=== PATIENT | female | born 1950 | race Caucasian/White ===

== ENCOUNTER 2016-02-21 15:41 | Emergency (ER) | payer MEDICAID ==
--- NOTE | 2016-02-21 16:03 | Emergency Department Report ---
Chief Complaint: Extremity Injury, Lower Stated Complaint: LEG PAIN Time Seen by Provider: 02/21/16 16:00 - HPI History of Present Illness: 65 y/o female sent to er by for arterial ultrasound.pt complain of right leg pain x 1 week after angioplasty.pt denies any shortness of breath .pt unable to stand or bear weight . - ROS Review of Systems: per HPI - Exam Vital Signs: Vital Signs 02/21/16 15:55 Temperature 98.3 F Pulse Rate 72 Respiratory 20 Rate Blood Pressure 124/63 O2 Sat by Pulse 97 Oximetry Physical Exam: GENERAL: The patient is well-developed and well-nourished. Patient is in NAD. HENT: Normocephalic. Atraumatic. Patient has moist mucous membranes. Throat: No erythema, swelling or exudates. EYES: Extraocular motions are intact, PERRL NECK: Supple. No meningitic signs are noted. There is no adenopathy noted. CHEST/LUNGS: Clear to auscultation bilaterally. No wheezing, rales or rhonchi noted. There is no respiratory distress noted. HEART/CARDIOVASCULAR: Regular rate and rhythm. Normal S1 S2. No murmurs, rubs , clicks, or gallops. ABDOMEN: Abdomen is soft, nontender.. Bowel sounds normoactive. There is no abdominal distention. Negative rebound tenderness. : Deferred SKIN: There is no rash. There is no edema. There is no diaphoresis. NEURO: The patient is A&Ox3. The patient has no focal neurologic deficits. MUSCULOSKELETAL: There is no tenderness or deformity. There is no limitation range of motion. right leg warm to touch .no pedal pulse PSYCH: Pt has appropriate mood and affect. MSE screening note: Focused history and physical exam performed. Due to findings the following was ordered: Phone order from for arterial ultrasound ED Disposition for MSE Condition: Stable
[2016-02-21] MEDS ORDERED: ZOFRAN ODT PO ONE (17:10)
[2016-02-21] MEDS ORDERED: DILAUDID IM ONE (17:10)
--- NOTE | 2016-02-21 17:20 | Emergency Department Report ---
HPI - General Chief Complaint: Extremity Injury, Lower Time Seen by Provider: 02/21/16 16:00 - HPI HPI: The patient is a 65-year-old female with a history of diabetes, who presents for evaluation of leg pain\groin pain, status post revascularization procedure 5 days ago. The patient reports right lower extremity pain and left groin pain worsened for the past one day, 10 out of 10 in severity, sharp in quality in the right lower extremity and throbbing in quality in the left groin/leg, radiating distally in the right leg, exacerbated with movement of the right lower extremity or left lower extremity at the groin region. She does also report some nausea and vomiting and difficulty sleeping last night. The patient denies fever, chills, night sweats, blunt trauma to her surgical site in the left groin, generalized weakness, paralysis or cyanosis in the distal left leg, paresthesias, or motor deficit. ED Past Medical Hx - Past Medical History Hx Hypertension: Yes Hx Diabetes: Yes - Surgical History Past Surgical History?: Yes Additional Surgical History: Angioplasty - Social History Smoking Status: Former Smoker Substance Use Type: None - Medications Home Medications: Home Medications Medication Instructions Recorded Confirmed Last Taken Type Aspirin [Aspirin BABY CHEW TAB] 81 mg PO DAILY 06/16/15 06/16/15 2 Weeks Ago History Clopidogrel Bisulfate [Plavix] 75 mg PO DAILY #30 tablet 06/16/15 Unknown Rx Gabapentin [Neurontin] 100 mg PO Q8HR 06/16/15 06/16/15 2 Weeks Ago History Insulin Admin. Supplies [Novopen 15 units SQ BID #1 insuln.pen 06/16/15 Unknown Rx Echo] Lisinopril [Zestril TAB] 20 mg PO QDAY #30 tablet 06/16/15 Unknown Rx amLODIPine [Norvasc] 5 mg PO DAILY #30 tablet 06/16/15 Unknown Rx HYDROcodone/APAP 7.5-325 [[place] 1 each PO Q8HR PRN #10 tablet 02/21/16 Unknown Rx 7.5-325 mg TAB] Ondansetron [Zofran TAB] 4 mg PO Q8HR PRN #20 tablet 02/21/16 Unknown Rx ED Review of Systems ROS: Stated complaint: LEG PAIN Other details as noted in HPI Constitutional: denies: fever Respiratory: denies: shortness of breath Cardiovascular: denies: chest pain Gastrointestinal: denies: abdominal pain Musculoskeletal: myalgia Skin: denies: rash, change in color Neurological: denies: headache Psychiatric: denies: depression Hematological/Lymphatic: denies: easy bleeding Physical Exam - Physical Exam Vital Signs: Vital Signs 02/21/16 02/21/16 15:55 16:57 Temperature 98.3 F Pulse Rate 72 64 Respiratory 20 16 Rate Blood Pressure 124/63 Blood Pressure 136/63 [Left] O2 Sat by Pulse 97 99 Oximetry Physical Exam: General: well-nourished, well-developed, no acute distress Head: Normocephalic, atraumatic Eyes: normal sclera ENT: Mucous membranes are pink and moist Neck: trachea midline, neck supple, No neck stiffness, no cervical adenopathy Respiratory: Breath sounds equal bilaterally, no wheezing, rales, or rhonchi Cardio: S1 and S2 present, no murmurs, rubs, gallops, capillary refill is brisk Abdomen: Normoactive bowel sounds, soft abdomen, no rigidity, no guarding or rebound tenderness Musc: nml inspection of both legs, left groin tender, right leg posterior tenderness, no redness, swelling, warmth, ecchymosis, fluctuance or crepitus throughout the legs bilaterally, no signs of infection, DVT, or compartment syndrome, sensation and motor function intact in the legs bilaterally Skin: No rash Neuro: no facial drooping, normal speech Psych: Normal affect ED Course Vital Signs 02/21/16 02/21/16 15:55 16:57 Temperature 98.3 F Pulse Rate 72 64 Respiratory 20 16 Rate Blood Pressure 124/63 Blood Pressure 136/63 [Left] O2 Sat by Pulse 97 99 Oximetry ED Medical Decision Making - Lab Data Result diagrams: 02/21/16 17:45 02/21/16 17:45 - Medical Decision Making The patient was seen and examined by myself. The patient is placed on a databases computer consultant and continuous pulse ox. On initial evaluation, the patient was found to be in no distress. Evaluation orders were placed. The patient is given an IM dose of Dilaudid for pain. Lab results are unremarkable. Arterial Doppler scan of the right lower extremity is unremarkable. Dr. Jaffe the vascular surgeon on-call for the patient's [facility] surgery group presents to the emergency department. He evaluated the patient's right and left legs, and submitted there were no surgical arterial vascular acute emergencies present, and that the patient is stable for discharge from the arterial vascular surgery perspective. The patient was reevaluated and reported that their symptoms were markedly improved. The patient is stable for discharge with outpatient follow-up. The patient is given follow-up and return instructions. The patient expressed understanding and agreed with the plan. The patient is discharged in stable condition. Critical care attestation.: If time is entered above; I have spent that time in minutes in the direct care of this critically ill patient, excluding procedure time. ED Disposition Clinical Impression: Nausea and vomiting in adult Acute pain of lower extremity Qualifiers: Laterality: left Qualified Code(s): M79.605 - Pain in left leg Disposition: DISCHARGED TO HOME OR SELFCARE Is pt being admited?: No Does the pt Need Aspirin: No Condition: Stable Instructions: Musculoskeletal Pain (ED), Acute Nausea and Vomiting (ED) Referrals: BLAIR OQUENDO MD [Primary Care Provider] - 3-5 Days Time of Disposition: 18:49
[2016-02-21] MEDS ORDERED: NACL 0.9% 1000 ML 1,000 ML IV ONE (17:48)
[2016-02-21] MEDS ORDERED: ZOFRAN IV ONE (17:48)
[2016-02-21] MEDS ORDERED: VALIUM IV ONE (17:48)
[2016-02-21] MEDS ORDERED: DILAUDID IV ONE (17:48)
--- NOTE | 2016-02-21 17:54 | Consultation ---
History of Present Illness - Reason for Consult Consult date: 02/21/16 Severe RLE pain - History of Present Illness 65-year-old female with poorly controlled DM with HTN who presents for evaluation of leg pain status post right SFA atherectomy, and angioplasty with drug coated balloons 5 days ago at [facility] in [place]. The patient is a poor historian and the family are poor historians. The patient complained of right greater than left claudication-like symptoms with some intermittent rest pain-like symptoms of the right foot. She had an arterial ultrasound performed demonstrating compromised ABIs bilaterally. She had an arterial revascularization performed by Dr. Travis of [facility]. After the procedure, she complains of persistent, somewhat worsened pain of the right lower extremity and left lower extremity which occur after ambulating, sometimes without ambulating, with some of the pain radiating from the foot through the posterior calf, posterior thigh, and to the back. She also has a mild discomfort at the left groin access site. No paresthesias beyond expected diabetic neuropathy. No motor dysfunction. No cyanosis. Both feet are warm and well-perfused and viable. At this point, she has no pain, but she sometimes experiences pain with minimal movement. She has a palpable right dorsalis pedis. Nonpalpable posterior tibial on the right, non-palpable left pedal pulses which are unchanged from baseline. She also reports multiple episodes of emesis and nausea after the original procedure. Past History Past Medical History: diabetes, hypertension Past Surgical History: Other (revascularization of the RLE) Social history: lives with family, smoking (former) Family history: other (non contributory) Medications and Allergies Allergies Allergy/AdvReac Type Severity Reaction Status Date / Time No Known Allergies Allergy Verified 06/16/15 17:24 Home Medications Medication Instructions Recorded Confirmed Last Taken Type Aspirin [Aspirin BABY CHEW TAB] 81 mg PO DAILY 06/16/15 06/16/15 2 Weeks Ago History Clopidogrel Bisulfate [Plavix] 75 mg PO DAILY #30 tablet 06/16/15 Unknown Rx Gabapentin [Neurontin] 100 mg PO Q8HR 06/16/15 06/16/15 2 Weeks Ago History Insulin Admin. Supplies [Novopen 15 units SQ BID #1 insuln.pen 06/16/15 Unknown Rx Echo] Lisinopril [Zestril TAB] 20 mg PO QDAY #30 tablet 06/16/15 Unknown Rx amLODIPine [Norvasc] 5 mg PO DAILY #30 tablet 06/16/15 Unknown Rx Active Meds: Active Medications Sodium Chloride (Nacl 0.9% 1000 Ml) 1,000 mls @ 999 mls/hr IV ONCE ONE Stop: 02/21/16 18:48 Review of Systems All systems: negative (see HPI) Exam - Constitutional Vitals: Temp Pulse Resp BP Pulse Ox 98.3 F 64 16 136/63 99 02/21/16 15:55 02/21/16 16:57 02/21/16 17:22 02/21/16 16:57 02/21/16 16:57 General appearance: Present: no acute distress - EENT Eyes: Present: EOM intact ENT: hearing intact - Respiratory Respiratory effort: normal - Extremities Extremities: pulses intact (right DP), normal temperature (both lower extremities), normal color (both lower extremities) Extremity abnormal: pulses diminished (nonpalpable left pedal pulses) - Abdominal General gastrointestinal: Present: soft, non-tender - Psychiatric Psychiatric: appropriate mood/affect, cooperative Results - Labs CBC & Chem 7: 02/21/16 17:45 - Imaging and Cardiology Venous US: report reviewed, image reviewed (arterial ultrasound) Assessment and Plan 65-year-old female with peripheral vascular disease status post endovascular revascularization of the right lower extremity by Dr. Travis on Monday. Patient reports worsening of her symptoms since then. On physical examination, she has bilateral lower extremities which are viable. She has a palpable right dorsalis pedis pulse. Her arterial ultrasound is improved from her baseline ultrasound. She has a palpable left common femoral artery pulse at her access site without evidence of pseudoaneurysm, bruising, or ecchymosis. No evidence of a threatened limb. No blue toes or evidence of microemboli. No lab values are back, but 8 months ago she had a hyperglycemic crisis from uncontrolled diabetes. This may represent an atypical episode of this given her nausea and vomiting. She may also have an orthopedic component from low back issues such as spinal stenosis given her complaints that somewhat sound radicular in nature. Continue aspirin and Plavix. Followup in [address] Travis.
[2016-02-21 17:56] LABS: Basophils % (Auto) 0.7 % (0.0-1.8); Eosinophils % (Auto) 0.5 % (0.0-4.3); Hematocrit 32.5 % (30.3-42.9); Hemoglobin 10.4 gm/dl (10.1-14.3); Mean Corpuscular HGB Conc 32 % (30-34); Mean Corpuscular Hemoglobin 27 pg (28-32); Mean Corpuscular Volume 83 fl (79-97); Platelet Count 225 K/mm3 (140-440); Red Blood Count 3.91 M/mm3 (3.65-5.03); Red Cell Distribution Width 13.8 % (13.2-15.2); White Blood Count 8.2 K/mm3 (4.5-11.0)
[2016-02-21 18:06] LABS: INR 0.91 (0.87-1.13)
[2016-02-21 18:07] LABS: Partial Thromboplastin Time 26.1 Sec. (24.2-36.6)
[2016-02-21 18:40] LABS: Alanine Aminotransferase 9 units/L (7-56); Albumin 3.6 g/dL (3.9-5); Albumin/Globulin Ratio 0.9 %; Alkaline Phosphatase 86 units/L (35-129); Anion Gap 17 mmol/L; Bilirubin,Total 0.2 mg/dL (0.1-1.2); Blood Urea Nitrogen 10 mg/dL (7-17); Calcium 8.9 mg/dL (8.4-10.2); Carbon Dioxide 28 mmol/L (22-30); Chloride 98.5 mmol/L (98-107); Glucose 270 mg/dL (65-100); Potassium 4.6 mmol/L (3.6-5.0); Sodium 139 mmol/L (137-145); Total Protein 7.4 g/dL (6.3-8.2)
[2016-02-21 20:20] VITALS: BP 146/67
--- NOTE | 2016-02-25 08:30 | Vascular Lab Report ---
LOWER EXTREMITY ARTERIAL DUPLEX: REASON FOR EXAM: Peripheral arterial disease. COMMENTS ON THE RIGHT: Triphasic waveforms are seen proximally. Biphasic waveforms are seen distally. No significant velocity gradients are identified. No focal significant plaque is identified. Findings are consistent with normal perfusion. Findings are consistent with the ability to heal distal wounds. IMPRESSION: RIGHT: Essentially normal arterial flow.
== END 2016-02-21 20:33 | disposition home or self-care (01) ==
LOC: ED 15:41
DX: R11.2 Nausea with vomiting, unspecified (principal); M79.604 Pain in right leg; I10 Essential (primary) hypertension; E11.9 Type 2 diabetes mellitus without complications; Z87.891 Personal history of nicotine dependence
CPT/HCPCS: 36415; 80053; 82010; 82805; 82962; 85025; 85610; 85730; 93926; 96361; 96372; 96374; 96375; 99285; J1170; J2405; J3360; J7030; J1815; Q0162

== ENCOUNTER 2016-03-06 10:17 | Emergency (ER) | payer MEDICAID | END 2016-03-06 11:00 | disposition left against medical advice (07) | LOC: ED 10:17 | DX: R11.10 Vomiting, unspecified (principal); Z53.21 Procedure and treatment not carried out due to patient leaving prior to being seen by health care provider ==

== ENCOUNTER 2016-03-15 15:21 | Inpatient (IN) | payer MEDICARE ==
[2016-03-15] MEDS: SUBLIMAZE ONE ×2 (15:10→15:23)
[2016-03-15] MEDS: VERSED ONE ×2 (15:14→15:23)
[~2016-03-15 15:21] MED LIST: ANCEF/STERILE WATER 2 GM/20 ML 20 ML IV ONE; HEPARIN ONE; HEPARIN/NS 5000 UNIT/500ML(CATH LAB) 1,000 ML IR ONE; NACL 0.9% 1000 ML 1,000 ML ONE; NACL ONE; XYLOCAINE 1%/ EPI 1:100,000 INFILTRATI ONE
[2016-03-15] MEDS ORDERED: WATER FOR INJ (PF) 20 ML ONE (15:23)
[2016-03-15] MEDS: HEPARIN 10,000 UNITS/10 ML ONE ×2 (15:30→16:16)
[2016-03-15] MEDS ORDERED: DILAUDID ONE ×2 (15:39→16:01)
[2016-03-15] MEDS: CATHFLO ONE ×2 (15:40→15:51)
[2016-03-15] MEDS ORDERED: TRIDIL DRIP 50MG/250ML 250 ML ONE (15:44)
[2016-03-15] MEDS ORDERED: HEPARIN/NS 5000 UNIT/500ML(CATH LAB) 500 ML IR ONE (15:55)
[2016-03-15] MEDS ORDERED: ZOFRAN IV PRN (16:00)
[2016-03-15] MEDS ORDERED: NACL 0.9% 1000 ML 1,000 ML IV SCH (16:00)
[2016-03-15] MEDS ORDERED: NORCO 5/325 PO PRN (16:00)
[2016-03-15] MEDS ORDERED: MORPHINE IV PRN (16:04)
[2016-03-15] MEDS ORDERED: DILAUDID IV PRN (16:04)
[2016-03-15] MEDS ORDERED: D50W (25GM) IV PRN (16:07)
--- NOTE | 2016-03-15 16:16 | Short Stay Summary ---
[id number] Current Medications: Allergies No Known Allergies Allergy (Verified 06/16/15 17:24) Home Medications Medication Instructions Recorded Confirmed Last Taken Type Aspirin [Aspirin BABY CHEW TAB] 81 mg PO DAILY 06/16/15 03/15/16 03/14/16 History Clopidogrel Bisulfate [Plavix] 75 mg PO DAILY #30 tablet 06/16/15 03/15/1603/14 Rx Gabapentin [Neurontin] 100 mg PO Q8HR 06/16/15 03/15/16 03/14/16 History Insulin Admin. Supplies [Novopen 15 units SQ BID #1 insuln.pen 06/16/1503/14/16 Rx Echo] Lisinopril [Zestril TAB] 20 mg PO QDAY #30 tablet 06/16/15 03/15/16 03/15/16 07: 00 Rx amLODIPine [Norvasc] 5 mg PO DAILY #30 tablet 06/16/15 03/15/16 03/15/16 07:00 Rx HYDROcodone/APAP 7.5-325 [[place] 1 each PO Q8HR PRN #10 tablet 02/21/16 03/15/16 03/14/16 Rx 7.5-325 mg TAB] Ondansetron [Zofran TAB] 4 mg PO Q8HR PRN #20 tablet 02/21/16 03/15/16 03/14/16 Rx Active Medications Acetaminophen/Hydrocodone Bitart ([place] 5/325) 1 each PO Q4H PRN PRN Reason: Pain, Moderate (4-6) Last Admin: 03/16/16 01:47 Dose: 1 each Amlodipine Besylate (Norvasc) 5 mg PO DAILY BRIANA Dextrose (D50w (25gm)) 50 ml IV PRN PRN PRN Reason: Hypoglycemia Gabapentin (Neurontin) 100 mg PO Q8HR BRIANA Last Admin: 03/16/16 06:10 Dose: 100 mg Hydromorphone HCl (Dilaudid) 0.5 mg IV Q3H PRN PRN Reason: Pain , Severe (7-10) Heparin Sodium/Sodium Chloride (Heparin/ 0.45% Nacl-25,000 Unit/500 Ml) 500 mls @ 24 mls/hr IV TITR BRIANA; 1,200 UNITS/HR PRN Reason: Protocol Stop: 03/16/16 15:00 Last Titration: 03/16/16 05:04 Dose: 1,200 units/hr Sodium Chloride (Nacl 0.9% 1000 Ml) 1,000 mls @ 75 mls/hr IV DIRECT BRIANA Insulin Aspart (Novolog) 0 units SUB-Q ACHS BRIANA PRN Reason: Protocol Last Admin: 03/16/16 03:40 Dose: 1 units Insulin Human NPH (Novolin N) 10 unit SUB-Q BIDDIAB [facility] Lisinopril (Zestril) 20 mg PO QDAY [facility] Morphine Sulfate (Morphine) 2 mg IV Q3H PRN PRN Reason: Pain, Moderate (4-6) Last Admin: 03/16/16 06:09 Dose: 2 mg Ondansetron HCl (Zofran) 4 mg IV Q8H PRN PRN Reason: Nausea And Vomiting Rivaroxaban (Xarelto) 15 mg PO BIDDIAB BRIANA PRN Reason: Protocol - Brief post op/procedure progress note Procedure: Operative Report Operative Report: Date of Procedure: 03/15/2016 Pre-operative Diagnosis: Acute Left Lower Extremity Ischemia Post-operative Diagnosis: Same Procedure(s): 1. Diagnostic Left Lower Extremity Arteriogram (Patient Had a Clinical Change) 2. Percutaneous Mechanical Thrombectomy of Left Posterior Tibial Artery with A 6 [place] Guide Catheter 3. Percutaneous Mechanical Thrombectomy of Left Popliteal Artery and Tibioperoneal Trunk With 6 [place] Guide Catheter 4. Angioplasty and Stent of Left Posterior Tibial Artery with 2.5 x 120 Balloon in the Pedal Arch, 3.5 x 200 Balloon In the Posterior Tibial Artery, Followed by 4.0 x 36 mm Medtronic Resolute Drug-Eluting Stent 5. Atherectomy with Angioplasty of Left SFA and Popliteal Arteries with 2.4/ 3.4 JetStream Atherectomy Catheter And a 5 x 250 Balloon 6. Closer of Right Femoral Arteriotomy with 6 [place] Angio-Seal 7. Radiologic Supervision with Interpretation Surgeon: Mohsen Cash M.D. Enrollment Advisor: None Anesthesia: Local and IV sedation EBL: Minimal Counts: Correct Complications: None Condition: Stable Specimen: None Indication: The patient is a 65-year-old female with a history of claudication who was undergoing an aggressive procedure and our outpatient Center. During the procedure she developed thrombus in her tibial vessels requiring emergent transfer to the hospital for intervention. Her daughter was given the risks, benefits, and alternative procedures and extensive procedure. Angiographic Findings: Left common iliac, hypogastric, and external iliac arteries were widely patent. The left common femoral and profunda were widely patent. The SFA had several segments of stenosis varying from 40-60%. The popliteal artery was diffusely diseased with several areas of stenosis varying from 30-80%. There was residual thrombus in the TP trunk was approximately 60% narrowing of the lumen. The thrombus within the TP trunk extended into the peroneal artery. The peroneal artery was occluded below the short segment containing the thrombus. That should tibial artery occluded shortly after it's origin. The posterior tibial artery appeared to have multiple segments of stenosis of approximately 30 -50% including a 50% stenosis at the origin. The extension of the posterior tibial artery into the foot as the pedal arch had a sharp occlusion indicative of thrombus. After intervention the posterior tibial artery and tibioperoneal trunk were widely patent. Popliteal artery was widely patent. The SFA was patent with a short segment dissection in the mid SFA however this was not flow- limiting and the remainder artery was widely patent. - Disposition Condition at discharge: Good Disposition: DISCHARGED TO HOME OR SELFCARE - Discharge Diagnoses (1) Ischemia of left lower extremity Status: Acute Short Stay Discharge Plan Activity: advance as tolerated Weight Bearing Status: Weight Bear as Tolerated Diet: regular Wound: keep clean and dry Additional Instructions: Follow up with your PCP for uncontrolled high blood pressure. Follow up with: MOHSEN CASH MD [Staff Physician] - 14 Days Prescriptions: Rivaroxaban [Xarelto Starter Pack] 1 each PO BID #1 tab.ds.pk <ROSARIO MENDIETA - Last Filed: 03/18/16 08:06> Short Stay Documentation Date of service: 03/15/16 - History Principal diagnosis: PVD with arterial embolis Past Medical History: diabetes, hypertension, PVD, other (arterial embolis) Past Surgical History: Other (revascularization on right, left leg) Social history: no significant social history - Allergies and Medications Current Medications: Allergies No Known Allergies Allergy (Verified 06/16/15 17:24) Home Medications Medication Instructions Recorded Confirmed Last Taken Type Aspirin [Aspirin BABY CHEW TAB] 81 mg PO DAILY 06/16/15 06/16/15 2 Weeks Ago History Clopidogrel Bisulfate [Plavix] 75 mg PO DAILY #30 tablet 06/16/15 Unknown Rx Gabapentin [Neurontin] 100 mg PO Q8HR 06/16/15 06/16/15 2 Weeks Ago History Insulin Admin. Supplies [Novopen 15 units SQ BID #1 insuln.pen 06/16/15 Unknown Rx Echo] Lisinopril [Zestril TAB] 20 mg PO QDAY #30 tablet 06/16/15 Unknown Rx amLODIPine [Norvasc] 5 mg PO DAILY #30 tablet 06/16/15 Unknown Rx HYDROcodone/APAP 7.5-325 [[place] 1 each PO Q8HR PRN #10 tablet 02/21/16 Unknown Rx 7.5-325 mg TAB] Ondansetron [Zofran TAB] 4 mg PO Q8HR PRN #20 tablet 02/21/16 Unknown Rx Active Medications Acetaminophen/Hydrocodone Bitart ([place] 5/325) 1 each PO Q4H PRN PRN Reason: Pain, Moderate (4-6) Hydromorphone HCl (Dilaudid) 0.5 mg IV Q3H PRN PRN Reason: Pain , Severe (7-10) Heparin Sodium/Sodium Chloride (Heparin/ 0.45% Nacl-25,000 Unit/500 Ml) 500 mls @ IV TITR BRIANA; 15 UNITS/KG/HR PRN Reason: Protocol Sodium Chloride (Nacl 0.9% 1000 Ml) 1,000 mls @ 75 mls/hr IV DIRECT BRIANA Morphine Sulfate (Morphine) 2 mg IV Q3H PRN PRN Reason: Pain, Moderate (4-6) Ondansetron HCl (Zofran) 4 mg IV Q8H PRN PRN Reason: Nausea And Vomiting - Physical exam General appearance: no acute distress Integumentary: no rash, no growths HEENT: Atraumatic Lungs: Normal air movement Breasts: deferred Heart: Regular rate Gastrointestinal: normal Female Genitourinary: normal Rectal Exam: deferred Extremities: abnormal (s/p intervention) Neurological: Normal speech - Brief post op/procedure progress note Date of procedure: 03/15/16 Pre-op diagnosis: PVD with arterial embolis Post-op diagnosis: same Procedure: LLE revascularization Anesthesia: local Surgeon: MOHSEN CASH Enrollment Advisor: NORMAN AGUIRRE Estimated blood loss: minimal Pathology: none Condition: stable Short Stay Discharge Plan Activity: advance as tolerated Weight Bearing Status: Weight Bear as Tolerated Diet: regular Wound: keep clean and dry, per your surgeon's advice
--- NOTE | 2016-03-15 17:17 | Operative Report ---
Operative Report Operative Report: Date of Procedure: 03/15/2016 Pre-operative Diagnosis: Acute Left Lower Extremity Ischemia Post-operative Diagnosis: Same Procedure(s): 1. Diagnostic Left Lower Extremity Arteriogram (Patient Had a Clinical Change) 2. Percutaneous Mechanical Thrombectomy of Left Posterior Tibial Artery with A 6 [place] [employer] Guide Catheter 3. Percutaneous Mechanical Thrombectomy of Left Popliteal Artery and Tibioperoneal Trunk With 6 [place] Guide Catheter 4. Angioplasty and Stent of Left Posterior Tibial Artery with 2.5 x 120 Balloon in the Pedal Arch, 3.5 x 200 Balloon In the Posterior Tibial Artery, Followed by 4.0 x 36 mm Medtronic Resolute Drug-Eluting Stent 5. Atherectomy with Angioplasty of Left SFA and Popliteal Arteries with 2.4/ 3.4 JetStream Atherectomy Catheter And a 5 x 250 Balloon 6. Closer of Right Femoral Arteriotomy with 6 [place] [employer] Angio-Seal 7. Radiologic Supervision with Interpretation Surgeon: Mohsen Cash M.D. Soap Drier Operator: None Anesthesia: Local and IV sedation EBL: Minimal Counts: Correct Complications: None Condition: Stable Specimen: None Indication: The patient is a 65-year-old female with a history of claudication who was undergoing an aggressive procedure and our outpatient Center. During the procedure she developed thrombus in her tibial vessels requiring emergent transfer to the hospital for intervention. Her daughter was given the risks, benefits, and alternative procedures and extensive procedure. Angiographic Findings: Left common iliac, hypogastric, and external iliac arteries were widely patent. The left common femoral and profunda were widely patent. The SFA had several segments of stenosis varying from 40-60%. The popliteal artery was diffusely diseased with several areas of stenosis varying from 30-80%. There was residual thrombus in the TP trunk was approximately 60% narrowing of the lumen. The thrombus within the TP trunk extended into the peroneal artery. The peroneal artery was occluded below the short segment containing the thrombus. That should tibial artery occluded shortly after it's origin. The posterior tibial artery appeared to have multiple segments of stenosis of approximately 30 -50% including a 50% stenosis at the origin. The extension of the posterior tibial artery into the foot as the pedal arch had a sharp occlusion indicative of thrombus. After intervention the posterior tibial artery and tibioperoneal trunk were widely patent. Popliteal artery was widely patent. The SFA was patent with a short segment dissection in the mid SFA however this was not flow- limiting and the remainder artery was widely patent. Description of Procedure: The patient was brought to the laborer tin can and laid in the supine position. After she was adequately sedated her right groin prepped and draped in normal sterile fashion. The patient had an indwelling short 7 [place] Citizen sheath. A ProspX wire was advanced through the sheath into the aorta and then the Omni Flush catheter was used to advance up and over the bifurcation. The left portion runoff was performed previously described findings. The 7 [place] [employer] sheath was removed and exchanged for 7 [place] Citizen 45 cm destination sheath. At this point the patient was given additional heparin IV. A glide catheter and V18 wire were then used to traverse all lesions and the wire and catheter were advanced onto the pedal arch to the posterior tibial artery. The wire was exchanged for 0.014 wire and balloon angioplasty, with a 2.5 x 120 balloon, was performed in the pedal arch to morcellate the thrombus. I then performed balloon angioplasty of all lesions in the posterior tibial artery with a 3.5 x 200 balloon. 10 mg of TPA and 600 mg and nitroglycerin were then injected into the pedal arch. The follow -up was also widely patent pedal arch with no residual thrombus and a patent posterior tibial artery although there was approximately 30-40% residual stenosis at the origin. I advanced a 0.014 Spartacore wire into the posterior tibial artery and then performed atherectomy of the SFA and popliteal artery lesions with the 2.4/3.4 [email or web address] Athrectomy catheter. Additionally attempted to perform atherectomy with partial thrombectomy of the tibioperoneal trunk. I then performed balloon angioplasty with a 5 x 250 balloon. The result was a patent SFA however there was a nonflow limiting dissection. The short of the popliteal artery was widely patent however there was thrombus extending from the popliteal artery down onto the TP trunk and posterior tibial artery. I used a 6 [place] [employer] guide catheter to perform percutaneous mechanical thrombectomy of the thrombus however there was residual rhombus in the TP trunk. I decided to treat this area with a drug-eluting stent extending from the posterior tibial artery into the TP trunk. I deployed the 4 x 36 Medtronic Resolute eluding stent and follow with an angiogram that demonstrated widely patent TP trunk and posterior tibial artery. I removed all portals and wires and pulled the sheath back into the right external iliac artery. I advanced the best warrant to the aorta and initially tried to close the arteriotomy with a Perclose Y Glenn saw close the right femoral arteriotomy with a 6 [place] [employer] Angio-Seal. The patient tolerated the procedure well. All sponge, needle, and instrument counts were correct. The patient was taken to the recovery area in stable condition. The patient had a palpable posterior tibial pulse at the end the case.
[2016-03-15] MEDS ORDERED: APRESOLINE ONE (17:40)
[2016-03-15] MEDS ORDERED: APRESOLINE IV ONE (18:00)
[2016-03-15] MEDS ORDERED: HEPARIN/ 0.45% NACL-25,000 UNIT/500 ML 500 ML IV SCH (18:00)
[2016-03-15] MEDS ORDERED: HEPARIN/ 0.45% NACL-25,000 UNIT/500 ML 500 ML ONE (18:11)
[2016-03-15 18:36] LABS: Hematocrit 24.3 % (30.3-42.9); Hemoglobin 8.2 gm/dl (10.1-14.3)
[2016-03-15 18:46] LABS: INR 1.11 (0.87-1.13)
[2016-03-15 19:00] LABS: Partial Thromboplastin Time 163.4 Sec. (24.2-36.6)
[2016-03-15] MEDS: NEURONTIN PO SCH (22:15)
[2016-03-16] MEDS: NOVOLOG SUB-Q SCH ×3 (03:40→15:00)
[2016-03-16] MEDS: NEURONTIN PO SCH ×2 (06:10→15:00)
--- NOTE | 2016-03-16 08:28 | Admit Criteria Form ---
Admission Criteria Documentation: VASCULAR DISEASE GRG Clinical Indications for Admission to Inpatient Care (Place 'X' for any and all applicable criteria): Hospital admission is needed for appropriate care of the patient because of ANY ONE of the following (1)(2)(3)(4): [ ]I. Life-threatening or limb-threatening skin ulcer as indicated by ANY ONE of the following(5): [ ]a) Surrounding cellulitis unresponsive to outpatient treatment [ ]b) Wet gangrene [ ]c) Lymphangitis [ ]d) Bacteremia [ ]II. Gangrene requiring intensity and frequency of care not manageable to outpatient, emergency, or observation level of care(5) [ ]III. Severe pain requiring acute inpatient management [X]IV. Interventional revascularization (eg, surgery, thrombolysis) needed (eg , critical limb ischemia)(21) [ ]V. Urgent inpatient IV anticoagulation needed due to ALL of the following: [ ]a) Temporary subtherapeutic anticoagulation unacceptable because of high risk of short-term venous or arterial thromboembolism due to ANY ONE of the following(7)(8)(9): [ ]i) Venous thromboembolism within the past 12 months [ ]ii) Underlying malignancy [ ]iii) Patient with mechanical cardiac valve(10)(11) [ ]iv) Underlying hypercoagulable state (eg, protein C or protein S deficiency, antithrombin deficiency, antiphospholipid antibodies) [ ]v) Patient at high risk of thromboembolism (eg, status post orthopedic surgery, history of recurrent venous thromboembolism) [ ]vi) Atrial fibrillation with rheumatic valvular heart disease [ ]vii) Atrial fibrillation with 3 or MORE of the following : [ ]1) Congestive heart failure [ ]2) Hypertension [ ]3) Age 65 years or older [ ]4) Diabetes mellitus [ ]5) History of thromboembolism (eg, stroke, TIA , or systemic embolization) more than 3 months ago [ ]6) Female gender [ ]b) Contraindications to outpatient use of "bridging" agent or alternative oral anticoagulant as indicated by ALL of the following: [ ]i) Contraindication to outpatient use of low-molecular -weight heparin as "bridging" agent as indicated by ANY ONE of the following(8) : [ ]1) Documented current or history of heparin- induced thrombocytopenia(12) [ ]2) Severe thrombocytopenia (eg, platelet count less than 50,000/mm3 (50 x109/L)) [ ]3) Documented allergy to heparin, low- molecular-weight heparin, or pork products [ ]4) Renal failure (creatinine clearance < 30 mL /min/1.73m2 (0.50 mL/sec/1.73m2) or on dialysis) [ ]5) Inability to manage self-injection (eg, by patient, caregiver, or visiting nurse) [ ]ii) Contraindication to outpatient use of fondaparinux as "bridging" agent as indicated by ANY ONE of the following(13)(14)(15)(16): [ ]1) Severe thrombocytopenia (eg, platelet count less than 50,000/mm3 (50 x109/L)) [ ]2) Hypersensitivity to fondaparinux, related drugs, or product components [ ]3) Renal failure (creatinine clearance less than 30 mL/min/1.73m2 (0.50 mL/sec/1.73m2) or on dialysis) [ ]4) Inability to manage self-injection (eg, by patient, caregiver, or visiting nurse) [ ]iii) Oral direct thrombin inhibitor (eg, dabigatran) or oral coagulation factor Xa inhibitor (eg, rivaroxaban) not appropriate as oral anticoagulation (eg, indication not appropriate) or contraindicated (eg, hypersensitivity, renal failure)(13)(16)(17)(18)(19)(20) [X]. Suspected severe acute ischemia due to peripheral vascular disease as indicated by ANY ONE of the following(5)(6): [ ]a) Tissue necrosis [X]b) Severe pain [ ]c) Acute pulselessness [ ]d) Other evidence of acute severe ischemia (eg, lactic acidosis , motor dysfunction) [ ]VII. Acute or newly diagnosed major vessel (eg, aorta) dissection, rupture, or leakage(5)(6)(22)(23) [ ]VIII.Vascular Disease and ALL of the following: [ ]a) Symptom or finding for which emergency and observation care have failed or are not considered appropriate (Use General Criteria: Observation Care as appropriate) [ ]b) Presence of ANY ONE of the following: [ ]i) A General Admission Criteria [ ]ii) A Pediatric General Admission Criteria The original [facility] content created by [facility] has been revised. The portions of the content which have been revised are identified through the use of italic text or in bold, and [facility] has neither reviewed nor approved the modified material. All other unmodified content is copyright [facility]. Please see references footnoted in the original [facility] edition 2016 Admission Criteria Met: Yes
[2016-03-16 09:59] LABS: Blood Urea Nitrogen 9 mg/dL (7-17); Calcium 8.3 mg/dL (8.4-10.2); Carbon Dioxide 27 mmol/L (22-30); Glucose 290 mg/dL (65-100)
--- NOTE | 2016-03-16 09:59 | XRay Report ---
AP CHEST: HISTORY: Productive cough. FINDINGS: The cardiac silhouette and pulmonary vascularity are borderline. The lungs are clear. No evidence for pneumonia, CHF or pneumothorax. Normal bony thorax. IMPRESSION: Borderline heart size and pulmonary vascularity. No acute infiltrate or CHF.
[2016-03-16 10:00] LABS: Anion Gap 17 mmol/L; Chloride 98.4 mmol/L (98-107); Potassium 4.2 mmol/L (3.6-5.0); Sodium 138 mmol/L (137-145)
[2016-03-16] MEDS ORDERED: ZESTRIL PO SCH (10:00)
[2016-03-16] MEDS ORDERED: NORVASC PO SCH (10:00)
[2016-03-16 10:13] LABS: Hematocrit 23.3 % (30.3-42.9); Hemoglobin 7.4 gm/dl (10.1-14.3); Mean Corpuscular HGB Conc 32 % (30-34); Mean Corpuscular Volume 82 fl (79-97); Platelet Count 372 K/mm3 (140-440); Red Blood Count 2.84 M/mm3 (3.65-5.03); Red Cell Distribution Width 14.5 % (13.2-15.2); White Blood Count 12.7 K/mm3 (4.5-11.0)
[2016-03-16 10:14] LABS: Mean Corpuscular Hemoglobin 26 pg (28-32)
--- NOTE | 2016-03-16 10:57 | Consultation ---
History of Present Illness - Reason for Consult Consult date: 03/16/16 management of htn and diabetes Requesting physician: NORMAN AGUIRRE - History of Present Illness Patient is 65 yo with acute leg ischemia, s/p vasc procedure Past History Past Medical History: diabetes, hypertension, PVD, other (arterial embolis) Past Surgical History: Other (revascularization on right, left leg) Social history: no significant social history Medications and Allergies Allergies Allergy/AdvReac Type Severity Reaction Status Date / Time No Known Allergies Allergy Verified 06/16/15 17:24 Home Medications Medication Instructions Recorded Confirmed Last Taken Type Aspirin [Aspirin BABY CHEW TAB] 81 mg PO DAILY 06/16/15 03/15/16 03/14/16 History Clopidogrel Bisulfate [Plavix] 75 mg PO DAILY #30 tablet 06/16/15 03/15/1603/14 Rx Gabapentin [Neurontin] 100 mg PO Q8HR 06/16/15 03/15/16 03/14/16 History Insulin Admin. Supplies [Novopen 15 units SQ BID #1 insuln.pen 06/16/1503/14/16 Rx Echo] Lisinopril [Zestril TAB] 20 mg PO QDAY #30 tablet 06/16/15 03/15/16 03/15/16 07: 00 Rx amLODIPine [Norvasc] 5 mg PO DAILY #30 tablet 06/16/15 03/15/16 03/15/16 07:00 Rx HYDROcodone/APAP 7.5-325 [[place]ster 1 each PO Q8HR PRN #10 tablet 02/21/16 03/15/16 03/14/16 Rx 7.5-325 mg TAB] Ondansetron [Zofran TAB] 4 mg PO Q8HR PRN #20 tablet 02/21/16 03/15/16 03/14/16 Rx Rivaroxaban [Xarelto Starter Pack] 1 each PO BID #1 tab.ds.pk 03/16/16 Unknown Rx Active Meds: Active Medications Acetaminophen/Hydrocodone Bitart (Webster 5/325) 1 each PO Q4H PRN PRN Reason: Pain, Moderate (4-6) Last Admin: 03/16/16 01:47 Dose: 1 each Amlodipine Besylate (Norvasc) 5 mg PO DAILY BRIANA Dextrose (D50w (25gm)) 50 ml IV PRN PRN PRN Reason: Hypoglycemia Gabapentin (Neurontin) 100 mg PO Q8HR BRIANA Last Admin: 03/16/16 06:10 Dose: 100 mg Hydromorphone HCl (Dilaudid) 0.5 mg IV Q3H PRN PRN Reason: Pain , Severe (7-10) Heparin Sodium/Sodium Chloride (Heparin/ 0.45% Nacl-25,000 Unit/500 Ml) 500 mls @ 24 mls/hr IV TITR BRIANA; 1,200 UNITS/HR PRN Reason: Protocol Last Titration: 03/16/16 05:04 Dose: 1,200 units/hr Sodium Chloride (Nacl 0.9% 1000 Ml) 1,000 mls @ 75 mls/hr IV DIRECT BRIANA Insulin Aspart (Novolog) 0 units SUB-Q ACHS BRIANA PRN Reason: Protocol Last Admin: 03/16/16 03:40 Dose: 1 units Lisinopril (Zestril) 20 mg PO QDAY BRIANA Morphine Sulfate (Morphine) 2 mg IV Q3H PRN PRN Reason: Pain, Moderate (4-6) Last Admin: 03/16/16 06:09 Dose: 2 mg Ondansetron HCl (Zofran) 4 mg IV Q8H PRN PRN Reason: Nausea And Vomiting Exam - Physical Exam Narrative exam: Gen appearance : Not in acute distres, HEENT: Normocephalic atraumatic Neck: supple, no JVD. Lungs: Clear to auscultation bilat Heart: S1 and S2 regular, no murmurs, rubs or gallop Abdomen: soft, non-tender, non-distended, normal bowel sounds Extremities: No edema, no clubbing or cyanosis Neuro : Awake alert oriented 3, no focal signs skin; no rashes - Constitutional Vitals: Temp Pulse Resp BP Pulse Ox 98.8 F 85 18 164/73 100 03/16/16 08:00 03/16/16 08:00 03/16/16 08:00 03/16/16 08:00 03/16/16 08:00 Results - Labs CBC & Chem 7: 03/16/16 09:26 03/16/16 09:26 Labs: Abnormal lab results 03/15/16 03/15/16 03/15/16 Range/Units 17:55 18:15 18:15 WBC (4.5-11.0) K/mm3 RBC (3.65-5.03) M/mm3 Hgb 8.2 L (10.1-14.3) gm/dl Hct 24.3 L (30.3-42.9) % MCH (28-32) pg APTT 163.4 H* (24.2-36.6) Sec. Creatinine (0.7-1.2) mg/dL Glucose (65-100) mg/dL POC Glucose 162 H (70-105) Calcium (8.4-10.2) mg/dL 03/15/16 03/16/16 03/16/16 Range/Units 22:48 08:18 09:26 WBC 12.7 H (4.5-11.0) K/mm3 RBC 2.84 L (3.65-5.03) M/mm3 Hgb 7.4 L (10.1-14.3) gm/dl Hct 23.3 L (30.3-42.9) % MCH 26 L (28-32) pg APTT (24.2-36.6) Sec. Creatinine (0.7-1.2) mg/dL Glucose (65-100) mg/dL POC Glucose 193 H 200 H (70-105) Calcium (8.4-10.2) mg/dL 03/16/16 Range/Units 09:26 WBC (4.5-11.0) K/mm3 RBC (3.65-5.03) M/mm3 Hgb (10.1-14.3) gm/dl Hct (30.3-42.9) % MCH (28-32) pg APTT (24.2-36.6) Sec. Creatinine 0.5 L (0.7-1.2) mg/dL Glucose 290 H (65-100) mg/dL POC Glucose (70-105) Calcium 8.3 L (8.4-10.2) mg/dL Assessment and Plan Acute left leg ischemia s/p procedure. Hypertension. Cont home meds DM type 2. Give Novolin bid
--- NOTE | 2016-03-16 12:47 | Progress Note ---
Assessment and Plan Patient status post revascularization to her left lower extremity. We'll convert from heparin to Xarelto. Will increase activity. If this is tolerated then she can be discharged home later today. - Patient Problems (1) Ischemia of left lower extremity Current Visit: Yes Status: Acute Subjective Date of service: 03/16/16 Principal diagnosis: PVD with arterial embolis Interval history: Patient was sleeping but awoke easily to verbal stimulus. She is without complaint at present. Objective - Constitutional Vitals: Vital Signs - 12hr 03/16/16 03/16/16 03/16/16 01:47 02:05 02:47 Temperature 100.5 F H Pulse Rate [ 89 Brachial] Respiratory 20 20 20 Rate Blood Pressure 150/62 [Left Arm] O2 Sat by Pulse 98 Oximetry 03/16/16 03/16/16 06:09 08:00 Temperature 98.8 F Pulse Rate [ 85 Brachial] Respiratory 16 18 Rate Blood Pressure 164/73 [Left Arm] O2 Sat by Pulse 100 Oximetry General appearance: Present: no acute distress - EENT Eyes: EOM intact ENT: hearing intact - Neck Neck: supple - Respiratory Respiratory effort: normal Extremities: no ischemia, normal temperature, abnormal (right groin is soft, bandages are clean dry and intact) Extremity abnormal: other (palpable posterior tibial pulse on the left) - Gastrointestinal General gastrointestinal: Present: soft - Neurologic Neurologic: no focal deficits - Psychiatric Psychiatric: appropriate mood/affect, cooperative - Labs CBC & Chem 7: 03/16/16 09:26 03/16/16 09:26 Labs: Abnormal lab results 03/15/16 03/15/16 03/15/16 Range/Units 17:55 18:15 18:15 WBC (4.5-11.0) K/mm3 RBC (3.65-5.03) M/mm3 Hgb 8.2 L (10.1-14.3) gm/dl Hct 24.3 L (30.3-42.9) % MCH (28-32) pg APTT 163.4 H* (24.2-36.6) Sec. Creatinine (0.7-1.2) mg/dL Glucose (65-100) mg/dL POC Glucose 162 H (70-105) Calcium (8.4-10.2) mg/dL 03/15/16 03/16/16 03/16/16 Range/Units 22:48 08:18 09:26 WBC 12.7 H (4.5-11.0) K/mm3 RBC 2.84 L (3.65-5.03) M/mm3 Hgb 7.4 L (10.1-14.3) gm/dl Hct 23.3 L (30.3-42.9) % MCH 26 L (28-32) pg APTT (24.2-36.6) Sec. Creatinine (0.7-1.2) mg/dL Glucose (65-100) mg/dL POC Glucose 193 H 200 H (70-105) Calcium (8.4-10.2) mg/dL 03/16/16 03/16/16 Range/Units 09:26 11:50 WBC (4.5-11.0) K/mm3 RBC (3.65-5.03) M/mm3 Hgb (10.1-14.3) gm/dl Hct (30.3-42.9) % MCH (28-32) pg APTT (24.2-36.6) Sec. Creatinine 0.5 L (0.7-1.2) mg/dL Glucose 290 H (65-100) mg/dL POC Glucose 279 H (70-105) Calcium 8.3 L (8.4-10.2) mg/dL
[2016-03-16] MEDS ORDERED: XARELTO PO SCH (13:00)
[2016-03-16 16:44] VITALS: BP 152/70
== END 2016-03-16 18:00 | disposition home or self-care (01) | DRG 271 ==
LOC: CATH 15:21 → 3A 16:00 → 2B-SURG 18:23
PROVIDERS: ADMIT Surgery Vascular Surgery; ATTEND Surgery Vascular Surgery
PROC: 04CS3ZZ Extirpation of Matter from Left Posterior Tibial Artery, Percutaneous Approach (ICD-10-PCS; principal; 2016-03-15)
PROC: [UNRECOGNIZED PROCEDURE] (2016-03-15)
PROC: 04CU3ZZ Extirpation of Matter from Left Peroneal Artery, Percutaneous Approach (ICD-10-PCS; 2016-03-15)
PROC: 047S34Z Dilation of Left Posterior Tibial Artery with Drug-eluting Intraluminal Device, Percutaneous Approach (ICD-10-PCS; 2016-03-15)
PROC: 04CL3ZZ Extirpation of Matter from Left Femoral Artery, Percutaneous Approach (ICD-10-PCS; 2016-03-15)
PROC: 3E05317 Introduction of Other Thrombolytic into Peripheral Artery, Percutaneous Approach (ICD-10-PCS; 2016-03-15)
DX: I70.202 Unspecified atherosclerosis of native arteries of extremities, left leg (principal); I74.3 Embolism and thrombosis of arteries of the lower extremities; I99.8 Other disorder of circulatory system; I10 Essential (primary) hypertension; E11.51 Type 2 diabetes mellitus with diabetic peripheral angiopathy without gangrene; Z79.82 Long term (current) use of aspirin; Z79.899 Other long term (current) drug therapy
CPT/HCPCS: 36415; 37225; 37230; 71010; 75710; 80048; 82962; 85014; 85018; 85027; 85049; 85520; 85610; 85730; 96374; C1724; C1725; C1760; C1769; C1874; C1887; J0360; J0690; J1170; J1644; J1815; J2250; J2270; J2405; J2997; J3010; J7030; Q9967

== ENCOUNTER 2016-03-26 01:53 | Emergency (ER) | payer MEDICARE ==
[2016-03-26 02:28] LABS: Basophils % (Auto) 0.2 % (0.0-1.8); Eosinophils % (Auto) 0.1 % (0.0-4.3); Hematocrit 25.5 % (30.3-42.9); Mean Corpuscular HGB Conc 32 % (30-34); Mean Corpuscular Volume 79 fl (79-97); Platelet Count 457 K/mm3 (140-440); Red Blood Count 3.23 M/mm3 (3.65-5.03); Red Cell Distribution Width 14.8 % (13.2-15.2); White Blood Count 11.9 K/mm3 (4.5-11.0)
[2016-03-26 02:34] LABS: Mean Corpuscular Hemoglobin 25 pg (28-32)
[2016-03-26 02:41] LABS: INR 2.84 (0.87-1.13)
[2016-03-26 02:42] LABS: Partial Thromboplastin Time 57.7 Sec. (24.2-36.6)
[2016-03-26 02:48] LABS: Anion Gap 19 mmol/L; Blood Urea Nitrogen 12 mg/dL (7-17); Calcium 8.7 mg/dL (8.4-10.2); Carbon Dioxide 26 mmol/L (22-30); Chloride 92.2 mmol/L (98-107); Glucose 223 mg/dL (65-100); Potassium 4.5 mmol/L (3.6-5.0); Sodium 133 mmol/L (137-145)
[2016-03-26 03:48] VITALS: BP 155/68
--- NOTE | 2016-03-26 03:50 | Emergency Department Report ---
ED General Adult HPI - General Chief complaint: Nosebleed Stated complaint: NOSE BLEED Time Seen by Provider: 03/26/16 03:33 Source: patient Mode of arrival: Wheelchair Limitations: No Limitations - History of Present Illness Initial comments: This is a 65-year-old female who is on Coumadin due to DVT history. She indicates over the last 3 days she's had on and off nosebleeds sometimes on the left sometimes on the right sometimes draining the back of her throat. She is able to control them at home each time. She is frustrated that they continue to occur though. She describes fatigue and weakness in general that has been going on for the past couple of weeks. She also reports some nausea intermittently during the same time. She reports being on Zofran in the past. She reports this helps somewhat with her nausea but continues to have a regardless. Onset/Timin -: Sudden Location: face Radiation: non-radiation Severity scale (0 -10): 3 Quality: other Consistency: other Improves with: other (direct pressure) Worsens with: none Associated Symptoms: loss of appetite, weakness. denies: headaches, shortness of breath - Related Data Home Medications Medication Instructions Recorded Confirmed Last Taken Aspirin [Aspirin BABY CHEW TAB] 81 mg PO DAILY 06/16/15 03/15/16 03/14/16 Gabapentin [Neurontin] 100 mg PO Q8HR 06/16/15 03/15/16 03/14/16 Previous Rx's Medication Instructions Recorded Last Taken Type Clopidogrel Bisulfate [Plavix] 75 mg PO DAILY #30 tablet 06/16/15 03/14/16 Rx Insulin Admin. Supplies [Novopen 15 units SQ BID #1 insuln.pen 06/16/15 Rx Echo] Lisinopril [Zestril TAB] 20 mg PO QDAY #30 tablet 06/16/15 03/15/16 07:00 Rx amLODIPine [Norvasc] 5 mg PO DAILY #30 tablet 06/16/15 03/15/16 07:00 Rx HYDROcodone/APAP 7.5-325 [[place] 1 each PO Q8HR PRN #10 tablet 02/21/16 03/14/16 Rx 7.5-325 mg TAB] Rivaroxaban [Xarelto Starter Pack] 1 each PO BID #1 tab.ds.pk 03/16/16 Unknown Rx Ondansetron [Zofran TAB] 4 mg PO Q8HR PRN #20 tablet 03/26/16 Unknown Rx Allergies Allergy/AdvReac Type Severity Reaction Status Date / Time No Known Allergies Allergy Verified 06/16/15 17:24 ED Review of Systems ROS: Stated complaint: NOSE BLEED Other details as noted in HPI Constitutional: weakness. denies: chills, fever Eyes: denies: eye pain, eye discharge, vision change ENT: epistaxis. denies: ear pain, throat pain Respiratory: denies: cough, shortness of breath, wheezing Cardiovascular: denies: chest pain, palpitations Endocrine: no symptoms reported Gastrointestinal: nausea. denies: abdominal pain, diarrhea Genitourinary: denies: urgency, dysuria, discharge Musculoskeletal: denies: back pain, joint swelling, arthralgia Skin: denies: rash, lesions Neurological: denies: headache, weakness, paresthesias Psychiatric: denies: anxiety, depression Hematological/Lymphatic: easy bleeding. denies: easy bruising ED Past Medical Hx - Past Medical History Previous Medical History?: Yes Hx Hypertension: Yes Hx Diabetes: Yes Hx Deep Vein Thrombosis: Yes (FEB 2016) - Surgical History Past Surgical History?: Yes Additional Surgical History: Angioplasty - Social History Smoking Status: Former Smoker - Medications Home Medications: Home Medications Medication Instructions Recorded Confirmed Last Taken Type Aspirin [Aspirin BABY CHEW TAB] 81 mg PO DAILY 06/16/15 03/15/16 03/14/16 History Clopidogrel Bisulfate [Plavix] 75 mg PO DAILY #30 tablet 06/16/15 03/15/1603/14 Rx Gabapentin [Neurontin] 100 mg PO Q8HR 06/16/15 03/15/16 03/14/16 History Insulin Admin. Supplies [Novopen 15 units SQ BID #1 insuln.pen 06/16/1503/14/16 Rx Echo] Lisinopril [Zestril TAB] 20 mg PO QDAY #30 tablet 06/16/15 03/15/16 03/15/16 07: 00 Rx amLODIPine [Norvasc] 5 mg PO DAILY #30 tablet 06/16/15 03/15/16 03/15/16 07:00 Rx HYDROcodone/APAP 7.5-325 [[place] 1 each PO Q8HR PRN #10 tablet 02/21/16 03/15/16 03/14/16 Rx 7.5-325 mg TAB] Rivaroxaban [Xarelto Starter Pack] 1 each PO BID #1 tab.ds.pk 03/16/16 Unknown Rx Ondansetron [Zofran TAB] 4 mg PO Q8HR PRN #20 tablet 03/26/16 Unknown Rx ED Physical Exam - General Limitations: No Limitations General appearance: alert, in no apparent distress - Head Head exam: Present: atraumatic, normocephalic - Eye Eye exam: Present: normal appearance - ENT ENT exam: Present: normal orophraynx (a scant amount of dried blood in the posterior pharynx otherwise unremarkable.), mucous membranes moist, other (semi- fresh blood noted on the left anterior nares region. Turbinates that are visualized demonstrate no active bleeding) - Neck Neck exam: Present: normal inspection. Absent: tenderness - Respiratory Respiratory exam: Present: normal lung sounds bilaterally. Absent: respiratory distress - Cardiovascular Cardiovascular Exam: Present: regular rate, normal rhythm. Absent: systolic murmur, diastolic murmur, rubs, gallop - GI/Abdominal GI/Abdominal exam: Present: soft, normal bowel sounds. Absent: distended, tenderness - Extremities Exam Extremities exam: Present: normal inspection - Back Exam Back exam: Present: normal inspection - Neurological Exam Neurological exam: Present: alert, oriented X3 - Psychiatric Psychiatric exam: Present: normal affect, normal mood - Skin Skin exam: Present: warm, dry, intact, normal color. Absent: rash ED Course Vital Signs 03/26/16 03/26/16 03/26/16 02:00 03:30 03:41 Temperature 99.2 F Pulse Rate 90 95 H Respiratory 16 18 Rate Blood Pressure 140/64 155/68 O2 Sat by Pulse 98 99 100 Oximetry 03/26/16 03:48 Temperature Pulse Rate Respiratory 18 Rate Blood Pressure O2 Sat by Pulse 100 Oximetry - Reevaluation(s) Reevaluation #1: 03/26/16 05:05 Labs are noted here Coumadin is in the appropriate range at 2.8. Clearly this isn't helping with her epistaxis. Patient is somewhat unreasonable and difficult reason with here in the ED. She ultimately decided she just wants to leave. I do not have a problem with this as her to process appears to have been resolved. I did offer nasal packing as she continues to have these nosebleeds and I'm concerned that she is doing poor care at home. His done. She ultimately actually came here by EMS. She does have Zofran at home for her nausea. I suspect that her nausea and Gen.'s due to her general medical condition. Her abdomen is nonsurgical for me here again labs are noted. Safe for home at this time I did encourage gentle nasal hygiene. ED Medical Decision Making - Lab Data Result diagrams: 03/26/16 02:16 03/26/16 02:16 Critical care attestation.: If time is entered above; I have spent that time in minutes in the direct care of this critically ill patient, excluding procedure time. ED Disposition Clinical Impression: Recurrent epistaxis, Nausea Fatigue Qualifiers: Fatigue type: chronic, unspecified Qualified Code(s): R53.82 - Chronic fatigue , unspecified Disposition: DISCHARGED TO HOME OR SELFCARE Is pt being admited?: No Does the pt Need Aspirin: No Condition: Stable Instructions: Epistaxis (ED) Additional Instructions: Eat a healthy diet. Very gentle nose care. Prescriptions: Ondansetron [Zofran TAB] 4 mg PO Q8HR PRN #20 tablet PRN Reason: Nausea Referrals: PRIMARY CARE, [Referring] - 3-5 Days
== END 2016-03-26 04:07 | disposition home or self-care (01) ==
LOC: ED 01:53
DX: R04.0 Epistaxis (principal); R11.0 Nausea; R53.82 Chronic fatigue, unspecified
CPT/HCPCS: 36415; 80048; 85025; 85610; 85730; 99283

== ENCOUNTER 2016-08-23 21:37 | Emergency (ER) | payer MEDICARE ==
[2016-08-23 21:50] VITALS: BP 128/52
[2016-08-23 22:33] LABS: Alanine Aminotransferase 6 units/L (7-56); Albumin 3.4 g/dL (3.9-5); Albumin/Globulin Ratio 0.8 %; Alkaline Phosphatase 107 units/L (35-129); Anion Gap 21 mmol/L; Blood Urea Nitrogen 13 mg/dL (7-17); Calcium 8.7 mg/dL (8.4-10.2); Carbon Dioxide 27 mmol/L (22-30); Glucose 99 mg/dL (65-100); Lipase 10 units/L (13-60); Potassium 4.3 mmol/L (3.6-5.0); Sodium 138 mmol/L (137-145); Total Protein 7.5 g/dL (6.3-8.2)
[2016-08-23 22:41] LABS: Basophils % (Auto) 0.5 % (0.0-1.8); Eosinophils % (Auto) 0.1 % (0.0-4.3); Hematocrit 27.9 % (30.3-42.9); Hemoglobin 8.4 gm/dl (10.1-14.3); Mean Corpuscular HGB Conc 30 % (30-34); Platelet Count 421 K/mm3 (140-440); Red Blood Count 4.01 M/mm3 (3.65-5.03); White Blood Count 16.6 K/mm3 (4.5-11.0)
[2016-08-23 22:45] LABS: Mean Corpuscular Hemoglobin 21 pg (28-32); Mean Corpuscular Volume 70 fl (79-97); Red Cell Distribution Width 20.6 % (13.2-15.2)
[2016-08-23 23:20] LABS: Bacteria,Urine 1+ /HPF (Negative); Bilirubin,Urine NEG (Negative); Blood,Urine MOD (Negative); Ketones,Urine NEG (Negative); Leukocyte Esterase,Urine LG (Negative); Mucus,Urine FEW /HPF; Nitrite,Urine NEG (Negative)
[2016-08-23 23:21] LABS: WBC,Urine > 182.0 /HPF (0.0-6.0)
== END 2016-08-23 22:44 | disposition left against medical advice (07) ==
LOC: ED 21:37
DX: R04.0 Epistaxis (principal); R10.30 Lower abdominal pain, unspecified; M54.5 Low back pain; R11.2 Nausea with vomiting, unspecified; E11.9 Type 2 diabetes mellitus without complications; I10 Essential (primary) hypertension; F17.200 Nicotine dependence, unspecified, uncomplicated; F12.90 Cannabis use, unspecified, uncomplicated; Z86.718 Personal history of other venous thrombosis and embolism; Z53.21 Procedure and treatment not carried out due to patient leaving prior to being seen by health care provider
CPT/HCPCS: 36415; 80048; 80053; 81001; 83690; 85025

== ENCOUNTER 2016-08-24 07:58 | Emergency (ER) | payer MEDICARE ==
--- NOTE | 2016-08-24 08:49 | Emergency Department Report ---
HPI - General Chief Complaint: Nausea/Vomiting/Diarrhea Time Seen by Provider: 08/24/16 08:45 - HPI HPI: 65-year-old female presents to ED complaining of left sided flank pain 3 days. Patient states she started experiencing some left-sided pain 3 days ago. Patient is diabetic on insulin as well as high blood pressure on blood pressure medications which she states she takes regularly. Patient's this has not taken her insulin this morning. Patient states she has some nausea and vomiting past couple of days which is resided now. Patient admits mild fever She denies abdominal pain, chest pain, blurred vision, dizziness, headache or any other problems. ED Past Medical Hx - Past Medical History Previous Medical History?: Yes Hx Hypertension: Yes Hx Diabetes: Yes Hx Deep Vein Thrombosis: Yes (FEB 2016) - Surgical History Past Surgical History?: Yes Additional Surgical History: Angioplasty - Social History Smoking Status: Current Every Day Smoker Substance Use Type: Marijuana, Prescribed - Medications Home Medications: Home Medications Medication Instructions Recorded Confirmed Last Taken Type Aspirin [Aspirin BABY CHEW TAB] 81 mg PO DAILY 06/16/15 03/15/16 03/14/16 History Clopidogrel Bisulfate [Plavix] 75 mg PO DAILY #30 tablet 06/16/15 03/15/1603/14 Rx Gabapentin [Neurontin] 100 mg PO Q8HR 06/16/15 03/15/16 03/14/16 History Insulin Admin. Supplies [Novopen 15 units SQ BID #1 insuln.pen 06/16/1503/14/16 Rx Echo] Lisinopril [Zestril TAB] 20 mg PO QDAY #30 tablet 06/16/15 03/15/16 03/15/16 07: 00 Rx amLODIPine [Norvasc] 5 mg PO DAILY #30 tablet 06/16/15 03/15/16 03/15/16 07:00 Rx HYDROcodone/APAP 7.5-325 [[place] 1 each PO Q8HR PRN #10 tablet 02/21/16 03/15/16 03/14/16 Rx 7.5-325 mg TAB] Rivaroxaban [Xarelto Starter Pack] 1 each PO BID #1 tab.ds.pk 03/16/16 Unknown Rx Ondansetron [Zofran TAB] 4 mg PO Q8HR PRN #20 tablet 03/26/16 Unknown Rx Ibuprofen [Motrin] 600 mg PO Q8H PRN #30 tablet 08/24/16 Unknown Rx Sulfamethoxazole/Trimethoprim 1 each PO BID #6 tablet 08/24/16 Unknown Rx [Bactrim DS TAB] ED Review of Systems ROS: Stated complaint: BACK PAIN,FEVER,VOMITTING Other details as noted in HPI Constitutional: denies: chills, fever Eyes: denies: eye pain, eye discharge, vision change ENT: denies: ear pain, throat pain Respiratory: denies: cough, shortness of breath, wheezing Cardiovascular: denies: chest pain, palpitations Endocrine: no symptoms reported Gastrointestinal: denies: abdominal pain, nausea, diarrhea Genitourinary: denies: urgency, dysuria, discharge Musculoskeletal: denies: back pain, joint swelling, arthralgia Skin: denies: rash, lesions, pruritus Neurological: denies: headache, weakness, paresthesias Psychiatric: denies: anxiety, depression Hematological/Lymphatic: denies: easy bleeding, easy bruising Physical Exam - Physical Exam Vital Signs: Vital Signs 08/24/16 08:03 Temperature 98.6 F Pulse Rate 79 Respiratory 20 Rate Blood Pressure 130/67 O2 Sat by Pulse 100 Oximetry Physical Exam: GENERAL: Alert and oriented x3, no apparent distress, Normal Gait, atraumatic. HEAD: Head is normocephalic and a-traumatic. EYES: Extra ocular muscles are intact. Pupils are equal, round, and reactive to light and accommodation. NECK: Supple. Non edematous, No carotid bruits. No lymphadenopathy or thyromegaly. No C-spine tenderness LUNGS: Symetrical with respiration, No wheezing, no rales or crackles, CTAB. HEART: S1, S2 present, regular rate and rhythm without murmur, no rubs, no gallops. Non tender to palpation ABDOMEN: No organomegaly was noted,Positive bowel sounds, soft, and non- distended. . Nontender to palpation on all Quadrants, NO CVA tenderness. EXTREMITIES/MUSCULOSKELETAL: No cyanosis, clubbing, rash, lesions or edema. Full ROM bilaterally. UE/LE Pulses 2+ bilaterally. LE and UE 5+ strength bilaterally, straight leg raise negative bilaterally NEUROLOGIC: The patient is cooperative with no focal neurologic deficits. Cranial nerves II through XII are grossly intact. Normal speech. PSYCHIATRIC: Mood is congruent with affect, denies suicidal or homicidal ideations. SKIN: Warm and dry, No lesions, No ulceration or induration present. ED Course Vital Signs 08/24/16 08:03 Temperature 98.6 F Pulse Rate 79 Respiratory 20 Rate Blood Pressure 130/67 O2 Sat by Pulse 100 Oximetry ED Medical Decision Making - Lab Data Result diagrams: 08/24/16 09:21 08/24/16 09:12 Laboratory Results - last 24 hr 08/24/16 08/24/16 08/24/16 09:09 09:12 09:21 WBC 15.6 H RBC 3.91 Hgb 8.4 L Hct 27.3 L MCV 70 L MCH 21 L MCHC 31 RDW 20.5 H Plt Count 414 Lymph % (Auto) 6.0 L [place] % (Auto) 7.0 Eos % (Auto) 0.4 Baso % (Auto) 0.1 Lymph # 0.9 L [place] # 1.1 H Eos # 0.1 Baso # 0.0 Seg Neutrophils % 86.5 H Seg Neutrophils # 13.5 H Sodium 142 Potassium 4.4 Chloride 98.1 Carbon Dioxide 27 Anion Gap 21 BUN 18 H Creatinine 1.0 Estimated GFR > 60 BUN/Creatinine Ratio 18.00 Glucose 164 H Calcium 8.9 Total Bilirubin 0.30 AST 8 ALT 6 L Alkaline Phosphatase 98 Total Protein 8.0 Albumin 3.2 L Albumin/Globulin Ratio 0.7 Amylase 37 Lipase 11 L Urine Color Yellow Urine Turbidity Cloudy Urine pH 5.0 Ur Specific [place] 1.013 Urine Protein 100 mg/dl Urine Glucose (UA) Neg Urine Ketones Neg Urine Blood Mod Urine Nitrite Neg Urine Bilirubin Neg Urine Urobilinogen 2.0 Ur Leukocyte Esterase Lg Urine WBC (Auto) > 182.0 H Urine RBC (Auto) 14.0 U Epithel Cells (Auto) 7.0 Urine Bacteria (Auto) 1+ Hyaline Casts 3 Urine Mucus Few - Medical Decision Making 65-year-old female presents for a UTI/pyelonephritis ED course, CBC, CMP, urinalysis, lipase and amylase ordered. CBC came back. Leukocytosis, UA came back positive for white blood count, bacteria, leukocyte esterase CMP within normal limits, mildly elevated gluc. Given the patient had not taken insulin today Discussed this findings with patient. Patient received 1 L of normal saline, Rocephin, Toradol ED Discussed. Patient to follow up with primary care physician. Vital signs are normalized patient is in no acute distress. Discussed with the continued taking insulin when she gets home. Critical care attestation.: If time is entered above; I have spent that time in minutes in the direct care of this critically ill patient, excluding procedure time. ED Disposition Clinical Impression: UTI (urinary tract infection) Qualifiers: Urinary tract infection type: acute cystitis Hematuria presence: with hematuria Qualified Code(s): N30.01 - Acute cystitis with hematuria Disposition: TO HOME OR SELFCARE Is pt being admited?: No Does the pt Need Aspirin: No Condition: Stable Instructions: Urinary Tract Infection in Women (ED), Acute Pyelonephritis (ED) , Flank Pain (ED) Prescriptions: Ibuprofen [Motrin] 600 mg PO Q8H PRN #30 tablet PRN Reason: Pain Sulfamethoxazole/Trimethoprim [Bactrim DS TAB] 1 each PO BID #6 tablet Referrals: PRIMARY CARE, [Primary Care Provider] - 3-5 Days [facility] [place] [Outside] - 3-5 Days [facility] [Outside] - 3-5 Days [facility] [Outside] - 3-5 Days Forms: Accompanied Note, Work/School Release Form(ED) Time of Disposition: 11:02
[2016-08-24 09:36] LABS: Basophils % (Auto) 0.1 % (0.0-1.8); Eosinophils % (Auto) 0.4 % (0.0-4.3); Hematocrit 27.3 % (30.3-42.9); Hemoglobin 8.4 gm/dl (10.1-14.3); Mean Corpuscular HGB Conc 31 % (30-34); Platelet Count 414 K/mm3 (140-440); Red Blood Count 3.91 M/mm3 (3.65-5.03); White Blood Count 15.6 K/mm3 (4.5-11.0)
[2016-08-24 09:39] LABS: Mean Corpuscular Hemoglobin 21 pg (28-32); Mean Corpuscular Volume 70 fl (79-97); Red Cell Distribution Width 20.5 % (13.2-15.2)
[2016-08-24 09:44] LABS: Bilirubin,Urine NEG (Negative); Blood,Urine MOD (Negative); Ketones,Urine NEG (Negative); Leukocyte Esterase,Urine LG (Negative); Mucus,Urine FEW /HPF; Nitrite,Urine NEG (Negative)
[2016-08-24 09:45] LABS: Bacteria,Urine 1+ /HPF (Negative)
[2016-08-24 09:46] LABS: WBC,Urine > 182.0 /HPF (0.0-6.0)
[2016-08-24 09:52] LABS: Alanine Aminotransferase 6 units/L (7-56); Albumin 3.2 g/dL (3.9-5); Albumin/Globulin Ratio 0.7 %; Alkaline Phosphatase 98 units/L (35-129); Amylase 37 units/L (27-131); Anion Gap 21 mmol/L; Blood Urea Nitrogen 18 mg/dL (7-17); Calcium 8.9 mg/dL (8.4-10.2); Carbon Dioxide 27 mmol/L (22-30); Chloride 98.1 mmol/L (98-107); Glucose 164 mg/dL (65-100); Lipase 11 units/L (13-60); Potassium 4.4 mmol/L (3.6-5.0); Sodium 142 mmol/L (137-145)
[2016-08-24] MEDS ORDERED: NACL 0.9% 1000 ML 1,000 ML IV ONE (09:52)
[2016-08-24] MEDS ORDERED: TORADOL IV ONE (09:53)
[2016-08-24] MEDS ORDERED: ROCEPHIN ONE (09:55)
[2016-08-24] MEDS ORDERED: ROCEPHIN 500 MG in NACL 0.9% 50 ML IV ONE (10:30)
[2016-08-24] MEDS ORDERED: ROCEPHIN IM ONE (10:41)
[2016-08-24 11:52] VITALS: BP 137/59
== END 2016-08-24 11:00 | disposition home or self-care (01) ==
LOC: ED 07:58
DX: N39.0 Urinary tract infection, site not specified (principal); I10 Essential (primary) hypertension; E11.9 Type 2 diabetes mellitus without complications; F17.210 Nicotine dependence, cigarettes, uncomplicated; F12.10 Cannabis abuse, uncomplicated; Z95.1 Presence of aortocoronary bypass graft; Z79.82 Long term (current) use of aspirin; Z79.4 Long term (current) use of insulin
CPT/HCPCS: 36415; 80053; 81001; 82150; 82962; 83690; 85025; 96361; 96372; 96374; 99283; J0696; J1885; J7030

== ENCOUNTER 2016-09-23 08:13 | Inpatient (IN) | payer MEDICARE ==
--- NOTE | 2016-09-23 09:03 | Emergency Department Report ---
ED General Adult HPI - General Chief complaint: Nausea/Vomiting/Diarrhea Stated complaint: VOMITTING Time Seen by Provider: 09/23/16 08:46 Source: patient Mode of arrival: Stretcher Limitations: No Limitations - History of Present Illness Initial comments: Nausea vomiting generalized weakness for one week -: week(s) - Related Data Home Medications Medication Instructions Recorded Confirmed Last Taken Aspirin [Aspirin BABY CHEW TAB] 81 mg PO DAILY 06/16/15 09/23/16 03/14/16 Insulin Aspart Protam & Aspart 35 units SQ BID 09/23/16 09/23/16 09/22/16 [NovoLOG Mix 70-30 Flexpen] Lisinopril [Zestril TAB] 20 mg PO BID 09/23/16 09/23/16 09/22/16 amLODIPine [Norvasc] 5 mg PO BID 09/23/16 09/23/16 09/22/16 Previous Rx's Medication Instructions Recorded Last Taken Type Clopidogrel Bisulfate [Plavix] 75 mg PO DAILY #30 tablet 06/16/15 09/22/16 Rx Allergies Allergy/AdvReac Type Severity Reaction Status Date / Time No Known Allergies Allergy Verified 06/16/15 17:24 ED Review of Systems ROS: Stated complaint: VOMITTING Other details as noted in HPI Comment: All other systems reviewed and negative Constitutional: chills. denies: diaphoresis, fever Respiratory: cough. denies: shortness of breath Cardiovascular: denies: chest pain, palpitations, edema Gastrointestinal: nausea, vomiting. denies: abdominal pain, diarrhea, constipation, hematemesis Genitourinary: dysuria, frequency. denies: discharge Musculoskeletal: back pain. denies: joint swelling Skin: denies: rash Neurological: weakness. denies: headache, numbness ED Past Medical Hx - Past Medical History Previous Medical History?: Yes Hx Hypertension: Yes Hx Diabetes: Yes Hx Deep Vein Thrombosis: Yes (FEB 2016) - Surgical History Past Surgical History?: Yes Additional Surgical History: ; Angioplasty--no stents placed - Social History Smoking Status: Current Some Day Smoker Substance Use Type: None - Medications Home Medications: Home Medications Medication Instructions Recorded Confirmed Last Taken Type Aspirin [Aspirin BABY CHEW TAB] 81 mg PO DAILY 06/16/15 09/23/16 03/14/16 History Clopidogrel Bisulfate [Plavix] 75 mg PO DAILY #30 tablet 06/16/15 09/23/1609/22 Rx Insulin Aspart Protam & Aspart 35 units SQ BID 09/23/16 09/23/16 09/22/16 History [NovoLOG Mix 70-30 Flexpen] Lisinopril [Zestril TAB] 20 mg PO BID 09/23/16 09/23/16 09/22/16 History amLODIPine [Norvasc] 5 mg PO BID 09/23/16 09/23/16 09/22/16 History ED Physical Exam - General Limitations: No Limitations General appearance: alert, in no apparent distress - Head Head exam: Present: atraumatic - Eye Eye exam: Present: normal appearance - ENT ENT exam: Present: normal exam, normal orophraynx - Neck Neck exam: Present: normal inspection. Absent: tenderness, meningismus - Respiratory Respiratory exam: Present: normal lung sounds bilaterally, decreased breath sounds. Absent: wheezes, rales, rhonchi - Cardiovascular Cardiovascular Exam: Present: regular rate, normal rhythm, normal heart sounds - GI/Abdominal GI/Abdominal exam: Present: soft. Absent: distended, tenderness, guarding, rebound - Extremities Exam Extremities exam: Present: normal inspection - Back Exam Back exam: Present: normal inspection - Neurological Exam Neurological exam: Present: alert, oriented X3, CN II-XII intact - Psychiatric Psychiatric exam: Present: normal affect - Skin Skin exam: Present: warm, dry ED Course Vital Signs 09/23/16 09/23/16 09/23/16 08:31 09:44 10:01 Temperature 92.1 F L 97.4 F L 97.4 F L Pulse Rate 73 78 78 Respiratory 16 16 16 Rate Blood Pressure 153/78 Blood Pressure 182/90 182/90 [Right] O2 Sat by Pulse 98 100 100 Oximetry 09/23/16 09/23/16 09/23/16 10:05 10:11 11:29 Temperature 97.9 F Pulse Rate 72 69 72 Respiratory 12 15 16 Rate Blood Pressure Blood Pressure 152/68 [Right] O2 Sat by Pulse 99 99 100 Oximetry - Reevaluation(s) Reevaluation #1: 09/23/16 12:00 patient stated that she feel much better. no vomiting. Reevaluation #3: 09/23/16 12:[address] Iglesias for admission ED Medical Decision Making - Lab Data Result diagrams: 09/23/16 08:55 09/23/16 08:55 Critical care attestation.: If time is entered above; I have spent that time in minutes in the direct care of this critically ill patient, excluding procedure time. ED Disposition Clinical Impression: Acute pyelonephritis, Hypothermia Disposition: OP ADMIT IP TO THIS HOSP Is pt being admited?: Yes Condition: Stable Referrals: PRIMARY CARE, [Primary Care Provider] - 3-5 Days
[2016-09-23] MEDS ORDERED: NACL 0.9% 1000 ML 1,000 ML IV ONE (09:11)
[2016-09-23 09:29] LABS: Basophils % (Auto) 0.4 % (0.0-1.8); Eosinophils % (Auto) 0.1 % (0.0-4.3); Hematocrit 30.7 % (30.3-42.9); Hemoglobin 9.8 gm/dl (10.1-14.3); Mean Corpuscular HGB Conc 32 % (30-34); Mean Corpuscular Volume 72 fl (79-97); Platelet Count 484 K/mm3 (140-440); Red Blood Count 4.29 M/mm3 (3.65-5.03); White Blood Count 8.3 K/mm3 (4.5-11.0)
[2016-09-23 09:41] LABS: Albumin 3.6 g/dL (3.9-5); Albumin/Globulin Ratio 0.7 %; Alkaline Phosphatase 100 units/L (35-129); BUN/Creatinine Ratio 21.25; Blood Urea Nitrogen 17 mg/dL (7-17); Calcium 9.6 mg/dL (8.4-10.2); Carbon Dioxide 25 mmol/L (22-30); Chloride 99.4 mmol/L (98-107); Glucose 79 mg/dL (65-100); Sodium 143 mmol/L (137-145); Total Protein 9.1 g/dL (6.3-8.2)
[2016-09-23 09:44] LABS: Mean Corpuscular Hemoglobin 23 pg (28-32); Red Cell Distribution Width 24.4 % (13.2-15.2)
[2016-09-23 09:55] LABS: Urine Drugs of Abuse Note Disclamer
[2016-09-23 10:07] LABS: Bacteria,Urine 1+ /HPF (Negative); Bilirubin,Urine NEG (Negative); Blood,Urine MOD (Negative); Ketones,Urine NEG (Negative); Leukocyte Esterase,Urine LG (Negative); Nitrite,Urine NEG (Negative); Urobilinogen,Urine < 2.0 mg/dL (<2.0)
[2016-09-23 11:25] LABS: Alanine Aminotransferase 12 units/L (7-56); Anion Gap 23 mmol/L; Potassium 4.7 mmol/L (3.6-5.0)
--- NOTE | 2016-09-23 11:27 | Cat Scan Report ---
CT ABDOMEN AND PELVIS WITH CONTRAST INDICATION: Abdominal pain for 1 week. COMPARISON: None similar. FINDINGS: Abdomen and pelvis CT performed following intravenous administration of 100 cc of Omnipaque 300. LUNG BASES: Mild cardiomegaly. Few coronary and aortic calcifications. Nonspecific distal esophageal wall prominence/thickening, not excluded for gastroesophageal reflux and/or hiatal hernia, amongst others. ABDOMEN: Heterogeneous renal cortical enhancement/striated nephrograms noted bilaterally, more apparent on the delayed phase and right more than left, greatest towards the poles. Slight left nephromegaly inferiorly also not excluded. Left more than right perinephric stranding. Mild prominence of the left proximal to mid ureteral wall/mucosa as well. No hydronephrosis or definite radiopaque calculi. Few retroperitoneal lymph nodes measure up to 1.3 cm left para-aortic, image 140, series 2. Few gastrohepatic lymph nodes measure up to 1 cm, axial image 83 as well. Liver, spleen, gallbladder, pancreas and IVC appear within normal limits. Nonaneurysmal abdominal aorta with atherosclerotic calcifications. SMA atherosclerotic changes also seen. Slight diffuse adrenal prominence, left more than right. Nonopacified GI tract evaluation limited, though grossly nonobstructive. Normal appendix. Mild colonic stool. PELVIS: Small fundal uterine calcifications, approximately 8 mm on the right. Few small pelvic phleboliths also seen. Unremarkable adnexa/ovaries, urinary bladder and the rectosigmoid. No free fluid or significant adenopathy. Approximately 1.5 cm fat along proximal extent of the inguinal regions incidentally seen, axial image 336, series 2. Demineralized bones with mild degenerative spurring. T11 and L1 demonstrate superior endplate depressions/Schmorl's nodes. CONCLUSION: 1. CT appearance worrisome for acute bilateral pyelonephritis in the given setting. Please also correlate clinically and with laboratory values and followup to complete resolution after adequate treatment. 2. Various other findings, including moderate distal esophageal thickening, mild cardiomegaly, normal appendix and small fibroids, amongst others, as detailed above. I phoned the above results to Dr. Baker in the ER, 11 AM, 09/23/2016. Thank you for the opportunity to participate in this patient's care.
--- NOTE | 2016-09-23 12:15 | Admit Criteria Form ---
Admission Criteria Documentation: PYELONEPHRITIS, ACUTE Clinical Indications for Admission to Inpatient Care (Place 'X' for any and all applicable criteria): Admission is indicated for ANY ONE of the following 1,2,3,4,5 [ ]I. Outpatient treatment has failed or is not feasible (eg, multidrug- resistant organism).5 [ ]II. beyond 24 weeks' gestation6 [ ]III. Hemodynamic instability [ X]IV. Immunocompromised state (eg, AIDS, diabetes, sickle cell disease) [ ]V. Known renal or urologic abnormalities (eg, indwelling catheter, structural abnormalities, renal calculi, urinary stent, previous urologic surgery) [ ]. Condition that requires drainage procedure, including ANY ONE of the following: [ ]a) Urinary obstruction [ ]b) Pyelitis [ ]c) Pyonephrosis [ ]d) Renal or perinephric abscess [ ]e) Emphysematous pyelonephritis 7 [ ]VII. Inpatient admission required rather than observation care (Also use Pyelonephritis, Acute: Observation Care Criteria as appropriate) because of ANY ONE of the following: [ ]a) High fever or infection requiring inpatient admission as indicated by ANY ONE of [id number] [ ]A. Documented bacteremia [ ]B. Temp>104.9 [id number] (oral) [ ]C. Temp>103.10F (oral) or <96.80F (rectal) that does not respond to all emergency treatment [ ]b) Acute renal failure [ ]c) Other significant finding or clinical condition judged not to be within the scope of observation care [ ]d) IV fluid to replace significant ongoing (eg, for over 24hrs) losses (> 3 L/m2 per day) [ ]e) Other condition,treatment or monitoring requiring inpatient admission The original [facility] content created by [employer] has been revised. The portions of the content which have been revised are identified through the use of italic text or in bold, and [facility] has neither reviewed nor approved the modified material. All other unmodified content is copyright [facility]. Please see references footnoted in the original [facility] edition 2016 Admission Criteria Met: Yes
[2016-09-23] MEDS ORDERED: ZOSYN/NS 3.375GM/50ML 3.375 GM/50 ML BAG IV ONE (12:30)
[2016-09-23] MEDS: ZOSYN/NS 3.375GM/50ML 3.375 GM/50 ML BAG IV SCH ×2 (14:25→18:39)
[2016-09-23] MEDS ORDERED: ASPART SQ SCH (14:45)
[2016-09-23] MEDS ORDERED: INSULIN ASPART PROTAM SQ SCH (14:45)
[2016-09-23] MEDS: LOVENOX SUB-Q SCH (15:20)
[2016-09-23] MEDS: LEVAQUIN 750MG/150ML 750 MG/150 ML BAG IV SCH (15:20)
[2016-09-23] MEDS: BABY ASPIRIN PO SCH (15:21)
[2016-09-23] MEDS: ZESTRIL PO SCH ×2 (15:21→21:31)
[2016-09-23] MEDS: NORVASC PO SCH ×2 (15:21→21:31)
[2016-09-23] MEDS: PLAVIX PO SCH (15:22)
[2016-09-23 15:54] LABS: Alanine Aminotransferase 10 units/L (7-56); Albumin 3.6 g/dL (3.9-5); Albumin/Globulin Ratio 0.9 %; Alkaline Phosphatase 96 units/L (35-129); Anion Gap 23 mmol/L; Blood Urea Nitrogen 14 mg/dL (7-17); Calcium 9.1 mg/dL (8.4-10.2); Carbon Dioxide 24 mmol/L (22-30); Chloride 100.6 mmol/L (98-107); Glucose 148 mg/dL (65-100); Potassium 4.2 mmol/L (3.6-5.0); Sodium 143 mmol/L (137-145); Total Protein 7.6 g/dL (6.3-8.2)
[2016-09-23 15:55] LABS: INR 0.9 (0.87-1.13)
[2016-09-23] MEDS: TYLENOL PO PRN (21:55)
--- NOTE | 2016-09-23 22:23 | History and Physical Report ---
History of Present Illness Date of examination: 09/23/16 Date of admission: 09/23/16 12:03 Chief complaint: nausea and vomiting with back pain History of present illness: Patient is a 65-year-old lady who has a history of diabetes mellitus and hypertension DVT, started have an abdominal pain with nausea and vomiting. Vomited about 3 times a day. Vomited was clear colored. Had the lower abdominal pain that occasionally radiated to the back. Dull in nature. Moderate to severe in intensity. No hematemesis or melena. Had subjective fever. Denies any chills. Today emergency department where CT scan of abdomen and pelvis was remarkable for bilateral pyelonephritis. Patient was also found to be hypotonic with temperature of 92. Emergency department patient was commenced on IV fluid. IV antibiotics. Admission was therefore requested. Past History Past Medical History: diabetes, hypertension, PVD, other (DVT) Past Surgical History: Other (stent placement in the lower extremities) Social history: lives with family, smoking. denies: alcohol abuse Family history: no significant family history Medications and Allergies Allergies Allergy/AdvReac Type Severity Reaction Status Date / Time No Known Allergies Allergy Verified 06/16/15 17:24 Home Medications Medication Instructions Recorded Confirmed Last Taken Type Aspirin [Aspirin BABY CHEW TAB] 81 mg PO DAILY 06/16/15 09/23/16 03/14/16 History Clopidogrel Bisulfate [Plavix] 75 mg PO DAILY #30 tablet 06/16/15 09/23/1609/22 Rx Insulin Aspart Protam & Aspart 35 units SQ BID 09/23/16 09/23/16 09/22/16 History [NovoLOG Mix 70-30 Flexpen] Lisinopril [Zestril TAB] 20 mg PO BID 09/23/16 09/23/16 09/22/16 History amLODIPine [Norvasc] 5 mg PO BID 09/23/16 09/23/16 09/22/16 History Active Meds: Active Medications Acetaminophen (Tylenol) 650 mg PO Q6H PRN PRN Reason: Pain, Mild (1-3) Last Admin: 09/23/16 21:55 Dose: 650 mg Amlodipine Besylate (Norvasc) 5 mg PO BID [facility] Last Admin: 09/23/16 21:31 Dose: 5 mg Aspirin (Baby Aspirin) 81 mg PO DAILY [facility] Last Admin: 09/23/16 15:21 Dose: 81 mg Clopidogrel Bisulfate (Plavix) 75 mg PO DAILY [facility] Last Admin: 09/23/16 15:22 Dose: 75 mg Enoxaparin Sodium (Lovenox) 40 mg SUB-Q QDAY [facility] Last Admin: 09/23/16 15:20 Dose: 40 mg Piperacillin Sod/Tazobactam Sod (Zosyn/Ns 3.375gm/50ml) 3.375 gm in 50 mls @ 100 mls/hr IV Q6HR [facility] Last Admin: 09/23/16 18:39 Dose: 100 mls/hr Levofloxacin/Dextrose (Levaquin 750mg/150ml) 750 mg in 150 mls @ 100 mls/hr IV Q24HR [facility] PRN Reason: Protocol Last Admin: 09/23/16 15:20 Dose: 100 mls/hr Insulin Human Isoph/Insulin Regular (Novolin 70/30) 35 unit SUB-Q BIDDIAB [facility] Last Admin: 09/23/16 17:30 Dose: Not Given Lisinopril (Zestril) 20 mg PO BID [facility] Last Admin: 09/23/16 21:31 Dose: 20 mg Review of systems Constitutional: Well Nouridhed and Well developed. Head: NC/ AT Eyes: Denies any visual impairments. No discharge from the eyes Nose: Denies any rhinorrhea or epistaxis Throats: Denies any post nasal drainage. Ears: Denies any hearing deficits Cardiovascular system: Denies any chest pain, shortness of breath, orthopnea, paroxysmal nocturnal dyspnea, or palpitation. Respiratory system: Denies any cough, difficulty breathing, wheezing, pleuritic chest pain, Gastrointestinal system: Has abdominal pain, nausea vomiting, no hematemesis or melena. Neurological system: Denies any headache, slurred speech, facial droop, lateralizing weakness Genitalia system: Denies any dysuria, urinary frequency or urgency, urethral discharge Skin: No rashes, hyperpigmented spots. Hematological: Denies any cervical tenderness hemorrhages or petechia. Immunological: Denies any multiple septic spots, Lymphatic: Denies any generalized lymphadenopathy. Endocrine: Denies any polyuria, polydipsia, polyphagia. No heat or cold intolerance. Musculoskeletal system: No joint pain or swelling. Psych: No visual, tactile, auditory or hallucination Exam - Constitutional Vitals: Temp Pulse Resp BP Pulse Ox 98.6 F 72 18 140/63 18 L 09/23/16 21:27 09/23/16 21:31 09/23/16 21:27 09/23/16 21:31 09/23/16 21:27 General appearance: Present: no acute distress, well-nourished - EENT Eyes: Present: PERRL - Neck Neck: Present: supple, normal ROM - Respiratory Respiratory effort: normal - Cardiovascular Heart Sounds: Present: S1 & S2. Absent: rub, click - Extremities Extremities: pulses symmetrical, No edema Peripheral Pulses: within normal limits - Abdominal General gastrointestinal: Present: soft, non-tender Female genitourinary: Present: normal - Integumentary Integumentary: Present: clear, warm, dry - Musculoskeletal Musculoskeletal: gait normal, strength equal bilaterally - Psychiatric Psychiatric: appropriate mood/affect, intact judgment & insight - Neurologic Neurologic: CNII-XII intact, moves all extremities Results - Labs CBC & Chem 7: 09/23/16 08:55 09/23/16 15:01 Labs: Abnormal lab results 09/23/16 09/23/16 09/23/16 Range/Units 15:01 16:33 21:45 Glucose 148 H (65-100) mg/dL POC Glucose 180 H 193 H (70-105) Albumin 3.6 L (3.9-5) g/dL Urine WBC (Auto) (0.0-6.0) /HPF 09/23/16 Range/Units Unknown Glucose (65-100) mg/dL POC Glucose (70-105) Albumin (3.9-5) g/dL Urine WBC (Auto) 52.0 H (0.0-6.0) /HPF Assessment and Plan - Acute bilateral pyelonephritis - Hypothermia - Hypertension - Anemia - Abnormal TSH - Tobacco use disorder Admitted to [facility] Urinalysis shows evidence of urinary tract infection most likely secondary to acute pyelonephritis We will obtain urine culture and sensitivity Commence patient on IV Levaquin Warming blankets T3-T4 Anemia workup Tobacco cessation counseling was done DVT prophylaxis with Lovenox and GI progress with Pepcid Spent 32 minutes during this admission process in reviewing laboratories and radiological data, and explaining plan of care to the patient's
[2016-09-23 23:50] LABS: Iron 39 ug/dL (37-170); Total Iron Binding Capacity 223 mcg/dL (250-450)
[2016-09-24] MEDS: ZOSYN/NS 3.375GM/50ML 3.375 GM/50 ML BAG IV SCH ×3 (00:34→19:35)
[2016-09-24] MEDS: BABY ASPIRIN PO SCH (09:18)
[2016-09-24] MEDS: LOVENOX SUB-Q SCH (09:18)
[2016-09-24] MEDS: NORVASC PO SCH ×2 (09:18→22:02)
[2016-09-24] MEDS: PLAVIX PO SCH (09:18)
[2016-09-24] MEDS: ZESTRIL PO SCH ×2 (09:19→22:02)
[2016-09-24] MEDS ORDERED: NACL 0.9% 250ML 250 ML ONE (09:55)
[2016-09-24] MEDS: LEVAQUIN 750MG/150ML 750 MG/150 ML BAG IV SCH (10:21)
--- NOTE | 2016-09-24 12:57 | Progress Note ---
Assessment and Plan Assessment and plan: Pyelonephritis -Blood cultures negative Patient is on IV Levaquin -Resolving Cocaine abuse -Patient is counseled about cessation of cocaine DVT prophylaxis - on lovenox History Interval history: Patient was seen and evaluated this morning, abdominal pain, nausea, and vomiting subsided. She is complaining chronic back pain. Hospitalist Physical - Physical exam Narrative exam: Not in cardiopulmonary distress. The patient appeared well nourished and normally developed. Vital signs as documented. Head exam is unremarkable. No scleral icterus . Neck is without jugular venous distension, thyromegaly, or carotid bruits. Lungs are clear to auscultation. Cardiac exam reveals regular rate and Rhythm. First and second heart sounds normal. No murmurs, rubs or gallops. Abdominal exam reveals normal bowel sounds, no masses, no organomegaly and no aortic enlargement. Extremities are nonedematous and both femoral and pedal pulses are normal. TRAFFIC RECORDER: Alert and oriented 3. No focal weakness. - Constitutional Vitals: Temp Pulse Resp BP Pulse Ox 99.2 F 68 18 140/68 18 L 09/24/16 09:16 09/24/16 09:19 09/24/16 09:16 09/24/16 09:19 09/23/16 21:27 General appearance: Present: no acute distress, well-nourished Results - Labs CBC & Chem 7: 09/23/16 08:55 09/23/16 15:01 Labs: Laboratory Last Values WBC 8.3 K/mm3 (4.5-11.0) 09/23/16 08:55 RBC 4.29 M/mm3 (3.65-5.03) 09/23/16 08:55 Hgb 9.8 gm/dl (10.1-14.3) L 09/23/16 08:55 Hct 30.7 % (30.3-42.9) 09/23/16 08:55 MCV 72 fl (79-97) L 09/23/16 08:55 MCH 23 pg (28-32) L 09/23/16 08:55 MCHC 32 % (30-34) 09/23/16 08:55 RDW 24.4 % (13.2-15.2) H 09/23/16 08:55 Plt Count 484 K/mm3 (140-440) H 09/23/16 08:55 Lymph % (Auto) 10.3 % (13.4-35.0) L 09/23/16 08:55 [place] % (Auto) 2.4 % (0.0-7.3) 09/23/16 08:55 Eos % (Auto) 0.1 % (0.0-4.3) 09/23/16 08:55 Baso % (Auto) 0.4 % (0.0-1.8) 09/23/16 08:55 Lymph # 0.9 K/mm3 (1.2-5.4) L 09/23/16 08:55 [place] # 0.2 K/mm3 (0.0-0.8) 09/23/16 08:55 Eos # 0.0 K/mm3 (0.0-0.4) 09/23/16 08:55 Baso # 0.0 K/mm3 (0.0-0.1) 09/23/16 08:55 Seg Neutrophils % 86.8 % (40.0-70.0) H 09/23/16 08:55 Seg Neutrophils # 7.2 K/mm3 (1.8-7.7) 09/23/16 08:55 PT 12.6 Sec. (12.2-14.9) 09/23/16 15:01 INR 0.90 (0.87-1.13) 09/23/16 15:01 Sodium 143 mmol/L (137-145) 09/23/16 15:01 Potassium 4.2 mmol/L (3.6-5.0) 09/23/16 15:01 Chloride 100.6 mmol/L (98-107) 09/23/16 15:01 Carbon Dioxide 24 mmol/L (22-30) 09/23/16 15:01 Anion Gap 23 mmol/L 09/23/16 15:01 BUN 14 mg/dL (7-17) 09/23/16 15:01 Creatinine 0.8 mg/dL (0.7-1.2) 09/23/16 15:01 Estimated GFR > 60 ml/min 09/23/16 15:01 BUN/Creatinine Ratio 17.50 % 09/23/16 15:01 Glucose 148 mg/dL (65-100) H 09/23/16 15:01 POC Glucose 83 (70-105) 09/24/16 11:26 Lactic Acid 0.70 mmol/L (0.7-2.0) 09/23/16 11:53 Calcium 9.1 mg/dL (8.4-10.2) 09/23/16 15:01 Magnesium 2.20 mg/dL (1.7-2.3) 09/23/16 08:55 Iron 39 ug/dL (37-170) 09/23/16 23:01 TIBC 223 mcg/dL (250-450) L 09/23/16 23:01 Total Bilirubin 0.20 mg/dL (0.1-1.2) 09/23/16 15:01 AST 11 units/L (5-40) 09/23/16 15:01 ALT 10 units/L (7-56) 09/23/16 15:01 Alkaline Phosphatase 96 units/L (35-129) 09/23/16 15:01 Total Protein 7.6 g/dL (6.3-8.2) 09/23/16 15:01 Albumin 3.6 g/dL (3.9-5) L 09/23/16 15:01 Albumin/Globulin Ratio 0.9 % 09/23/16 15:01 Lipase 21 units/L (13-60) 09/24/16 09:37 Vitamin B12 271.6 pg/mL (211-911) 09/23/16 23:01 TSH 0.091 mlU/mL (0.270-4.200) L 09/23/16 08:55 Free T4 1.27 ng/dL (0.76-1.46) 09/23/16 15:11 Thyroxine (T4) 9.5 ug/dL (4.0-12.0) 09/23/16 15:12 Urine Color Yellow (Yellow) 09/23/16 Unknown Urine Turbidity Clear (Clear) 09/23/16 Unknown Urine pH 6.0 (5.0-7.0) 09/23/16 Unknown Ur Specific [place] 1.009 (1.003-1.030) 09/23/16 Unknown Urine Protein 100 mg/dl mg/dL (Negative) 09/23/16 Unknown Urine Glucose (UA) Neg mg/dL (Negative) 09/23/16 Unknown Urine Ketones Neg mg/dL (Negative) 09/23/16 Unknown Urine Blood Mod (Negative) 09/23/16 Unknown Urine Nitrite Neg (Negative) 09/23/16 Unknown Urine Bilirubin Neg (Negative) 09/23/16 Unknown Urine Urobilinogen < 2.0 mg/dL (<2.0) 09/23/16 Unknown Ur Leukocyte Esterase Lg (Negative) 09/23/16 Unknown Urine WBC (Auto) 52.0 /HPF (0.0-6.0) H 09/23/16 Unknown Urine RBC (Auto) 12.0 /HPF (0.0-6.0) 09/23/16 Unknown U Epithel Cells (Auto) < 1.0 /HPF (0-13.0) 09/23/16 Unknown Urine Bacteria (Auto) 1+ /HPF (Negative) 09/23/16 Unknown Urine WBC Clumps 3+ /HPF 09/23/16 Unknown Salicylates < 0.3 mg/dL (2.8-20.0) L 09/23/16 08:55 Urine Opiates Screen Presumptive negative 09/23/16 Unknown Urine Methadone Screen Presumptive negative 09/23/16 Unknown Acetaminophen < 15.0 ug/mL (10.0-30.0) 09/23/16 08:55 Ur Barbiturates Screen Presumptive negative 09/23/16 Unknown Ur Phencyclidine Scrn Presumptive negative 09/23/16 Unknown Ur Amphetamines Screen Presumptive negative 09/23/16 Unknown U Benzodiazepines Scrn Presumptive negative 09/23/16 Unknown Urine Cocaine Screen Presumptive positive 09/23/16 Unknown U Marijuana (THC) Screen Presumptive negative 09/23/16 Unknown Drugs of Abuse Note Disclamer 09/23/16 Unknown Plasma/Serum Alcohol < 0.01 gm% (0-0.07) 09/23/16 08:55
[2016-09-24 16:22] LABS: INR 0.99 (0.87-1.13)
[2016-09-24 16:38] LABS: Alanine Aminotransferase 7 units/L (7-56); Albumin 3.5 g/dL (3.9-5); Albumin/Globulin Ratio 0.8 %; Alkaline Phosphatase 87 units/L (35-129); Anion Gap 19 mmol/L; Bilirubin,Total < 0.20 mg/dL (0.1-1.2); Blood Urea Nitrogen 12 mg/dL (7-17); Calcium 9.2 mg/dL (8.4-10.2); Carbon Dioxide 26 mmol/L (22-30); Chloride 97.3 mmol/L (98-107); Glucose 67 mg/dL (65-100); Potassium 4.3 mmol/L (3.6-5.0); Sodium 138 mmol/L (137-145); Total Protein 8.1 g/dL (6.3-8.2)
[2016-09-24] MEDS: TYLENOL PO PRN (22:02)
[2016-09-25 06:06] LABS: Basophils % (Auto) 0.4 % (0.0-1.8); Eosinophils % (Auto) 0.2 % (0.0-4.3); Hematocrit 29.1 % (30.3-42.9); Hemoglobin 9.3 gm/dl (10.1-14.3); Mean Corpuscular HGB Conc 32 % (30-34); Mean Corpuscular Volume 71 fl (79-97); Platelet Count 401 K/mm3 (140-440); White Blood Count 6.8 K/mm3 (4.5-11.0)
[2016-09-25 06:12] LABS: Mean Corpuscular Hemoglobin 23 pg (28-32); Red Cell Distribution Width 23.6 % (13.2-15.2)
[2016-09-25] MEDS: PLAVIX PO SCH (09:23)
[2016-09-25] MEDS: LOVENOX SUB-Q SCH (09:23)
[2016-09-25] MEDS: LEVAQUIN 750MG/150ML 750 MG/150 ML BAG IV SCH (09:24)
[2016-09-25] MEDS: BABY ASPIRIN PO SCH (09:24)
[2016-09-25] MEDS: ZESTRIL PO SCH ×2 (09:24→22:28)
--- NOTE | 2016-09-25 10:36 | Progress Note ---
Assessment and Plan Assessment and plan: Acute pyelonephritis. Continue levaquin iv Bacteremia with Coagulase negative staph. Patient on Levaquin. Repeat blood cultures. May consult ID physician. Diabetes mellitus type II. On Novolin 70/30 twice a day. Continue fingerstick glucose before every meal and at bedtime Hypertension. On Norvasc Peripheral vascular disease. Continue Aspirin, Plavix. Cocaine abuse.-Patient counseled about cessation of cocaine DVT prophylaxis with Lovenox History Interval history: Feels better, no more vomiting Hospitalist Physical - Physical exam Narrative exam: Gen appearance :Not in acute distress, HEENT: Normocephalic, atraumatic Neck: Supple, no JVD Lungs: Clear to auscultation bilaterally, no crackles, or wheezes. Heart: S1 and S2 regular, no murmurs, no gallops or rubs Abdomen : Soft, nontender, non-distended, normal bowel sounds Extremities :No edema, no clubbing or cyanosis Neuro: Awake, alert, oriented 3, normal speech, no focal neurological signs Psych: normal mood. - Constitutional Vitals: Temp Pulse Resp BP Pulse Ox 98.8 F 74 20 142/78 99 09/25/16 09:26 09/25/16 10:00 09/25/16 09:26 09/25/16 09:26 09/24/16 21:37 General appearance: Present: no acute distress, well-nourished Results - Labs CBC & Chem 7: 09/25/16 05:21 09/24/16 14:48 Labs: Laboratory Last Values WBC 6.8 K/mm3 (4.5-11.0) 09/25/16 05:21 RBC 4.10 M/mm3 (3.65-5.03) 09/25/16 05:21 Hgb 9.3 gm/dl (10.1-14.3) L 09/25/16 05:21 Hct 29.1 % (30.3-42.9) L 09/25/16 05:21 MCV 71 fl (79-97) L 09/25/16 05:21 MCH 23 pg (28-32) L 09/25/16 05:21 MCHC 32 % (30-34) 09/25/16 05:21 RDW 23.6 % (13.2-15.2) H 09/25/16 05:21 Plt Count 401 K/mm3 (140-440) 09/25/16 05:21 Lymph % (Auto) 24.4 % (13.4-35.0) 09/25/16 05:21 [place] % (Auto) 4.8 % (0.0-7.3) 09/25/16 05:21 Eos % (Auto) 0.2 % (0.0-4.3) 09/25/16 05:21 Baso % (Auto) 0.4 % (0.0-1.8) 09/25/16 05:21 Lymph # 1.7 K/mm3 (1.2-5.4) 09/25/16 05:21 [place] # 0.3 K/mm3 (0.0-0.8) 09/25/16 05:21 Eos # 0.0 K/mm3 (0.0-0.4) 09/25/16 05:21 Baso # 0.0 K/mm3 (0.0-0.1) 09/25/16 05:21 Seg Neutrophils % 70.2 % (40.0-70.0) H 09/25/16 05:21 Seg Neutrophils # 4.8 K/mm3 (1.8-7.7) 09/25/16 05:21 PT 13.6 Sec. (12.2-14.9) 09/24/16 14:48 INR 0.99 (0.87-1.13) 09/24/16 14:48 Sodium 138 mmol/L (137-145) 09/24/16 14:48 Potassium 4.3 mmol/L (3.6-5.0) 09/24/16 14:48 Chloride 97.3 mmol/L (98-107) L 09/24/16 14:48 Carbon Dioxide 26 mmol/L (22-30) 09/24/16 14:48 Anion Gap 19 mmol/L 09/24/16 14:48 BUN 12 mg/dL (7-17) 09/24/16 14:48 Creatinine 0.8 mg/dL (0.7-1.2) 09/24/16 14:48 Estimated GFR > 60 ml/min 09/24/16 14:48 BUN/Creatinine Ratio 15.00 % 09/24/16 14:48 Glucose 67 mg/dL (65-100) 09/24/16 14:48 POC Glucose 154 (70-105) H 09/25/16 07:20 Lactic Acid 0.70 mmol/L (0.7-2.0) 09/23/16 11:53 Calcium 9.2 mg/dL (8.4-10.2) 09/24/16 14:48 Magnesium 2.20 mg/dL (1.7-2.3) 09/23/16 08:55 Iron 39 ug/dL (37-170) 09/23/16 23:01 TIBC 223 mcg/dL (250-450) L 09/23/16 23:01 Total Bilirubin < 0.20 mg/dL (0.1-1.2) 09/24/16 14:48 AST 12 units/L (5-40) 09/24/16 14:48 ALT 7 units/L (7-56) 09/24/16 14:48 Alkaline Phosphatase 87 units/L (35-129) 09/24/16 14:48 Total Protein 8.1 g/dL (6.3-8.2) 09/24/16 14:48 Albumin 3.5 g/dL (3.9-5) L 09/24/16 14:48 Albumin/Globulin Ratio 0.8 % 09/24/16 14:48 Lipase 21 units/L (13-60) 09/24/16 09:37 Vitamin B12 271.6 pg/mL (211-911) 09/23/16 23:01 TSH 0.091 mlU/mL (0.270-4.200) L 09/23/16 08:55 Free T4 1.27 ng/dL (0.76-1.46) 09/23/16 15:11 Thyroxine (T4) 9.5 ug/dL (4.0-12.0) 09/23/16 15:12 Urine Color Yellow (Yellow) 09/23/16 Unknown Urine Turbidity Clear (Clear) 09/23/16 Unknown Urine pH 6.0 (5.0-7.0) 09/23/16 Unknown Ur Specific [place] 1.009 (1.003-1.030) 09/23/16 Unknown Urine Protein 100 mg/dl mg/dL (Negative) 09/23/16 Unknown Urine Glucose (UA) Neg mg/dL (Negative) 09/23/16 Unknown Urine Ketones Neg mg/dL (Negative) 09/23/16 Unknown Urine Blood Mod (Negative) 09/23/16 Unknown Urine Nitrite Neg (Negative) 09/23/16 Unknown Urine Bilirubin Neg (Negative) 09/23/16 Unknown Urine Urobilinogen < 2.0 mg/dL (<2.0) 09/23/16 Unknown Ur Leukocyte Esterase Lg (Negative) 09/23/16 Unknown Urine WBC (Auto) 52.0 /HPF (0.0-6.0) H 09/23/16 Unknown Urine RBC (Auto) 12.0 /HPF (0.0-6.0) 09/23/16 Unknown U Epithel Cells (Auto) < 1.0 /HPF (0-13.0) 09/23/16 Unknown Urine Bacteria (Auto) 1+ /HPF (Negative) 09/23/16 Unknown Urine WBC Clumps 3+ /HPF 09/23/16 Unknown Salicylates < 0.3 mg/dL (2.8-20.0) L 09/23/16 08:55 Urine Opiates Screen Presumptive negative 09/23/16 Unknown Urine Methadone Screen Presumptive negative 09/23/16 Unknown Acetaminophen < 15.0 ug/mL (10.0-30.0) 09/23/16 08:55 Ur Barbiturates Screen Presumptive negative 09/23/16 Unknown Ur Phencyclidine Scrn Presumptive negative 09/23/16 Unknown Ur Amphetamines Screen Presumptive negative 09/23/16 Unknown U Benzodiazepines Scrn Presumptive negative 09/23/16 Unknown Urine Cocaine Screen Presumptive positive 09/23/16 Unknown U Marijuana (THC) Screen Presumptive negative 09/23/16 Unknown Drugs of Abuse Note Disclamer 09/23/16 Unknown Plasma/Serum Alcohol < 0.01 gm% (0-0.07) 09/23/16 08:55
[2016-09-25] MEDS: NORVASC PO SCH ×2 (11:17→22:27)
[2016-09-25] MEDS: TYLENOL PO PRN ×2 (13:09→22:28)
[2016-09-25 17:37] LABS: Alanine Aminotransferase 9 units/L (7-56); Albumin 3.7 g/dL (3.9-5); Albumin/Globulin Ratio 0.9 %; Alkaline Phosphatase 93 units/L (35-129); Anion Gap 19 mmol/L; Basophils % (Auto) 0.3 % (0.0-1.8); Bilirubin,Total < 0.20 mg/dL (0.1-1.2); Blood Urea Nitrogen 15 mg/dL (7-17); Calcium 9.5 mg/dL (8.4-10.2); Carbon Dioxide 27 mmol/L (22-30); Chloride 97.9 mmol/L (98-107); Eosinophils % (Auto) 0.6 % (0.0-4.3); Glucose 75 mg/dL (65-100); Hematocrit 29.8 % (30.3-42.9); Hemoglobin 9.3 gm/dl (10.1-14.3); Mean Corpuscular HGB Conc 31 % (30-34); Mean Corpuscular Volume 72 fl (79-97); Platelet Count 416 K/mm3 (140-440); Potassium 4.2 mmol/L (3.6-5.0); Red Blood Count 4.13 M/mm3 (3.65-5.03); Sodium 140 mmol/L (137-145); Total Protein 7.8 g/dL (6.3-8.2); White Blood Count 6.1 K/mm3 (4.5-11.0)
[2016-09-25 17:39] LABS: Mean Corpuscular Hemoglobin 23 pg (28-32); Red Cell Distribution Width 24.5 % (13.2-15.2)
[2016-09-25 18:03] LABS: INR 1.08 (0.87-1.13)
[2016-09-26] MEDS: LEVAQUIN 750MG/150ML 750 MG/150 ML BAG IV SCH (09:28)
[2016-09-26] MEDS: ZESTRIL PO SCH (09:29)
[2016-09-26] MEDS: PLAVIX PO SCH (09:29)
--- NOTE | 2016-09-26 09:29 | Progress Note ---
Hospitalist Physical - Constitutional Vitals: Temp Pulse Resp BP Pulse Ox 99 F 60 18 167/74 99 09/25/16 22:00 09/26/16 04:31 09/25/16 22:00 09/25/16 22:28 09/24/16 21:37 General appearance: Present: no acute distress, well-nourished Results - Labs CBC & Chem 7: 09/25/16 16:27 09/25/16 16:27 Labs: Laboratory Last Values WBC 6.1 K/mm3 (4.5-11.0) 09/25/16 16:27 RBC 4.13 M/mm3 (3.65-5.03) 09/25/16 16:27 Hgb 9.3 gm/dl (10.1-14.3) L 09/25/16 16:27 Hct 29.8 % (30.3-42.9) L 09/25/16 16:27 MCV 72 fl (79-97) L 09/25/16 16:27 MCH 23 pg (28-32) L 09/25/16 16:27 MCHC 31 % (30-34) 09/25/16 16:27 RDW 24.5 % (13.2-15.2) H 09/25/16 16:27 Plt Count 416 K/mm3 (140-440) 09/25/16 16:27 Lymph % (Auto) 27.0 % (13.4-35.0) 09/25/16 16:27 [place] % (Auto) 6.8 % (0.0-7.3) 09/25/16 16:27 Eos % (Auto) 0.6 % (0.0-4.3) 09/25/16 16:27 Baso % (Auto) 0.3 % (0.0-1.8) 09/25/16 16:27 Lymph # 1.7 K/mm3 (1.2-5.4) 09/25/16 16:27 [place] # 0.4 K/mm3 (0.0-0.8) 09/25/16 16:27 Eos # 0.0 K/mm3 (0.0-0.4) 09/25/16 16:27 Baso # 0.0 K/mm3 (0.0-0.1) 09/25/16 16:27 Seg Neutrophils % 65.3 % (40.0-70.0) 09/25/16 16:27 Seg Neutrophils # 4.0 K/mm3 (1.8-7.7) 09/25/16 16:27 PT 14.6 Sec. (12.2-14.9) 09/25/16 16:27 INR 1.08 (0.87-1.13) 09/25/16 16:27 Sodium 140 mmol/L (137-145) 09/25/16 16:27 Potassium 4.2 mmol/L (3.6-5.0) 09/25/16 16:27 Chloride 97.9 mmol/L (98-107) L 09/25/16 16:27 Carbon Dioxide 27 mmol/L (22-30) 09/25/16 16:27 Anion Gap 19 mmol/L 09/25/16 16:27 BUN 15 mg/dL (7-17) 09/25/16 16:27 Creatinine 1.0 mg/dL (0.7-1.2) 09/25/16 16:27 Estimated GFR > 60 ml/min 09/25/16 16:27 BUN/Creatinine Ratio 15.00 % 09/25/16 16:27 Glucose 75 mg/dL (65-100) 09/25/16 16:27 POC Glucose 187 (70-105) H 09/26/16 07:22 Lactic Acid 0.70 mmol/L (0.7-2.0) 09/23/16 11:53 Calcium 9.5 mg/dL (8.4-10.2) 09/25/16 16:27 Magnesium 2.20 mg/dL (1.7-2.3) 09/23/16 08:55 Iron 39 ug/dL (37-170) 09/23/16 23:01 TIBC 223 mcg/dL (250-450) L 09/23/16 23:01 Total Bilirubin < 0.20 mg/dL (0.1-1.2) 09/25/16 16:27 AST 12 units/L (5-40) 09/25/16 16:27 ALT 9 units/L (7-56) 09/25/16 16:27 Alkaline Phosphatase 93 units/L (35-129) 09/25/16 16:27 Total Protein 7.8 g/dL (6.3-8.2) 09/25/16 16:27 Albumin 3.7 g/dL (3.9-5) L 09/25/16 16:27 Albumin/Globulin Ratio 0.9 % 09/25/16 16:27 Lipase 21 units/L (13-60) 09/24/16 09:37 Vitamin B12 271.6 pg/mL (211-911) 09/23/16 23:01 TSH 0.091 mlU/mL (0.270-4.200) L 09/23/16 08:55 Free T4 1.27 ng/dL (0.76-1.46) 09/23/16 15:11 Thyroxine (T4) 9.5 ug/dL (4.0-12.0) 09/23/16 15:12 Urine Color Yellow (Yellow) 09/23/16 Unknown Urine Turbidity Clear (Clear) 09/23/16 Unknown Urine pH 6.0 (5.0-7.0) 09/23/16 Unknown Ur Specific [place] 1.009 (1.003-1.030) 09/23/16 Unknown Urine Protein 100 mg/dl mg/dL (Negative) 09/23/16 Unknown Urine Glucose (UA) Neg mg/dL (Negative) 09/23/16 Unknown Urine Ketones Neg mg/dL (Negative) 09/23/16 Unknown Urine Blood Mod (Negative) 09/23/16 Unknown Urine Nitrite Neg (Negative) 09/23/16 Unknown Urine Bilirubin Neg (Negative) 09/23/16 Unknown Urine Urobilinogen < 2.0 mg/dL (<2.0) 09/23/16 Unknown Ur Leukocyte Esterase Lg (Negative) 09/23/16 Unknown Urine WBC (Auto) 52.0 /HPF (0.0-6.0) H 09/23/16 Unknown Urine RBC (Auto) 12.0 /HPF (0.0-6.0) 09/23/16 Unknown U Epithel Cells (Auto) < 1.0 /HPF (0-13.0) 09/23/16 Unknown Urine Bacteria (Auto) 1+ /HPF (Negative) 09/23/16 Unknown Urine WBC Clumps 3+ /HPF 09/23/16 Unknown Salicylates < 0.3 mg/dL (2.8-20.0) L 09/23/16 08:55 Urine Opiates Screen Presumptive negative 09/23/16 Unknown Urine Methadone Screen Presumptive negative 09/23/16 Unknown Acetaminophen < 15.0 ug/mL (10.0-30.0) 09/23/16 08:55 Ur Barbiturates Screen Presumptive negative 09/23/16 Unknown Ur Phencyclidine Scrn Presumptive negative 09/23/16 Unknown Ur Amphetamines Screen Presumptive negative 09/23/16 Unknown U Benzodiazepines Scrn Presumptive negative 09/23/16 Unknown Urine Cocaine Screen Presumptive positive 09/23/16 Unknown U Marijuana (THC) Screen Presumptive negative 09/23/16 Unknown Drugs of Abuse Note Disclamer 09/23/16 Unknown Plasma/Serum Alcohol < 0.01 gm% (0-0.07) 09/23/16 08:55
[2016-09-26] MEDS: NORVASC PO SCH (09:30)
[2016-09-26] MEDS: BABY ASPIRIN PO SCH (09:30)
[2016-09-26] MEDS: LOVENOX SUB-Q SCH (09:30)
[2016-09-26 09:33] VITALS: BP 152/71
--- NOTE | 2016-09-26 10:11 | Consultation ---
History of Present Illness - Reason for Consult Consult date: 09/26/16 Bacteremia Requesting physician: NASRIN STOLL - History of Present Illness Ms. Mendes is a 65-year-old woman with DM2 and hypertension who is admitted with abdominal pain. CT imaging of the abdomen and pelvis showed findings suspicious for bilateral pyelonephritis. She was started on empiric Levaquin. Blood cultures obtained during her initial assessment are positive for coagulase- negative Staph. She does not have an indwelling catheter. Urine culture as well as repeat blood cultures are in progress. She says her pain is improved and she is no longer vomiting. ID consultation is requested for further management of bacteremia. Past History Past Medical History: diabetes, hypertension, PVD, other (DVT) Past Surgical History: Other (stent placement in the lower extremities) Social history: lives with family, smoking. denies: alcohol abuse Family history: no significant family history Medications and Allergies Allergies Allergy/AdvReac Type Severity Reaction Status Date / Time No Known Allergies Allergy Verified 06/16/15 17:24 Home Medications Medication Instructions Recorded Confirmed Last Taken Type Aspirin [Aspirin BABY CHEW TAB] 81 mg PO DAILY 06/16/15 09/23/16 03/14/16 History Clopidogrel Bisulfate [Plavix] 75 mg PO DAILY #30 tablet 06/16/15 09/23/1609/22 Rx Insulin Aspart Protam & Aspart 35 units SQ BID 09/23/16 09/23/16 09/22/16 History [NovoLOG Mix 70-30 Flexpen] Lisinopril [Zestril TAB] 20 mg PO BID 09/23/16 09/23/16 09/22/16 History amLODIPine [Norvasc] 5 mg PO BID 09/23/16 09/23/16 09/22/16 History PriLOSEC Otc 10 mg PO BID 09/24/16 09/24/16 Unknown History Active Meds: Active Medications Acetaminophen (Tylenol) 650 mg PO Q6H PRN PRN Reason: Pain, Mild (1-3) Last Admin: 09/25/16 22:28 Dose: 650 mg Amlodipine Besylate (Norvasc) 5 mg PO BID [facility] Last Admin: 09/26/16 09:30 Dose: 5 mg Aspirin (Baby Aspirin) 81 mg PO DAILY [facility] Last Admin: 09/26/16 09:30 Dose: 81 mg Clopidogrel Bisulfate (Plavix) 75 mg PO DAILY [facility] Last Admin: 09/26/16 09:29 Dose: 75 mg Enoxaparin Sodium (Lovenox) 40 mg SUB-Q QDAY [facility] Last Admin: 09/26/16 09:30 Dose: 40 mg Levofloxacin/Dextrose (Levaquin 750mg/150ml) 750 mg in 150 mls @ 100 mls/hr IV Q24HR [facility] PRN Reason: Protocol Last Admin: 09/26/16 09:28 Dose: 100 mls/hr Insulin Human Isoph/Insulin Regular (Novolin 70/30) 35 unit SUB-Q BIDDIAB [facility] Last Admin: 09/26/16 07:52 Dose: 35 unit Lisinopril (Zestril) 20 mg PO BID [facility] Last Admin: 09/26/16 09:29 Dose: 20 mg Review of Systems All systems: negative Constitutional: weakness, no fever, no chills, no sweats Cardiovascular: no chest pain Respiratory: no cough Gastrointestinal: abdominal pain (improved), no nausea, no vomiting, no diarrhea Genitourinary Female: no dysuria, no hematuria Integumentary: no rash Physical Examination - Constitutional Vitals: Vital Signs Temp Pulse Resp BP Pulse Ox 99 F 68 18 152/71 99 09/25/16 22:00 09/26/16 09:30 09/25/16 22:00 09/26/16 09:30 09/24/16 21:37 Temperature -Last 24 Hours Temperature 99 F Temperature 99 F General appearance: Present: no acute distress, well-nourished - EENT Eyes: Absent: scleral icterus - Neck Neck: Present: supple - Respiratory Respiratory effort: normal Respiratory: bilateral: CTA - Cardiovascular Rhythm: regular Heart Sounds: Present: S1 & S2 - Extremities Extremities: No edema - Abdominal General gastrointestinal: Present: soft, non-distended - Integumentary Integumentary: Present: clear. Absent: rash - Psychiatric Psychiatric: appropriate mood/affect - Neurologic Neurologic: no focal deficits Results - Labs CBC & Chem 7: 09/25/16 16:27 09/25/16 16:27 Labs: Abnormal lab results 09/25/16 09/25/16 09/25/16 Range/Units 11:15 16:27 16:27 Hgb 9.3 L (10.1-14.3) gm/dl Hct 29.8 L (30.3-42.9) % MCV 72 L (79-97) fl MCH 23 L (28-32) pg RDW 24.5 H (13.2-15.2) % Chloride 97.9 L (98-107) mmol/L POC Glucose 217 H (70-105) Albumin 3.7 L (3.9-5) g/dL 09/25/16 09/26/16 Range/Units 22:33 07:22 Hgb (10.1-14.3) gm/dl Hct (30.3-42.9) % MCV (79-97) fl MCH (28-32) pg RDW (13.2-15.2) % Chloride (98-107) mmol/L POC Glucose 151 H 187 H (70-105) Albumin (3.9-5) g/dL Microbiology 09/25/16 Unknown Peripheral/Venous Blood Culture - Preliminary Culture in Progress 09/25/16 Unknown Peripheral/Venous Blood Culture - Preliminary Culture in Progress 09/23/16 09:37 Peripheral/Venous Blood Culture - Preliminary Coag Negative Staphylococcus 09/23/16 09:10 Peripheral/Venous Blood Culture - Preliminary Coag Negative Staphylococcus 09/23/16 Unknown Urine,Clean Catch Urine Culture - Preliminary - Imaging and Cardiology CT scan - abdomen: report reviewed Assessment and Plan - Patient Problems (1) Positive blood culture Current Visit: Yes Status: Acute Plan to address problem: 1. Apparent blood specimen contaminant. 2. No treatment of bacteremia is recommended at this time. 3. A 10-14-day course of Levaquin is appropriate for treatment of pyelonephritis. Okay to transition to oral Levaquin to complete course. 4. Follow result of urine culture.
--- NOTE | 2016-09-26 12:43 | Discharge Summary ---
Providers - Providers Date of Admission: 09/23/16 12:03 Date of discharge: 09/26/16 Attending physician: NASRIN STOLL 09/25/16 09:03 Consult to Case Management [CONS] Routine Services Needed at Discharge: DME Equipment Notified:: no Was contact made?: No Additional Physician Instructions: 09/25/16 10:35 Consult to Physician [CONS] Routine Consulting Provider: ALBERTINA RASHID Reason For Exam: Bacteremia Place consult to:: answering machine Notified:: L/M Phone number called:: [phone] Comment:: forest Primary care physician: PROSPECTING DRILLER Hospitalization Condition: Fair Hospital course: Patient is 66 yo presented with nausea vomiting, abdomen and back pain. CT Abdomen showed bilateral pyelonephritis. She was started on iv Levaquin ,iv fluids and admitted. Blood cultures grew staph hominis . Therefore ID Physician was consulted. Patient improved on meds. Repeat blood cultures were drawn. She was subsequently discharged home on Levaquin po, to follow as outpatient. Total time spent on discharge, 32 mins Disposition: DC- TO HOME OR SELFCARE - Discharge Diagnoses (1) Sepsis due to Staphylococcus hominis Status: Acute (2) Bacteremia Status: Acute (3) Acute pyelonephritis Status: Acute (4) HTN (hypertension), benign Status: Chronic (5) Diabetes mellitus type 2 in nonobese Status: Chronic Core Measure Documentation - Palliative Care Palliative Care/ Comfort Measures: Not Applicable - Core Measures Any of the following diagnoses?: none Exam - Physical Exam Narrative exam: Gen appearance :Not in acute distress, HEENT: Normocephalic, atraumatic Neck: Supple, no JVD Lungs: Clear to auscultation bilaterally, no crackles, or wheezes. Heart: S1 and S2 regular, no murmurs, no gallops or rubs Abdomen : Soft, nontender, non-distended, normal bowel sounds Extremities :No edema, no clubbing or cyanosis Neuro: Awake, alert, oriented 3, normal speech, no focal neurological signs Psych: normal mood. - Constitutional Vitals: Temp Pulse Resp BP Pulse Ox 98.5 F 75 18 152/71 97 09/26/16 10:00 09/26/16 10:00 09/26/16 10:00 09/26/16 10:00 08/07/17 10:00 Plan Activity: advance as tolerated Diet: low fat, low cholesterol, low salt, diabetic Additional Instructions: 1. Follow up with Primary care physician in one week Follow up with: PRIMARY CARE, [Primary Care Provider] - 3-5 Days Prescriptions: Levofloxacin [Levaquin] 750 mg PO QDAY #7 tablet
== END 2016-09-26 18:05 | disposition home or self-care (01) | DRG 690 ==
LOC: ED 08:13 → CC2 12:03
PROVIDERS: ADMIT Family Medicine; ATTEND Internal Medicine
DX: N10 Acute pyelonephritis (principal); I10 Essential (primary) hypertension; D64.9 Anemia, unspecified; F17.210 Nicotine dependence, cigarettes, uncomplicated; T68.XXXA Hypothermia, initial encounter; F14.10 Cocaine abuse, uncomplicated; E11.51 Type 2 diabetes mellitus with diabetic peripheral angiopathy without gangrene; B95.8 Unspecified staphylococcus as the cause of diseases classified elsewhere; Z98.891 History of uterine scar from previous surgery; Z86.718 Personal history of other venous thrombosis and embolism
CPT/HCPCS: 36415; 74177; 80048; 80053; 80307; 80320; 81001; 82140; 82607; 82747; 82962; 83550; 83690; 83735; 84436; 84439; 84443; 85025; 85610; 87040; 87076; 87086; 87186; 93005; 93010; 96360; G0480; J1650; J1815; J1956; J2543; J7050; Q9967

== ENCOUNTER 2018-05-16 09:12 | Outpatient (CLI) | payer MEDICARE ==
--- NOTE | 2018-05-17 09:26 | Vascular Lab Report ---
PROCEDURE: VL ARTERIAL DUPLEX LE BILAT TECHNIQUE: Santacruz scale, color and pulsed Doppler ultrasound with color flow and spectral analysis eval uation of both lower extremities arteries were performed. Pulse volume recordings and brachial indices obtained. HISTORY: CLAUDICATION COMPARISONS: None currently available. FINDINGS: RIGHT EXTREMITY: EIA, RUG CUTTER HELPER, proximal SFA, DFA, mid SFA, distal SFA, popliteal, FERRULER, and STEVE velocities in cm/sec: 170, 172, 137, 146, 223, 92, 126, 67, and 69. Triphasic and biphasic flow throughout. LEFT EXTREMITY: EIA, RUG CUTTER HELPER, proximal SFA, DFA, mid SFA, distal SFA, popliteal, FERRULER, and STEVE velocities in cm/sec: 138, 137, 90, 137, 355, 87, 95, 98, and 78. Monophasic flow in the left mid and distal SFA and also in the left FERRULER. Otherwise triphasic or biphasic flow in the remainder of the vessels. IMPRESSION: * Mild to moderate stenosis in the distal RUG CUTTER HELPER and right popliteal artery. * Moderate stenosis in the mid right SFA. * Severe stenosis in the mid SFA. This document is electronically signed by Dio Vega MD., May 17 2018 09:23:57 AM ET
== END 2018-05-16 09:13 | disposition home or self-care (01) ==
LOC: VAS 09:12
PROVIDERS: ATTEND Internal Medicine
DX: I74.3 Embolism and thrombosis of arteries of the lower extremities (principal); I10 Essential (primary) hypertension; E11.9 Type 2 diabetes mellitus without complications
CPT/HCPCS: 93925

== ENCOUNTER 2018-07-03 07:32 | Day surgery (SDC) | payer MEDICARE ==
[2018-07-03 09:20] LABS: Hematocrit 34.5 % (30.3-42.9); Mean Corpuscular HGB Conc 32 % (30-34); Mean Corpuscular Volume 82 fl (79-97); Platelet Count 203 K/mm3 (140-440); Red Blood Count 4.19 M/mm3 (3.65-5.03); Red Cell Distribution Width 15.3 % (13.2-15.2)
[2018-07-03 09:36] LABS: BUN/Creatinine Ratio 24; Blood Urea Nitrogen 19 mg/dL (7-17); Calcium 8.8 mg/dL (8.4-10.2); Hemolysis Index 58
[2018-07-03 09:38] LABS: INR 0.85 (0.87-1.13)
[2018-07-03] MEDS ORDERED: HEPARIN/NS 5000 UNIT/500ML(CATH LAB) 1,000 ML IR ONE (09:38)
[2018-07-03] MEDS ORDERED: HEPARIN 10,000 UNITS/10 ML ONE (09:38)
[2018-07-03] MEDS ORDERED: XYLOCAINE 2% INFILTRATI ONE (09:38)
[2018-07-03 09:39] LABS: Partial Thromboplastin Time 25.2 Sec. (24.2-36.6)
[2018-07-03] MEDS ORDERED: NACL 0.9% 500 ML 500 ML ONE (09:54)
[2018-07-03] MEDS: VERSED ONE ×5 (10:28→11:38)
[2018-07-03] MEDS: SUBLIMAZE ONE ×7 (10:28→11:38)
[2018-07-03] MEDS: APRESOLINE ONE ×2 (11:04→11:11)
--- NOTE | 2018-07-03 11:57 | Short Stay Summary ---
Short Stay Documentation Date of service: 07/03/18 Narrative H&P: See H&P - History H&P: obtained from office - Allergies and Medications Current Medications: Allergies No Known Allergies Allergy (Verified 06/16/15 17:24) Home Medications Medication Instructions Recorded Confirmed Last Taken Type Aspirin [Aspirin BABY CHEW TAB] 81 mg PO DAILY 06/16/15 09/23/16 03/14/16 History Clopidogrel Bisulfate [Plavix] 75 mg PO DAILY #30 tablet 06/16/15 09/23/16 09/22/16 Rx Insulin Aspart Protam & Aspart 35 units SQ BID 09/23/16 09/23/16 09/22/16 History [NovoLOG Mix 70-30 Flexpen] Lisinopril [Zestril TAB] 20 mg PO BID 09/23/16 09/23/16 09/22/16 History amLODIPine [Norvasc] 5 mg PO BID 09/23/16 09/23/16 09/22/16 History PriLOSEC Otc 10 mg PO BID 09/24/16 09/24/16 Unknown History levoFLOXacin [Levaquin] 750 mg PO QDAY #7 tablet 09/26/16 Unknown Rx - Brief post op/procedure progress note Date of procedure: 07/03/18 Pre-op diagnosis: Bilateral Lower Extremity Claudication with Right Greater Than Left Post-op diagnosis: same Procedure: 1. Ultrasound-Guided Access Left Common Femoral Artery 2. Diagnostic Aortogram with Right Lower Extremity Runoff 3. Atherectomy with Angioplasty Of Right SFA and Popliteal Arteries with Hawk One LX and 6 x 80 Lutonix Drug-Coated Balloon in the Below Knee Popliteal Artery and a 6 x 250 Balloon in the SFA 4. Closure of Left Femoral Arteriotomy with 6 Nigerian Angio-Seal 5. Radiologic Supervision with Interpretation Anesthesia: local, other (monitored moderate sedation) Surgeon: DAVID PERALTA Estimated blood loss: minimal Pathology: none Condition: stable - Disposition Condition at discharge: Good Disposition: DC-01 TO HOME OR SELFCARE Short Stay Discharge Plan Activity: other (no strenuous activity for 24 hours) Wound: remove dressing (24 hours) Follow up with: DAVID PERALTA MD [Staff Physician] - 14 Days
--- NOTE | 2018-07-03 12:34 | Operative Report ---
Operative Report Operative Report: Date of Procedure: 07/03/2018 Pre-operative Diagnosis: Bilateral Lower Extremity Claudication with Right Grea ter Than Left Post-operative Diagnosis: Same Procedure(s): 1. Ultrasound-Guided Access Left Common Femoral Artery 2. Diagnostic Aortogram with Right Lower Extremity Runoff 3. Atherectomy with Angioplasty Of Right SFA and Popliteal Arteries with Hawk One LX and 6 x 80 Lutonix Drug-Coated Balloon in the Below Knee Popliteal Artery and a 6 x 250 Balloon in the SFA 4. Closure of Left Femoral Arteriotomy with 6 Burmese Angio-Seal 5. Radiologic Supervision with Interpretation Surgeon: Mohsen Cash M.D. Clipping Marker: None Anesthesia: Local & Monitor Moderate Sedation EBL: Minimal Counts: Correct Complications: None Condition: Stable Specimen: None Indication: The patient is a 67-year-old female with a history of peripheral vascular disease who complains of short distance claudication with right being worst and left. She's had previous intervention in the past and had an ultrasound that revealed restenosis of bilateral SFA and popliteal arteries. She is in need of a diagnostic arteriogram and possible intervention. She was given the risks, benefits, and alternative procedures and consented to the procedure. Angiographic Findings: The aortogram revealed bilateral renal arteries are patent without any flow limiting stenosis appreciated. The aorta was heavily calcified and tortuous and appeared ectatic without any obvious aneurysm or flow limiting stenosis. Bilateral common iliac arteries were patent. The right lower extremity runoff revealed the right external iliac, common femoral, and profunda arteries were all patent. The SFA and pop its arteries were diffusely diseased with significant amount of calcification and multiple areas of stenosis throughout both vessels varied from 30-70% stenosis. The patient had two-vessel runoff with an occluded. No artery shortly after his origin however the posterior tibial artery and anterior tibial artery were patent without significant stenosis down to the foot although they were significantly calcified. After intervention the SFA and popliteal arteries were patent with less than 15% residual stenosis. Description of Procedure: The patient was brought into the cathlab and laid in supine position. After a timeout was performed the patient's left groin was prepped and draped in normal sterile fashion. Ultrasound was used to identify the left common femoral artery and confirmed patency. The patency was confirmed 1% lidocaine was used to anesthetize the skin and soft tissue overlying the artery. Micropuncture technique was used with ultrasound guidance to the left common femoral artery and a 0.018 wire was then advanced into the artery. The needle was exchanged for the micropuncture sheath, a left anterior oblique injection was performed to ensure that the puncture site was in adequate position, and then a 0.035 Bentson wire was advanced into the aorta. The micropuncture sheath was then exchanged for a 5 Burmese sheath and an Omni Flush catheter was advanced into the aorta at the level of the renal arteries. A diagnostic aortogram was performed with the previously described findings. The Omni Flush catheter and Bentson wire was advanced up and over the bifurcation and a right lower extremity arteriograms performed with the previously described findings. The Bentson wire was advanced down into the distal popliteal artery and the 5 Burmese sheath was exchanged for 7 Burmese 45 cm Destination sheath. At this point the patient was systemic heparinized with 5000 units of heparin IV. The vertebral catheter was then advanced over the Bentson wire in the Bentson wire were exchanged for a 7 mm Spider Wire. Atherectomy of the SFA and popliteal arteries was performed with a [place] Digitalk One LX. Residual stenosis in the popliteal artery was treated with angioplasty with a 5 x 80 balloon and residual stenosis in the SFA was treated with a 6 x 250 balloon. This resulted in less than 15% residual stenosis in the SFA however there was approximately 50% residual stenosis in the below-knee pop its artery which was treated with a 6 x 80 Lutonix Drug-Coated Balloon with the result of less than 15% stenosis. At this point I advanced the vertebral catheter over the Spider wire and retrieved it and then advanced the Bentson wire into the artery. I pulled the 7 Burmese sheath back into the left external iliac artery and then removed it and used an Angio-Seal for closure of the left femoral arteriotomy. The patient tolerated the procedure well. A sterile dressing was placed over the entry site and the patient was transported to the recovery area in stable condition.
[2018-07-03] MEDS ORDERED: NORCO 7.5/325 PO PRN (12:49)
[2018-07-03] MEDS ORDERED: MORPHINE IV ONE (13:30)
[2018-07-03 14:09] VITALS: BP 153/70
== END 2018-07-03 14:25 | disposition home or self-care (01) ==
LOC: CATHLABREC 07:32
PROVIDERS: ATTEND Surgery Vascular Surgery
DX: I70.213 Atherosclerosis of native arteries of extremities with intermittent claudication, bilateral legs (principal); I10 Essential (primary) hypertension; E11.9 Type 2 diabetes mellitus without complications; F17.210 Nicotine dependence, cigarettes, uncomplicated; F31.9 Bipolar disorder, unspecified; Z98.891 History of uterine scar from previous surgery; Z86.718 Personal history of other venous thrombosis and embolism; Z79.01 Long term (current) use of anticoagulants; Z79.4 Long term (current) use of insulin; Z79.899 Other long term (current) drug therapy; Z79.82 Long term (current) use of aspirin; Z86.73 Personal history of transient ischemic attack (TIA), and cerebral infarction without residual deficits
CPT/HCPCS: 36415; 37225; 75625; 75710; 76937; 80048; 85027; 85610; 85730; 99156; 99157; C1714; C1725; C1750; C1760; C1769; C1887; J0360; J1644; J2250; J3010; J7040; Q9967

== ENCOUNTER 2019-05-07 02:11 | Observation (INO) | payer MEDICARE ==
--- NOTE | 2019-05-07 02:40 | Emergency Department Report ---
ED Chest Pain HPI - General Chief Complaint: Chest Pain Stated Complaint: CHEST PAIN Time Seen by Provider: 05/07/19 02:36 Source: EMS Mode of arrival: Stretcher Limitations: No Limitations - History of Present Illness Initial Comments: Patient is 68 years old female with history of hypertension and coronary artery disease but no stent. Patient brought to the emergency room via EMS from home for evaluation of chest pain started this evening when she go to bed. Patient described her pain as pressure and heaviness with no radiation. Patient pain im proved with 2 nitroglycerin. Patient received aspirin by EMS also. Patient denies any shortness of breath, cough, fever or chills. MD Complaint: chest pain -: This evening Onset: during rest Pain Location: left chest Pain Radiation: none Severity: moderate Severity scale (0 -10): 8 Quality: heaviness Consistency: constant Improves With: nitroglycerin - Related Data Home Medications Medication Instructions Recorded Confirmed Last Taken Aspirin [Aspirin BABY CHEW TAB] 81 mg PO DAILY 06/16/15 07/03/18 07/03/18 1 tab Insulin Aspart Protam & Aspart 35 units SQ BID 09/23/16 07/03/18 07/02/18 [NovoLOG Mix 70-30 Flexpen] 35 units amLODIPine 5 mg PO BID 09/23/16 07/03/18 07/03/18 1 tab lisinopriL [Zestril TAB] 20 mg PO BID 09/23/16 07/03/18 07/03/18 1 tab PriLOSEC Otc 10 mg PO BID 09/24/16 07/03/18 07/02/18 1 tab Previous Rx's Medication Instructions Recorded Last Taken Type Clopidogrel Bisulfate [Plavix] 75 mg PO DAILY #30 tablet 06/16/15 07/03/18 Rx 1 tab HYDROcodone/ACETAMINOPHEN [[place] 1 each PO Q6HR PRN #30 tablet 07/03/18 Unknown Rx 7.5-325 Tablet] Allergies Allergy/AdvReac Type Severity Reaction Status Date / Time No Known Allergies Allergy Verified 06/16/15 17:24 Heart Score - HEART Score History: Moderately suspicious EKG: Non-specific Age: > 65 Risk factors: 1-2 risk factors Troponin: < normal limit HEART Score: 5 ED Review of Systems ROS: Stated complaint: CHEST PAIN Other details as noted in HPI Comment: All other systems reviewed and negative Constitutional: denies: chills, fever Respiratory: denies: cough, shortness of breath, SOB with exertion Cardiovascular: chest pain. denies: palpitations Gastrointestinal: denies: abdominal pain, nausea, vomiting Musculoskeletal: denies: back pain Neurological: denies: headache, weakness, numbness, paresthesias, confusion ED Past Medical Hx - Past Medical History Hx Hypertension: Yes Hx Diabetes: Yes Hx Deep Vein Thrombosis: Yes (FEB 2016) Hx HIV: No - Surgical History Additional Surgical History: ; Angioplasty--no stents placed - Social History Smoking Status: Current Every Day Smoker Substance Use Type: Alcohol, Marijuana - Medications Home Medications: Home Medications Medication Instructions Recorded Confirmed Last Taken Type Aspirin [Aspirin BABY CHEW TAB] 81 mg PO DAILY 06/16/15 07/03/18 07/03/18 History 1 tab Clopidogrel Bisulfate [Plavix] 75 mg PO DAILY #30 tablet 06/16/15 07/03/18 07/03/18 Rx 1 tab Insulin Aspart Protam & Aspart 35 units SQ BID 09/23/16 07/03/18 07/02/18 History [NovoLOG Mix 70-30 Flexpen] 35 units amLODIPine 5 mg PO BID 09/23/16 07/03/18 07/03/18 History 1 tab lisinopriL [Zestril TAB] 20 mg PO BID 09/23/16 07/03/18 07/03/18 History 1 tab PriLOSEC Otc 10 mg PO BID 09/24/16 07/03/18 07/02/18 History 1 tab HYDROcodone/ACETAMINOPHEN [Alz[place] 1 each PO Q6HR PRN #30 tablet 07/03/18 Unknown Rx 7.5-325 Tablet] ED Physical Exam - General Limitations: No Limitations General appearance: alert, in no apparent distress - Head Head exam: Present: atraumatic, normocephalic, normal inspection - Eye Eye exam: Present: normal appearance - ENT ENT exam: Present: normal exam, normal orophraynx, mucous membranes moist - Neck Neck exam: Present: normal inspection, full ROM. Absent: tenderness, meningismus, lymphadenopathy, thyromegaly - Respiratory Respiratory exam: Present: normal lung sounds bilaterally - Cardiovascular Cardiovascular Exam: Present: regular rate, normal rhythm, normal heart sounds - GI/Abdominal GI/Abdominal exam: Present: soft, normal bowel sounds. Absent: distended, tenderness, guarding, rebound, rigid, organomegaly, mass, bruit, pulsatile mass, hernia - Extremities Exam Extremities exam: Present: normal inspection, full ROM, normal capillary refill. Absent: tenderness, pedal edema, joint swelling, calf tenderness - Back Exam Back exam: Present: normal inspection, full ROM. Absent: CVA tenderness (R), CVA tenderness (L) - Neurological Exam Neurological exam: Present: alert, oriented X3, CN II-XII intact, normal gait - Psychiatric Psychiatric exam: Present: normal mood - Skin Skin exam: Present: warm, intact, normal color ED Course Vital Signs 05/07/19 05/07/19 02:29 02:32 Temperature 98.2 F Pulse Rate 69 Respiratory 18 Rate Blood Pressure 181/72 [right arm] O2 Sat by Pulse 99 Oximetry ED Medical Decision Making - Lab Data Result diagrams: 05/07/19 02:34 05/07/19 02:34 - EKG Data -: EKG Interpreted by [place] EKG shows normal: sinus rhythm Rate: normal - EKG Data Interpretation: no acute changes - Medical Decision Making Patient is 68 years old female with history of hypertension and coronary artery disease but no stent. Patient brought to the emergency room via EMS from home for evaluation of chest pain started this evening when she go to bed. Patient described her pain as pressure and heaviness with no radiation. Patient pain improved with 2 nitroglycerin. Patient received aspirin by EMS also. Patient denies any shortness of breath, cough, fever or chills. EKG showed no ST elevation. Labs reviewed and is unremarkable including a negative troponin. Chest x-ray is unremarkable. Patient received morphine and stated that it helped with her pain. I discussed the patient with Dr. Jose, he agreed to admit the patient to medical service for further management. Critical care attestation.: If time is entered above; I have spent that time in minutes in the direct care of this critically ill patient, excluding procedure time. ED Disposition Clinical Impression: Chest pain Disposition: OP ADMIT IP TO THIS HOSP Is pt being admited?: Yes Condition: Stable Instructions: Chest Pain (ED)
[2019-05-07] MEDS ORDERED: ONDANSETRON 4 MG/2 ML INJ IV ONE (02:47)
[2019-05-07] MEDS ORDERED: MORPHINE 4 MG/1 ML INJ IV ONE (02:47)
[2019-05-07 02:55] LABS: Basophils % (Auto) 0.2 % (0.0-1.8); Eosinophils # (Auto) 0.1 K/mm3 (0.0-0.4); Eosinophils % (Auto) 1.4 % (0.0-4.3); Hematocrit 31.1 % (30.3-42.9); Lymphocytes # (Auto) 1.3 K/mm3 (1.2-5.4); Lymphocytes % (Auto) 24.2 % (13.4-35.0); Mean Corpuscular HGB Conc 32 % (30-34); Mean Corpuscular Volume 84 fl (79-97); Monocytes # (Auto) 0.5 K/mm3 (0.0-0.8); Platelet Count 217 K/mm3 (140-440); Red Cell Distribution Width 15.2 % (13.2-15.2)
--- NOTE | 2019-05-07 02:57 | XRay Report ---
CHEST 1 VIEW INDICATION: Chest Pain. COMPARISON: 03/15/2016 FINDINGS: SUPPORT DEVICES: None. HEART / MEDIASTINUM: No significant abnormality. LUNGS / PLEURA: Bronchovascular markings are prominent. No significant pulmonary or pleural abnormali ty. No pneumothorax. ADDITIONAL FINDINGS: IMPRESSION: 1. No interval changes compared to previous exam Signer Name: Rajesh Jane MD Signed: 05/07/2019 2:53 AM Workstation Name: [employer]
[2019-05-07 03:18] LABS: BUN/Creatinine Ratio 15; Blood Urea Nitrogen 17 mg/dL (7-17); Calcium 8.4 mg/dL (8.4-10.2); Hemolysis Index 0
[2019-05-07 03:37] LABS: Alanine Aminotransferase 20 units/L (7-56); Albumin 3.7 g/dL (3.9-5)
[2019-05-07 03:45] LABS: Bilirubin,Direct < 0.2 mg/dL (0-0.2)
[2019-05-07] MEDS ORDERED: NITROGLYCERIN 0.4 MG TAB SUBL SL PRN (04:05)
[2019-05-07] MEDS ORDERED: MORPHINE 2 MG/1 ML INJ IV PRN (04:05)
[2019-05-07] MEDS ORDERED: ONDANSETRON 4 MG/2 ML INJ IV PRN (04:05)
[2019-05-07] MEDS ORDERED: DEXTROSE 50% IN WATER (25GM) 50 ML SYRINGE IV PRN (04:05)
[2019-05-07] MEDS ORDERED: ACETAMINOPHEN 325 MG TAB PO PRN (04:05)
[2019-05-07] MEDS ORDERED: hydrALAZINE 20 MG/1 ML INJ IV PRN (04:09)
--- NOTE | 2019-05-07 04:15 | History and Physical Report ---
History of Present Illness Date of examination: 05/07/19 Date of admission: 05/07/19 Chief complaint: Chest Pain History of present illness: Patient is 60-year-old female who presents to ER with complaints of chest pain. Patient rates her pain as a 7 out of 10 located in left chest without radiation and unaccompanied by nausea or vomiting. Patient states worsening symptoms over the past couple hours when her chest pain is worsened by movement and accompanied with shortness of breath. EMS was notified and upon arrival the patient was found to be in distress. EMS reports her blood pressure was 220/98. She received 2 Nitros and 324 of Aspirin by EMS with mild relief. Patient was subsequently transported to [facility] for further care and evaluation. Patient admitted for further care and evaluation of her chest pain. Past History Past Medical History: CAD, diabetes, DVT, hypertension, PVD, other Past Surgical History: Social history: smoking (x40 yrs) Family history: hypertension Medications and Allergies Allergies Allergy/AdvReac Type Severity Reaction Status Date / Time No Known Allergies Allergy Verified 06/16/15 17:24 Home Medications Medication Instructions Recorded Confirmed Last Taken Type Aspirin [Aspirin BABY CHEW TAB] 81 mg PO DAILY 06/16/15 05/07/19 07/03/18 History 1 tab Clopidogrel Bisulfate [Plavix] 75 mg PO DAILY #30 tablet 06/16/15 05/07/19 07/03/18 Rx 1 tab Insulin Aspart Protam & Aspart 35 units SQ BID 09/23/16 05/07/19 07/02/18 History [NovoLOG Mix 70-30 Flexpen] 35 units amLODIPine 5 mg PO BID 09/23/16 05/07/19 07/03/18 History 1 tab lisinopriL [Zestril TAB] 20 mg PO BID 09/23/16 05/07/19 07/03/18 History 1 tab PriLOSEC Otc 10 mg PO BID 09/24/16 05/07/19 07/02/18 History 1 tab HYDROcodone/ACETAMINOPHEN [[place] 1 each PO Q6HR PRN #30 tablet 07/03/18 05/07/19 Unknown Rx 7.5-325 Tablet] Active Meds: Active Medications Acetaminophen (Tylenol) 650 mg PO Q4H PRN PRN Reason: Pain MILD(1-3)/Fever >100.5/LEE Aspirin (Ecotrin) 325 mg PO QDAY [facility] Atorvastatin Calcium (Lipitor) 40 mg PO QHS [facility] Dextrose (D50w (25gm) Syringe) 50 ml IV Q30MIN PRN; Protocol PRN Reason: Hypoglycemia Hydralazine HCl (Apresoline) 10 mg IV Q4HR PRN PRN Reason: Hypertension Insulin Human Lispro (Humalog) 0 unit SUB-Q ACHS [facility]; Protocol Morphine Sulfate (Morphine) 2 mg IV Q4H PRN PRN Reason: Pain, Moderate (4-6) Nitroglycerin (Nitrostat) 0.4 mg SL .Q5MIN PRN PRN Reason: Chest Pain Ondansetron HCl (Zofran) 4 mg IV Q8H PRN PRN Reason: Nausea And Vomiting Sodium Chloride (Sodium Chloride Flush Syringe 10 Ml) 10 ml IV BID BRIANA Sodium Chloride (Sodium Chloride Flush Syringe 10 Ml) 10 ml IV PRN PRN PRN Reason: LINE FLUSH Review of Systems All systems: negative Cardiovascular: chest pain, high blood pressure Respiratory: shortness of breath, respiratory infections (Bronchitis) Exam - Physical Exam Narrative exam: - Physical Exam Narrative exam: General appearance: Present: No distress noted - EENT Eyes: Present: PERRL ENT: hearing intact, clear oral mucosa - Neck Neck: Present: supple, normal ROM - Respiratory Respiratory effort: normal Respiratory: bilateral: Clear to auscultation - Cardiovascular Heart Sounds: Present: S1 & S2. Absent: rub, click - Extremities Extremities: pulses symmetrical, No edema Peripheral Pulses: within normal limits - Abdominal General gastrointestinal: Present: , non-distended, normal bowel sounds genitourinary: Present: normal - Integumentary Integumentary: Present: clear, warm, dry - Musculoskeletal Musculoskeletal: gait normal, strength equal bilaterally - Psychiatric Psychiatric: appropriate mood/affect, intact judgment & insight - Neurologic Neurologic: CNII-XII intact, moves all extremities - Constitutional Vitals: Temp Pulse Resp BP Pulse Ox 98.2 F 69 18 181/72 99 05/07/19 02:32 05/07/19 02:29 05/07/19 02:29 05/07/19 02:29 05/07/19 02:29 Results - Labs CBC & Chem 7: 05/07/19 02:34 05/07/19 02:34 Labs: Laboratory Last Values WBC 5.5 K/mm3 (4.5-11.0) 05/07/19 02:34 RBC 3.70 M/mm3 (3.65-5.03) 05/07/19 02:34 Hgb 10.0 gm/dl (10.1-14.3) L 05/07/19 02:34 Hct 31.1 % (30.3-42.9) 05/07/19 02:34 MCV 84 fl (79-97) 05/07/19 02:34 MCH 27 pg (28-32) L 05/07/19 02:34 MCHC 32 % (30-34) 05/07/19 02:34 RDW 15.2 % (13.2-15.2) 05/07/19 02:34 Plt Count 217 K/mm3 (140-440) 05/07/19 02:34 Lymph % (Auto) 24.2 % (13.4-35.0) 05/07/19 02:34 [place] % (Auto) 9.0 % (0.0-7.3) H 05/07/19 02:34 Eos % (Auto) 1.4 % (0.0-4.3) 05/07/19 02:34 Baso % (Auto) 0.2 % (0.0-1.8) 05/07/19 02:34 Lymph # 1.3 K/mm3 (1.2-5.4) 05/07/19 02:34 [place] # 0.5 K/mm3 (0.0-0.8) 05/07/19 02:34 Eos # 0.1 K/mm3 (0.0-0.4) 05/07/19 02:34 Baso # 0.0 K/mm3 (0.0-0.1) 05/07/19 02:34 Seg Neutrophils % 65.2 % (40.0-70.0) 05/07/19 02:34 Seg Neutrophils # 3.6 K/mm3 (1.8-7.7) 05/07/19 02:34 Sodium 139 mmol/L (137-145) 05/07/19 02:34 Potassium 3.8 mmol/L (3.6-5.0) 05/07/19 02:34 Chloride 103.5 mmol/L (98-107) 05/07/19 02:34 Carbon Dioxide 22 mmol/L (22-30) 05/07/19 02:34 Anion Gap 17 mmol/L 05/07/19 02:34 BUN 17 mg/dL (7-17) 05/07/19 02:34 Creatinine 1.1 mg/dL (0.7-1.2) 05/07/19 02:34 Estimated GFR 60 ml/min 05/07/19 02:34 BUN/Creatinine Ratio 15 % 05/07/19 02:34 Glucose 173 mg/dL (65-100) H 05/07/19 02:34 Calcium 8.4 mg/dL (8.4-10.2) 05/07/19 02:34 Total Bilirubin 0.20 mg/dL (0.1-1.2) 05/07/19 02:42 Direct Bilirubin < 0.2 mg/dL (0-0.2) 05/07/19 02:42 Indirect Bilirubin 0.0 mg/dL 05/07/19 02:42 AST 27 units/L (5-40) 05/07/19 02:42 ALT 20 units/L (7-56) 05/07/19 02:42 Alkaline Phosphatase 94 units/L (35-129) 05/07/19 02:42 Troponin T < 0.010 ng/mL (0.00-0.029) 05/07/19 02:34 Total Protein 6.9 g/dL (6.3-8.2) 05/07/19 02:42 Albumin 3.7 g/dL (3.9-5) L 05/07/19 02:42 Albumin/Globulin Ratio 1.2 % 05/07/19 02:42 - Imaging and Cardiology Chest x-ray: report reviewed Imaging and Cardiology: CHEST 1 VIEW INDICATION: Chest Pain. COMPARISON: 03/15/2016 FINDINGS: SUPPORT DEVICES: None. HEART / MEDIASTINUM: No significant abnormality. LUNGS / PLEURA: Bronchovascular markings are prominent. No significant pulmonary or pleural abnormality. No pneumothorax. ADDITIONAL FINDINGS: IMPRESSION: 1. No interval changes compared to previous exam [place]/IV: IV Catheter Type [Right Hand] INT / Saline Lock Assessment and Plan Assessment and plan: Atypical chest pain, need to rule out ACS - - will admit to telemetry bed - monitor with serial CE and EKG - will place on Aspirin, statin - as needed SL NTG and iv morphin for pain - Monitor BP, add betablocker and ACEI if BP tolerates -Cardiology consult DM -POC BG monitoring -SSI coverage prn Hypertension -Home meds once reconciled -Monitor BP q shift DVT prophylaxis -SCDs bilateral extremities Advance Directives: No VTE prophylaxis?: Chemical Plan of care discussed with patient/family: Yes
[2019-05-07] MEDS: INSULIN LISPRO 100 UNIT/ML SUB-Q SCH ×3 (07:54→17:27)
[2019-05-07] MEDS ORDERED: REGADENOSON 0.4 MG/5 ML INJ IV ONE (08:06)
[2019-05-07] MEDS ORDERED: ASPIRIN EC 325 MG TAB PO SCH (10:00)
--- NOTE | 2019-05-07 10:48 | Progress Note ---
Assessment and Plan Assessment and plan: Atypical chest pain, need to rule out ACS - - will admit to telemetry bed - monitor with serial CE and EKG - will place on Aspirin, statin - as needed SL NTG and iv morphin for pain - Monitor BP, add betablocker and ACEI if BP tolerates -Cardiology consult DM -POC BG monitoring -SSI coverage prn Hypertension -Home meds once reconciled -Monitor BP q shift DVT prophylaxis -SCDs bilateral extremities Hospitalist Physical - Constitutional Vitals: Temp Pulse Resp BP Pulse Ox 98.2 F 64 14 173/54 91 05/07/19 02:32 05/07/19 05:00 05/07/19 06:30 05/07/19 06:30 05/07/19 06:30 Results - Labs CBC & Chem 7: 05/07/19 02:34 05/07/19 02:34 Labs: Laboratory Last Values WBC 5.5 K/mm3 (4.5-11.0) 05/07/19 02:34 RBC 3.70 M/mm3 (3.65-5.03) 05/07/19 02:34 Hgb 10.0 gm/dl (10.1-14.3) L 05/07/19 02:34 Hct 31.1 % (30.3-42.9) 05/07/19 02:34 MCV 84 fl (79-97) 05/07/19 02:34 MCH 27 pg (28-32) L 05/07/19 02:34 MCHC 32 % (30-34) 05/07/19 02:34 RDW 15.2 % (13.2-15.2) 05/07/19 02:34 Plt Count 217 K/mm3 (140-440) 05/07/19 02:34 Lymph % (Auto) 24.2 % (13.4-35.0) 05/07/19 02:34 [place] % (Auto) 9.0 % (0.0-7.3) H 05/07/19 02:34 Eos % (Auto) 1.4 % (0.0-4.3) 05/07/19 02:34 Baso % (Auto) 0.2 % (0.0-1.8) 05/07/19 02:34 Lymph # 1.3 K/mm3 (1.2-5.4) 05/07/19 02:34 [place] # 0.5 K/mm3 (0.0-0.8) 05/07/19 02:34 Eos # 0.1 K/mm3 (0.0-0.4) 05/07/19 02:34 Baso # 0.0 K/mm3 (0.0-0.1) 05/07/19 02:34 Seg Neutrophils % 65.2 % (40.0-70.0) 05/07/19 02:34 Seg Neutrophils # 3.6 K/mm3 (1.8-7.7) 05/07/19 02:34 Sodium 139 mmol/L (137-145) 05/07/19 02:34 Potassium 3.8 mmol/L (3.6-5.0) 05/07/19 02:34 Chloride 103.5 mmol/L (98-107) 05/07/19 02:34 Carbon Dioxide 22 mmol/L (22-30) 05/07/19 02:34 Anion Gap 17 mmol/L 05/07/19 02:34 BUN 17 mg/dL (7-17) 05/07/19 02:34 Creatinine 1.1 mg/dL (0.7-1.2) 05/07/19 02:34 Estimated GFR 60 ml/min 05/07/19 02:34 BUN/Creatinine Ratio 15 % 05/07/19 02:34 Glucose 173 mg/dL (65-100) H 05/07/19 02:34 Calcium 8.4 mg/dL (8.4-10.2) 05/07/19 02:34 Total Bilirubin 0.20 mg/dL (0.1-1.2) 05/07/19 02:42 Direct Bilirubin < 0.2 mg/dL (0-0.2) 05/07/19 02:42 Indirect Bilirubin 0.0 mg/dL 05/07/19 02:42 AST 27 units/L (5-40) 05/07/19 02:42 ALT 20 units/L (7-56) 05/07/19 02:42 Alkaline Phosphatase 94 units/L (35-129) 05/07/19 02:42 Troponin T < 0.010 ng/mL (0.00-0.029) 05/07/19 05:21 Total Protein 6.9 g/dL (6.3-8.2) 05/07/19 02:42 Albumin 3.7 g/dL (3.9-5) L 05/07/19 02:42 Albumin/Globulin Ratio 1.2 % 05/07/19 02:42 [place]/IV: Voiding Method Toilet IV Catheter Type [Right Hand] INT / Saline Lock Active Medications - Current Medications Current Medications: Generic Name Dose Route Start Last Admin Trade Name Freq PRN Reason Stop Dose Admin Acetaminophen 650 mg 05/07/19 04:05 Tylenol PO Q4H PRN Pain MILD(1-3)/Fever >100.5/LEE Aspirin 325 mg 05/07/19 10:00 05/07/19 10:40 Ecotrin PO Not Given QDAY [facility] Atorvastatin Calcium 40 mg 05/07/19 22:00 Lipitor PO QHS [facility] Dextrose 50 ml 05/07/19 04:05 D50w (25gm) Syringe IV Q30MIN PRN Hypoglycemia Protocol Hydralazine HCl 10 mg 05/07/19 04:09 Apresoline IV Q4HR PRN Hypertension Insulin Human Lispro 0 unit 05/07/19 07:30 05/07/19 07:54 Humalog SUB-Q Not Given ACHS [facility] Protocol Morphine Sulfate 2 mg 05/07/19 04:05 Morphine IV Q4H PRN Pain, Moderate (4-6) Nitroglycerin 0.4 mg 05/07/19 04:05 Nitrostat SL .Q5MIN PRN Chest Pain Ondansetron HCl 4 mg 05/07/19 04:05 Zofran IV Q8H PRN Nausea And Vomiting Sodium Chloride 10 ml 05/07/19 10:00 05/07/19 10:40 Sodium Chloride Flush Syringe 10 Ml IV Not Given BID BRIANA Sodium Chloride 10 ml 05/07/19 04:05 Sodium Chloride Flush Syringe 10 Ml IV PRN PRN LINE FLUSH
--- NOTE | 2019-05-07 11:46 | Consultation ---
History of Present Illness Consult date: 05/07/19 Consult reason: chest pain History of present illness: 68y F history of DM, hypertension and PAD. She had R SFA intervention in 2017. No documented history of CAD or HF. Presents with poorly characterized, non exertional chest pain. On presentation, BP was uncontrolled 200 systolic, and remains persistently elevated 170-180 systolic today. ECG: NSR with no acute ischemic changes. Serial cardiac troponin levels were normal. Chest Xray was unremarkable. She underwent a lexiscan thallium stress test today, results pending. Past History Past Medical History: diabetes, DVT, hypertension, PVD Past Surgical History: , Other (PV intervention R SFA) Social history: smoking (x40 yrs) Family history: hypertension Medications and Allergies Allergies Allergy/AdvReac Type Severity Reaction Status Date / Time No Known Allergies Allergy Verified 06/16/15 17:24 Home Medications Medication Instructions Recorded Confirmed Last Taken Type Aspirin [Aspirin BABY CHEW TAB] 81 mg PO DAILY 06/16/15 05/07/19 07/03/18 History 1 tab Clopidogrel Bisulfate [Plavix] 75 mg PO DAILY #30 tablet 06/16/15 05/07/19 Rx 1 tab Insulin Aspart Protam & Aspart 35 units SQ BID 09/23/16 05/07/19 07/02/18 Hi story [NovoLOG Mix 70-30 Flexpen] 35 units amLODIPine 5 mg PO BID 09/23/16 05/07/19 07/03/18 History 1 tab lisinopriL [Zestril TAB] 20 mg PO BID 09/23/16 05/07/19 07/03/18 History 1 tab PriLOSEC Otc 10 mg PO BID 09/24/16 05/07/19 07/02/18 History 1 tab HYDROcodone/ACETAMINOPHEN [[place] 1 each PO Q6HR PRN #30 tablet 07/03/18 05/07/19 Unknown Rx 7.5-325 Tablet] Active Meds: Active Medications Acetaminophen (Tylenol) 650 mg PO Q4H PRN PRN Reason: Pain MILD(1-3)/Fever >100.5/LEE Aspirin (Ecotrin) 325 mg PO QDAY [facility] Last Admin: 05/07/19 10:40 Dose: Not Given Documented by: Atorvastatin Calcium (Lipitor) 40 mg PO QHS [facility] Dextrose (D50w (25gm) Syringe) 50 ml IV Q30MIN PRN; Protocol PRN Reason: Hypoglycemia Hydralazine HCl (Apresoline) 10 mg IV Q4HR PRN PRN Reason: Hypertension Insulin Human Lispro (Humalog) 0 unit SUB-Q ACHS [facility]; Protocol Last Admin: 05/07/19 07:54 Dose: Not Given Documented by: Morphine Sulfate (Morphine) 2 mg IV Q4H PRN PRN Reason: Pain, Moderate (4-6) Nitroglycerin (Nitrostat) 0.4 mg SL .Q5MIN PRN PRN Reason: Chest Pain Ondansetron HCl (Zofran) 4 mg IV Q8H PRN PRN Reason: Nausea And Vomiting Sodium Chloride (Sodium Chloride Flush Syringe 10 Ml) 10 ml IV BID [facility] Last Admin: 05/07/19 10:40 Dose: Not Given Documented by: Sodium Chloride (Sodium Chloride Flush Syringe 10 Ml) 10 ml IV PRN PRN PRN Reason: LINE FLUSH Review of Systems Cardiovascular: chest pain, shortness of breath, no orthopnea, no palpitations, no rapid/irregular heart beat, no edema, no syncope, no lightheadedness Physical Examination Vital Signs Pulse Resp 71 21 05/07/19 02:24 05/07/19 02:24 General appearance: no acute distress HEENT: Positive: PERRL Cardiac: Positive: Reg Rate and Rhythm Lungs: Positive: clear to auscultation Neuro: Positive: Grossly Intact Abdomen: Positive: Soft Female genitourinary: deferred Skin: Positive: Clear Extremities: Absent: edema Results 05/07/19 02:34 05/07/19 02:34 Cardiac Enzymes 05/07/19 Range/Units 02:42 AST 27 (5-40) units/L CBC 05/07/19 Range/Units 02:34 WBC 5.5 (4.5-11.0) K/mm3 RBC 3.70 (3.65-5.03) M/mm3 Hgb 10.0 L (10.1-14.3) gm/dl Hct 31.1 (30.3-42.9) % Plt Count 217 (140-440) K/mm3 Lymph # 1.3 (1.2-5.4) K/mm3 [place] # 0.5 (0.0-0.8) K/mm3 Eos # 0.1 (0.0-0.4) K/mm3 Baso # 0.0 (0.0-0.1) K/mm3 Comprehensive Metabolic Panel 05/07/19 05/07/19 Range/Units 02:34 02:42 Sodium 139 (137-145) mmol/L Potassium 3.8 (3.6-5.0) mmol/L Chloride 103.5 (98-107) mmol/L Carbon Dioxide 22 (22-30) mmol/L BUN 17 (7-17) mg/dL Creatinine 1.1 (0.7-1.2) mg/dL Glucose 173 H (65-100) mg/dL Calcium 8.4 (8.4-10.2) mg/dL Direct Bilirubin < 0.2 (0-0.2) mg/dL Indirect Bilirubin 0.0 mg/dL AST 27 (5-40) units/L ALT 20 (7-56) units/L Alkaline Phosphatase 94 (35-129) units/L Total Protein 6.9 (6.3-8.2) g/dL Albumin 3.7 L (3.9-5) g/dL EKG interpretations - Telemetry EKG Rhythm: Sinus Rhythm Assessment and Plan - Patient Problems (1) Chest pain Current Visit: Yes Status: Acute Plan to address problem: Patient underwent lexiscan thallium stress, results pending. (2) Uncontrolled hypertension Current Visit: Yes Status: Acute Plan to address problem: I will add procardia XL and valsartan for better BP control. Stop lisinopril and amlodipine.
[2019-05-07] MEDS ORDERED: NIFEdipine XL 60 MG TAB PO SCH (13:00)
[2019-05-07] MEDS ORDERED: VALSARTAN 40 MG TAB PO SCH (13:00)
--- NOTE | 2019-05-07 13:28 | Treadmill Report ---
THALLIUM STRESS TEST LEFT VENTRICLE: Left ventricle is very mildly dilated. Perfusion study demonstrates fairly homogeneous uptake of the tracer in all segments. No significant perfusion defect identified. Gated analysis demonstrates left ventricular systolic function within normal limits, ejection fraction 54%. CONCLUSION: No demonstrable ischemia on thallium perfusion imaging, negative study. Clinical correlation is recommended. JOB# [id number] CA/NTS
--- NOTE | 2019-05-07 14:51 | Discharge Summary ---
Providers - Providers Date of Admission: 05/07/19 06:17 Date of discharge: 05/07/19 Attending physician: BA FONTANEZ 05/07/19 Consult to Cardiac Rehabilitation [CONS] Routine Reason For Exam: Phase 1 05/07/19 04:06 Consult to Cardiology [CONS] Routine Consulting Provider: JUAN MANUEL BRAVO Reason For Exam: Chest pain 05/07/19 04:15 Consult to Physician [CONS] Routine Comment: Consulting Provider: JUAN MANUEL BRAVO Physician Instructions: Reason For Exam: Chest pain Primary care physician: BLAIR OQUENDO Hospitalization Reason for admission: Chest pain/shortness of breath Condition: Stable Pertinent studies: Chest x-ray no acute abnormality Echocardiogram EF 55 to 60% Stress test; negative for ischemia Hospital course: Patient is 60-year-old female who presents to ER with complaints of chest pain. Patient rates her pain as a 7 out of 10 located in left chest without radiation and unaccompanied by nausea or vomiting. Patient states worsening symptoms over the past couple hours when her chest pain is worsened by movement and accompanied with shortness of breath. EMS was notified and upon arrival the patient was found to be in distress. EMS reports her blood pressure was 220/98. She received 2 Nitros and 324 of Aspirin by EMS with mild relief. Patient was subsequently transported to [facility] for further care and evaluation. Patient admitted for further care and evaluation of her chest pain. Evaluated by cardiology, medications were optimized, had stress test which was negative for ischemia, ejection fraction Patient had hypertensive emergency at the time of admission, antihypertensives optimized Today patient is comfortable no new complaints vital signs stable physical examinations unremarkable Patient is hemodynamically and clinically stable at discharge Cleared by cardiology Final diagnosis and management; --Hypertensive urgency; blood pressures reasonable control continue current antihypertensives and PRN medications --Atypical chest pain; probably noncardiac, probably due to GERD Stress test negative, continue current management --GERD; probably the cause of chest pain, Protonix --Obesity BMI 32.1; Advised weight reduction when medically stable --Dyslipidemia; low-cholesterol diet, Statin --Ongoing tobacco use; smoking cessation counseling done Advised nicotine patch Monitor closely and adjust management as needed Cleared by cardiology Stable at discharge Discharge medications: Aspirin 81 mg Plavix 75 mg Prilosec milligrams twice daily Insulin 70/30 35 mg twice daily[adjust depending on the sugars] hydrocodone every 6 hours as needed Nifedipine XL 60 mg daily[new prescription] valsartan 80 mg twice daily[new prescription] Lipitor 40 mg p.o. nightly[new prescription] Nicotine patch 14 mg topical daily[new prescription] Stable at discharge Disposition: ASHELY TO HOME OR SELFCARE Time spent for discharge: 32 min Core Measure Documentation - Palliative Care Palliative Care/ Comfort Measures: Not Applicable - Core Measures Any of the following diagnoses?: none Exam - Constitutional Vitals: Temp Pulse Resp BP Pulse Ox 97.8 F 87 22 187/99 91 05/07/19 12:36 05/07/19 12:55 05/07/19 12:36 05/07/19 12:55 05/07/19 12:36 General appearance: Present: no acute distress, well-nourished, obese - EENT Eyes: Present: PERRL, EOM intact - Neck Neck: Present: supple, normal ROM - Respiratory Respiratory effort: normal Respiratory: negative: diminished, rales, rhonchi - Extremities Extremities: no ischemia, No edema - Abdominal General gastrointestinal: Present: soft, non-tender, non-distended, normal bowel sounds - Integumentary Integumentary: Present: clear, warm - Musculoskeletal Musculoskeletal: strength equal bilaterally - Psychiatric Psychiatric: appropriate mood/affect, cooperative - Neurologic Neurologic: CNII-XII intact, moves all extremities Plan Activity: advance as tolerated, fall precautions Diet: diabetic Special Instructions: smoking cessation Additional Instructions: If you have worsening symptoms, contact MD or go to emergency room. Advised weight reduction when medically stable. Smoking cessation counseling nicotine patch as needed Follow up with: BLAIR OQUENDO MD [Primary Care Provider] - 3-5 Days JUAN MANUEL BRAVO MD [Staff Physician] - 7 Days Prescriptions: Valsartan [Diovan] 80 mg PO BID #60 tablet Nicotine [Habitrol] 14 mg TD DAILY #30 patch AtorvaSTATin [Lipitor] 40 mg PO QHS #30 tablet NIFEdipine XL [Procardia Xl] 60 mg PO QDAY #30 tablet
[2019-05-07 16:41] VITALS: BP 149/50
== END 2019-05-07 18:23 | disposition home or self-care (01) ==
LOC: ED 02:11 → 4A 06:17 → INTOOBSV 06:17
PROVIDERS: ADMIT Internal Medicine Geriatric Medicine; ATTEND Internal Medicine
DX: R07.89 Other chest pain (principal); I10 Essential (primary) hypertension; I25.10 Atherosclerotic heart disease of native coronary artery without angina pectoris; E11.9 Type 2 diabetes mellitus without complications; I73.9 Peripheral vascular disease, unspecified; F17.200 Nicotine dependence, unspecified, uncomplicated; Z86.718 Personal history of other venous thrombosis and embolism; Z98.891 History of uterine scar from previous surgery; Z79.02 Long term (current) use of antithrombotics/antiplatelets; Z79.4 Long term (current) use of insulin
CPT/HCPCS: 36415; 71045; 78452; 80048; 80076; 82962; 84484; 85025; 93005; 93010; 93017; 93306; 96374; 96375; 99285; A9502; G0378; J2270; J2405; J2785

== ENCOUNTER 2020-07-26 11:44 | Observation (INO) | payer MEDICARE ==
[2020-07-26] MEDS ORDERED: ASPIRIN 325 MG TAB PO ONE (11:51)
[2020-07-26 12:45] LABS: Basophils % (Auto) 0.6 % (0.0-1.8); Eosinophils # (Auto) 0.1 K/mm3 (0.0-0.4); Eosinophils % (Auto) 1.7 % (0.0-4.3); Hematocrit 36.3 % (30.3-42.9); Hemoglobin 12.3 gm/dl (10.1-14.3); Lymphocytes # (Auto) 1.2 K/mm3 (1.2-5.4); Lymphocytes % (Auto) 25.6 % (13.4-35.0); Mean Corpuscular HGB Conc 34 % (30-34); Mean Corpuscular Volume 82 fl (79-97); Monocytes # (Auto) 0.3 K/mm3 (0.0-0.8); Monocytes % (Auto) 5.8 % (0.0-7.3); Platelet Count 221 K/mm3 (140-440); Red Blood Count 4.43 M/mm3 (3.65-5.03); Red Cell Distribution Width 15.9 % (13.2-15.2)
[2020-07-26 12:55] LABS: INR 0.85 (0.87-1.13)
[2020-07-26 12:56] LABS: Partial Thromboplastin Time 27.5 Sec. (24.2-36.6)
[2020-07-26 13:06] LABS: Alanine Aminotransferase 5 units/L (7-56); Albumin 4.1 g/dL (3.9-5); BUN/Creatinine Ratio 15; Blood Urea Nitrogen 12 mg/dL (7-17); Calcium 9.4 mg/dL (8.4-10.2); Hemolysis Index 10
[2020-07-26] MEDS ORDERED: hydrALAZINE 20 MG/1 ML INJ IV ONE (16:50)
[2020-07-26] MEDS ORDERED: LORazepam 2 MG/ML VIAL ONE (18:16)
[2020-07-26] MEDS ORDERED: METOCLOPRAMIDE 10 MG TAB PO PRN (23:48)
[2020-07-26] MEDS ORDERED: ALBUTEROL 8.5 GM MDI INHALATION IH PRN (23:48)
[2020-07-26] MEDS ORDERED: hydrOXYzine HCL 25 MG TAB PO PRN (23:48)
[2020-07-26] MEDS ORDERED: HYDROcodone/ACETAMINOPHEN 7.5-325MG TAB PO PRN (23:48)
[2020-07-26] MEDS ORDERED: ACETAMINOPHEN 325 MG TAB PO PRN (23:51)
[2020-07-26] MEDS ORDERED: HYDROmorphone 1 MG/1 ML INJ IV PRN (23:51)
[2020-07-26] MEDS ORDERED: ONDANSETRON 4 MG/2 ML INJ IV PRN (23:51)
[2020-07-26] MEDS ORDERED: MORPHINE 2 MG/1 ML INJ IV PRN (23:51)
[2020-07-26] MEDS ORDERED: METOCLOPRAMIDE 10 MG/2 ML INJ IV PRN (23:51)
[2020-07-27] MEDS ORDERED: hydrALAZINE 20 MG/1 ML INJ IV PRN (00:01)
[2020-07-27] MEDS ORDERED: ALBUTEROL 2.5 MG/3 ML NEBU IH PRN ×2 (00:01→01:00)
[2020-07-27] MEDS ORDERED: IPRATROPIUM/ALBUTEROL SULFATE 3 ML AMPUL.NEB IH PRN (00:28)
[2020-07-27] MEDS: HEPARIN 5,000 UNIT/1 ML VIAL SUB-Q SCH ×2 (01:52→13:59)
[2020-07-27] MEDS: VALSARTAN 160MG TAB PO SCH ×2 (01:53→13:57)
[2020-07-27 06:07] LABS: Basophils % (Auto) 0.3 % (0.0-1.8); Eosinophils # (Auto) 0.1 K/mm3 (0.0-0.4); Eosinophils % (Auto) 0.9 % (0.0-4.3); Hemoglobin 11.5 gm/dl (10.1-14.3); Lymphocytes # (Auto) 1.5 K/mm3 (1.2-5.4); Lymphocytes % (Auto) 24.4 % (13.4-35.0); Mean Corpuscular HGB Conc 33 % (30-34); Mean Corpuscular Volume 83 fl (79-97); Monocytes # (Auto) 0.3 K/mm3 (0.0-0.8); Monocytes % (Auto) 5.2 % (0.0-7.3); Platelet Count 209 K/mm3 (140-440); Red Blood Count 4.23 M/mm3 (3.65-5.03); Red Cell Distribution Width 15.6 % (13.2-15.2)
[2020-07-27 06:22] LABS: Albumin 3.7 g/dL (3.9-5)
[2020-07-27] MEDS ORDERED: REGADENOSON 0.4 MG/5 ML INJ IV ONE (08:25)
[2020-07-27] MEDS ORDERED: POTASSIUM CHLORIDE ER 20 MEQ TAB PO NR (08:29)
[2020-07-27] MEDS ORDERED: POTASSIUM CHLORIDE ER 20 MEQ TAB PO SCH (10:00)
[2020-07-27] MEDS ORDERED: ASPIRIN 81 MG TAB CHEW PO SCH (10:00)
[2020-07-27] MEDS ORDERED: NIFEdipine XL 60 MG TAB PO SCH (10:00)
[2020-07-27] MEDS ORDERED: CLOPIDOGREL 75 MG TAB PO SCH (10:00)
[2020-07-27] MEDS ORDERED: FAMOTIDINE 20 MG TAB PO SCH (10:00)
[2020-07-27] MEDS ORDERED: PNEUMOCOCCAL 23 Valent 0.5 ML VIAL IM ONE (12:00)
[2020-07-27 12:12] VITALS: BP 184/74
== END 2020-07-27 14:50 | disposition home or self-care (01) ==
LOC: ED 11:44 → 4A 21:11 → INTOOBSV 21:11
PROVIDERS: ADMIT Internal Medicine; ATTEND Internal Medicine
DX: I24.9 Acute ischemic heart disease, unspecified (principal); I25.10 Atherosclerotic heart disease of native coronary artery without angina pectoris; I16.0 Hypertensive urgency; I10 Essential (primary) hypertension; J44.9 Chronic obstructive pulmonary disease, unspecified; E78.2 Mixed hyperlipidemia; E11.9 Type 2 diabetes mellitus without complications; F17.210 Nicotine dependence, cigarettes, uncomplicated; R04.0 Epistaxis; R51.9 Headache, unspecified; Z86.718 Personal history of other venous thrombosis and embolism; Z95.1 Presence of aortocoronary bypass graft; Z79.899 Other long term (current) drug therapy; Z98.890 Other specified postprocedural states; Z98.891 History of uterine scar from previous surgery; Z79.82 Long term (current) use of aspirin; Z79.02 Long term (current) use of antithrombotics/antiplatelets
CPT/HCPCS: 36415; 70450; 71046; 78452; 80053; 82962; 83036; 84484; 85025; 85610; 85730; 93005; 93017; 96372; 96374; 99291; A9502; G0378; J0360; J1644; J2785; J2060

== ENCOUNTER 2020-09-16 23:52 | Emergency (ER) | payer MEDICARE ==
[2020-09-17 00:41] VITALS: BP 178/93
== END 2020-09-17 02:20 | disposition left against medical advice (07) ==
LOC: ED 23:52
DX: R03.0 Elevated blood-pressure reading, without diagnosis of hypertension (principal); R10.9 Unspecified abdominal pain; R06.00 Dyspnea, unspecified; Z53.21 Procedure and treatment not carried out due to patient leaving prior to being seen by health care provider

== ENCOUNTER 2020-09-18 10:42 | Emergency (ER) | payer MEDICARE ==
[2020-09-18 11:36] VITALS: BP 148/65
--- NOTE | 2020-09-18 13:37 | Event Note ---
ED Screening Note Date of service: 09/18/20 Time: 13:32 ED Screening Note: 69 y/o female -[place] female for chronic back pain and leg pain as well as nausea vomiting has been going on for over a week. Patient is currently on Percocets for pain through her primary care provider Dr. Salinas. Patient reports that she had a fall earlier last weekend. States this is falling a lot. Denies any head injury no loss of consciousness. States this is just sore. This initial assessment/diagnostic orders/clinical plan/treatment(s) is/are subject to change based on patients health status, clinical progression and re- assessment by fellow clinical providers in the ED. Further treatment and workup at subsequent clinical providers discretion. Patient/guardian urged not to elope from the ED as their condition may be serious if not clinically assessed and managed. Initial orders include:
[2020-09-18 13:59] LABS: Bilirubin,Urine NEG (Negative); Blood,Urine NEG (Negative); Color,Urine Yellow (Yellow); Mucus,Urine FEW /HPF; Urobilinogen,Urine < 2.0 mg/dL (<2.0)
[2020-09-18 14:06] LABS: Basophils % (Auto) 0.4 % (0.0-1.8); Eosinophils # (Auto) 0.1 K/mm3 (0.0-0.4); Eosinophils % (Auto) 1.3 % (0.0-4.3); Hematocrit 34.1 % (30.3-42.9); Hemoglobin 11.3 gm/dl (10.1-14.3); Lymphocytes # (Auto) 1.8 K/mm3 (1.2-5.4); Mean Corpuscular HGB Conc 33 % (30-34); Mean Corpuscular Volume 83 fl (79-97); Monocytes # (Auto) 0.4 K/mm3 (0.0-0.8); Monocytes % (Auto) 5.4 % (0.0-7.3); Platelet Count 240 K/mm3 (140-440); Red Blood Count 4.09 M/mm3 (3.65-5.03)
[2020-09-18 14:07] LABS: Protein,Urine >500 mg/dL (Negative)
[2020-09-18 14:13] LABS: Albumin 4.1 g/dL (3.9-5); Calcium 9.4 mg/dL (8.4-10.2)
== END 2020-09-18 19:00 | disposition home or self-care (01) ==
LOC: ED 10:42
DX: M79.605 Pain in left leg (principal); M79.604 Pain in right leg; R11.2 Nausea with vomiting, unspecified; G89.29 Other chronic pain
CPT/HCPCS: 36415; 80053; 81001; 83690; 85025; 99283

== ENCOUNTER 2021-01-26 12:13 | Observation (INO) | payer MEDICARE ==
--- NOTE | 2021-01-26 12:30 | Event Note ---
ED Screening Note ED Screening Note: Patient presents for chest pain and shortness of breath that exacerbated today She was recently admitted for CHF/COPD She denies any radiation of her pain, nausea, vomiting, diaphoresis This initial assessment/diagnostic orders/clinical plan/treatment(s) is/are subject to change based on patients health status, clinical progression and re- assessment by fellow clinical providers in the ED. Further treatment and workup at subsequent clinical providers discretion. Patient/guardian urged not to elope from the ED as their condition may be serious if not clinically assessed and managed. Initial orders include: Labs, x-ray, EKG
--- NOTE | 2021-01-26 13:00 | XRay Report ---
CHEST 2 VIEWS INDICATION / CLINICAL INFORMATION: Chest Pain. COMPARISON: 01/16/2021. FINDINGS: SUPPORT DEVICES: None. HEART / MEDIASTINUM: Enlarged, but stable. LUNGS / PLEURA: Hazy interstitial markings in a pattern most suggestive of mild interstitial edema. N o focal consolidation. No definite pleural effusion or pneumothorax. ADDITIONAL FINDINGS: No significant additional findings. IMPRESSION: Enlarged cardiac silhouette with suspected mild interstitial edema. Signer Name: Ej Vaz MD Signed: 01/26/2021 12:55 PM Workstation Name: [id number]
--- NOTE | 2021-01-26 13:25 | Emergency Department Report ---
<YONG VENEGAS - Last Filed: 01/26/21 19:19> ED Chest Pain HPI - General Chief Complaint: Chest Pain Stated Complaint: CHEST PAIN Time Seen by Provider: 01/26/21 12:22 - Related Data Home Medications Medication Instructions Recorded Confirmed Last Taken Baclofen [Lioresal] 10 mg PO BID 01/18/21 01/18/21 Unknown Budesonide/Formoterol Fumarate 2 puff IH BID 01/18/21 01/18/21 Unknown [Symbicort 160-4.5 Mcg Inhaler] Ergocalciferol (Vitamin D2) 50,000 unit PO QWEEK 01/18/21 01/18/21 01/15/21 [Vitamin D2] Fluticasone [Flonase] 1 spray NS QDAY 01/18/21 01/18/21 Unknown Gabapentin 300 mg PO QDAY 01/18/21 01/18/21 01/15/21 Ibuprofen [Motrin 800 MG tab] 800 mg PO QDAY PRN 01/18/21 01/18/21 01/15/21 Insulin NPH Hum/Reg Insulin Hm 40 unit SQ QPM 01/18/21 01/18/21 01/15/21 [Novolin 70-30 100 Unit/ml Vial] Insulin NPH Hum/Reg Insulin Hm 60 unit SQ QAM 01/18/21 01/18/21 01/15/21 [Novolin 70-30 100 Unit/ml Vial] Latanoprost 0.005% 1 drop OP QPM 01/18/21 01/18/21 01/15/21 Pantoprazole [Protonix TAB] 40 mg PO QDAY 01/18/21 01/18/21 01/15/21 hydrOXYzine HCL [Atarax] 25 mg PO TID PRN 01/18/21 01/18/21 01/15/21 Isoniazid 900 mg PO QWEEK 01/19/21 01/19/21 01/05/21 Pyridoxine HCl (Vitamin B6) 50 mg PO QWEEK 01/19/21 01/19/21 Unknown [Vitamin B-6] Rifapentine [Priftin] 900 mg PO QWEEK 01/19/21 01/19/21 Unknown Previous Rx's Medication Instructions Recorded Last Taken Type AtorvaSTATin [Lipitor] 40 mg PO QHS #30 tablet 07/27/20 1 Day Ago Rx ~01/15/21 HYDROcodone/APAP 7.5-325 [[place] 1 each PO Q6HR PRN #7 tablet 07/27/20 1 Month Ago Rx 7.5-325 mg TAB] ~12/18/20 NIFEdipine XL [Procardia Xl] 60 mg PO QDAY #30 tablet 07/27/20 1 Day Ago Rx ~01/15/21 Valsartan [Diovan] 160 mg PO BID #60 tablet 07/27/20 01/15/21 Rx 160 Aspirin EC [Halfprin EC] 81 mg PO DAILY #30 tablet. 01/20/21 Unknown Rx Azithromycin [Zithromax TAB] 250 mg PO QDAY #3 tablet 01/20/21 Unknown Rx Clopidogrel [Plavix] 75 mg PO QDAY #30 tablet 01/20/21 Unknown Rx Fluticasone/Umeclidin/Vilanter 1 puff IH DAILY #1 blst.w.dev 01/20/21 Unknown Rx [Trelegy Ellipta 100-62.5-25] predniSONE [Deltasone] 3 tab PO QDAY #24 tab 01/20/21 Unknown Rx hydrALAZINE [Apresoline TAB] 25 mg PO Q8HR #90 tab 01/21/21 Unknown Rx Albuterol Mdi (or & Nicu Only) 2 puff IH QID PRN #8.5 gram 01/26/21 Unknown Rx [ProAir HFA Inhaler] Furosemide [Lasix] 20 mg PO QDAY #5 tablet 01/26/21 Unknown Rx Allergies Allergy/AdvReac Type Severity Reaction Status Date / Time No Known Allergies Allergy Verified 01/16/21 12:25 ED Past Medical Hx - Medications Home Medications: Home Medications Medication Instructions Recorded Confirmed Last Taken Type AtorvaSTATin [Lipitor] 40 mg PO QHS #30 tablet 07/27/20 01/18/21 1 Day Ago Rx ~01/15/21 HYDROcodone/APAP 7.5-325 [[place] 1 each PO Q6HR PRN #7 tablet 07/27/20 01/18/21 1 Month Ago Rx 7.5-325 mg TAB] ~12/18/20 NIFEdipine XL [Procardia Xl] 60 mg PO QDAY #30 tablet 07/27/20 01/18/21 1 Day Ago Rx ~01/15/21 Valsartan [Diovan] 160 mg PO BID #60 tablet 07/27/20 01/18/21 01/15/21 Rx 160 Baclofen [Lioresal] 10 mg PO BID 01/18/21 01/18/21 Unknown History Budesonide/Formoterol Fumarate 2 puff IH BID 01/18/21 01/18/21 Unknown History [Symbicort 160-4.5 Mcg Inhaler] Ergocalciferol (Vitamin D2) 50,000 unit PO QWEEK 01/18/21 01/18/21 01/15/21 History [Vitamin D2] Fluticasone [Flonase] 1 spray NS QDAY 01/18/21 01/18/21 Unknown History Gabapentin 300 mg PO QDAY 01/18/21 01/18/21 01/15/21 History Ibuprofen [Motrin 800 MG tab] 800 mg PO QDAY PRN 01/18/21 01/18/21 01/15/21 History Insulin NPH Hum/Reg Insulin Hm 40 unit SQ QPM 01/18/21 01/18/21 01/15/21 History [Novolin 70-30 100 Unit/ml Vial] Insulin NPH Hum/Reg Insulin Hm 60 unit SQ QAM 01/18/21 01/18/21 01/15/21 History [Novolin 70-30 100 Unit/ml Vial] Latanoprost 0.005% 1 drop OP QPM 01/18/21 01/18/21 01/15/21 History Pantoprazole [Protonix TAB] 40 mg PO QDAY 01/18/21 01/18/21 01/15/21 History hydrOXYzine HCL [Atarax] 25 mg PO TID PRN 01/18/21 01/18/21 01/15/21 History Isoniazid 900 mg PO QWEEK 01/19/21 01/19/21 01/05/21 History Pyridoxine HCl (Vitamin B6) 50 mg PO QWEEK 01/19/21 01/19/21 Unknown History [Vitamin B-6] Rifapentine [Priftin] 900 mg PO QWEEK 01/19/21 01/19/21 Unknown History Aspirin EC [Halfprin EC] 81 mg PO DAILY #30 tablet. 01/20/21 Unknown Rx Azithromycin [Zithromax TAB] 250 mg PO QDAY #3 tablet 01/20/21 Unknown Rx Clopidogrel [Plavix] 75 mg PO QDAY #30 tablet 01/20/21 Unknown Rx Fluticasone/Umeclidin/V[place]an[place] 1 puff IH DAILY #1 blst.w.dev 01/20/21 Unknown Rx [Trelegy Ellipta 100-62.5-25] predniSONE [Deltasone] 3 tab PO QDAY #24 tab 01/20/21 Unknown Rx hydrALAZINE [Apresoline TAB] 25 mg PO Q8HR #90 tab 01/21/21 Unknown Rx Albuterol Mdi (or & Nicu Only) 2 puff IH QID PRN #8.5 gram 01/26/21 Unknown Rx [ProAir HFA Inhaler] Furosemide [Lasix] 20 mg PO QDAY #5 tablet 01/26/21 Unknown Rx ED Course - Reevaluation(s) Reevaluation #1: 01/26/21 16:20 Patient all of a sudden became confused and decreased responsiveness. Vital signs otherwise stable with an oxygen saturation of 100%. Blood glucose found to be 23. I immediately ordered dextrose 50% IV push and patient immediately start working up. I looked at her previous BMP glucose and it was 48. Patient started on dextrose 10 at 125 mL/h. 01/26/21 16:30 I discussed the patient with Dr. Marie, he agreed to admit the patient to medical service for further management. ED Medical Decision Making - Lab Data Result diagrams: 01/26/21 13:21 01/26/21 13:21 Critical Care Time: Yes Critical care time in (mins) excluding proc time.: 35 ED Disposition Clinical Impression: CHF (congestive heart failure), COPD (chronic obstructive pulmonary disease), Hypertension, Acute metabolic encephalopathy due to hypoglycemia, Acute chest pain, COPD exacerbation Disposition: 02 SHORT TERM HOSPITAL Is pt being admited?: Yes Condition: Stable <VALENTE MOON - Last Filed: 01/26/21 19:56> ED Chest Pain HPI - General Source: patient Mode of arrival: Ambulatory Limitations: No Limitations - History of Present Illness Initial Comments: 70-year-old -[place] Citizen female presents to the emergency department with complaint of a 1 to 2-day history of shortness of breath and intermittent left- sided chest pains. Patient has a history of CHF, COPD, hypertension. He was just recently admitted to this hospital for a CHF exacerbation and COPD. The patient had a negative stress test in July of this year that also showed an EF of 53%. Patient had a cardiac catheterization done in 2019 that showed normal coronary arteries. During this last admission she was seen by [facility] for a consult and they did not feel that the patient's symptoms were cardiac in etiology and they did not have any further cardiovascular recommendations and felt that it was more likely due to her COPD. The patient has not taken anything for symptoms prior to presentation today. Her primary care physician is Dr. Salinas. 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 Heart Score - HEART Score History: Slightly suspicious EKG: Normal Age: > 65 Risk factors: 1-2 risk factors Troponin: < normal limit HEART Score: 3 - EKG Read Time Time EKG Completed: 12:33 EKG Read Time: 12:37 ED Review of Systems ROS: Stated complaint: CHEST PAIN Other details as noted in HPI Comment: All other systems reviewed and negative Constitutional: denies: chills, fever Eyes: denies: eye pain, vision change ENT: denies: ear pain, throat pain Respiratory: shortness of breath. denies: cough Cardiovascular: chest pain. denies: edema Gastrointestinal: denies: abdominal pain, vomiting Genitourinary: denies: dysuria, discharge Musculoskeletal: denies: back pain, arthralgia Skin: denies: rash, lesions Neurological: denies: headache, weakness ED Past Medical Hx - Past Medical History Hx Hypertension: Yes Hx Heart Attack/AMI: Yes Hx Congestive Heart Failure: Yes Hx Diabetes: Yes Hx Deep Vein Thrombosis: Yes (FEB 2016) Hx COPD: Yes Hx HIV: No Additional medical history: CAD - Surgical History Additional Surgical History: ; Angioplasty--no stents placed - Social History Smoking Status: Never Smoker Substance Use Type: None ED Physical Exam - General Limitations: No Limitations - Other Other exam information: GENERAL: The patient is well-developed well-nourished. HENT: Normocephalic. Atraumatic. Patient has moist mucous membranes. EYES: Extraocular motions are intact. NECK: Supple. Trachea is midline. CHEST/LUNGS: Clear to auscultation. Slightly coarse breath sounds. No tachypnea or accessory muscle use. HEART/CARDIOVASCULAR: Regular. There is no tachycardia. There is no murmur. ABDOMEN: Abdomen is soft, nontender. Patient has normal bowel sounds. Obese habitus. SKIN: Skin is warm and dry. NEURO: The patient is awake, alert, and oriented. The patient is cooperative. The patient has no focal neurologic deficits. Normal speech. MUSCULOSKELETAL: There is no tenderness or deformity. ED Course Vital Signs 01/26/21 01/26/21 12:16 15:15 Temperature 98.3 F Pulse Rate 63 Pulse Rate [ 78 Bilateral] Respiratory 16 Rate Respiratory 20 Rate [Bilateral ] Blood Pressure 190/106 [Right] O2 Sat by Pulse 99 Oximetry - Consultations Consultation #1: 01/26/21 15:24 I spoke to KRISTA Manrique for [facility]. She is working with Dr. Hartmann. She listened to the case presentation including the patient's previous cardiac work-up, recent admission, current ED course. Given that the patient had a cardiac cath last year that showed normal coronary arteries, a negative stress test in July, and had a cardiology consultation 2 weeks ago, they did not feel that the patient requires admission for cardiac work-up or for her history of heart failure. They agree with plan for diuresis in the emergency department, a second negative troponin, and if everything else is negative and the patient is stable, we have set her up for an outpatient appointment in the [place] to office on at 3:50 PM. KEN score - Ken Score Age > 65: (1) Yes Aspirin use within the Past 7 Days: (1) Yes 3 or more CAD Risk Factors: (0) No 2 or more Angina events in past 24 hrs: (1) Yes Known CAD with more than 50% Stenosis: (0) No Elevated Cardiac Markers: (0) No ST Deviation Greater than 0.5mm: (0) No KEN Score: 3 ED Medical Decision Making - Lab Data Result diagrams: 01/26/21 13:21 01/26/21 13:21 Lab Results 01/26/21 01/26/21 Range/Units 13:21 13:21 WBC 7.5 (4.5-11.0) K/mm3 RBC 3.72 (3.65-5.03) M/mm3 Hgb 9.8 L (10.1-14.3) gm/dl Hct 31.8 (30.3-42.9) % MCV 85 (79-97) fl MCH 26 L (28-32) pg MCHC 31 (30-34) % RDW 16.4 H (13.2-15.2) % Plt Count 237 (140-440) K/mm3 Lymph % (Auto) 13.2 L (13.4-35.0) % [place] % (Auto) 4.4 (0.0-7.3) % Eos % (Auto) 0.4 (0.0-4.3) % Baso % (Auto) 0.5 (0.0-1.8) % Lymph # (Auto) 1.0 L (1.2-5.4) K/mm3 [place] # (Auto) 0.3 (0.0-0.8) K/mm3 Eos # (Auto) 0.0 (0.0-0.4) K/mm3 Baso # (Auto) 0.0 (0.0-0.1) K/mm3 Seg Neutrophils % 81.5 H (40.0-70.0) % Seg Neutrophils # 6.1 (1.8-7.7) K/mm3 Sodium 144 (137-145) mmol/L Potassium 3.8 (3.6-5.0) mmol/L Chloride 111.8 H (98-107) mmol/L Carbon Dioxide 19 L (22-30) mmol/L Anion Gap 17 mmol/L BUN 17 (7-17) mg/dL Creatinine 0.8 (0.6-1.2) mg/dL Estimated GFR > 60 ml/min BUN/Creatinine Ratio 21 % Glucose 48 L (65-100) mg/dL Calcium 8.7 (8.4-10.2) mg/dL Total Bilirubin 0.20 (0.1-1.2) mg/dL AST 14 (5-40) units/L ALT 16 (7-56) units/L Alkaline Phosphatase 81 (35-129) units/L Troponin T < 0.010 (0.00-0.029) ng/mL NT-Pro-B Natriuret Pep 1994 H (0-900) pg/mL Total Protein 6.7 (6.3-8.2) g/dL Albumin 3.5 L (3.9-5) g/dL Albumin/Globulin Ratio 1.1 % - EKG Data -: EKG Interpreted by Ms EKG shows normal: sinus rhythm, axis, intervals (Prolonged [place] interval), QRS complexes (LVH), ST-T waves Rate: normal - EKG Data When compared to previous EKG there are: no significant change Interpretation: unchanged when compared t (01/16/21) - Radiology Data Radiology results: image reviewed interpreted by me: Chest x-ray shows some pulmonary vascular congestion and mild interstitial edema. - Medical Decision Making This patient presents with a 1 to 2-day history of shortness of breath and intermittent left-sided chest pains. EKG does not show any morphology consistent with ST elevation myocardial infarction. Chest x-ray shows some pulmonary vascular congestion, and some interstitial edema. Patient's labs have been mostly unremarkable thus far including CBC, metabolic panel, negative first troponin, but the patient does have an elevated proBNP of about 1900. She will be given a DuoNeb breathing treatment, and IV dose of Lasix for diuresis, and a dose of hydralazine for her hypertension. I spoke with [facility] cardiology and they agree that the patient does not appear to need readmission for her CHF or chest pain. She has a negative heart cath within the last year that did not show any coronary artery disease. She had a negative stress test in July of this year that showed an EF of 53%. And the patient had a cardiac consultation inpatient 2 weeks ago. They have scheduled an appointment for the patient for this at 3:50 PM in the [place] office. The patient will be given the medications stated above, and will have a second troponin level drawn. This patient will be signed out to my colleague, Dr. Venegas, to follow-up on the second troponin, reevaluate the patient for clinical improvement and vitals, and will assist with disposition. If the patient improves and the second troponin is negative, the patient can be discharged home with the scheduled outpatient appointment with cardiology. Critical care attestation.: If time is entered above; I have spent that time in minutes in the direct care of this critically ill patient, excluding procedure time.
[2021-01-26 13:41] LABS: Basophils % (Auto) 0.5 % (0.0-1.8); Eosinophils % (Auto) 0.4 % (0.0-4.3); Hematocrit 31.8 % (30.3-42.9); Hemoglobin 9.8 gm/dl (10.1-14.3); Lymphocytes % (Auto) 13.2 % (13.4-35.0); Mean Corpuscular HGB Conc 31 % (30-34); Mean Corpuscular Volume 85 fl (79-97); Monocytes # (Auto) 0.3 K/mm3 (0.0-0.8); Monocytes % (Auto) 4.4 % (0.0-7.3); Platelet Count 237 K/mm3 (140-440); Red Blood Count 3.72 M/mm3 (3.65-5.03); Red Cell Distribution Width 16.4 % (13.2-15.2)
[2021-01-26] MEDS ORDERED: IPRATROPIUM/ALBUTEROL SULFATE 3 ML AMPUL.NEB IH ONE (14:08)
[2021-01-26 14:24] LABS: Alanine Aminotransferase 16 units/L (7-56); Albumin 3.5 g/dL (3.9-5); BUN/Creatinine Ratio 21; Blood Urea Nitrogen 17 mg/dL (7-17); Calcium 8.7 mg/dL (8.4-10.2); Hemolysis Index 10
[2021-01-26] MEDS ORDERED: hydrALAZINE 20 MG/1 ML INJ IV ONE (14:56)
[2021-01-26] MEDS ORDERED: FUROSEMIDE 40 MG/4 ML INJ IV ONE (14:56)
[2021-01-26] MEDS ORDERED: SODIUM CHLORIDE 0.9% 1000 ML 1,000 ML ONE (16:08)
[2021-01-26] MEDS ORDERED: DEXTROSE 50% IN WATER (25GM) 50 ML SYRINGE IV ONE (16:09)
[2021-01-26] MEDS ORDERED: DEXTROSE 10% IN WATER 1,000 ML IV SCH (17:00)
[2021-01-26] MEDS ORDERED: HYDROmorphone 1 MG/1 ML INJ IV PRN (18:36)
[2021-01-26] MEDS ORDERED: oxyCODONE /ACETAMINOPHEN 5-325MG TAB PO PRN (18:36)
[2021-01-26] MEDS ORDERED: ALBUTEROL 2.5 MG/3 ML NEBU IH PRN (18:36)
[2021-01-26] MEDS ORDERED: ACETAMINOPHEN 325 MG TAB PO PRN (18:36)
[2021-01-26] MEDS ORDERED: ONDANSETRON 4 MG/2 ML INJ IV PRN (18:36)
[2021-01-26] MEDS ORDERED: IBUPROFEN 800 MG TAB PO PRN (18:39)
[2021-01-26] MEDS ORDERED: hydrOXYzine HCL 25 MG TAB PO PRN (18:39)
--- NOTE | 2021-01-26 18:42 | History and Physical Report ---
History of Present Illness Chief complaint: She is confused History of present illness: 70 YO Female with COPD, HTN, Obesity, CAD, DVT not prescribed therapeutic anticoagulation presents ED for evaluation. Patient is confused and lethargic the time my evaluation and is unable provide history. Patient history taken EMS staff, ED staff. As per staff the patient presented to [facility] for evaluation of atypical chest pain. Cardiology team consulted in the emergency department and the patient was deemed to have atypical chest discomfort which was noncardiac in nature. At the time my evaluation the patient is confused and lethargic and found to have a blood glucose in the 40s, with Metabolic Encephalopathy. Pt placed in observation status and initiated on Dextrose drip. Patient has diminished cognition at the time my evaluation but has a positive gag reflex and is able to protect her airway without difficulty. No reports of fever, chills, palpitation or productive cough, skin rash, recent contact, or known exposure to COVID-19. Prior admission on 01/16/2021 reviewed. All medication listed at time of admission has been reconciled. Advanced care planning conducted in ED. Past History Past Medical History: CAD, COPD, DVT, hypertension Past Surgical History: , Other (angioplasty) Social history: . denies: smoking, alcohol abuse Family history: hypertension Medications and Allergies Allergies Allergy/AdvReac Type Severity Reaction Status Date / Time No Known Allergies Allergy Verified 01/16/21 12:25 Home Medications Medication Instructions Recorded Confirmed Last Taken Type AtorvaSTATin [Lipitor] 40 mg PO QHS #30 tablet 07/27/20 01/18/21 1 Day Ago Rx ~01/15/21 HYDROcodone/APAP 7.5-325 [[place] 1 each PO Q6HR PRN #7 tablet 07/27/20 01/18/21 1 Month Ago Rx 7.5-325 mg TAB] ~12/18/20 NIFEdipine XL [Procardia Xl] 60 mg PO QDAY #30 tablet 07/27/20 01/18/21 1 Day Ag o Rx ~01/15/21 Valsartan [Diovan] 160 mg PO BID #60 tablet 07/27/20 01/18/21 01/15/21 Rx 160 Baclofen [Lioresal] 10 mg PO BID 01/18/21 01/18/21 Unknown History Budesonide/Formoterol Fumarate 2 puff IH BID 01/18/21 01/18/21 Unknown History [Symbicort 160-4.5 Mcg Inhaler] Ergocalciferol (Vitamin D2) 50,000 unit PO QWEEK 01/18/21 01/18/21 01/15/21 History [Vitamin D2] Fluticasone [Flonase] 1 spray NS QDAY 01/18/21 01/18/21 Unknown History Gabapentin 300 mg PO QDAY 01/18/21 01/18/21 01/15/21 History Ibuprofen [Motrin 800 MG tab] 800 mg PO QDAY PRN 01/18/21 01/18/21 01/15/21 History Insulin NPH Hum/Reg Insulin Hm 40 unit SQ QPM 01/18/21 01/18/21 01/15/21 History [Novolin 70-30 100 Unit/ml Vial] Insulin NPH Hum/Reg Insulin Hm 60 unit SQ QAM 01/18/21 01/18/21 01/15/21 History [Novolin 70-30 100 Unit/ml Vial] Latanoprost 0.005% 1 drop OP QPM 01/18/21 01/18/21 01/15/21 History Pantoprazole [Protonix TAB] 40 mg PO QDAY 01/18/21 01/18/21 01/15/21 History hydrOXYzine HCL [Atarax] 25 mg PO TID PRN 01/18/21 01/18/21 01/15/21 History Isoniazid 900 mg PO QWEEK 01/19/21 01/19/21 01/05/21 History Pyridoxine HCl (Vitamin B6) 50 mg PO QWEEK 01/19/21 01/19/21 Unknown History [Vitamin B-6] Rifapentine [Priftin] 900 mg PO QWEEK 01/19/21 01/19/21 Unknown History Aspirin EC [Halfprin EC] 81 mg PO DAILY #30 tablet. 01/20/21 Unknown Rx Azithromycin [Zithromax TAB] 250 mg PO QDAY #3 tablet 01/20/21 Unknown Rx Clopidogrel [Plavix] 75 mg PO QDAY #30 tablet 01/20/21 Unknown Rx Fluticasone/Umeclidin/Vilanter 1 puff IH DAILY #1 blst.w.dev 01/20/21 Unknown Rx [Trelegy Ellipta 100-62.5-25] predniSONE [Deltasone] 3 tab PO QDAY #24 tab 01/20/21 Unknown Rx hydrALAZINE [Apresoline TAB] 25 mg PO Q8HR #90 tab 01/21/21 Unknown Rx Albuterol Mdi (or & Nicu Only) 2 puff IH QID PRN #8.5 gram 01/26/21 Unknown Rx [ProAir HFA Inhaler] Furosemide [Lasix] 20 mg PO QDAY #5 tablet 01/26/21 Unknown Rx Active Meds: Active Medications Acetaminophen (Acetaminophen 325 Mg Tab) 650 mg PO Q4H PRN PRN Reason: Pain MILD(1-3)/Fever >100.5/LEE Albuterol (Albuterol 2.5 Mg/3 Ml Nebu) 2.5 mg IH Q4HRT PRN PRN Reason: Shortness Of Breath Aspirin (Aspirin Ec 81 Mg Tab) 81 mg PO DAILY BRIANA Atorvastatin Calcium (Atorvastatin 40 Mg Tab) 40 mg PO QHS BRIANA Baclofen (Baclofen 10 Mg Tab) 10 mg PO BID BRIANA Clopidogrel Bisulfate (Clopidogrel 75 Mg Tab) 75 mg PO QDAY BRIANA Gabapentin (Gabapentin 300 Mg Cap) 300 mg PO QDAY BRIANA Hydralazine HCl (Hydralazine 25 Mg Tab) 25 mg PO Q8HR BRIANA Hydromorphone HCl (Hydromorphone 1 Mg/1 Ml Inj) 0.5 mg IV Q23H PRN PRN Reason: Pain , Severe (7-10) Hydroxyzine HCl (Hydroxyzine Hcl 25 Mg Tab) 25 mg PO TID PRN PRN Reason: itching/anxiety Dextrose (D10w) 1,000 mls @ 125 mls/hr IV DIRECT BRIANA Dextrose/Sodium Chloride (D5/0.45ns) 1,000 mls @ 42 mls/hr IV DIRECT BRIANA Ibuprofen (Ibuprofen 800 Mg Tab) 800 mg PO QDAY PRN PRN Reason: Pain, Moderate (4-6) Isoniazid (Isoniazid 300 Mg Tab) 900 mg PO QWEEK BRIANA Miscellaneous Medication (Pyridoxine Hcl (Vitamin B6) [Vitamin B-6]) 50 mg PO QWEEK [facility] Miscellaneous Medication (Rifapentine [Priftin]) 900 mg PO QWEEK BRIANA Nifedipine (Nifedipine Xl 60 Mg Tab) 60 mg PO QDAY BRIANA Ondansetron HCl (Ondansetron 4 Mg/2 Ml Inj) 4 mg IV Q8H PRN PRN Reason: Nausea And Vomiting Oxycodone/Acetaminophen (Oxycodone /Acetaminophen 5-325mg Tab) 1 tab PO Q16H PRN PRN Reason: Pain, Moderate (4-6) Pantoprazole Sodium (Pantoprazole 40 Mg Tab) 40 mg PO QDAY BRIANA Prednisone (Prednisone 20 Mg Tab) mg PO QDAY BRIANA Sodium Chloride (Sodium Chloride 0.9% 10 Ml Flush Syringe) 10 ml IV BID BRIANA Sodium Chloride (Sodium Chloride 0.9% 10 Ml Flush Syringe) 10 ml IV PRN PRN PRN Reason: LINE FLUSH Valsartan (Valsartan 160mg Tab) 160 mg PO BID BRIANA Review of Systems ROS unobtainable: due to mental status Exam - Constitutional Vitals: Temp Pulse Resp BP Pulse Ox 98.3 F 78 20 190/106 99 01/26/21 12:16 01/26/21 15:15 01/26/21 15:15 01/26/21 12:16 01/26/21 12:16 General appearance: Present: mild distress, obese - EENT Eyes: Present: PERRL ENT: hearing intact, clear oral mucosa - Neck Neck: Present: supple, normal ROM - Respiratory Respiratory effort: normal Respiratory: bilateral: CTA - Cardiovascular Heart Sounds: Present: S1 & S2. Absent: rub, click - Extremities Extremities: pulses symmetrical, No edema Peripheral Pulses: within normal limits - Abdominal General gastrointestinal: Present: soft, non-tender, non-distended, normal bowel sounds Female genitourinary: Present: normal - Integumentary Integumentary: Present: clear, warm, dry - Musculoskeletal Musculoskeletal: generalized weakness - Psychiatric Psychiatric: no appropriate mood/affect, no intact judgment & insight, no memory intact, other (lethargic) - Neurologic Neurologic: CNII-XII intact, moves all extremities HEART Score - HEART Score EKG: Normal Age: > 65 Risk factors: 1-2 risk factors Troponin: Troponin T < 0.010 ng/mL (0.00-0.029) 01/26/21 16:07 Results - Labs CBC & Chem 7: 01/26/21 13:21 01/26/21 13:21 Labs: Abnormal lab results 01/26/21 01/26/21 01/26/21 Range/Units 13:21 13:21 16:05 Hgb 9.8 L (10.1-14.3) gm/dl MCH 26 L (28-32) pg RDW 16.4 H (13.2-15.2) % Lymph % (Auto) 13.2 L (13.4-35.0) % Lymph # (Auto) 1.0 L (1.2-5.4) K/mm3 Seg Neutrophils % 81.5 H (40.0-70.0) % Chloride 111.8 H (98-107) mmol/L Carbon Dioxide 19 L (22-30) mmol/L Glucose 48 L (65-100) mg/dL POC Glucose 23 L (70-105) mg/dL NT-Pro-B Natriuret Pep 1994 H (0-900) pg/mL Albumin 3.5 L (3.9-5) g/dL 01/26/21 01/26/21 Range/Units 16:22 17:25 Hgb (10.1-14.3) gm/dl MCH (28-32) pg RDW (13.2-15.2) % Lymph % (Auto) (13.4-35.0) % Lymph # (Auto) (1.2-5.4) K/mm3 Seg Neutrophils % (40.0-70.0) % Chloride (98-107) mmol/L Carbon Dioxide (22-30) mmol/L Glucose (65-100) mg/dL POC Glucose 151 H 149 H (70-105) mg/dL NT-Pro-B Natriuret Pep (0-900) pg/mL Albumin (3.9-5) g/dL Assessment and Plan - Patient Problems (1) Acute metabolic encephalopathy due to hypoglycemia Current Visit: Yes Status: Acute Plan to address problem: Supportive care, neuro check, IV fluid resuscitation therapy, Accu-Chek, hypoglycemia protocol. (2) Obesity hypoventilation syndrome Current Visit: Yes Status: Acute Plan to address problem: Balanced diet, increase physical activity at discharge, outpatient pulmonary follow-up for sleep study. (3) DVT prophylaxis Current Visit: Yes Status: Acute Plan to address problem: SCD to bilateral lower extremities while in bed (4) Advance care planning Current Visit: Yes Status: Acute Plan to address problem: Disease education conducted, care plan discussed, diagnosis discussed, prognosis discussed, patient is full code, +30 minutes.
[2021-01-26] MEDS ORDERED: D5W/0.45% NACL 1,000 ML IV SCH (19:00)
[2021-01-26] MEDS: VALSARTAN 160MG TAB PO SCH (23:28)
[2021-01-26] MEDS: BACLOFEN 10 MG TAB PO SCH (23:28)
[2021-01-26] MEDS: hydrALAZINE 25 MG TAB PO SCH (23:28)
[2021-01-27] MEDS ORDERED: hydrALAZINE 20 MG/1 ML INJ IV ONE (05:30)
[2021-01-27] MEDS: hydrALAZINE 25 MG TAB PO SCH (05:33)
[2021-01-27 06:10] LABS: BUN/Creatinine Ratio 20; Blood Urea Nitrogen 16 mg/dL (7-17); Calcium 8.2 mg/dL (8.4-10.2); Hemolysis Index 1
[2021-01-27] MEDS ORDERED: cloNIDine TTS 0.1 MG/24 HR PATCH TD SCH (08:00)
--- NOTE | 2021-01-27 08:42 | Cat Scan Report ---
CT head/brain wo con INDICATION: encephalopathy. TECHNIQUE: Routine CT head. All CT scans at this location are performed using CT dose reduction for A ASPEN by means of automated exposure control. COMPARISON: July [address] head FINDINGS: Intracranial: Santacruz-white matter differentiation is maintained. No intracranial hemorrhage. No extra a xial collection. No hydrocephalus. No herniation. Periventricular and centrum semiovale white matter hypoattenuation most consistent with sequela of chronic microvascular disease. Sinuses: Paranasal sinuses and mastoid air cells are essentially clear. Orbits: Globes are intact. Calvarium: No acute fracture. IMPRESSION: 1. No acute intracranial abnormality. Signer Name: Jose Blackburn MD Signed: 01/27/2021 8:38 AM Workstation Name: [id number]
--- NOTE | 2021-01-27 09:30 | Discharge Summary ---
Providers - Providers Date of Admission: 01/26/21 18:36 Attending physician: EMANUEL PAN MD Primary care physician: [facility] Hospitalization Reason for admission: shortness of breath Condition: Stable Hospital course: 70 YO Female with COPD, HTN, Obesity, CAD, DVT not prescribed therapeutic anticoagulation presents ED for evaluation. Patient is confused and lethargic the time my evaluation and is unable provide history. Patient history taken EMS staff, ED staff. As per staff the patient presented to [facility] for evaluation of atypical chest pain. Cardiology team consulted in the emergency department and the patient was deemed to have atypical chest discomfort which was noncardiac in nature. At the time my evaluation the patient is confused and lethargic and found to have a blood glucose in the 40s, with Metabolic Encephalopathy. Pt placed in observation status and initiated on Dextrose drip. Patient has diminished cognition at the time my evaluation but has a positive gag reflex and is able to protect her airway without difficulty. No reports of fever, chills, palpitation or productive cough, skin rash, recent contact, or known exposure to COVID-19. Prior admission on 01/16/2021 reviewed. All medication listed at time of admission has been reconciled. Advanced care planning conducted in ED. Patient was admitted following becoming hypoglycemic. She informs me that she does not monitor her weight or check her blood sugar. Counselling 15 mins was provided and prescription provided. Medications reconciled (1) Acute metabolic encephalopathy due to hypoglycemia Current Visit: Yes Status: Acute Plan to address problem: Supportive care, neuro check, IV fluid resuscitation therapy, Accu-Chek, hypoglycemia protocol. (2) Obesity hypoventilation syndrome Current Visit: Yes Status: Acute Plan to address problem: Balanced diet, increase physical activity at discharge, outpatient pulmonary follow-up for sleep study. (3)DM (4) CHF diastolic dysfunction: STABLE COPD --Hypertension, accelerated Continue current antihypertensives and as needed medications --GERD; Protonix --Morbid Obesity BMI 36.1; - Advised weight reduction when medically stable may need Outpatient sleep study to rule out obstructive sleep apnea --Dyslipidemia continue statin; --Peripheral neuropathy; continue gabapentin --History of peripheral vascular disease; on aspirin , Plavix and statin Disposition: HOME HEALTH CARE SERVICE Final Discharge Diagnosis (Prints w/discharge instructions): Acute metabolic encephalopathy due to hypoglycemia Time spent for discharge: 35 mins Core Measure Documentation - Palliative Care Palliative Care/ Comfort Measures: Not Applicable - Core Measures Any of the following diagnoses?: none Exam - Physical Exam Narrative exam: General appearance: Present:No distress, obese - EENT Eyes: Present: PERRL ENT: hearing intact, clear oral mucosa - Neck Neck: Present: supple, normal ROM - Respiratory Respiratory effort: normal Respiratory: bilateral: CTA - Cardiovascular Heart Sounds: Present: S1 & S2. Absent: rub, click - Extremities Extremities: pulses symmetrical, No edema Peripheral Pulses: within normal limits - Abdominal General gastrointestinal: Present: soft, non-tender, non-distended, normal bowel sounds Female genitourinary: Present: normal - Integumentary Integumentary: Present: clear, warm, dry - Musculoskeletal Musculoskeletal: generalized weakness - Psychiatric Psychiatric: no appropriate mood/affect, no intact judgment & insight, no memory intact, other (lethargic) - Neurologic Neurologic: CNII-XII intact, moves all extremities - Constitutional Vitals: Temp Pulse Resp BP Pulse Ox 98.5 F 67 20 181/61 94 01/27/21 05:05 01/27/21 05:38 01/27/21 05:05 01/27/21 05:38 01/27/21 05:05 Plan Activity: advance as tolerated, fall precautions Diet: low salt, diabetic Special Instructions: record daily weights, record daily BP diary, record blood sugar diary, physical therapy, occupational therapy, home health RN Follow up with: [facility] [Provider Group] - 01/28/21 3:50 pm (Your appointment is at the [place] [facility]. Please call to confirm.) PRIMARY CARE, [Primary Care Provider] - 3-5 Days Prescriptions: predniSONE [Deltasone] 3 tab PO QDAY #24 tab Furosemide [Lasix] 20 mg PO QDAY #5 tablet Insulin NPH Hum/Reg Insulin Hm [Novolin 70-30 100 Unit/ml Vial] 40 unit SQ BIDAC #1 vial Albuterol Mdi (or & Nicu Only) [ProAir HFA Inhaler] 2 puff IH QID PRN #8.5 gram PRN Reason: Shortness Of Breath Other Discharge Orders: Glucometer (Amb) Location: None Selected Glucometer supplies[Amb] Location: None Selected
[2021-01-27] MEDS ORDERED: predniSONE 20 MG TAB PO SCH ×2 (10:00)
[2021-01-27] MEDS ORDERED: NIFEdipine XL 60 MG TAB PO SCH (10:00)
[2021-01-27] MEDS ORDERED: PANTOPRAZOLE 40 MG TAB PO SCH (10:00)
[2021-01-27] MEDS ORDERED: ASPIRIN EC 81 MG TAB PO SCH (10:00)
[2021-01-27] MEDS ORDERED: CLOPIDOGREL 75 MG TAB PO SCH (10:00)
[2021-01-27] MEDS: BACLOFEN 10 MG TAB PO SCH (10:38)
[2021-01-27] MEDS: VALSARTAN 160MG TAB PO SCH (10:39)
[2021-01-27 10:43] VITALS: BP 149/67
[2021-01-27] MEDS ORDERED: GABAPENTIN 300 MG CAP PO SCH (20:00)
--- NOTE | 2021-01-28 10:18 | Electrocardiograph Report ---
[facility] Test Date: 2021-01-26 Test Time: 12:33:30 Pat Name: KWABENA HERRERA Department: Room: [facility], [place] Gender: F Cancer Genetics Assistant: PUNEET : 1950 Requested By: SYBIL SAMANIEGO Order Number: [id number] Reading MD: Tianna Hamilton Measurements Intervals [place] Rate: 60 P: 70 KS: 228 QRS: 14 QRSD: 87 T: 157 QT: 427 QTc: 429 Interpretive Statements Sinus rhythm Prolonged KS interval LVH with secondary repolarization abnormality Compared to ECG 01/16/2021 10:55:05 No significant changes Electronically Signed On 01-28-2021 10:18:22 EST by Tianna Hamilton
[2021-01-28] MEDS ORDERED: FLU VACC QUAD 2021-22(6MOS UP)/PF 60 MCG/0.5 ML SYRINGE IM ONE (12:00)
[2021-01-31] MEDS ORDERED: predniSONE 20 MG TAB PO SCH (10:00)
[2021-02-02] MEDS ORDERED: PYRIDOXINE HCL 250 MG PO SCH (10:00)
[2021-02-02] MEDS ORDERED: RIFAPENTINE 150 MG PO SCH (10:00)
[2021-02-02] MEDS ORDERED: ISONIAZID 300 MG TAB PO SCH (10:00)
[2021-02-03] MEDS ORDERED: ISONIAZID 300 MG TAB PO SCH (10:00)
[2021-02-03] MEDS ORDERED: PYRIDOXINE 50 MG TAB PO SCH (10:00)
[2021-02-04] MEDS ORDERED: predniSONE 20 MG TAB PO SCH (10:00)
== END 2021-01-27 12:30 | disposition home health service (06) ==
LOC: ED 12:13 → 3A 18:36
PROVIDERS: ADMIT Internal Medicine; ATTEND Internal Medicine
DX: G93.41 Metabolic encephalopathy (principal); E16.2 Hypoglycemia, unspecified; E66.2 Morbid (severe) obesity with alveolar hypoventilation; I25.10 Atherosclerotic heart disease of native coronary artery without angina pectoris; I11.0 Hypertensive heart disease with heart failure; I50.9 Heart failure, unspecified; R07.89 Other chest pain; J44.1 Chronic obstructive pulmonary disease with (acute) exacerbation; Z86.718 Personal history of other venous thrombosis and embolism; Z68.33 Body mass index [BMI] 33.0-33.9, adult; Z98.891 History of uterine scar from previous surgery; Z79.899 Other long term (current) drug therapy; Z98.890 Other specified postprocedural states; Z79.82 Long term (current) use of aspirin; Z79.4 Long term (current) use of insulin
CPT/HCPCS: 36415; 70450; 71046; 80048; 80053; 82962; 83880; 84484; 85025; 93005; 94644; 96361; 96374; 96375; 99285; G0378; J0360; J1940; J3490; J7030; J7070; J7512; Q0162

== ENCOUNTER 2021-02-06 12:14 | Emergency (ER) | payer MEDICARE ==
[2021-02-06] MEDS ORDERED: SODIUM CHLORIDE 0.9% 1000 ML IV SOLN IV ONE (12:57)
[2021-02-06] MEDS ORDERED: ACETAMINOPHEN 325 MG TAB PO ONE (13:02)
--- NOTE | 2021-02-06 13:50 | XRay Report ---
CHEST 1 VIEW 02/06/2021 12:41 PM INDICATION / CLINICAL INFORMATION: fever cough sob. COMPARISON: 01/26/2021 FINDINGS: SUPPORT DEVICES: None. HEART / MEDIASTINUM: Stable cardiomegaly. LUNGS / PLEURA: No significant pulmonary or pleural abnormality. No pneumothorax. ADDITIONAL FINDINGS: No significant additional findings. IMPRESSION: 1. No acute findings. Stable cardiomegaly. Signer Name: Nghia Alexis MD Signed: 02/06/2021 1:46 PM Workstation Name: [id number]
[2021-02-06] MEDS ORDERED: IPRATROPIUM/ALBUTEROL SULFATE 3 ML AMPUL.NEB IH ONE ×2 (14:00→16:46)
--- NOTE | 2021-02-06 14:04 | Emergency Department Report ---
ED Fever HPI - General Chief Complaint: Upper Respiratory Infection Stated Complaint: BODYACHES AND N/V Time Seen by Provider: 02/06/21 12:54 Source: patient Exam Limitations: no limitations - History of Present Illness Initial Comments: 70-year-old female with past medical history hypertension, COPD, CAD, obesity, recent admission for hypoglycemia induced encephalopathy, history of CHF with diastolic heart failure, and history of DVT not currently on anticoagulation presents to the hospital complaining of infectious symptoms since yesterday. Since yesterday she has had vomiting with decreased p.o. intake. She complains of bilateral flank pain worse with palpation and cough. She has cough productive of yellow sputum. Increased episodes of wheezing with temporary imp rovement with bronchodilators reported. Patient denies diarrhea, melena, hematochezia, or isolated calf tenderness. Breathing worse when lying supine. Patient Covid vaccine x2 cannot recall when her last dose was. Patient has had previous C-sections and denies other previous abdominal surgeries ED Review of Systems ROS: Stated complaint: BODYACHES AND N/V Other details as noted in HPI Comment: All other systems reviewed and negative ED Past Medical Hx - Past Medical History Previous Medical History?: Yes Hx Hypertension: Yes Hx Heart Attack/AMI: Yes Hx Congestive Heart Failure: Yes Hx Diabetes: Yes Hx Deep Vein Thrombosis: Yes Hx COPD: Yes Hx HIV: No Additional medical history: CAD - Surgical History Additional Surgical History: ; Angioplasty--no stents placed - Social History Smoking Status: Never Smoker Substance Use Type: None - Medications Home Medications: Home Medications Medication Instructions Recorded Confirmed Last Taken Type AtorvaSTATin [Lipitor] 40 mg PO QHS #30 tablet 07/27/20 01/27/21 1 Day Ago Rx ~01/15/21 HYDROcodone/APAP 7.5-325 [[place] 1 each PO Q6HR PRN #7 tablet 07/27/20 01/27/21 1 Month Ago Rx 7.5-325 mg TAB] ~12/18/20 NIFEdipine XL [Procardia Xl] 60 mg PO QDAY #30 tablet 07/27/20 01/27/21 1 Day Ago Rx ~01/15/21 Valsartan [Diovan] 160 mg PO BID #60 tablet 07/27/20 01/27/21 01/15/21 Rx 160 Baclofen [Lioresal] 10 mg PO BID 01/18/21 01/27/21 Unknown History Budesonide/Formoterol Fumarate 2 puff IH BID 01/18/21 01/27/21 Unknown History [Symbicort 160-4.5 Mcg Inhaler] Ergocalciferol (Vitamin D2) 50,000 unit PO QWEEK 01/18/21 01/27/21 01/15/21 History [Vitamin D2] Fluticasone [Flonase] 1 spray NS QDAY 01/18/21 01/27/21 Unknown History Gabapentin 300 mg PO QDAY 01/18/21 01/27/21 01/15/21 History Ibuprofen [Motrin 800 MG tab] 800 mg PO QDAY PRN 01/18/21 01/27/21 01/15/21 History Latanoprost 0.005% 1 drop OP QPM 01/18/21 01/27/21 01/15/21 History hydrOXYzine HCL [Atarax] 25 mg PO TID PRN 01/18/21 01/27/21 01/15/21 History Isoniazid 900 mg PO QWEEK 01/19/21 01/27/21 01/05/21 History Pyridoxine HCl (Vitamin B6) 50 mg PO QWEEK 01/19/21 01/27/21 Unknown History [Vitamin B-6] Rifapentine [Priftin] 900 mg PO QWEEK 01/19/21 01/27/21 Unknown History Aspirin EC [Halfprin EC] 81 mg PO DAILY #30 tablet. 01/20/21 01/27/21 Unknown Rx Clopidogrel [Plavix] 75 mg PO QDAY #30 tablet 01/20/21 01/27/21 Unknown Rx Fluticasone/Umeclidin/Vilanter 1 puff IH DAILY #1 blst.w.dev 01/20/21 01/27/21 Unknown Rx [Trelegy Ellipta 100-62.5-25] hydrALAZINE [Apresoline TAB] 25 mg PO Q8HR #90 tab 01/21/21 01/27/21 Unknown Rx Albuterol Mdi (or & Nicu Only) 2 puff IH QID PRN #8.5 gram 01/26/21 Unknown Rx [ProAir HFA Inhaler] Furosemide [Lasix] 20 mg PO QDAY #5 tablet 01/26/21 Unknown Rx Insulin NPH Hum/Reg Insulin Hm 40 unit SQ BIDAC #1 vial 01/27/21 Unknown Rx [Novolin 70-30 100 Unit/ml Vial] predniSONE [Deltasone] 3 tab PO QDAY #24 tab 01/27/21 Unknown Rx Albuterol Sulfate [Albuterol 0.63% 0.63 mg IH TID PRN #30 dose 02/06/21 Unknown Rx NEBS] Benzonatate [Tessalon Perles] 100 mg PO Q8HR PRN #20 capsule 02/06/21 Unknown Rx Ibuprofen [Motrin] 600 mg PO Q8H PRN #20 tablet 02/06/21 Unknown Rx Ondansetron [Zofran Odt] 4 mg PO Q8HR PRN #20 tab.rapdis 02/06/21 Unknown Rx Prednisone [predniSONE 10 mg 10 mg PO .TAPER #1 tab.ds.pk 02/06/21 Unknown Rx (6-Day Pack, 21 Tabs)] ED Physical Exam - General Limitations: No Limitations - Other Other exam information: General: No acute distress Head: Atraumatic Eyes: normal appearance ENT: Moist mucous membranes Neck: Normal appearance, no midline tenderness Chest: Clear to auscultation bilaterally, no audible wheeze or crackle CV: Regular rate and rhythm Abdomen: Soft, normal bowel sounds, right upper quadrant tenderness with guarding, Back: Normal inspection Extremity: Normal inspection, full range of motion, trace pitting lower extremity edema, no isolated calf tenderness Neuro: Alert O x 3, no facial asymmetry, speech clear, no gross motor sensory deficit Psych: Appropriate behavior Skin: No rash ED Course Vital Signs 02/06/21 02/06/21 02/06/21 12:21 13:50 13:52 Temperature 102.4 F H 101.1 F H Pulse Rate 82 66 Pulse Rate [ Throughout] Respiratory 22 22 22 Rate Respiratory Rate [ Throughout] Blood Pressure Blood Pressure 215/73 170/69 [Right] O2 Sat by Pulse 97 98 98 Oximetry 02/06/21 02/06/21 02/06/21 13:58 14:10 15:13 Temperature 101.1 F H 100.4 F H Pulse Rate 69 71 Pulse Rate [ 70 Throughout] Respiratory 19 21 Rate Respiratory 16 Rate [ Throughout] Blood Pressure 154/60 Blood Pressure 164/3 [Right] O2 Sat by Pulse 97 97 Oximetry 02/06/21 02/06/21 02/06/21 15:56 16:45 17:18 Temperature 99.3 F Pulse Rate 66 72 Pulse Rate [ 68 Throughout] Respiratory 23 22 Rate Respiratory 16 Rate [ Throughout] Blood Pressure Blood Pressure 158/62 146/59 [Right] O2 Sat by Pulse 98 99 Oximetry 02/06/21 18:48 Temperature Pulse Rate 65 Pulse Rate [ Throughout] Respiratory 22 Rate Respiratory Rate [ Throughout] Blood Pressure Blood Pressure 162/64 [Right] O2 Sat by Pulse 99 Oximetry ED Medical Decision Making - Lab Data Result diagrams: 02/06/21 13:48 02/06/21 13:48 Lab Results 02/06/21 02/06/21 02/06/21 Range/Units 13:48 13:48 13:48 WBC 5.5 (4.5-11.0) K/mm3 RBC 3.21 L (3.65-5.03) M/mm3 Hgb 8.5 L (10.1-14.3) gm/dl Hct 27.5 L (30.3-42.9) % MCV 86 (79-97) fl MCH 27 L (28-32) pg MCHC 31 (30-34) % RDW 16.7 H (13.2-15.2) % Plt Count 203 (140-440) K/mm3 Lymph % (Auto) 5.7 L (13.4-35.0) % [place] % (Auto) 7.4 H (0.0-7.3) % Eos % (Auto) 0.3 (0.0-4.3) % Baso % (Auto) 0.9 (0.0-1.8) % Lymph # (Auto) 0.3 L (1.2-5.4) K/mm3 [place] # (Auto) 0.4 (0.0-0.8) K/mm3 Eos # (Auto) 0.0 (0.0-0.4) K/mm3 Baso # (Auto) 0.0 (0.0-0.1) K/mm3 Seg Neutrophils % 85.7 H (40.0-70.0) % Seg Neutrophils # 4.7 (1.8-7.7) K/mm3 Sodium 142 (137-145) mmol/L Potassium 3.6 (3.6-5.0) mmol/L Chloride 108.2 H (98-107) mmol/L Carbon Dioxide 20 L (22-30) mmol/L Anion Gap 17 mmol/L BUN 13 (7-17) mg/dL Creatinine 1.0 (0.6-1.2) mg/dL Estimated GFR > 60 ml/min BUN/Creatinine Ratio 13 % Glucose 132 H (65-100) mg/dL Lactic Acid 2.80 H* (0.7-2.0) mmol/L Calcium 8.1 L (8.4-10.2) mg/dL Total Bilirubin 0.20 (0.1-1.2) mg/dL AST 17 (5-40) units/L ALT 11 (7-56) units/L Alkaline Phosphatase 80 (35-129) units/L Total Protein 6.7 (6.3-8.2) g/dL Albumin 3.3 L (3.9-5) g/dL Albumin/Globulin Ratio 1.0 % Lipase 14 (13-60) units/L Urine Color (Yellow) Urine Turbidity (Clear) Urine pH (5.0-7.0) Ur Specific [place] (1.003-1.030) Urine Protein (Negative) mg/dL Urine Glucose (UA) (Negative) mg/dL Urine Ketones (Negative) mg/dL Urine Blood (Negative) Urine Nitrite (Negative) Ur Reducing Substances Urine Bilirubin (Negative) Urine Ictotest Urine Urobilinogen (<2.0) mg/dL Ur Leukocyte Esterase (Negative) Urine WBC (Auto) (0.0-6.0) /HPF Urine RBC (Auto) (0.0-6.0) /HPF U Epithel Cells (Auto) (0-13.0) /HPF Influenza A (Rapid) (Negative) Influenza B (Rapid) (Negative) 02/06/21 02/06/21 02/06/21 Range/Units 13:53 15:08 16:42 WBC (4.5-11.0) K/mm3 RBC (3.65-5.03) M/mm3 Hgb (10.1-14.3) gm/dl Hct (30.3-42.9) % MCV (79-97) fl MCH (28-32) pg MCHC (30-34) % RDW (13.2-15.2) % Plt Count (140-440) K/mm3 Lymph % (Auto) (13.4-35.0) % [place] % (Auto) (0.0-7.3) % Eos % (Auto) (0.0-4.3) % Baso % (Auto) (0.0-1.8) % Lymph # (Auto) (1.2-5.4) K/mm3 [place] # (Auto) (0.0-0.8) K/mm3 Eos # (Auto) (0.0-0.4) K/mm3 Baso # (Auto) (0.0-0.1) K/mm3 Seg Neutrophils % (40.0-70.0) % Seg Neutrophils # (1.8-7.7) K/mm3 Sodium (137-145) mmol/L Potassium (3.6-5.0) mmol/L Chloride (98-107) mmol/L Carbon Dioxide (22-30) mmol/L Anion Gap mmol/L BUN (7-17) mg/dL Creatinine (0.6-1.2) mg/dL Estimated GFR ml/min BUN/Creatinine Ratio % Glucose (65-100) mg/dL Lactic Acid 0.60 L (0.7-2.0) mmol/L Calcium (8.4-10.2) mg/dL Total Bilirubin (0.1-1.2) mg/dL AST (5-40) units/L ALT (7-56) units/L Alkaline Phosphatase (35-129) units/L Total Protein (6.3-8.2) g/dL Albumin (3.9-5) g/dL Albumin/Globulin Ratio % Lipase (13-60) units/L Urine Color Yellow (Yellow) Urine Turbidity Clear (Clear) Urine pH 7.0 (5.0-7.0) Ur Specific [place] 1.025 (1.003-1.030) Urine Protein >500 (Negative) mg/dL Urine Glucose (UA) Neg (Negative) mg/dL Urine Ketones Neg (Negative) mg/dL Urine Blood Neg (Negative) Urine Nitrite Neg (Negative) Ur Reducing Substances Not Reportable Urine Bilirubin Neg (Negative) Urine Ictotest Not Reportable Urine Urobilinogen < 2.0 (<2.0) mg/dL Ur Leukocyte Esterase Neg (Negative) Urine WBC (Auto) 1.0 (0.0-6.0) /HPF Urine RBC (Auto) 2.0 (0.0-6.0) /HPF U Epithel Cells (Auto) 3.0 (0-13.0) /HPF Influenza A (Rapid) Negative (Negative) Influenza B (Rapid) Negative (Negative) - Radiology Data Radiology results: report reviewed CHEST 1 VIEW 02/06/2021 12:41 PM INDICATION / CLINICAL INFORMATION: fever cough sob. COMPARISON: 01/26/2021 FINDINGS: SUPPORT DEVICES: None. HEART / MEDIASTINUM: Stable cardiomegaly. LUNGS / PLEURA: No significant pulmonary or pleural abnormality. No pneumothorax. ADDITIONAL FINDINGS: No significant additional findings. IMPRESSION: 1. No acute findings. Stable cardiomegaly. CT ABDOMEN AND PELVIS WITH CONTRAST HISTORY: n,v,fever b/l flank and ruq abd pain. OMNI 300 100CC. COMPARISON: None TECHNIQUE: Routine abdominal and pelvic CT exam performed following intravenous contrast administration.. All CT scans at this location are performed using CT dose reduction for ALARA by means of automated exposure control. FINDINGS: CT ABDOMEN: Lung Bases: The visualized lung bases are clear. There is a small hiatal hernia. Liver: No significant abnormality. Biliary: No significant abnormality. Spleen: No significant abnormality. Unenlarged. Pancreas: No significant abnormality. Adrenals: No significant abnormality. Kidneys: No significant abnormality. Lymphatics: No lymphadenopathy. Vasculature: Atherosclerotic but nonaneurysmal abdominal aorta. Bowel/Peritoneum: No significant abnormality. No free air. No free fluid. Normal appendix. CT PELVIC: : Several calcified uterine fibroids are seen in the uterus. Lymphatics: No lymphadenopathy. Osseous Structures: No aggressive appearing osseous lesions. Additional Findings: None IMPRESSION: 1. No acute findings. Chronic incidental findings as described above. - Medical Decision Making 70-year-old female treated in the ED with bronchodilators and steroids with shortness of breath with improvement in symptoms. Patient GI tract is also treated with Zofran and IV fluids with improvement in p.o. intake and urine output. No signs of pneumonia, intra-abdominal infection, or UTI. Patient's flu test is negative. She is vaccinated for Covid. Suspect that patient is suffering from a viral syndrome. She has been encouraged to be tested for co ronavirus. At this time she does not have any hypoxia, is tolerating p.o. intake, and reports feeling better with fever reduction. Patient be discharged medication for symptomatic treatment and follow-up encouraged. Blood cultures pending Critical Care Time: No Critical care attestation.: If time is entered above; I have spent that time in minutes in the direct care of this critically ill patient, excluding procedure time. ED Disposition Clinical Impression: Fever, Viral syndrome, COPD exacerbation Disposition: 01 HOME / SELF CARE / HOMELESS Is pt being admited?: No Does the pt Need Aspirin: No Condition: Stable Instructions: Chronic Obstructive Pulmonary Disease (ED), Chronic Obstructive Pulmonary Disease Exacerbation, [id number], Viral Illness, Adult Additional Instructions: Take the medication as prescribed. Follow-up with your doctor or doctor/clinic provided. Return if symptoms worsen as indicated by your discharge instructions . I recommend obtaining outpatient Covid test Prescriptions: Albuterol Sulfate [Albuterol 0.63% NEBS] 0.63 mg IH TID PRN #30 dose PRN Reason: Wheezing Ibuprofen [Motrin] 600 mg PO Q8H PRN #20 tablet PRN Reason: Pain Prednisone [predniSONE 10 mg (6-Day Pack, 21 Tabs)] 10 mg PO .TAPER #1 tab.ds.pk Benzonatate [Tessalon Perles] 100 mg PO Q8HR PRN #20 capsule PRN Reason: Cough Ondansetron [Zofran Odt] 4 mg PO Q8HR PRN #20 tab.rapdis PRN Reason: Nausea And Vomiting Referrals: PRIMARY CARE, [Primary Care Provider] - 3-5 Days EVIE MURILLO MD [Staff Physician] - 3-5 Days Time of Disposition: 19:34
[2021-02-06 14:26] LABS: Basophils % (Auto) 0.9 % (0.0-1.8); Eosinophils % (Auto) 0.3 % (0.0-4.3); Hematocrit 27.5 % (30.3-42.9); Hemoglobin 8.5 gm/dl (10.1-14.3); Lymphocytes # (Auto) 0.3 K/mm3 (1.2-5.4); Lymphocytes % (Auto) 5.7 % (13.4-35.0); Mean Corpuscular HGB Conc 31 % (30-34); Mean Corpuscular Volume 86 fl (79-97); Monocytes # (Auto) 0.4 K/mm3 (0.0-0.8); Monocytes % (Auto) 7.4 % (0.0-7.3); Platelet Count 203 K/mm3 (140-440); Red Blood Count 3.21 M/mm3 (3.65-5.03); Red Cell Distribution Width 16.7 % (13.2-15.2)
[2021-02-06 14:54] LABS: Alanine Aminotransferase 11 units/L (7-56); Albumin 3.3 g/dL (3.9-5); BUN/Creatinine Ratio 13; Blood Urea Nitrogen 13 mg/dL (7-17); Calcium 8.1 mg/dL (8.4-10.2); Hemolysis Index 18
--- NOTE | 2021-02-06 15:46 | Cat Scan Report ---
CT ABDOMEN AND PELVIS WITH CONTRAST HISTORY: n,v,fever b/l flank and ruq abd pain. OMNI 300 100CC. COMPARISON: None TECHNIQUE: Routine abdominal and pelvic CT exam performed following intravenous contrast administrat ion.. All CT scans at this location are performed using CT dose reduction for ALARA by means of autom ated exposure control. FINDINGS: CT ABDOMEN: Lung Bases: The visualized lung bases are clear. There is a small hiatal hernia. Liver: No significant abnormality. Biliary: No significant abnormality. Spleen: No significant abnormality. Unenlarged. Pancreas: No significant abnormality. Adrenals: No significant abnormality. Kidneys: No significant abnormality. Lymphatics: No lymphadenopathy. Vasculature: Atherosclerotic but nonaneurysmal abdominal aorta. Bowel/Peritoneum: No significant abnormality. No free air. No free fluid. Normal appendix. CT PELVIC: : Several calcified uterine fibroids are seen in the uterus. Lymphatics: No lymphadenopathy. Osseous Structures: No aggressive appearing osseous lesions. Additional Findings: None IMPRESSION: 1. No acute findings. Chronic incidental findings as described above. Signer Name: Nghia Alexis MD Signed: 02/06/2021 3:42 PM Workstation Name: [id number]
[2021-02-06] MEDS ORDERED: KETOROLAC 30 MG/1 ML INJ IV ONE (16:38)
[2021-02-06 18:24] LABS: Bilirubin,Urine NEG (Negative); Blood,Urine NEG (Negative); Color,Urine Yellow (Yellow); Urobilinogen,Urine < 2.0 mg/dL (<2.0)
[2021-02-06 18:25] LABS: Protein,Urine >500 mg/dL (Negative)
[2021-02-06 21:06] VITALS: BP 152/71
[2021-02-07] MEDS ORDERED: NITROGLYCERIN 0.4 MG TAB SUBL SL PRN (06:18)
[2021-02-07] MEDS ORDERED: HYDROmorphone 1 MG/1 ML INJ IV PRN (06:18)
[2021-02-07] MEDS ORDERED: ACETAMINOPHEN 325 MG TAB PO PRN (06:18)
[2021-02-07] MEDS ORDERED: ALBUTEROL 2.5 MG/3 ML NEBU IH PRN (06:18)
[2021-02-07] MEDS ORDERED: hydrOXYzine HCL 25 MG TAB PO PRN (06:22)
--- NOTE | 2021-02-07 06:31 | History and Physical Report ---
History of Present Illness Date of examination: 02/07/21 Date of admission: 02/07/21 Chief complaint: Dyspnea Respiratory distress History of present illness: 70-year-old female. Her past medical history includes congestive heart failure, COPD, pulmonary hypertension, preserved ejection fraction, hypertension, GERD, morbid obesity, dyslipidemia, peripheral vascular disease, and she is COVID-19 vaccinated. Patient was seen yesterday in the emergency room with a complaint of bilateral flank pain, nausea, vomiting and cough. She was also found to have a fever. She had extensive work-up here in the emergency room, including an x- ray of the chest which was unremarkable, CT scan of the abdomen pelvis which was unremarkable laboratory studies which initially demonstrated a lactic acidosis which cleared. She was treated supportively and symptomatically, and she felt like she clinically improved. Patient was discharged, and now presents to the ER today with complaint of persistent cough, bilateral thoracic pain, coughing up, having some nausea and vomiting, with malaise, fatigue and weakness. Denies loss of taste and smell. This is similar to her symptoms yesterday, although she endorses that she feels worse she thus called 911 In the emergency room patient X-ray the chest shows worsening pulmonary vascular congestion. Patient also found to be hypertensive, febrile, with heart rate greater than 90. Appreciate that patient ruling in for SIRS/systemic inflammatory response syndrome. Past History Past Medical History: acute NH, CAD, COPD, diabetes, DVT, heart failure, hypertension Past Surgical History: Other (; Angioplasty--no stents placed) Medications and Allergies Allergies Allergy/AdvReac Type Severity Reaction Status Date / Time No Known Allergies Allergy Verified 01/16/21 12:25 Home Medications Medication Instructions Recorded Confirmed Last Taken Type AtorvaSTATin [Lipitor] 40 mg PO QHS #30 tablet 07/27/20 01/27/21 1 Day Ago Rx ~01/15/21 HYDROcodone/APAP 7.5-325 [[place] 1 each PO Q6HR PRN #7 tablet 07/27/20 01/27/21 1 Month Ago Rx 7.5-325 mg TAB] ~12/18/20 NIFEdipine XL [Procardia Xl] 60 mg PO QDAY #30 tablet 07/27/20 01/27/21 1 Day Ago Rx ~01/15/21 Valsartan [Diovan] 160 mg PO BID #60 tablet 07/27/20 01/27/21 01/15/21 Rx 160 Baclofen [Lioresal] 10 mg PO BID 01/18/21 01/27/21 Unknown History Budesonide/Formoterol Fumarate 2 puff IH BID 01/18/21 01/27/21 Unknown History [Symbicort 160-4.5 Mcg Inhaler] Ergocalciferol (Vitamin D2) 50,000 unit PO QWEEK 01/18/21 01/27/21 01/15/21 History [Vitamin D2] Fluticasone [Flonase] 1 spray NS QDAY 01/18/21 01/27/21 Unknown History Gabapentin 300 mg PO QDAY 01/18/21 01/27/21 01/15/21 History Ibuprofen [Motrin 800 MG tab] 800 mg PO QDAY PRN 01/18/21 01/27/21 01/15/21 History Latanoprost 0.005% 1 drop OP QPM 01/18/21 01/27/21 01/15/21 History hydrOXYzine HCL [Atarax] 25 mg PO TID PRN 01/18/21 01/27/21 01/15/21 History Isoniazid 900 mg PO QWEEK 01/19/21 01/27/21 01/05/21 History Pyridoxine HCl (Vitamin B6) 50 mg PO QWEEK 01/19/21 01/27/21 Unknown History [Vitamin B-6] Rifapentine [Priftin] 900 mg PO QWEEK 01/19/21 01/27/21 Unknown History Aspirin EC [Halfprin EC] 81 mg PO DAILY #30 tablet. 01/20/21 01/27/21 Unknown Rx Clopidogrel [Plavix] 75 mg PO QDAY #30 tablet 01/20/21 01/27/21 Unknown Rx Fluticasone/Umeclidin/Vilanter 1 puff IH DAILY #1 blst.w.dev 01/20/21 01/27/21 Unknown Rx [Trelegy Ellipta 100-62.5-25] hydrALAZINE [Apresoline TAB] 25 mg PO Q8HR #90 tab 01/21/21 01/27/21 Unknown Rx Albuterol Mdi (or & Nicu Only) 2 puff IH QID PRN #8.5 gram 01/26/21 Unknown Rx [ProAir HFA Inhaler] Furosemide [Lasix] 20 mg PO QDAY #5 tablet 01/26/21 Unknown Rx Insulin NPH Hum/Reg Insulin Hm 40 unit SQ BIDAC #1 vial 01/27/21 Unknown Rx [Novolin 70-30 100 Unit/ml Vial] predniSONE [Deltasone] 3 tab PO QDAY #24 tab 01/27/21 Unknown Rx Albuterol Sulfate [Albuterol 0.63% 0.63 mg IH TID PRN #30 dose 02/06/21 Unknown Rx NEBS] Benzonatate [Tessalon Perles] 100 mg PO Q8HR PRN #20 capsule 02/06/21 Unknown Rx Ibuprofen [Motrin] 600 mg PO Q8H PRN #20 tablet 02/06/21 Unknown Rx Ondansetron [Zofran Odt] 4 mg PO Q8HR PRN #20 tab.rapdis 02/06/21 Unknown Rx Prednisone [predniSONE 10 mg 10 mg PO .TAPER #1 tab.ds.pk 02/06/21 Unknown Rx (6-Day Pack, 21 Tabs)] Review of Systems All systems: negative Cardiovascular: orthopnea, edema, shortness of breath, dyspnea on exertion Respiratory: cough, shortness of breath, dyspnea on exertion Exam - Constitutional Vitals: Temp Pulse Resp BP Pulse Ox 98.3 F 62 18 152/71 100 02/06/21 20:30 02/06/21 20:30 02/06/21 20:30 02/06/21 20:30 02/06/21 20:30 General appearance: Present: no acute distress, well-nourished - EENT Eyes: Present: PERRL ENT: hearing intact, clear oral mucosa - Neck Neck: Present: supple, normal ROM - Respiratory Respiratory effort: normal Respiratory: bilateral: rales - Cardiovascular Heart Sounds: Present: S1 & S2. Absent: rub, click - Extremities Extremities: pulses symmetrical Extremity abnormal: edema Peripheral Pulses: within normal limits - Abdominal General gastrointestinal: Present: soft, non-tender, non-distended, normal bowel sounds Female genitourinary: Present: normal - Integumentary Integumentary: Present: clear, warm, dry - Musculoskeletal Musculoskeletal: gait normal, strength equal bilaterally - Psychiatric Psychiatric: appropriate mood/affect, intact judgment & insight - Neurologic Neurologic: CNII-XII intact, moves all extremities Results - Labs CBC & Chem 7: 02/06/21 13:48 02/06/21 13:48 Labs: Laboratory Last Values WBC 5.5 K/mm3 (4.5-11.0) 02/06/21 13:48 RBC 3.21 M/mm3 (3.65-5.03) L 02/06/21 13:48 Hgb 8.5 gm/dl (10.1-14.3) L 02/06/21 13:48 Hct 27.5 % (30.3-42.9) L 02/06/21 13:48 MCV 86 fl (79-97) 02/06/21 13:48 MCH 27 pg (28-32) L 02/06/21 13:48 MCHC 31 % (30-34) 02/06/21 13:48 RDW 16.7 % (13.2-15.2) H 02/06/21 13:48 Plt Count 203 K/mm3 (140-440) 02/06/21 13:48 Lymph % (Auto) 5.7 % (13.4-35.0) L 02/06/21 13:48 [place] % (Auto) 7.4 % (0.0-7.3) H 02/06/21 13:48 Eos % (Auto) 0.3 % (0.0-4.3) 02/06/21 13:48 Baso % (Auto) 0.9 % (0.0-1.8) 02/06/21 13:48 Lymph # (Auto) 0.3 K/mm3 (1.2-5.4) L 02/06/21 13:48 [place] # (Auto) 0.4 K/mm3 (0.0-0.8) 02/06/21 13:48 Eos # (Auto) 0.0 K/mm3 (0.0-0.4) 02/06/21 13:48 Baso # (Auto) 0.0 K/mm3 (0.0-0.1) 02/06/21 13:48 Seg Neutrophils % 85.7 % (40.0-70.0) H 02/06/21 13:48 Seg Neutrophils # 4.7 K/mm3 (1.8-7.7) 02/06/21 13:48 Sodium 142 mmol/L (137-145) 02/06/21 13:48 Potassium 3.6 mmol/L (3.6-5.0) 02/06/21 13:48 Chloride 108.2 mmol/L (98-107) H 02/06/21 13:48 Carbon Dioxide 20 mmol/L (22-30) L 02/06/21 13:48 Anion Gap 17 mmol/L 02/06/21 13:48 BUN 13 mg/dL (7-17) 02/06/21 13:48 Creatinine 1.0 mg/dL (0.6-1.2) 02/06/21 13:48 Estimated GFR > 60 ml/min 02/06/21 13:48 BUN/Creatinine Ratio 13 % 02/06/21 13:48 Glucose 132 mg/dL (65-100) H 02/06/21 13:48 Lactic Acid 0.60 mmol/L (0.7-2.0) L 02/06/21 15:08 Calcium 8.1 mg/dL (8.4-10.2) L 02/06/21 13:48 Total Bilirubin 0.20 mg/dL (0.1-1.2) 02/06/21 13:48 AST 17 units/L (5-40) 02/06/21 13:48 ALT 11 units/L (7-56) 02/06/21 13:48 Alkaline Phosphatase 80 units/L (35-129) 02/06/21 13:48 Total Protein 6.7 g/dL (6.3-8.2) 02/06/21 13:48 Albumin 3.3 g/dL (3.9-5) L 02/06/21 13:48 Albumin/Globulin Ratio 1.0 % 02/06/21 13:48 Lipase 14 units/L (13-60) 02/06/21 13:48 Urine Color Yellow (Yellow) 02/06/21 16:42 Urine Turbidity Clear (Clear) 02/06/21 16:42 Urine pH 7.0 (5.0-7.0) 02/06/21 16:42 Ur Specific [place] 1.025 (1.003-1.030) 02/06/21 16:42 Urine Protein >500 mg/dL (Negative) 02/06/21 16:42 Urine Glucose (UA) Neg mg/dL (Negative) 02/06/21 16:42 Urine Ketones Neg mg/dL (Negative) 02/06/21 16:42 Urine Blood Neg (Negative) 02/06/21 16:42 Urine Nitrite Neg (Negative) 02/06/21 16:42 Ur Reducing Substances Not Reportable 02/06/21 16:42 Urine Bilirubin Neg (Negative) 02/06/21 16:42 Urine Ictotest Not Reportable 02/06/21 16:42 Urine Urobilinogen < 2.0 mg/dL (<2.0) 02/06/21 16:42 Ur Leukocyte Esterase Neg (Negative) 02/06/21 16:42 Urine WBC (Auto) 1.0 /HPF (0.0-6.0) 02/06/21 16:42 Urine RBC (Auto) 2.0 /HPF (0.0-6.0) 02/06/21 16:42 U Epithel Cells (Auto) 3.0 /HPF (0-13.0) 02/06/21 16:42 Influenza A (Rapid) Negative (Negative) 02/06/21 13:53 Influenza B (Rapid) Negative (Negative) 02/06/21 13:53 Microbiology: Microbiology 02/06/21 13:48 Peripheral/Venous Blood Culture - Preliminary Culture in Progress 02/06/21 13:48 Peripheral/Venous Blood Culture - Preliminary Culture in Progress - Imaging and Cardiology Chest x-ray: report reviewed Assessment and Plan VTE prophylaxis?: Chemical Plan of care discussed with patient/family: Yes - Patient Problems (1) Acute CHF Status: Acute Plan to address problem: Admit the patient to the medical floor. Fluid restriction. Cardiac diet. Maintain input output Lasix 40 mg IV every 12 hours. Echocardiogram. Cardiology consult (2) COPD exacerbation Status: Acute Plan to address problem: Oxygen per nasal cannula 3 L/min. DuoNeb by nebulizer every 4 hours. Albuterol 2.5 mg by nebulizer every 4 hours as needed (3) Hypertension Status: Acute Plan to address problem: Hydralazine 10 mg IV every 6 hours as needed. Diovan 160 mg p.o. twice daily. Nifedipine XL 60 mg p.o. daily. We will continue the home medication. We will monitor the blood pressure closely (4) SIRS (systemic inflammatory response syndrome) Status: Acute Plan to address problem: Levaquin 750 mg IV every 24 hours. We do the blood culture in sputum culture urine culture. Recheck CBC BMP in the morning (5) Coronary artery disease Status: Chronic Qualifiers: Coronary Disease-Associated Artery/Lesion type: [place] artery [place] vs. transplanted heart: [place] heart Plan to address problem: Stable. Aspirin 81 mg p.o. daily. Lipitor 40 mg p.o. nightly. Diovan 160 mg p.o. twice daily. We will continue the home medication. Echocardiogram. Cardiology evaluation (6) Diabetes mellitus type 2 in nonobese Status: Chronic Plan to address problem: Insulin 70/30 40 units subcu twice daily AC. And diabetic education. (7) DVT prophylaxis Status: Acute Plan to address problem: Heparin 5000 units subcu every 8 hours for DVT prophylaxis. Pepcid 20 mg p.o. twice daily for GI prophylaxis. Patient is a full code
[2021-02-07] MEDS ORDERED: INSULIN NPH/REGULAR 70/30 INJ SUB-Q SCH (07:30)
[2021-02-07] MEDS ORDERED: ONDANSETRON 4 MG/2 ML INJ IV PRN (07:30)
[2021-02-07] MEDS ORDERED: MORPHINE 2 MG/1 ML INJ IV PRN (08:00)
[2021-02-07] MEDS ORDERED: IPRATROPIUM/ALBUTEROL SULFATE 3 ML AMPUL.NEB IH SCH (08:00)
[2021-02-07] MEDS ORDERED: FLUTICASONE PROPIONATE NASAL SPRAY 16 GM NS SCH (10:00)
[2021-02-07] MEDS ORDERED: PYRIDOXINE HCL 250 MG PO SCH (10:00)
[2021-02-07] MEDS ORDERED: GABAPENTIN 300 MG CAP PO SCH (10:00)
[2021-02-07] MEDS ORDERED: ASPIRIN EC 81 MG TAB PO SCH (10:00)
[2021-02-07] MEDS ORDERED: ISONIAZID 300 MG TAB PO SCH (10:00)
[2021-02-07] MEDS ORDERED: NIFEdipine XL 60 MG TAB PO SCH (10:00)
[2021-02-07] MEDS ORDERED: VALSARTAN 160MG TAB PO SCH (10:00)
[2021-02-07] MEDS ORDERED: RIFAPENTINE 150 MG PO SCH (10:00)
[2021-02-07] MEDS ORDERED: FAMOTIDINE 20 MG TAB PO SCH (10:00)
[2021-02-07] MEDS ORDERED: NON-FORMULARY EACH (Budesonide/Formoterol Fumarate [Symbicort 160-4.5 Mcg Inhaler] 10.2 GM IH SCH (10:00)
[2021-02-07] MEDS ORDERED: BACLOFEN 10 MG TAB PO SCH (10:00)
[2021-02-07] MEDS ORDERED: predniSONE 20 MG TAB PO SCH (10:00)
[2021-02-07] MEDS ORDERED: CLOPIDOGREL 75 MG TAB PO SCH (10:00)
[2021-02-07] MEDS ORDERED: NON-FORMULARY EACH (Fluticasone/Umeclidin/Vilanter [Trelegy Ellipta 100-62.5-25] 1 EACH Bl IH SCH (10:00)
[2021-02-07] MEDS ORDERED: ERGOCALCIFEROL (VIT D2) 50,000 UNIT CAP PO SCH (10:00)
[2021-02-07] MEDS ORDERED: hydrALAZINE 25 MG TAB PO SCH (14:00)
[2021-02-07] MEDS ORDERED: HEPARIN 5,000 UNIT/1 ML VIAL SUB-Q SCH (14:00)
[2021-02-07] MEDS ORDERED: FUROSEMIDE 40 MG/4 ML INJ IV SCH (18:00)
[2021-02-08 04:50] LABS: Hematocrit 28.4 % (30.3-42.9); Hemoglobin 8.9 gm/dl (10.1-14.3); Mean Corpuscular HGB Conc 31 % (30-34); Mean Corpuscular Volume 86 fl (79-97); Platelet Count 182 K/mm3 (140-440); Red Blood Count 3.32 M/mm3 (3.65-5.03)
[2021-02-08 05:06] LABS: BUN/Creatinine Ratio 19; Blood Urea Nitrogen 19 mg/dL (7-17); Calcium 8.4 mg/dL (8.4-10.2); Hemolysis Index 0
[2021-02-08 07:33] LABS: Band Neutrophils # (Manual) 0.1 K/mm3; Total Cells Counted 100
[2021-02-08 07:34] LABS: Anisocytosis 1+; Platelet Estimate Consistent w Auto
== END 2021-02-06 20:30 | disposition home or self-care (01) ==
LOC: ED 12:14
DX: R50.9 Fever, unspecified (principal); B34.9 Viral infection, unspecified; J44.1 Chronic obstructive pulmonary disease with (acute) exacerbation; I11.0 Hypertensive heart disease with heart failure; I50.9 Heart failure, unspecified; E11.8 Type 2 diabetes mellitus with unspecified complications; Z98.62 Peripheral vascular angioplasty status; Z98.890 Other specified postprocedural states
CPT/HCPCS: 36415; 71045; 74177; 80053; 81001; 82140; 83690; 85025; 87040; 87400; 94644; Q0162; Q0177; J1815; J1885; J7030; Q9967

== ENCOUNTER 2021-03-10 11:53 | Inpatient (IN) | payer MEDICARE ==
--- NOTE | 2021-03-10 12:02 | Event Note ---
ED Screening Note ED Screening Note: Patient presents with complaints of shortness of breath starting last night Pitting edema noted to leg bilaterally History of CHF States compliance with home meds This initial assessment/diagnostic orders/clinical plan/treatment(s) is/are subject to change based on patients health status, clinical progression and re- assessment by fellow clinical providers in the ED. Further treatment and workup at subsequent clinical providers discretion. Patient/guardian urged not to elope from the ED as their condition may be serious if not clinically assessed and managed. Initial orders include: Labs Chest x-ray EKG
[2021-03-10] MEDS ORDERED: predniSONE 20 MG TAB PO ONE (12:38)
[2021-03-10] MEDS ORDERED: FUROSEMIDE 40 MG/4 ML INJ IV ONE (12:38)
[2021-03-10] MEDS ORDERED: ALBUTEROL 2.5 MG/3 ML NEBU IH ONE (12:38)
[2021-03-10] MEDS ORDERED: IPRATROPIUM 0.02% NEBU 2.5 ML IH ONE (12:38)
[2021-03-10] MEDS ORDERED: hydrALAZINE 100 MG TAB PO STA (12:40)
[2021-03-10] MEDS ORDERED: NON-FORMULARY EACH (Budesonide/Formoterol Fumarate [Symbicort 160-4.5 Mcg Inhaler] 10.2 GM IH SCH (12:45)
[2021-03-10 12:56] LABS: Basophils % (Auto) 0.3 % (0.0-1.8); Eosinophils % (Auto) 0.2 % (0.0-4.3); Hematocrit 26.6 % (30.3-42.9); Hemoglobin 8.1 gm/dl (10.1-14.3); Lymphocytes # (Auto) 0.6 K/mm3 (1.2-5.4); Lymphocytes % (Auto) 12.2 % (13.4-35.0); Mean Corpuscular HGB Conc 30 % (30-34); Mean Corpuscular Volume 84 fl (79-97); Monocytes # (Auto) 0.3 K/mm3 (0.0-0.8); Monocytes % (Auto) 5.9 % (0.0-7.3); Platelet Count 264 K/mm3 (140-440); Red Blood Count 3.15 M/mm3 (3.65-5.03); Red Cell Distribution Width 17.4 % (13.2-15.2)
--- NOTE | 2021-03-10 13:04 | Emergency Department Report ---
ED General Adult HPI - General Chief complaint: Dyspnea/Respdistress Stated complaint: SOB PUI?: No Time Seen by Provider: 03/10/21 12:01 Source: patient, RN notes reviewed, old records reviewed Mode of arrival: Ambulatory Limitations: No Limitations - History of Present Illness Initial comments: The patient was evaluated in the emergency department for symptoms described in the history of present illness. He/she was evaluated in the context of the global COVID-19 pandemic, which necessitated consideration that the patient m ight be at risk for infection with the virus that causes COVID-19. Institutional protocols and algorithms that pertain to the evaluation of patients at risk for COVID-19 are in a state of rapid change based on information released by regulatory bodies including the CDC and federal and state organizations. These policies and algorithms were followed during the patient's care in the emergency department. Please note that these policies, procedures and recommendations changed on a rapid basis. The patient is a 70-year-old female. I have evaluated this patient in the past. Past medical history is complex, including congestive heart failure with preserved ejection fraction, COPD, not currently on home oxygen, pulmonary hypertension, GERD, morbid obesity, peripheral vascular disease, COVID-19 vaccinated, history of latent tuberculosis, although she reports that she has completed her recommended therapy, and been cleared from the health department. I admitted this patient to the hospital in January 2021. She had a complicated hospital stay, was ultimately discharged, and had a CT s can of her chest right before discharge, which showed no pulmonary embolism. The patient reports that she was discharged and felt like she was in her usual state of health. The patient presents today, with a complaint of 1-1/2 days of cough, lower extremity swelling, clear/yellow mucus production, and shortness of breath. She sleeps on 1-2 pillows. She denies physical pain per se, but endorses that her chest and legs feel tight. She denies fever, loss of taste and smell, vomiting, and hematemesis/bright red blood per rectum. She also denies urinary symptoms. She endorses compliance with her medications. She denies diet and lifestyle indiscretions. Denies travel, surgery, immobilization, DVT/PE risk factors. Symptoms have been constant for the past day and a half, worsened with cough, visible exertion, laying flat, and decreased with rest -: Gradual, days(s) Location: chest, left, right, lower extremity Severity scale (0 -10): 10 Quality: other Consistency: other Improves with: other Worsens with: other - Related Data Home Medications Medication Instructions Recorded Confirmed Last Taken Baclofen [Lioresal] 10 mg PO BID 01/18/21 01/27/21 Unknown Budesonide/Formoterol Fumarate 2 puff IH BID 01/18/21 01/27/21 Unknown [Symbicort 160-4.5 Mcg Inhaler] Ergocalciferol (Vitamin D2) 50,000 unit PO QWEEK 01/18/21 01/27/21 01/15/21 [Vitamin D2] Fluticasone [Flonase] 1 spray NS QDAY 01/18/21 01/27/21 Unknown Gabapentin 300 mg PO QDAY 01/18/21 01/27/21 01/15/21 Latanoprost 0.005% 1 drop OP QPM 01/18/21 01/27/21 01/15/21 hydrOXYzine HCL [Atarax] 25 mg PO TID PRN 01/18/21 01/27/21 01/15/21 Isoniazid 900 mg PO QWEEK 01/19/21 01/27/21 01/05/21 Pyridoxine HCl (Vitamin B6) 50 mg PO QWEEK 01/19/21 01/27/21 Unknown [Vitamin B-6] Rifapentine [Priftin] 900 mg PO QWEEK 01/19/21 01/27/21 Unknown Previous Rx's Medication Instructions Recorded Last Taken Type AtorvaSTATin [Lipitor] 40 mg PO QHS #30 tablet 07/27/20 1 Day Ago Rx ~01/15/21 HYDROcodone/APAP 7.5-325 [[place] 1 each PO Q6HR PRN #7 tablet 07/27/20 1 Month Ago Rx 7.5-325 mg TAB] ~12/18/20 NIFEdipine XL [Procardia Xl] 60 mg PO QDAY #30 tablet 07/27/20 1 Day Ago Rx ~01/15/21 Valsartan [Diovan] 160 mg PO BID #60 tablet 07/27/20 01/15/21 Rx 160 Aspirin EC [Halfprin EC] 81 mg PO DAILY #30 tablet 01/20/21 Unknown Rx Clopidogrel [Plavix] 75 mg PO QDAY #30 tablet 01/20/21 Unknown Rx Fluticasone/Umeclidin/Vilanter 1 puff IH DAILY #1 blst.w.dev 01/20/21 Unknown Rx [Trelemayra Ellipta 100-62.5-25] Albuterol Mdi (or & Nicu Only) 2 puff IH QID PRN #8.5 gram 01/26/21 Unknown Rx [ProAir HFA Inhaler] Insulin NPH Hum/Reg Insulin Hm 40 unit SQ BIDAC #1 vial 01/27/21 Unknown Rx [Novolin 70-30 100 Unit/ml Vial] Albuterol Sulfate [Albuterol 0.63% 0.63 mg IH TID PRN #30 dose 02/06/21 Unknown Rx NEBS] Benzonatate [Tessalon Perles] 100 mg PO Q8HR PRN #20 capsule 02/06/21 Unknown Rx Apixaban [Eliquis] 2.5 mg PO BID #14 tablet 02/11/21 Unknown Rx dexAMETHasone [Dexamethasone] 6 mg PO DAILY #5 tablet 02/11/21 Unknown Rx hydrALAZINE [Apresoline TAB] 100 mg PO Q8HR #90 tab 02/11/21 Unknown Rx Allergies Allergy/AdvReac Type Severity Reaction Status Date / Time No Known Allergies Allergy Verified 01/16/21 12:25 ED Review of Systems ROS: Stated complaint: SOB Other details as noted in HPI Constitutional: malaise. denies: fever Eyes: denies: eye discharge ENT: congestion Respiratory: cough, shortness of breath, SOB with exertion, SOB at rest Cardiovascular: dyspnea on exertion, edema. denies: chest pain Gastrointestinal: denies: abdominal pain, hematemesis, melena, hematochezia Genitourinary: denies: dysuria Musculoskeletal: myalgia Neurological: weakness Hematological/Lymphatic: denies: easy bleeding ED Past Medical Hx - Past Medical History Previous Medical History?: Yes Hx Hypertension: Yes Hx Heart Attack/AMI: Yes Hx Congestive Heart Failure: Yes Hx Diabetes: Yes Hx Deep Vein Thrombosis: Yes Hx COPD: Yes Hx HIV: No Additional medical history: CAD - Surgical History Additional Surgical History: ; Angioplasty--no stents placed - Social History Smoking Status: Smoker, Current Status Unknown - Medications Home Medications: Home Medications Medication Instructions Recorded Confirmed Last Taken Type AtorvaSTATin [Lipitor] 40 mg PO QHS #30 tablet 06/07/21 12/08/21 1 Day Ago Rx ~01/15/21 HYDROcodone/APAP 7.5-325 [[place] 1 each PO Q6HR PRN #7 tablet 07/27/20 01/27/21 1 Month Ago Rx 7.5-325 mg TAB] ~12/18/20 NIFEdipine XL [Procardia Xl] 60 mg PO QDAY #30 tablet 07/27/20 01/27/21 1 Day Ago Rx ~01/15/21 Valsartan [Diovan] 160 mg PO BID #60 tablet 07/27/20 01/27/21 01/15/21 Rx 160 Baclofen [Lioresal] 10 mg PO BID 01/18/21 01/27/21 Unknown History Budesonide/Formoterol Fumarate 2 puff IH BID 01/18/21 01/27/21 Unknown History [Symbicort 160-4.5 Mcg Inhaler] Ergocalciferol (Vitamin D2) 50,000 unit PO QWEEK 01/18/21 01/27/21 01/15/21 History [Vitamin D2] Fluticasone [Flonase] 1 spray NS QDAY 01/18/21 01/27/21 Unknown History Gabapentin 300 mg PO QDAY 01/18/21 01/27/21 01/15/21 History Latanoprost 0.005% 1 drop OP QPM 01/18/21 01/27/21 01/15/21 History hydrOXYzine HCL [Atarax] 25 mg PO TID PRN 01/18/21 01/27/21 01/15/21 History Isoniazid 900 mg PO QWEEK 01/19/21 01/27/21 01/05/21 History Pyridoxine HCl (Vitamin B6) 50 mg PO QWEEK 01/19/21 01/27/21 Unknown History [Vitamin B-6] Rifapentine [Priftin] 900 mg PO QWEEK 01/19/21 01/27/21 Unknown History Aspirin EC [Halfprin EC] 81 mg PO DAILY #30 tablet. 01/20/21 01/27/21 Unknown Rx Clopidogrel [Plavix] 75 mg PO QDAY #30 tablet 01/20/21 01/27/21 Unknown Rx Fluticasone/Umeclidin/Vilanter 1 puff IH DAILY #1 blst.w.dev 01/20/21 01/27/21 Unknown Rx [Trelegy Ellipta 100-62.5-25] Albuterol Mdi (or & Nicu Only) 2 puff IH QID PRN #8.5 gram 01/26/21 Unknown Rx [ProAir HFA Inhaler] Insulin NPH Hum/Reg Insulin Hm 40 unit SQ BIDAC #1 vial 01/27/21 Unknown Rx [Novolin 70-30 100 Unit/ml Vial] Albuterol Sulfate [Albuterol 0.63% 0.63 mg IH TID PRN #30 dose 02/06/21 Unknown Rx NEBS] Benzonatate [Tessalon Perles] 100 mg PO Q8HR PRN #20 capsule 02/06/21 Unknown Rx Apixaban [Eliquis] 2.5 mg PO BID #14 tablet 02/11/21 Unknown Rx dexAMETHasone [Dexamethasone] 6 mg PO DAILY #5 tablet 02/11/21 Unknown Rx hydrALAZINE [Apresoline TAB] 100 mg PO Q8HR #90 tab 02/11/21 Unknown Rx ED Physical Exam - General Limitations: Physical Limitation General appearance: alert, anxious, obese - Head Head exam: Present: atraumatic, normocephalic - Eye Eye exam: Present: normal appearance, EOMI. Absent: nystagmus - ENT ENT exam: Present: normal exam, normal orophraynx, mucous membranes moist, normal external ear exam - Neck Neck exam: Present: normal inspection, full ROM. Absent: tenderness, meningismus - Respiratory Respiratory exam: Present: respiratory distress, decreased breath sounds. Absent: rhonchi, stridor - Cardiovascular Cardiovascular Exam: Present: regular rate, normal rhythm, normal heart sounds, JVD. Absent: bradycardia, tachycardia, irregular rhythm, systolic murmur, diastolic murmur, rubs, gallop - GI/Abdominal GI/Abdominal exam: Present: soft. Absent: distended, tenderness, guarding, rebound, rigid, pulsatile mass - Extremities Exam Extremities exam: Present: normal inspection, full ROM, pedal edema (2 to 3+ pitting edema in the bilateral lower extremity), other (2+ radial pulses noted bilaterally. There is no long bony tenderness. The muscular compartments are soft. There is no palpable cord). Absent: calf tenderness - Back Exam Back exam: Present: normal inspection, full ROM. Absent: tenderness, CVA tenderness (R), CVA tenderness (L), paraspinal tenderness, vertebral tenderness - Neurological Exam Neurological exam: Present: alert, other (No facial droop. Tongue midline. Extraocular movements intact bilaterally. Facial sensation intact to light touch in V1, V2, V3 distribution bilaterally. 5 and a 5 strength in 4 extremities. Sensation intact to light touch in 4 extremities.). Absent: motor sensory deficit - Psychiatric Psychiatric exam: Present: anxious - Skin Skin exam: Present: warm, dry, intact, normal color. Absent: rash ED Course Vital Signs 03/10/21 11:57 Temperature 97.6 F Pulse Rate 80 Respiratory 20 Rate Blood Pressure 190/73 [Left] O2 Sat by Pulse 99 Oximetry - Reevaluation(s) Reevaluation #1: 03/10/21 13:05 Differential diagnosis, including but not limited to: Acute congestive heart failure, acute COPD exacerbation, pulmonary hypertension, pneumonia, hypertensive urgency Assessment and plan: 70-year-old female, who is afebrile, with reassuring vital signs with the exception of hypertension, likely presenting with CHF and COPD exacerbation. She was ruled out for pulmonary embolism on her recent hospitalization. She denies fever, and loss of taste and smell. She endorses compliance with her medications. Anemia appears to be chronic as she denies rectal/GI bleeding. Start patient on albuterol, Atrovent, steroids and Lasix. Obtain x-ray of the chest, to be, x-ray the chest appears to be consistent with pulmonary vascular congestion. Initiate antihypertensive therapy. Reassess after initial data points, EKG p ending. I discussed this plan of care with the patient. She is agreeable. Reassess Reevaluation #2: 03/10/21 13:06 Patient denies recent travel, surgery, immobilization, I think DVT/PE is less likely than CHF/COPD/pulmonary hypertension. 03/10/21 13:22 X-ray of the chest confirms CHF with edema and pulmonary vascular congestion. Anion gap acidosis noted on basic metabolic panel likely secondary to tachypnea, likely secondary to COPD and/or CHF exacerbation. Glucose of 43 reviewed and appreciated. Patient remains awake, alert, oriented and not encephalopathic. She will be fed. Dextrose ordered. Accu-Cheks ordered. EKG appears to be unchanged from prior. Hospital physician, Dr. Marie, to admit patient to the medical service. Patient is agreeable to this plan of care ED Medical Decision Making - Lab Data Result diagrams: 03/10/21 12:22 03/10/21 12:22 Vital Signs 03/10/21 11:57 Temperature 97.6 F Pulse Rate 80 Respiratory 20 Rate Blood Pressure 190/73 [Left] O2 Sat by Pulse 99 Oximetry Lab Results 03/10/21 Range/Units 12:22 WBC 4.6 (4.5-11.0) K/mm3 RBC 3.15 L (3.65-5.03) M/mm3 Hgb 8.1 L (10.1-14.3) gm/dl Hct 26.6 L (30.3-42.9) % MCV 84 (79-97) fl MCH 26 L (28-32) pg MCHC 30 (30-34) % RDW 17.4 H (13.2-15.2) % Plt Count 264 (140-440) K/mm3 Lymph % (Auto) 12.2 L (13.4-35.0) % Meagher % (Auto) 5.9 (0.0-7.3) % Eos % (Auto) 0.2 (0.0-4.3) % Baso % (Auto) 0.3 (0.0-1.8) % Lymph # (Auto) 0.6 L (1.2-5.4) K/mm3 Meagher # (Auto) 0.3 (0.0-0.8) K/mm3 Eos # (Auto) 0.0 (0.0-0.4) K/mm3 Baso # (Auto) 0.0 (0.0-0.1) K/mm3 Seg Neutrophils % 81.4 H (40.0-70.0) % Seg Neutrophils # 3.7 (1.8-7.7) K/mm3 - EKG Data -: EKG Interpreted by Wi EKG shows normal: sinus rhythm Rate: normal - EKG Data 03/10/21 13:20 The EKG is interpreted at 13: 09 Sinus rhythm, 70 bpm. Normal axis, normal P wave axis, high left ventricular voltage, NC interval 224 ms, abnormal EKG, not a STEMI. The EKG today appears to be unchanged from January 2021 - Radiology Data Radiology results: pending, report reviewed, image reviewed Study Comments [facility] [address] [place] [address] XRay Report Signed Patient: KWABENA HERRERA MR#: [id number] : 1950 Acct:[id number] Age/Sex: 70 / F ADM Date: 03/10/21 Loc: ED Attending Dr: Ordering Physician: XIN LAZO Date of Service: 03/10/21 Procedure(s): XR chest routine 2V Accession Number(s): [id number] cc: XIN LAZO Fluoro Time In Minutes: XR chest routine 2V INDICATION / CLINICAL INFORMATION: SOB, CHF. COMPARISON: 02/07/2021 FINDINGS: SUPPORT DEVICES: None. HEART /PULMONARY VASCULATURE: Heart is enlarged with pulmonary vasculature congestion. LUNGS / PLEURA: Diffuse increased interstitial opacities, predominantly in the mid to lower lungs. No sizable pleural effusion. No pneumothorax. ADDITIONAL FINDINGS: No significant additional findings. IMPRESSION: CHF with interstitial edema. Signer Name: Emily Cee MD Signed: 03/10/2021 1:11 PM Workstation Name: [id number] Transcribed By: MARLY Dictated By: EMILY CEE MD Electronically Authenticated By: EMILY CEE MD Signed Date/Time: 03/10/211310 DD/ 1310 Critical Care Time: Yes Critical care time in (mins) excluding proc time.: 35 Critical care attestation.: If time is entered above; I have spent that time in minutes in the direct care o f this critically ill patient, excluding procedure time. ED Disposition Clinical Impression: Acute CHF, COPD exacerbation, Hypoglycemia, Hypertensive urgency Disposition: ADMITTED INPATIENT Is pt being admited?: Yes Does the pt Need Aspirin: No Condition: Stable Instructions: Chronic Obstructive Pulmonary Disease (ED) Referrals: PRIMARY CARE, [Primary Care Provider] - 3-5 Days
--- NOTE | 2021-03-10 13:15 | XRay Report ---
XR chest routine 2V INDICATION / CLINICAL INFORMATION: SOB, CHF. COMPARISON: 02/07/2021 FINDINGS: SUPPORT DEVICES: None. HEART /PULMONARY VASCULATURE: Heart is enlarged with pulmonary vasculature congestion. LUNGS / PLEURA: Diffuse increased interstitial opacities, predominantly in the mid to lower lungs. No sizable pleural effusion. No pneumothorax. ADDITIONAL FINDINGS: No significant additional findings. IMPRESSION: CHF with interstitial edema. Signer Name: Shamir Cee MD Signed: 03/10/2021 1:11 PM Workstation Name: [id number]
[2021-03-10 13:18] LABS: Alanine Aminotransferase 18 units/L (7-56); Albumin 3.9 g/dL (3.9-5); BUN/Creatinine Ratio 13; Blood Urea Nitrogen 13 mg/dL (7-17); Calcium 9.1 mg/dL (8.4-10.2); Hemolysis Index 3
[2021-03-10] MEDS ORDERED: DEXTROSE 50% IN WATER (25GM) 50 ML VIAL IV ONE (13:21)
[2021-03-10] MEDS ORDERED: DEXTROSE 50% IN WATER (25GM) 50 ML VIAL IV PRN (13:21)
[2021-03-10] MEDS ORDERED: DOXYCYCLINE 100 MG CAP PO ONE (13:24)
--- NOTE | 2021-03-10 15:32 | History and Physical Report ---
History of Present Illness Chief complaint: It is hard to breathe History of present illness: 70 YO Female with COPD, HTN, Obesity, CAD, DVT not prescribed therapeutic anticoagulation presents ED for evaluation. Patient reports "it is hard to breathe". Patient states that she has experienced shortness of breath, dim inished exercise tolerance, dyspnea on exertion, dyspnea at rest, 12 pound weight gain, orthopnea, lower extremity edema, paroxysmal nocturnal dyspnea over the past 1 week with worsening symptoms over the past 3 days. Patient acknowledges compliance with medication. Patient also acknowledges noncompliant with low-sodium diet. Patient transported to [facility] via private vehicle for further care and evaluation of the aforementioned symptoms. The patient was seen and evaluated in the emergency department. All lab and imaging studies reviewed. Patient found to have clinical symptoms consistent with CHF decompensation, hypertensive urgency, pulmonary edema. Patient admitted to telemetry and initiated on CHF protocol. Patient placed on supplemental oxygen in the emergency department with mild improvement in symptoms. Patient placed on noninvasive positive Pressure ventilation with improvement in symptoms. No reports of fever, chills, chest pain, palpitation, productive cough, unilateral leg swelling, calf pain, individual/family history of DVT/PE/bleeding/blood clotting disorders, or known exposure to COVID-19. Prior admission on 02/08/2021 reviewed. All medication listed at time of admission has been reconciled. Advanced care planning conducted in ED. Past History Past Medical History: CAD, COPD, hypertension, other (See HPI) Past Surgical History: , Other (Angioplasty) Medications and Allergies Allergies Allergy/AdvReac Type Severity Reaction Status Date / Time No Known Allergies Allergy Verified 01/16/21 12:25 Home Medications Medication Instructions Recorded Confirmed Last Taken Type AtorvaSTATin [Lipitor] 40 mg PO QHS #30 tablet 07/27/20 01/27/21 1 Day Ago Rx ~01/15/21 HYDROcodone/APAP 7.5-325 [[place] 1 each PO Q6HR PRN #7 tablet 07/27/20 01/27/21 1 Month Ago Rx 7.5-325 mg TAB] ~12/18/20 NIFEdipine XL [Procardia Xl] 60 mg PO QDAY #30 tablet 07/27/20 01/27/21 1 Day Ago Rx ~01/15/21 Valsartan [Diovan] 160 mg PO BID #60 tablet 07/27/20 01/27/21 01/15/21 Rx 160 Baclofen [Lioresal] 10 mg PO BID 01/18/21 01/27/21 Unknown History Budesonide/Formoterol Fumarate 2 puff IH BID 01/18/21 01/27/21 Unknown History [Symbicort 160-4.5 Mcg Inhaler] Ergocalciferol (Vitamin D2) 50,000 unit PO QWEEK 01/18/21 01/27/21 01/15/21 History [Vitamin D2] Fluticasone [Flonase] 1 spray NS QDAY 01/18/21 01/27/21 Unknown History Gabapentin 300 mg PO QDAY 01/18/21 01/27/21 01/15/21 History Latanoprost 0.005% 1 drop OP QPM 01/18/21 01/27/21 01/15/21 History hydrOXYzine HCL [Atarax] 25 mg PO TID PRN 01/18/21 01/27/21 01/15/21 History Isoniazid 900 mg PO QWEEK 01/19/21 01/27/21 01/05/21 History Pyridoxine HCl (Vitamin B6) 50 mg PO QWEEK 01/19/21 01/27/21 Unknown History [Vitamin B-6] Rifapentine [Priftin] 900 mg PO QWEEK 01/19/21 01/27/21 Unknown History Aspirin EC [Halfprin EC] 81 mg PO DAILY #30 tablet. 01/20/21 01/27/21 Unknown Rx Clopidogrel [Plavix] 75 mg PO QDAY #30 tablet 01/20/21 01/27/21 Unknown Rx Fluticasone/Umeclidin/Vilanter 1 puff IH DAILY #1 blst.w.dev 01/20/21 01/27/21 Unknown Rx [Trelegy Ellipta 100-62.5-25] Albuterol Mdi (or & Nicu Only) 2 puff IH QID PRN #8.5 gram 01/26/21 Unknown Rx [ProAir HFA Inhaler] Insulin NPH Hum/Reg Insulin Hm 40 unit SQ BIDAC #1 vial 01/27/21 Unknown Rx [Novolin 70-30 100 Unit/ml Vial] Albuterol Sulfate [Albuterol 0.63% 0.63 mg IH TID PRN #30 dose 02/06/21 Unknown Rx NEBS] Benzonatate [Tessalon Perles] 100 mg PO Q8HR PRN #20 capsule 02/06/21 Unknown Rx Apixaban [Eliquis] 2.5 mg PO BID #14 tablet 02/11/21 Unknown Rx dexAMETHasone [Dexamethasone] 6 mg PO DAILY #5 tablet 02/11/21 Unknown Rx hydrALAZINE [Apresoline TAB] 100 mg PO Q8HR #90 tab 02/11/21 Unknown Rx Active Meds: Active Medications Arformoterol Tartrate (Arformoterol 15 Mcg/2 Ml Nebu) 15 mcg IH Q12HRT BRIANA Budesonide (Budesonide 0.5 Mg/2 Ml Nebu) 1 mg IH Q12HRT BRIANA Clopidogrel Bisulfate (Clopidogrel 75 Mg Tab) 75 mg PO QDAY [facility] Dextrose (Dextrose 50% In Water (25gm) 50 Ml Vial) 50 gm IV Q30MIN PRN; Protocol PRN Reason: Hypoglycemia Miscellaneous Medication (Fluticasone/Umeclidin/Vilanter [Trelegy Ellipta 100-62.5-25]) 1 puff IH DAILY BRIANA Valsartan (Valsartan 160mg Tab) 160 mg PO BID [facility] Review of Systems Constitutional: weight gain, weakness, no weight loss, no fever, no chills Ears, nose, mouth and throat: no ear pain, no ear discharge, no decreased hearing, no nose pain, no nasal congestion, no nasal discharge Breasts: no change in shape, no swelling, no mass Cardiovascular: orthopnea, shortness of breath, dyspnea on exertion, paroxysmal nocturnal dyspnea, high blood pressure, leg edema, decreased exercise tolerance, no chest pain Respiratory: no cough, no excessive sputum Gastrointestinal: no abdominal pain, no nausea, no vomiting, no diarrhea Genitourinary Female: no pelvic pain, no flank pain, no dysuria, no urinary frequency, no urgency Rectal: no pain, no incontinence, no bleeding Musculoskeletal: no neck stiffness, no neck pain, no shooting arm pain, no arm numbness/tingling, no low back pain Integumentary: no rash, no pruritis, no redness, no sores, no wounds Neurological: no head injury, no transient paralysis, no paralysis, no weakness, no numbness Psychiatric: no anxiety, no sleep disturbances, no change in libido Endocrine: no cold intolerance, no heat intolerance, no excessive thirst, no weight change Hematologic/Lymphatic: no easy bruising, no easy bleeding Allergic/Immunologic: no urticaria, no allergic rhinitis Exam - Constitutional Vitals: Temp Pulse Resp BP Pulse Ox 97.6 F 75 20 180/70 98 03/10/21 11:57 03/10/21 15:11 03/10/21 15:11 03/10/21 15:11 03/10/21 15:11 General appearance: Present: mild distress - EENT Eyes: Present: PERRL ENT: hearing intact, clear oral mucosa - Neck Neck: Present: supple, normal ROM - Respiratory Respiratory effort: normal Respiratory: bilateral: diminished, rales - Cardiovascular Rhythm: regular Heart Sounds: Present: S1 & S2. Absent: rub, click - Extremities Extremities: pulses symmetrical Extremity abnormal: edema Peripheral Pulses: within normal limits - Abdominal General gastrointestinal: Present: soft, non-tender, non-distended, normal bowel sounds Female genitourinary: Present: normal - Integumentary Integumentary: Present: clear, warm, dry - Musculoskeletal Musculoskeletal: generalized weakness - Psychiatric Psychiatric: appropriate mood/affect, intact judgment & insight, cooperative - Neurologic Neurologic: CNII-XII intact, moves all extremities HEART Score - HEART Score Troponin: Troponin T < 0.010 ng/mL (0.00-0.029) 03/10/21 12:22 Results - Labs CBC & Chem 7: 03/10/21 12:22 03/10/21 12:22 Labs: Abnormal lab results 03/10/21 03/10/21 Range/Units 12:22 12:22 RBC 3.15 L (3.65-5.03) M/mm3 Hgb 8.1 L (10.1-14.3) gm/dl Hct 26.6 L (30.3-42.9) % MCH 26 L (28-32) pg RDW 17.4 H (13.2-15.2) % Lymph % (Auto) 12.2 L (13.4-35.0) % Lymph # (Auto) 0.6 L (1.2-5.4) K/mm3 Seg Neutrophils % 81.4 H (40.0-70.0) % Chloride 112.2 H (98-107) mmol/L Carbon Dioxide 19 L (22-30) mmol/L Glucose 43 L (65-100) mg/dL NT-Pro-B Natriuret Pep 3278 H (0-900) pg/mL Assessment and Plan - Patient Problems (1) Acute CHF Current Visit: Yes Status: Acute Qualifiers: Heart failure type: diastolic Qualified Code(s): I50.31 - Acute diastolic (congestive) heart failure Plan to address problem: CHF protocol: Supplemental oxygen, pulse oximetry, strict I's/O, monitor urine output every shift, daily weight, afterload reduction, blood pressure control, cardiology team consulted. Diuresis., Thyroid panel, magnesium level. (2) Hypertensive urgency Current Visit: Yes Status: Acute Plan to address problem: Monitor blood pressure every shift, continue medical management. (3) Pulmonary edema Current Visit: Yes Status: Acute Qualifiers: Chronicity: acute Qualified Code(s): J81.0 - Acute pulmonary edema Plan to address problem: Diuresis, supportive care, supplemental oxygen, pulse oximetry, chest x-ray. Pulmonary toilet. (4) Pulmonary hypertension Current Visit: Yes Status: Acute Plan to address problem: Supplemental oxygen, pulse oximetry, evaluate for home oxygen. CPAP nightly. (5) Obesity hypoventilation syndrome Current Visit: Yes Status: Acute Plan to address problem: Balanced diet, increase physical activity discharge, outpatient pulmonary follow-up for sleep study. (6) DVT prophylaxis Current Visit: No Status: Acute Plan to address problem: SCDs bilateral lower extremities while in bed, patient is ambulatory (7) Advance care planning Current Visit: Yes Status: Acute Plan to address problem: Disease education conducted, care plan discussed, diagnosis discussed, prognosis discussed, patient is full code, patient acknowledges understanding and agreement with care plan, +30 minutes.
[2021-03-10] MEDS: VALSARTAN 160MG TAB PO SCH ×2 (15:42→22:27)
[2021-03-10] MEDS: CLOPIDOGREL 75 MG TAB PO SCH (15:42)
[2021-03-10] MEDS ORDERED: FUROSEMIDE 40 MG/4 ML INJ IV SCH (16:00)
[2021-03-10] MEDS ORDERED: hydrALAZINE 100 MG TAB PO SCH (16:00)
[2021-03-10] MEDS ORDERED: predniSONE 20 MG TAB PO SCH (16:00)
[2021-03-10] MEDS ORDERED: oxyCODONE /ACETAMINOPHEN 5-325MG TAB PO PRN (16:30)
[2021-03-10] MEDS ORDERED: ACETAMINOPHEN 325 MG TAB PO PRN (16:30)
[2021-03-10] MEDS ORDERED: ONDANSETRON 4 MG/2 ML INJ IV PRN (16:30)
[2021-03-10] MEDS ORDERED: HYDROmorphone 1 MG/1 ML INJ IV PRN (17:00)
[2021-03-10 21:11] LABS: Free T4 (Free Thyroxine) 1.96 ng/dL (0.76-1.46)
[2021-03-10] MEDS: NON-FORMULARY EACH (Fluticasone/Umeclidin/Vilanter [Trelegy Ellipta 100-62.5-25] 1 EACH Bl IH SCH (22:14)
[2021-03-10] MEDS: BUDESONIDE 0.5 MG/2 ML NEBU IH SCH (22:21)
[2021-03-10] MEDS: ARFORMOTEROL 15 MCG/2 ML NEBU IH SCH (22:22)
[2021-03-11 05:03] LABS: Alanine Aminotransferase 16 units/L (7-56); Albumin 3.8 g/dL (3.9-5); BUN/Creatinine Ratio 16; Blood Urea Nitrogen 14 mg/dL (7-17); Calcium 8.9 mg/dL (8.4-10.2); Hemolysis Index 0
[2021-03-11 09:33] LABS: Bilirubin,Urine NEG (Negative); Blood,Urine NEG (Negative); Color,Urine Yellow (Yellow); Mucus,Urine FEW /HPF; Urobilinogen,Urine < 2.0 mg/dL (<2.0)
[2021-03-11] MEDS: BUDESONIDE 0.5 MG/2 ML NEBU IH SCH ×2 (09:47→23:59)
[2021-03-11] MEDS: ARFORMOTEROL 15 MCG/2 ML NEBU IH SCH ×2 (09:47→23:59)
--- NOTE | 2021-03-11 10:14 | Consultation ---
History of Present Illness Consult date: 03/11/21 Consult reason: congestive heart failure History of present illness: Patient is a 70-year-old woman admitted to the hospital with progressive shortness of breath and edema. On presentation, her systemic blood pressure was uncontrolled with a systolic of 190, chest x-ray showed mild interstitial edema, EKG was sinus rhythm with left ventricular hypertrophy and repolarization abnormalities of LVH. Cardiology consultation was requested for further assessment and management of fluid overload and congestive heart failure. The patient has a long history of hypertension and chronic tobacco abuse. She has also had extensive cardiac ischemic work-up, culminating in a right and left heart catheterization done a year and a half ago. We found marked elevation in right and left heart filling pressures, severe pulmonary hypertension with pulmonary artery systolic pressure of 75, but patient had no significant coronary artery disease on angiography, and normal left ventricular systolic function with ejection fraction reported at 55 to 60%. Based on the cardiac catheterization findings, she was given a diagnosis of heart failure with preserved ejection fraction, and severe pulmonary hypertension. She was placed on recommended medical therapy but has failed to maintain outpatient cardiac and pulmonary follow-up as recommended. She has not been on optimal medical therapy for her heart failure and hypertension control, but states that she sees her primary medical on a routine basis who manages her diabetes. Past History Past Medical History: COPD, heart failure, hypertension, other (See HPI) Past Surgical History: , Other (Angioplasty) Medications and Allergies Allergies Allergy/AdvReac Type Severity Reaction Status Date / Time No Known Allergies Allergy Verified 01/16/21 12:25 Home Medications Medication Instructions Recorded Confirmed Last Taken Type AtorvaSTATin [Lipitor] 40 mg PO QHS #30 tablet 07/27/20 01/27/21 1 Day Ago Rx ~01/15/21 HYDROcodone/APAP 7.5-325 [[place] 1 each PO Q6HR PRN #7 tablet 07/27/20 01/27/21 1 Month Ago Rx 7.5-325 mg TAB] ~12/18/20 NIFEdipine XL [Procardia Xl] 60 mg PO QDAY #30 tablet 07/27/20 01/27/21 1 Day Ago Rx ~01/15/21 Valsartan [Diovan] 160 mg PO BID #60 tablet 07/27/20 01/27/21 01/15/21 Rx 160 Baclofen [Lioresal] 10 mg PO BID 01/18/21 01/27/21 Unknown History Budesonide/Formoterol Fumarate 2 puff IH BID 01/18/21 01/27/21 Unknown History [Symbicort 160-4.5 Mcg Inhaler] Ergocalciferol (Vitamin D2) 50,000 unit PO QWEEK 01/18/21 01/27/21 01/15/21 History [Vitamin D2] Fluticasone [Flonase] 1 spray NS QDAY 01/18/21 01/27/21 Unknown History Gabapentin 300 mg PO QDAY 01/18/21 01/27/21 01/15/21 History Latanoprost 0.005% 1 drop OP QPM 01/18/21 01/27/21 01/15/21 History hydrOXYzine HCL [Atarax] 25 mg PO TID PRN 01/18/21 01/27/21 01/15/21 History Isoniazid 900 mg PO QWEEK 01/19/21 01/27/21 01/05/21 History Pyridoxine HCl (Vitamin B6) 50 mg PO QWEEK 01/19/21 01/27/21 Unknown History [Vitamin B-6] Rifapentine [Priftin] 900 mg PO QWEEK 01/19/21 01/27/21 Unknown History Aspirin EC [Halfprin EC] 81 mg PO DAILY #30 tablet. 01/20/21 01/27/21 Unknown Rx Clopidogrel [Plavix] 75 mg PO QDAY #30 tablet 01/20/21 01/27/21 Unknown Rx Fluticasone/Umeclidin/Vilanter 1 puff IH DAILY #1 blst.w.dev 01/20/21 01/27/21 Unknown Rx [Trelegy Ellipta 100-62.5-25] Albuterol Mdi (or & Nicu Only) 2 puff IH QID PRN #8.5 gram 01/26/21 Unknown Rx [ProAir HFA Inhaler] Insulin NPH Hum/Reg Insulin Hm 40 unit SQ BIDAC #1 vial 01/27/21 Unknown Rx [Novolin 70-30 100 Unit/ml Vial] Albuterol Sulfate [Albuterol 0.63% 0.63 mg IH TID PRN #30 dose 02/06/21 Unknown Rx NEBS] Benzonatate [Tessalon Perles] 100 mg PO Q8HR PRN #20 capsule 02/06/21 Unknown Rx Apixaban [Eliquis] 2.5 mg PO BID #14 tablet 02/11/21 Unknown Rx dexAMETHasone [Dexamethasone] 6 mg PO DAILY #5 tablet 02/11/21 Unknown Rx hydrALAZINE [Apresoline TAB] 100 mg PO Q8HR #90 tab 02/11/21 Unknown Rx Active Meds: Active Medications Acetaminophen (Acetaminophen 325 Mg Tab) 650 mg PO Q4H PRN PRN Reason: Pain MILD(1-3)/Fever >100.5/LEE Arformoterol Tartrate (Arformoterol 15 Mcg/2 Ml Nebu) 15 mcg IH Q12HRT [facility] Last Admin: 03/11/21 09:47 Dose: 15 mcg Budesonide (Budesonide 0.5 Mg/2 Ml Nebu) 1 mg IH Q12HRT [facility] Last Admin: 03/11/21 09:47 Dose: 1 mg Clopidogrel Bisulfate (Clopidogrel 75 Mg Tab) 75 mg PO QDAY [facility] Last Admin: 03/10/21 15:42 Dose: 75 mg Dextrose (Dextrose 50% In Water (25gm) 50 Ml Vial) 50 gm IV Q30MIN PRN; Protocol PRN Reason: Hypoglycemia Furosemide (Furosemide 40 Mg/4 Ml Inj) 40 mg IV 0600,1800 [facility] Hydromorphone HCl (Hydromorphone 1 Mg/1 Ml Inj) 0.5 mg IV Q23H PRN PRN Reason: Pain , Severe (7-10) Miscellaneous Medication (Fluticasone/Umeclidin/Vilanter [Trelegy Ellipta 100-62.5-25]) 1 puff IH DAILY [facility] Last Admin: 03/10/21 22:14 Dose: Not Given Ondansetron HCl (Ondansetron 4 Mg/2 Ml Inj) 4 mg IV Q8H PRN PRN Reason: Nausea And Vomiting Last Admin: 03/11/21 09:42 Dose: 4 mg Oxycodone/Acetaminophen (Oxycodone /Acetaminophen 5-325mg Tab) 1 tab PO Q16H P RN PRN Reason: Pain, Moderate (4-6) Sodium Chloride (Sodium Chloride 0.9% 10 Ml Flush Syringe) 10 ml IV BID [facility] Last Admin: 03/10/21 22:32 Dose: 10 ml Sodium Chloride (Sodium Chloride 0.9% 10 Ml Flush Syringe) 10 ml IV PRN PRN PRN Reason: LINE FLUSH Valsartan (Valsartan 160mg Tab) 160 mg PO BID [facility] Last Admin: 03/10/21 22:27 Dose: 160 mg Review of Systems Cardiovascular: orthopnea, edema, shortness of breath, no chest pain, no palpitations, no rapid/irregular heart beat, no syncope, no lightheadedness Physical Examination Vital Signs Temp Pulse Resp BP Pulse Ox 97.6 F 80 20 190/73 99 03/10/21 11:57 03/10/21 11:57 03/10/21 11:57 03/10/21 11:57 03/10/21 11:57 General appearance: no acute distress HEENT: Positive: PERRL Neck: Positive: neck supple Cardiac: Positive: Reg Rate and Rhythm Lungs: Positive: Decreased Breath Sounds Neuro: Positive: Grossly Intact Abdomen: Positive: Soft Female genitourinary: deferred Skin: Positive: Clear Extremities: Present: +1 Edema Results 03/10/21 12:22 03/11/21 04:09 Cardiac Enzymes 03/10/21 03/11/21 Range/Units 12:22 04:09 AST 16 15 (5-40) units/L CBC 03/10/21 Range/Units 12:22 WBC 4.6 (4.5-11.0) K/mm3 RBC 3.15 L (3.65-5.03) M/mm3 Hgb 8.1 L (10.1-14.3) gm/dl Hct 26.6 L (30.3-42.9) % Plt Count 264 (140-440) K/mm3 Lymph # (Auto) 0.6 L (1.2-5.4) K/mm3 [place] # (Auto) 0.3 (0.0-0.8) K/mm3 Eos # (Auto) 0.0 (0.0-0.4) K/mm3 Baso # (Auto) 0.0 (0.0-0.1) K/mm3 Comprehensive Metabolic Panel 03/10/21 03/11/21 Range/Units 12:22 04:09 Sodium 143 143 (137-145) mmol/L Potassium 3.8 4.7 D (3.6-5.0) mmol/L Chloride 112.2 H 109.7 H (98-107) mmol/L Carbon Dioxide 19 L 22 (22-30) mmol/L BUN 13 14 (7-17) mg/dL Creatinine 1.0 0.9 (0.6-1.2) mg/dL Glucose 43 L 98 (65-100) mg/dL Calcium 9.1 8.9 (8.4-10.2) mg/dL AST 16 15 (5-40) units/L ALT 18 16 (7-56) units/L Alkaline Phosphatase 80 84 (35-129) units/L Total Protein 7.3 7.2 (6.3-8.2) g/dL Albumin 3.9 3.8 L (3.9-5) g/dL EKG interpretations - Telemetry EKG Rhythm: Sinus Rhythm (With left ventricular per trophy and repolarization abnormalities of LVH) Assessment and Plan - Patient Problems (1) Congestive heart failure Current Visit: Yes Status: Acute Plan to address problem: Patient has a history of heart failure with preserved ejection fraction, associated with chronic severe uncontrolled hypertension. In addition to diuretic therapy, we will optimize antihypertensive management at this time. Notably, the patient's kidney function appears normal with normal creatinine l evels. An echocardiogram will be ordered for reassessment of left ventricular chamber size and systolic function at this time. (2) Pulmonary hypertension Current Visit: Yes Status: Acute Plan to address problem: Patient has a history of pulmonary hypertension, documented on the right and left heart catheterization done a year and a half ago. She is a chronic tobacco user, states that she was compelled to stop a month ago. We recommend further pulmonary assessment and management of her pulmonary hypertension now and in the outpatients.
[2021-03-11] MEDS: CLOPIDOGREL 75 MG TAB PO SCH (10:34)
[2021-03-11] MEDS: VALSARTAN 160MG TAB PO SCH ×2 (10:35→21:49)
[2021-03-11] MEDS: NON-FORMULARY EACH (Fluticasone/Umeclidin/Vilanter [Trelegy Ellipta 100-62.5-25] 1 EACH Bl IH SCH (10:36)
--- NOTE | 2021-03-11 16:04 | Progress Note ---
Assessment and Plan -- Acute on chronic diastolic CHF Continue CHF protocol: Supplemental oxygen, pulse oximetry, strict I's/O, monitor urine output every shift, daily weight, afterload reduction, blood pressure control, cardiology team consulted. IV diuresis., Assess for home O2 requirement before discharge --Acute hypoxic respiratory failure, due to CHF exacerbation with pulmonary edema Continue IV diuresis, assess for home O2 when stable for discharge --Hypertensive urgency Monitor blood pressure every shift, continue medical management. Continue to adjust medications as needed for better BP control --Pulmonary edema Due to underlying diastolic heart failure and uncontrolled blood pressure Diuresis, supportive care, supplemental oxygen, pulse oximetry, Pulmonary toilet. -- Pulmonary hypertension Consulted pulmonary, pulse oximetry, evaluate for home oxygen. CPAP nightly. -- Obesity Balanced diet, increase physical activity discharge, outpatient pulmonary follow-up for sleep study. --History of recent COVID-19 infection, continue to follow clinically --History of latent TB, according the patient she completed treatment -- DVT prophylaxis SCDs bilateral lower extremities while in bed, patient is ambulatory --Full CODE STATUS Daily clinical course: 03/11: Continue IV diuresis, monitor ins and outs, appreciate cardiology and pulmonary recommendation. Still complains of short of breath with minimal exertion. Needs inpatient care Subjective Date of service: 03/11/21 Interval history: Patient seen and examined. Medical records and medication list reviewed. No acute event overnight noted by the RN. Patient looks better and breathing has improved. Patient is tolerating diet. She still complains of short of breath on ambulation Discussed plan of care at bedside with patient. Objective - Exam Narrative Exam: GENERAL: well-developed obese elderly -Citizen Of The [place] female lying on bed appeared to be in no discomfort. HEENT: Normocephalic. Atraumatic. No conjunctival congestion or icterus. Patient has moist mucous membranes. NECK: Supple. Trachea midline. CHEST/LUNGS: Few crackles auscultated bilaterally, breathing nonlabored. No wheezes crackles or rhonchi. HEART/CARDIOVASCULAR: Regular in rate and rhythm. S1 and S2 positive. ABDOMEN: Abdomen is soft, nontender. Patient has normal bowel sounds. SKIN: There is no rash. Warm and dry. NEURO: No focal motor deficit. Follows command. MUSCULOSKELETAL: No joint effusion or tenderness. EXTRIMITY: Trace pedal edema, no cyanosis or clubbing. PSYCH: Cooperative. - Constitutional Vitals: Vital Signs - 12hr 03/11/21 09:20 Pulse Rate [ 78 Anterior] Pulse Rate [ 84 Posterior] Respiratory 18 Rate [Anterior] Respiratory 18 Rate [Posterior ] - Labs CBC & Chem 7: 03/10/21 12:22 03/11/21 04:09 Labs: Abnormal lab results 03/10/21 03/11/21 03/11/21 Range/Units 20:16 04:09 09:11 Chloride 109.7 H (98-107) mmol/L Albumin 3.8 L (3.9-5) g/dL TSH 0.006 L (0.270-4.200) mlU/mL Free T4 1.96 H (0.76-1.46) ng/dL U Epithel Cells (Auto) 20.0 H (0-13.0) /HPF HEART Score - HEART Score Troponin: Troponin T < 0.010 ng/mL (0.00-0.029) 03/10/21 12:22
[2021-03-11] MEDS: FUROSEMIDE 40 MG/4 ML INJ IV SCH (21:31)
[2021-03-12] MEDS: FUROSEMIDE 40 MG/4 ML INJ IV SCH ×2 (07:05→18:44)
[2021-03-12] MEDS: BUDESONIDE 0.5 MG/2 ML NEBU IH SCH ×2 (07:52→22:04)
[2021-03-12] MEDS: ARFORMOTEROL 15 MCG/2 ML NEBU IH SCH ×2 (07:53→22:04)
[2021-03-12] MEDS: CLOPIDOGREL 75 MG TAB PO SCH (11:26)
[2021-03-12] MEDS: VALSARTAN 160MG TAB PO SCH ×2 (11:26→22:02)
--- NOTE | 2021-03-12 12:41 | Progress Note ---
Assessment and Plan - Patient Problems (1) Congestive heart failure Current Visit: Yes Status: Acute Plan to address problem: Patient has a history of heart failure with preserved ejection fraction, associated with chronic severe uncontrolled hypertension. In addition to diuretic therapy, we will optimize antihypertensive management at this time. Notably, the patient's kidney function appears normal with normal creatinine levels. An echocardiogram will be ordered for reassessment of left ventricular chamber size and systolic function at this time. (2) Pulmonary hypertension Current Visit: Yes Status: Acute Plan to address problem: Patient has a history of pulmonary hypertension, documented on the right and left heart catheterization done a year and a half ago. She is a chronic tobacco user, states that she was compelled to stop a month ago. We recommend further pulmonary assessment and management of her pulmonary hypertension now and in the outpatients. Subjective Date of service: 03/12/21 Interval history: Patient looks and feels better, her shortness of breath and edema have resolved. Systolic blood pressure is improved at 140. 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 Objective Vital Signs Temp Pulse Pulse Resp Resp BP Pulse Ox 03/12/21 07:53 72 18 96 03/12/21 04:40 98.8 F 69 18 151/60 94 03/12/21 00:14 99.2 F 69 20 143/63 93 03/11/21 21:39 98 03/11/21 19:16 98.1 F 67 18 166/58 95 - Physical Examination General: No Apparent Distress HEENT: Positive: PERRL Neck: Positive: neck supple Cardiac: Positive: Reg Rate and Rhythm Lungs: Positive: clear to auscultation Neuro: Positive: Grossly Intact Abdomen: Positive: Soft Skin: Positive: Clear Extremities: Absent: edema
--- NOTE | 2021-03-12 13:59 | Consultation ---
History of Present Illness Consult date: 03/12/21 Requesting physician: GAURAV BOND History of present illness: 70 y/o female with known COPD, CHF, HTN, recently admitted to the hospital at th e beginning of the January 2021 with COPD exacerbation, then readmitted with with COVID 19 positive state and worsening CHF with COPD exacerbation. Treated with Decadron, remdesivir and aerosols, required bipap support . She is vaccinated against COVID but has not had a booster yet. She represented to the ED via private car 03/10/2021 with difficulty breathing. Patient states that she had experienced shortness of breath, diminished exercise tolerance, dyspnea on exertion, dyspnea at rest, 12 pound weight gain, orthopnea, lower extremity edema, paroxysmal nocturnal dyspnea over the past 1 week with worsening symptoms over the past 3 days. Patient acknowledges compliance with medication. Patient also acknowledges noncompliant with low- sodium diet. Patient transported to [facility] via private vehicle for further care and evaluation of the aforementioned symptoms. A pulmonary consult was placed. Patient seen and examined. Vitals, labs, medications, chart and imaging reviewed. She is resting comfortably in bed, in no distress. ROS: Stated complaint: SOB Other details as noted in HPI Constitutional: malaise. denies: fever Eyes: denies: eye discharge ENT: congestion Respiratory: cough, shortness of breath, SOB with exertion, SOB at rest Cardiovascular: dyspnea on exertion, edema. denies: chest pain Gastrointestinal: denies: abdominal pain, hematemesis, melena, hematochezia Genitourinary: denies: dysuria Musculoskeletal: myalgia Neurological: weakness Hematological/Lymphatic: denies: easy bleeding Past Medical History Previous Medical History?: Yes Hx Hypertension: Yes Hx Heart Attack/AMI: Yes Hx Congestive Heart Failure: Yes Hx Diabetes: Yes Hx Deep Vein Thrombosis: Yes Hx COPD: Yes Hx HIV: No Additional medical history: CAD Surgical History Additional Surgical History: ; Angioplasty--no stents placed Social History Smoking Status: Smoker, Current Status Unknown Past History Past Medical History: COPD, heart failure, hypertension, other (See HPI) Past Surgical History: , Other (Angioplasty) Medications and Allergies Allergies Allergy/AdvReac Type Severity Reaction Status Date / Time No Known Allergies Allergy Verified 01/16/21 12:25 Home Medications Medication Instructions Recorded Confirmed Last Taken Type AtorvaSTATin [Lipitor] 40 mg PO QHS #30 tablet 07/27/20 01/27/21 1 Day Ago Rx ~01/15/21 HYDROcodone/APAP 7.5-325 [[place] 1 each PO Q6HR PRN #7 tablet 07/27/20 01/27/21 1 Month Ago Rx 7.5-325 mg TAB] ~12/18/20 NIFEdipine XL [Procardia Xl] 60 mg PO QDAY #30 tablet 07/27/20 01/27/21 1 Day Ago Rx ~01/15/21 Valsartan [Diovan] 160 mg PO BID #60 tablet 07/27/20 01/27/21 01/15/21 Rx 160 Baclofen [Lioresal] 10 mg PO BID 01/18/21 01/27/21 Unknown History Budesonide/Formoterol Fumarate 2 puff IH BID 01/18/21 01/27/21 Unknown History [Symbicort 160-4.5 Mcg Inhaler] Ergocalciferol (Vitamin D2) 50,000 unit PO QWEEK 01/18/21 01/27/21 01/15/21 History [Vitamin D2] Fluticasone [Flonase] 1 spray NS QDAY 01/18/21 01/27/21 Unknown History Gabapentin 300 mg PO QDAY 01/18/21 01/27/21 01/15/21 History Latanoprost 0.005% 1 drop OP QPM 01/18/21 01/27/21 01/15/21 History hydrOXYzine HCL [Atarax] 25 mg PO TID PRN 01/18/21 01/27/21 01/15/21 History Isoniazid 900 mg PO QWEEK 01/19/21 01/27/21 01/05/21 History Pyridoxine HCl (Vitamin B6) 50 mg PO QWEEK 01/19/21 01/27/21 Unknown History [Vitamin B-6] Rifapentine [Priftin] 900 mg PO QWEEK 01/19/21 01/27/21 Unknown History Aspirin EC [Halfprin EC] 81 mg PO DAILY #30 tablet. 01/20/21 01/27/21 Unknown Rx Clopidogrel [Plavix] 75 mg PO QDAY #30 tablet 01/20/21 01/27/21 Unknown Rx Fluticasone/Umeclidin/Vilanter 1 puff IH DAILY #1 blst.w.dev 01/20/21 01/27/21 Unknown Rx [Trelegy Ellipta 100-62.5-25] Albuterol Mdi (or & Nicu Only) 2 puff IH QID PRN #8.5 gram 01/26/21 Unknown Rx [ProAir HFA Inhaler] Insulin NPH Hum/Reg Insulin Hm 40 unit SQ BIDAC #1 vial 01/27/21 Unknown Rx [Novolin 70-30 100 Unit/ml Vial] Albuterol Sulfate [Albuterol 0.63% 0.63 mg IH TID PRN #30 dose 02/06/21 Unknown Rx NEBS] Benzonatate [Tessalon Perles] 100 mg PO Q8HR PRN #20 capsule 02/06/21 Unknown Rx Apixaban [Eliquis] 2.5 mg PO BID #14 tablet 02/11/21 Unknown Rx dexAMETHasone [Dexamethasone] 6 mg PO DAILY #5 tablet 02/11/21 Unknown Rx hydrALAZINE [Apresoline TAB] 100 mg PO Q8HR #90 tab 02/11/21 Unknown Rx Active Meds: Active Medications Acetaminophen (Acetaminophen 325 Mg Tab) 650 mg PO Q4H PRN PRN Reason: Pain MILD(1-3)/Fever >100.5/LEE Arformoterol Tartrate (Arformoterol 15 Mcg/2 Ml Nebu) 15 mcg IH Q12HRT [facility] Last Admin: 03/12/21 07:53 Dose: 15 mcg Budesonide (Budesonide 0.5 Mg/2 Ml Nebu) 1 mg IH Q12HRT [facility] Last Admin: 03/12/21 07:52 Dose: 1 mg Clopidogrel Bisulfate (Clopidogrel 75 Mg Tab) 75 mg PO QDAY [facility] Last Admin: 03/11/21 10:34 Dose: 75 mg Dextrose (Dextrose 50% In Water (25gm) 50 Ml Vial) 50 gm IV Q30MIN PRN; Protocol PRN Reason: Hypoglycemia Furosemide (Furosemide 40 Mg/4 Ml Inj) 40 mg IV 0600,1800 [facility] Last Admin: 03/12/21 07:05 Dose: 40 mg Hydromorphone HCl (Hydromorphone 1 Mg/1 Ml Inj) 0.5 mg IV Q23H PRN PRN Reason: Pain , Severe (7-10) Miscellaneous Medication (Fluticasone/Umeclidin/Vilanter [Trelegy Ellipta 100-62.5-25]) 1 puff IH DAILY [facility] Last Admin: 03/11/21 10:36 Dose: Not Given Ondansetron HCl (Ondansetron 4 Mg/2 Ml Inj) 4 mg IV Q8H PRN PRN Reason: Nausea And Vomiting Last Admin: 03/11/21 09:42 Dose: 4 mg Oxycodone/Acetaminophen (Oxycodone /Acetaminophen 5-325mg Tab) 1 tab PO Q16H PRN PRN Reason: Pain, Moderate (4-6) Sodium Chloride (Sodium Chloride 0.9% 10 Ml Flush Syringe) 10 ml IV BID [facility] Last Admin: 03/11/21 21:48 Dose: 10 ml Sodium Chloride (Sodium Chloride 0.9% 10 Ml Flush Syringe) 10 ml IV PRN PRN PRN Reason: LINE FLUSH Valsartan (Valsartan 160mg Tab) 160 mg PO BID [facility] Last Admin: 03/11/21 21:49 Dose: 160 mg Physical Examination Vital signs: Vital Signs Temp Pulse Resp BP Pulse Ox 97.6 F 80 20 190/73 99 03/10/21 11:57 03/10/21 11:57 03/10/21 11:57 03/10/21 11:57 03/10/21 11:57 General appearance: no acute distress, other (obese woman, short neck) Eyes: non-icteric ENT: oropharynx moist Neck: supple, no lymphadenopathy, no JVD Effort: normal Ascultation: Bilateral: diminished breath sounds Cardiovascular: regular rate and rhythm, other (S1,S2) Gastrointestinal: normoactive bowel sounds, soft, non-tender, non-distended Integumentary: normal Extremities: no cyanosis, no edema, pink and warm, pulses normal normal mental status, non-focal exam, pupils equal and round, CN II-XII normal, motor strength normal and mood appropriate, affect normal Results - Laboratory Findings CBC and BMP: 03/10/21 12:22 03/11/21 04:09 Abnormal lab findings: Abnormal Labs 03/10/21 03/10/21 03/10/21 12:22 12:22 15:36 RBC 3.15 L Hgb 8.1 L Hct 26.6 L MCH 26 L RDW 17.4 H Lymph % (Auto) 12.2 L Lymph # (Auto) 0.6 L Seg Neutrophils % 81.4 H Chloride 112.2 H Carbon Dioxide 19 L Glucose 43 L POC Glucose 175 H NT-Pro-B Natriuret Pep 3278 H Albumin TSH Free T4 U Epithel Cells (Auto) 03/10/21 03/11/21 03/11/21 20:16 04:09 09:11 RBC Hgb Hct MCH RDW Lymph % (Auto) Lymph # (Auto) Seg Neutrophils % Chloride 109.7 H Carbon Dioxide Glucose POC Glucose NT-Pro-B Natriuret Pep Albumin 3.8 L TSH 0.006 L Free T4 1.96 H U Epithel Cells (Auto) 20.0 H - Diagnostic Findings Chest x-ray: image reviewed (Cardiomegaly, chronic lung disease) Assessment and Plan Acute on chronic diastolic CHF Hypertensive urgency Pulmonary edema Pulmonary hypertension Obstructive sleep apnea/Obesity hypoventilation syndrome Tobacco abuse disorder/Nicotine dependence Abnormal Thyroid function test -Supplemental oxygen to keep SpO2 88-90% -Patient needs an echocardiogram, to evaluate LVEF and pulmonary pressures -Smoking cessation counselling doen at the bedside for 7 minutes -Heart failure measures, optimization of blood pressure management -Weight loss and life style modification -Needs outpatient pulmonary follow up on discharge- sleep study, evaluation of pulmonary physiology and initiation of pulmonary vasodilators -Out patient follow up of thyroid studies -Evaluation for home oxygen therapy on discharge planning -CXR and ABGs as clinically indicated
--- NOTE | 2021-03-12 16:07 | Progress Note ---
Assessment and Plan -- Acute on chronic diastolic CHF Continue CHF protocol: Supplemental oxygen, pulse oximetry, strict I's/O, monitor urine output every shift, daily weight, afterload reduction, blood pressure control, cardiology team consulted. IV diuresis., Assess for home O2 requirement before discharge --Acute hypoxic respiratory failure, due to CHF exacerbation with pulmonary edema Continue IV diuresis, assess for home O2 when stable for discharge --Hypertensive urgency Monitor blood pressure every shift, continue medical management. Continue to adjust medications as needed for better BP control --Pulmonary edema Due to underlying diastolic heart failure and uncontrolled blood pressure Diuresis, supportive care, supplemental oxygen, pulse oximetry, Pulmonary toilet. -- Pulmonary hypertension Consulted pulmonary, pulse oximetry, evaluate for home oxygen. CPAP nightly. -- Obesity Balanced diet, increase physical activity discharge, outpatient pulmonary follow-up for sleep study. --History of recent COVID-19 infection, continue to follow clinically --History of latent TB, according the patient she completed treatment -- DVT prophylaxis SCDs bilateral lower extremities while in bed, patient is ambulatory --Full CODE STATUS Daily clinical course: 03/11: Continue IV diuresis, monitor ins and outs, appreciate cardiology and pulmonary recommendation. Still complains of short of breath with minimal exertion. Needs inpatient care 03/12; ordered for 2D echo, continue IV diuresis. Patient is fearful to go home as she was recently discharged from hospital after being treated for COVID-19. Continue to follow clinically, monitor ins and O's and daily weight. Follow cardiology recommendation. Subjective Date of service: 03/12/21 Interval history: Patient seen and examined. Medical records and medication list reviewed. No acute event overnight noted by the RN. Patient looks better, breathing has improved. Patient is tolerating diet. She still complains of short of breath on ambulation, Discussed plan of care at bedside with patient. Objective - Exam Narrative Exam: GENERAL: well-developed obese elderly -[place] female lying on bed appeared to be in no discomfort. HEENT: Normocephalic. Atraumatic. No conjunctival congestion or icterus. Patient has moist mucous membranes. NECK: Supple. Trachea midline. CHEST/LUNGS: Few crackles auscultated bilaterally, breathing nonlabored. No wheezes crackles or rhonchi. HEART/CARDIOVASCULAR: Regular in rate and rhythm. S1 and S2 positive. ABDOMEN: Abdomen is soft, nontender. Patient has normal bowel sounds. SKIN: There is no rash. Warm and dry. NEURO: No focal motor deficit. Follows command. MUSCULOSKELETAL: No joint effusion or tenderness. EXTRIMITY: Trace pedal edema, no cyanosis or clubbing. PSYCH: Cooperative. - Constitutional Vitals: Vital Signs - 12hr 03/12/21 03/12/21 03/12/21 04:40 07:53 09:00 Temperature 98.8 F Pulse Rate 69 Pulse Rate [ 72 Anterior Bilateral Throughout] Respiratory 18 Rate Respiratory 18 Rate [Anterior Bilateral Throughout] Blood Pressure 151/60 O2 Sat by Pulse 94 96 97 Oximetry 03/12/21 13:06 Temperature Pulse Rate 70 Pulse Rate [ Anterior Bilateral Throughout] Respiratory Rate Respiratory Rate [Anterior Bilateral Throughout] Blood Pressure O2 Sat by Pulse Oximetry - Labs CBC & Chem 7: 03/10/21 12:22 03/11/21 04:09 HEART Score - HEART Score Troponin: Troponin T < 0.010 ng/mL (0.00-0.029) 03/10/21 12:22
--- NOTE | 2021-03-13 06:00 | Progress Note ---
Subjective Date of service: 03/13/21 Objective Vital Signs - 12hr 03/12/21 03/12/21 03/13/21 19:53 21:00 03:54 Temperature 98.4 F Pulse Rate 68 62 Respiratory 18 17 Rate Blood Pressure 156/55 154/54 O2 Sat by Pulse 91 98 96 Oximetry Constitutional: no acute distress, other (obese woman, short neck) Eyes: non-icteric ENT: oropharynx moist Neck: supple, no lymphadenopathy, no JVD Effort: normal Ascultation: Bilateral: diminished breath sounds Cardiovascular: regular rate and rhythm, other (S1,S2) Gastrointestinal: normoactive bowel sounds, soft, non-tender, non-distended Integumentary: normal Extremities: no cyanosis, no edema, pink and warm, pulses normal Neurologic: normal mental status, non-focal exam, pupils equal and round, CN II- XII normal, motor strength normal and Psychiatric: mood appropriate, affect normal CBC and BMP: 03/10/21 12:22 03/11/21 04:09 Abnormal lab findings: Abnormal Labs 03/10/21 03/10/21 03/10/21 12:22 12:22 15:36 RBC 3.15 L Hgb 8.1 L Hct 26.6 L MCH 26 L RDW 17.4 H Lymph % (Auto) 12.2 L Lymph # (Auto) 0.6 L Seg Neutrophils % 81.4 H Chloride 112.2 H Carbon Dioxide 19 L Glucose 43 L POC Glucose 175 H NT-Pro-B Natriuret Pep 3278 H Albumin TSH Free T4 U Epithel Cells (Auto) 03/10/21 03/11/21 03/11/21 20:16 04:09 09:11 RBC Hgb Hct MCH RDW Lymph % (Auto) Lymph # (Auto) Seg Neutrophils % Chloride 109.7 H Carbon Dioxide Glucose POC Glucose NT-Pro-B Natriuret Pep Albumin 3.8 L TSH 0.006 L Free T4 1.96 H U Epithel Cells (Auto) 20.0 H
[2021-03-13] MEDS: FUROSEMIDE 40 MG/4 ML INJ IV SCH ×2 (06:41→18:01)
[2021-03-13] MEDS: BUDESONIDE 0.5 MG/2 ML NEBU IH SCH (09:48)
[2021-03-13] MEDS: ARFORMOTEROL 15 MCG/2 ML NEBU IH SCH (09:49)
[2021-03-13] MEDS: CLOPIDOGREL 75 MG TAB PO SCH (10:09)
[2021-03-13] MEDS: VALSARTAN 160MG TAB PO SCH ×2 (10:09→21:29)
--- NOTE | 2021-03-13 11:18 | Progress Note ---
Assessment and Plan - Patient Problems (1) Anemia Current Visit: Yes Status: Acute (2) Acute CHF Current Visit: Yes Status: Acute Qualifiers: Heart failure type: diastolic Qualified Code(s): I50.31 - Acute diastolic (congestive) heart failure (3) Hypertensive urgency Current Visit: Yes Status: Acute Subjective Date of service: 03/13/21 Interval history: FEELS BETTER Objective Vital Signs Temp Pulse Pulse Resp Resp BP Pulse Ox 03/13/21 10:09 62 154/54 03/13/21 09:51 96 03/13/21 09:49 65 18 03/13/21 07:59 98.5 F 61 18 165/55 97 03/13/21 03:54 98.4 F 62 17 154/54 96 03/12/21 21:00 98 03/12/21 19:53 68 18 156/55 91 03/12/21 14:43 97.9 F 70 18 149/49 91 03/12/21 13:06 70 - Physical Examination General: No Apparent Distress, Other (OBESE) HEENT: Positive: PERRL Neck: Positive: neck supple Neuro: Positive: Grossly Intact Abdomen: Positive: Soft Skin: Positive: Clear Extremities: Absent: edema
--- NOTE | 2021-03-13 12:23 | Progress Note ---
Assessment and Plan -- Acute on chronic diastolic CHF Continue CHF protocol: Supplemental oxygen, pulse oximetry, strict I's/O, monitor urine output every shift, daily weight, afterload reduction, blood pressure control, cardiology team consulted. IV diuresis., Assess for home O2 requirement before discharge --Acute hypoxic respiratory failure, due to CHF exacerbation with pulmonary edema Continue IV diuresis, assess for home O2 when stable for discharge --Hypertensive urgency Monitor blood pressure every shift, continue medical management. Continue to adjust medications as needed for better BP control --Pulmonary edema Due to underlying diastolic heart failure and uncontrolled blood pressure Diuresis, supportive care, supplemental oxygen, pulse oximetry, Pulmonary toilet. -- Pulmonary hypertension Consulted pulmonary, pulse oximetry, evaluate for home oxygen. CPAP nightly. -- Obesity Balanced diet, increase physical activity discharge, outpatient pulmonary follow-up for sleep study. --History of recent COVID-19 infection, continue to follow clinically --History of latent TB, according the patient she completed treatment -- DVT prophylaxis SCDs bilateral lower extremities while in bed, patient is ambulatory --Full CODE STATUS Daily clinical course: 03/11: Continue IV diuresis, monitor ins and outs, appreciate cardiology and pulmonary recommendation. Still complains of short of breath with minimal exertion. Needs inpatient care 03/12; ordered for 2D echo, continue IV diuresis. Patient is fearful to go home as she was recently discharged from hospital after being treated for COVID-19. Continue to follow clinically, monitor ins and O's and daily weight. Follow cardiology recommendation. 03/13; pending 2D echo result, continue diuresis. Patient symptomatically improving. If clinically stable possible DC tomorrow. Assess for home O2 requirement. Subjective Date of service: 03/13/21 Interval history: Patient seen and examined. Medical records and medication list reviewed. No acute event overnight noted by the RN. Patient looks better, breathing has improved. Patient is tolerating diet. Patient states that she is able to make few steps from the bed to the restroom 2D echo results still pending Discussed plan of care at bedside with patient. Objective - Exam Narrative Exam: GENERAL: well-developed obese elderly -[place] female lying on bed appeared to be in no discomfort. HEENT: Normocephalic. Atraumatic. No conjunctival congestion or icterus. Patient has moist mucous membranes. NECK: Supple. Trachea midline. CHEST/LUNGS: Few crackles auscultated bilaterally, breathing nonlabored. No wheezes crackles or rhonchi. HEART/CARDIOVASCULAR: Regular in rate and rhythm. S1 and S2 positive. ABDOMEN: Abdomen is soft, nontender. Patient has normal bowel sounds. SKIN: There is no rash. Warm and dry. NEURO: No focal motor deficit. Follows command. MUSCULOSKELETAL: No joint effusion or tenderness. EXTRIMITY: Trace pedal edema, no cyanosis or clubbing. PSYCH: Cooperative. - Constitutional Vitals: Vital Signs - 12hr 03/13/21 03/13/21 03/13/21 03:54 07:59 09:49 Temperature 98.4 F 98.5 F Pulse Rate 62 61 Pulse Rate [ 65 Anterior Bilateral Throughout] Respiratory 17 18 Rate Respiratory 18 Rate [Anterior Bilateral Throughout] Blood Pressure 154/54 165/55 O2 Sat by Pulse 96 97 Oximetry 03/13/21 03/13/21 03/13/21 09:51 10:09 12:16 Temperature Pulse Rate 62 Pulse Rate [ Anterior Bilateral Throughout] Respiratory Rate Respiratory Rate [Anterior Bilateral Throughout] Blood Pressure 154/54 O2 Sat by Pulse 96 96 Oximetry - Labs CBC & Chem 7: 03/10/21 12:22 03/11/21 04:09 HEART Score - HEART Score Troponin: Troponin T < 0.010 ng/mL (0.00-0.029) 03/10/21 12:22
[2021-03-13] MEDS ORDERED: diphenhydrAMINE 25 MG CAP PO PRN (13:00)
[2021-03-13] MEDS ORDERED: diphenhydrAMINE 25 MG/10 ML ORAL LIQUID PO PRN (13:07)
[2021-03-14] MEDS: BUDESONIDE 0.5 MG/2 ML NEBU IH SCH ×2 (00:15→08:37)
[2021-03-14] MEDS: ARFORMOTEROL 15 MCG/2 ML NEBU IH SCH ×2 (00:15→08:38)
[2021-03-14] MEDS: FUROSEMIDE 40 MG/4 ML INJ IV SCH (05:50)
--- NOTE | 2021-03-14 09:55 | Discharge Summary ---
Providers - Providers Date of Admission: 03/10/21 16:14 Date of discharge: 03/14/21 Attending physician: KAUSHIK MCGEE 03/11/21 09:41 Consult to Physician [CONS] Routine Comment: Consulting Provider: JUAN MANUEL BRAVO Physician Instructions: Reason For Exam: chf 03/12/21 09:11 Physical Therapy Evaluation and Treat [CONS] Urgent Comment: Reason For Exam: PT to eval and treat 03/12/21 09:52 Consult to Physician [CONS] Routine Comment: Consulting Provider: JESUS MICHELE Physician Instructions: Reason For Exam: severe PHTN Primary care physician: LEGAL RESEARCHER Hospitalization Condition: Stable Hospital course: Patient is a 70-year-old -[place] female with a history of hypertension, chronic tobacco abuse, diastolic heart failure, recent history of COVID-19 and latent TB presented to the hospital with progressive shortness of breath and bilateral lower extremity pedal edema. On presentation, her systemic blood pressure was uncontrolled with a systolic of 190, chest x-ray showed mild interstitial edema, EKG was sinus rhythm with left ventricular hypertrophy and repolarization abnormalities of LVH. Cardiology consultation was requested for further assessment and management of fluid overload and congestive heart failure. Patient was admitted to telemetry floor with scheduled iv diuretics. Monitored with serial CE, EKG. Cardiology consulted, 2d echo obtained which showed preserved EF with grade 2 diastolic dysfunction. Provided cardiac diet, daily weights, monitored in's and O's. Patients symptom improved with medical management. Patient was assessed for home O2 requirement but she did not qualify. Patient was then discharged home in stable condition with outpt f/u. Daily clinical course: 03/11: Continue IV diuresis, monitor ins and outs, appreciate cardiology and pulmonary recommendation. Still complains of short of breath with minimal exertion. Needs inpatient care 03/12; ordered for 2D echo, continue IV diuresis. Patient is fearful to go home as she was recently discharged from hospital after being treated for COVID-19. Continue to follow clinically, monitor ins and O's and daily weight. Follow cardiology recommendation. 03/13; pending 2D echo result, continue diuresis. Patient symptomatically improving. If clinically stable possible DC tomorrow. Assess for home O2 requirement. 03/14; 2D echo showed preserved EF with grade 2 diastolic dysfunction. Did not qualify for home O2, patient will be discharged home with home health and outpa tient follow-up. Clinically stable for discharge and patient also cleared by cardiology for outpatient follow-up. Disposition: HOME HEALTH CARE SERVICE Final Discharge Diagnosis (Prints w/discharge instructions): -- Acute on chronic diastolic CHF. --Acute hypoxic respiratory failure, due to CHF exacerbation with pulmonary edema. --Hypertensive urgency. --Pulmonary edema. -- Pulmonary hypertension. -- Obesity. --History of recent COVID-19 infection,. --History of latent TB, according the patient she completed treatment. --History of chronic tobacco abuse, quit about a month ago. --Hyperthyroidism, need to repeat TSH/ T4 and thyroid ultrasound as outpatient. --Diabetes mellitus type 2, insulin-dependent Time spent for discharge: 34 minutes Exam - Constitutional Vitals: Temp Pulse Resp BP Pulse Ox 97.9 F 72 18 167/61 97 03/14/21 08:32 03/14/21 08:39 03/14/21 08:39 03/14/21 08:32 03/14/21 08:35 Plan Activity: advance as tolerated Weight Bearing Status: Weight Bear as Tolerated Diet: low fat, low salt Additional Instructions: Follow-up repeat TSH and T4 in 2 weeks. Follow-up with maintenance journeyman and manager appointment for the treatment of pulmonary hypertension Follow up with: PRIMARY MD SHIRLEY [Primary Care Provider] - 3-5 Days JUAN MANUEL BRAVO MD [Staff Physician] - 7 Days SMILEY DASILVA MD [Staff Physician] - 7 Days Prescriptions: Apixaban [Eliquis] 2.5 mg PO BID #60 Furosemide [Lasix TAB] 40 mg PO QDAY #30 tablet methIMAzole [Tapazole] 5 mg PO QDAY #14 tablet
[2021-03-14] MEDS: CLOPIDOGREL 75 MG TAB PO SCH (10:04)
[2021-03-14] MEDS: VALSARTAN 160MG TAB PO SCH (10:04)
[2021-03-14 12:21] VITALS: BP 151/58
--- NOTE | 2021-03-14 14:12 | Progress Note ---
Assessment and Plan - Patient Problems (1) Anemia Current Visit: Yes Status: Acute (2) Acute CHF Current Visit: Yes Status: Acute Qualifiers: Heart failure type: diastolic Qualified Code(s): I50.31 - Acute diastolic (congestive) heart failure (3) Hypertensive urgency Current Visit: Yes Status: Acute Subjective Date of service: 03/14/21 Interval history: FEELS BETTER Objective Vital Signs Temp Pulse Pulse Pulse Resp Resp Resp 03/14/21 12:00 18 03/14/21 11:23 98.4 F 71 18 03/14/21 08:39 71 72 18 18 03/14/21 08:35 03/14/21 08:32 97.9 F 62 18 03/14/21 04:05 98.7 F 69 18 03/14/21 00:21 57 L 03/14/21 00:20 98.6 F 56 L 18 03/13/21 20:41 03/13/21 20:37 98.9 F 61 18 03/13/21 16:04 98.1 F 69 18 BP Pulse Ox 03/14/21 12:00 97 03/14/21 11:23 151/58 96 03/14/21 08:39 03/14/21 08:35 97 03/14/21 08:32 167/61 93 03/14/21 04:05 154/49 92 03/14/21 00:21 96 03/14/21 00:20 143/51 97 03/13/21 20:41 98 03/13/21 20:37 135/48 95 03/13/21 16:04 147/59 94 - Physical Examination General: No Apparent Distress, Other (OBESE) HEENT: Positive: PERRL Neck: Positive: neck supple Cardiac: Positive: Reg Rate and Rhythm Lungs: Positive: clear to auscultation Neuro: Positive: Grossly Intact Abdomen: Positive: Soft Skin: Positive: Clear Extremities: Absent: edema
== END 2021-03-14 15:42 | disposition home health service (06) | DRG 291 ==
LOC: ED 11:53 → 4A 16:14
PROVIDERS: ADMIT Internal Medicine; ATTEND Internal Medicine
DX: I11.0 Hypertensive heart disease with heart failure (principal); I50.33 Acute on chronic diastolic (congestive) heart failure; J96.01 Acute respiratory failure with hypoxia; E66.2 Morbid (severe) obesity with alveolar hypoventilation; J81.0 Acute pulmonary edema; J44.1 Chronic obstructive pulmonary disease with (acute) exacerbation; I16.0 Hypertensive urgency; I27.20 Pulmonary hypertension, unspecified; Z68.33 Body mass index [BMI] 33.0-33.9, adult; Z20.822 Contact with and (suspected) exposure to COVID-19; E05.90 Thyrotoxicosis, unspecified without thyrotoxic crisis or storm; E11.649 Type 2 diabetes mellitus with hypoglycemia without coma; D64.9 Anemia, unspecified
CPT/HCPCS: 36415; 71046; 80053; 81001; 82962; 83735; 83880; 84439; 84443; 84484; 85025; 93005; 93306; 94640; 94644; G0378; J3490; J1940; J2405; Q0163

== ENCOUNTER 2021-07-06 16:38 | Emergency (ER) | payer MEDICARE ==
[2021-07-06 19:59] VITALS: BP 188/64
--- NOTE | 2021-07-06 21:03 | XRay Report ---
RIGHT ANKLE 4 VIEW(S) INDICATION / CLINICAL INFORMATION: INJURY COMPARISON: None available. FINDINGS: BONES / JOINT(S): No acute fracture or subluxation. Lucencies are noted involving the tibial plafond suggesting osteochondral defect versus moderate DJD. SOFT TISSUES: Calcific atherosclerosis. ADDITIONAL FINDINGS: None. RIGHT FOOT 3 VIEW(S) INDICATION / CLINICAL INFORMATION: INJURY COMPARISON: None available. FINDINGS: BONES / JOINT(S): No acute fracture or subluxation. No significant arthritis. SOFT TISSUES: Calcific atherosclerosis. ADDITIONAL FINDINGS: None. Signer Name: Paco Shelley DO Signed: 07/06/2021 8:58 PM Workstation Name: [id number]
== END 2021-07-07 00:53 | disposition left against medical advice (07) ==
LOC: ED 16:38
DX: S93.409A Sprain of unspecified ligament of unspecified ankle, initial encounter (principal); Z53.21 Procedure and treatment not carried out due to patient leaving prior to being seen by health care provider; X58.XXXA Exposure to other specified factors, initial encounter; Y93.89 Activity, other specified; Y92.89 Other specified places as the place of occurrence of the external cause; Y99.8 Other external cause status

== ENCOUNTER 2021-09-03 08:07 | Inpatient (IN) | payer MEDICARE ==
--- NOTE | 2021-09-03 09:00 | XRay Report ---
CHEST 2 VIEWS INDICATION / CLINICAL INFORMATION: Chest Pain. COMPARISON: 03/10/2021 FINDINGS: SUPPORT DEVICES: None. HEART / MEDIASTINUM: Heart size is borderline and decreased slightly since 03/10/2021. LUNGS / PLEURA: The lungs are clear. Pulmonary venous congestion and trace right pleural effusion hav e resolved since the previous exam. No pneumothorax. ADDITIONAL FINDINGS: No significant additional findings. IMPRESSION: 1. No acute findings. Signer Name: Andrea Mace Jr, MD Signed: 09/03/2021 8:56 AM Workstation Name: [id number]
[2021-09-03 11:02] LABS: Basophils % (Auto) 0.2 % (0.0-1.8); Eosinophils % (Auto) 0.4 % (0.0-4.3); Hematocrit 35.8 % (30.3-42.9); Hemoglobin 11.2 gm/dl (10.1-14.3); Lymphocytes # (Auto) 0.8 K/mm3 (1.2-5.4); Lymphocytes % (Auto) 9.4 % (13.4-35.0); Mean Corpuscular HGB Conc 31 % (30-34); Mean Corpuscular Volume 80 fl (79-97); Monocytes # (Auto) 0.5 K/mm3 (0.0-0.8); Monocytes % (Auto) 5.9 % (0.0-7.3); Platelet Count 208 K/mm3 (140-440); Red Blood Count 4.46 M/mm3 (3.65-5.03); Red Cell Distribution Width 18.9 % (13.2-15.2)
[2021-09-03 11:52] LABS: Calcium 9.2 mg/dL (8.4-10.2)
[2021-09-03] MEDS ORDERED: SODIUM CHLORIDE 0.9% 500 ML 500 ML IV ONE (15:54)
[2021-09-03] MEDS ORDERED: MORPHINE 4 MG/1 ML INJ IV ONE (15:54)
[2021-09-03] MEDS ORDERED: POTASSIUM CHLORIDE ER 20 MEQ TAB PO ONE (15:54)
[2021-09-03] MEDS ORDERED: ONDANSETRON 4 MG/2 ML INJ IV ONE (15:54)
--- NOTE | 2021-09-03 15:55 | Emergency Department Report ---
ED General Adult HPI - General Chief complaint: Nausea/Vomiting/Diarrhea Stated complaint: VOMITING/ STOMACH PAIN Time Seen by Provider: 09/03/21 15:23 Source: patient, RN notes reviewed, old records reviewed Mode of arrival: Ambulatory Limitations: No Limitations - History of Present Illness Initial comments: The patient was evaluated in the emergency department for symptoms described in the history of present illness. He/she was evaluated in the context of the global COVID-19 pandemic, which necessitated consideration that the patient might be at risk for infection with the virus that causes COVID-19. Institutional protocols and algorithms that pertain to the evaluation of patients at risk for COVID-19 are in a state of rapid change based on information released by regulatory bodies including the CDC and federal and state organizations. These policies and algorithms were followed during the patient's care in the emergency department. Please note that these policies, procedures and recommendations changed on a rapid basis. This is a pleasant and cooperative 70-year-old female. I have evaluated this patient in the past. Past medical history includes congestive heart failure with preserved ejection fraction, COPD, not currently on home oxygen, pulmonary hypertension, GERD, morbid obesity, peripheral vascular disease, COVID-19 vaccinated, history of latent tuberculosis, although reports she has completed her recommended therapy, and has been subsequently cleared from the health department perspective in terms of tuberculosis. She also has a history of hysterectomy. Patient presents to the department today with a complaint of suprapubic and bilateral flank pain, associated with 4 episodes of nonbloody, nonbilious emesis She reports decreased stool and decreased flatus. Chronic cough. Chronic shortness of breath. She does not think that she is having dysuria. -: Gradual, hour(s), days(s) Location: abdomen Radiation: back Consistency: intermittent Improves with: none Worsens with: movement - Related Data Home Medications Medication Instructions Recorded Confirmed Last Taken Baclofen [Lioresal] 10 mg PO BID 01/18/21 01/27/21 Unknown Budesonide/Formoterol Fumarate 2 puff IH BID 01/18/21 01/27/21 Unknown [Symbicort 160-4.5 Mcg Inhaler] Ergocalciferol (Vitamin D2) 50,000 unit PO QWEEK 01/18/21 01/27/21 01/15/21 [Vitamin D2] Fluticasone [Flonase] 1 spray NS QDAY 01/18/21 01/27/21 Unknown Gabapentin 300 mg PO QDAY 01/18/21 01/27/21 01/15/21 Latanoprost 0.005% 1 drop OP QPM 01/18/21 01/27/21 01/15/21 hydrOXYzine HCL [Atarax] 25 mg PO TID PRN 01/18/21 01/27/21 01/15/21 Previous Rx's Medication Instructions Recorded Last Taken Type AtorvaSTATin [Lipitor] 40 mg PO QHS #30 tablet 07/27/20 1 Day Ago Rx ~01/15/21 HYDROcodone/APAP 7.5-325 [Agra 1 each PO Q6HR PRN #7 tablet 07/27/20 1 Month Ago Rx 7.5-325 mg TAB] ~12/18/20 NIFEdipine XL [Procardia Xl] 60 mg PO QDAY #30 tablet 07/27/20 1 Day Ago Rx ~01/15/21 Valsartan [Diovan] 160 mg PO BID #60 tablet 07/27/20 01/15/21 Rx 160 Aspirin EC [Halfprin EC] 81 mg PO DAILY #30 tablet. 01/20/21 Unknown Rx Clopidogrel [Plavix] 75 mg PO QDAY #30 tablet 01/20/21 Unknown Rx Fluticasone/Umeclidin/Vilanter 1 puff IH DAILY #1 blst.w.dev 01/20/21 Unknown Rx [Trelegy Ellipta 100-62.5-25(Nf)] Albuterol Mdi (or & Nicu Only) 2 puff IH QID PRN #8.5 gram 01/26/21 Unknown Rx [ProAir HFA Inhaler] Insulin NPH Hum/Reg Insulin Hm 40 unit SQ BIDAC #1 vial 01/27/21 Unknown Rx [Novolin 70-30 100 Unit/ml Vial] Albuterol Sulfate [Albuterol 0.63% 0.63 mg IH TID PRN #30 dose 02/06/21 Unknown Rx NEBS] Benzonatate [Tessalon Perles] 100 mg PO Q8HR PRN #20 capsule 02/06/21 Unknown Rx hydrALAZINE [Apresoline TAB] 100 mg PO Q8HR #90 tab 02/11/21 Unknown Rx Furosemide [Lasix TAB] 40 mg PO QDAY #30 tablet 03/14/21 Unknown Rx Apixaban [Eliquis] 2.5 mg PO BID #60 03/15/21 Unknown Rx methIMAzole [Tapazole] 5 mg PO QDAY #14 tablet 03/15/21 Unknown Rx Allergies Allergy/AdvReac Type Severity Reaction Status Date / Time No Known Allergies Allergy Verified 09/03/21 08:35 ED Review of Systems ROS: Stated complaint: VOMITING/ STOMACH PAIN Other details as noted in HPI Eyes: denies: eye discharge ENT: congestion Respiratory: cough Cardiovascular: denies: chest pain Gastrointestinal: abdominal pain, nausea, vomiting Genitourinary: denies: dysuria Musculoskeletal: back pain Neurological: weakness ED Past Medical Hx - Past Medical History Hx Hypertension: Yes Hx Heart Attack/AMI: Yes Hx Congestive Heart Failure: Yes Hx Diabetes: Yes Hx Deep Vein Thrombosis: Yes Hx COPD: Yes Hx HIV: No Additional medical history: CAD - Surgical History Additional Surgical History: ; Angioplasty--no stents placed - Social History Smoking Status: Never Smoker - Medications Home Medications: Home Medications Medication Instructions Recorded Confirmed Last Taken Type AtorvaSTATin [Lipitor] 40 mg PO QHS #30 tablet 07/27/20 01/27/21 1 Day Ago Rx ~01/15/21 HYDROcodone/APAP 7.5-325 [Agra 1 each PO Q6HR PRN #7 tablet 07/27/20 01/27/21 1 Month Ago Rx 7.5-325 mg TAB] ~12/18/20 NIFEdipine XL [Procardia Xl] 60 mg PO QDAY #30 tablet 07/27/20 01/27/21 1 Day Ago Rx ~01/15/21 Valsartan [Diovan] 160 mg PO BID #60 tablet 07/27/20 01/27/21 01/15/21 Rx 160 Baclofen [Lioresal] 10 mg PO BID 01/18/21 01/27/21 Unknown History Budesonide/Formoterol Fumarate 2 puff IH BID 01/18/21 01/27/21 Unknown History [Symbicort 160-4.5 Mcg Inhaler] Ergocalciferol (Vitamin D2) 50,000 unit PO QWEEK 01/18/21 01/27/21 01/15/21 History [Vitamin D2] Fluticasone [Flonase] 1 spray NS QDAY 01/18/21 01/27/21 Unknown History Gabapentin 300 mg PO QDAY 01/18/21 01/27/21 01/15/21 History Latanoprost 0.005% 1 drop OP QPM 01/18/21 01/27/21 01/15/21 History hydrOXYzine HCL [Atarax] 25 mg PO TID PRN 01/18/21 01/27/21 01/15/21 History Aspirin EC [Halfprin EC] 81 mg PO DAILY #30 tablet.dr 01/20/21 01/27/21 Unknown Rx Clopidogrel [Plavix] 75 mg PO QDAY #30 tablet 01/20/21 01/27/21 Unknown Rx Fluticasone/Umeclidin/Vilanter 1 puff IH DAILY #1 blst.w.dev 01/20/21 01/27/21 Unknown Rx [Trelegy Ellipta 100-62.5-25(Nf)] Albuterol Mdi (or & Nicu Only) 2 puff IH QID PRN #8.5 gram 01/26/21 Unknown Rx [ProAir HFA Inhaler] Insulin NPH Hum/Reg Insulin Hm 40 unit SQ BIDAC #1 vial 01/27/21 Unknown Rx [Novolin 70-30 100 Unit/ml Vial] Albuterol Sulfate [Albuterol 0.63% 0.63 mg IH TID PRN #30 dose 02/06/21 Unknown Rx NEBS] Benzonatate [Tessalon Perles] 100 mg PO Q8HR PRN #20 capsule 02/06/21 Unknown Rx hydrALAZINE [Apresoline TAB] 100 mg PO Q8HR #90 tab 02/11/21 Unknown Rx Furosemide [Lasix TAB] 40 mg PO QDAY #30 tablet 03/14/21 Unknown Rx Apixaban [Eliquis] 2.5 mg PO BID #60 03/15/21 Unknown Rx methIMAzole [Tapazole] 5 mg PO QDAY #14 tablet 03/15/21 Unknown Rx ED Physical Exam - General Limitations: No Limitations General appearance: alert, in no apparent distress - Head Head exam: Present: atraumatic, normocephalic - Eye Eye exam: Present: normal appearance, EOMI. Absent: nystagmus - ENT ENT exam: Present: normal exam, normal orophraynx, mucous membranes moist, normal external ear exam - Neck Neck exam: Present: normal inspection, full ROM. Absent: tenderness, meningismus - Respiratory Respiratory exam: Present: decreased breath sounds. Absent: respiratory distress, wheezes, rales, rhonchi, stridor - Cardiovascular Cardiovascular Exam: Present: regular rate, normal rhythm, normal heart sounds. Absent: bradycardia, tachycardia, irregular rhythm, systolic murmur, diastolic murmur, rubs, gallop - GI/Abdominal GI/Abdominal exam: Present: soft, tenderness, other (There is mild diffuse abdominal tenderness, with no significant rebound, guarding or peritoneal signs) . Absent: distended, guarding, rebound, rigid, pulsatile mass - Extremities Exam Extremities exam: Present: normal inspection, full ROM, pedal edema (1+ edema in the bilateral lower extremities), other (2+ radial pulses noted bilaterally. There is no long bony tenderness. The muscular compartments are soft. The pelvis is stable. Bilateral lower extremities are warm.). Absent: calf tenderness - Back Exam Back exam: Present: normal inspection. Absent: tenderness, CVA tenderness (R), CVA tenderness (L), paraspinal tenderness, vertebral tenderness - Neurological Exam Neurological exam: Present: alert, other (There is no facial droop. The tongue is midline. EOMI. 5 out of 5 strength in 4 extremities. Sensation is intact to light touch in 4 extremities.) - Psychiatric Psychiatric exam: Present: normal affect, normal mood - Skin Skin exam: Present: warm, dry, intact, normal color. Absent: rash ED Course Vital Signs 09/03/21 09/03/21 09/03/21 08:29 08:30 14:29 Temperature 99.6 F Pulse Rate 70 Respiratory 18 18 Rate Blood Pressure 109/48 O2 Sat by Pulse 99 98 Oximetry 09/03/21 09/03/21 09/03/21 14:57 15:00 15:16 Temperature Pulse Rate 68 65 64 Respiratory 22 21 21 Rate Blood Pressure 170/60 170/60 O2 Sat by Pulse 100 99 Oximetry 09/03/21 09/03/21 09/03/21 15:30 15:46 16:00 Temperature Pulse Rate 63 63 63 Respiratory 24 21 17 Rate Blood Pressure 154/61 154/61 154/61 O2 Sat by Pulse 96 96 98 Oximetry 09/03/21 16:16 Temperature Pulse Rate 61 Respiratory 21 Rate Blood Pressure 154/61 O2 Sat by Pulse 98 Oximetry - Reevaluation(s) Reevaluation #1: 09/03/21 16:17 Differential diagnosis, include not limited to: Obstruction, colitis, diverticulitis, renal colic, urinary tract infection, dehydration, metabolic acidosis, hypokalemia Assessment and plan: 70-year-old female, with multiple chronic medical conditions, with low-grade temperature, abdominal pain, nausea, vomiting, metabolic acidosis, renal insufficiency, and hypokalemia. Treat pain, start gentle IV fluids, obtain noncontrast CT scan of the abdomen pelvis, check lactic acid, urinalysis, and magnesium level. Reassess after initial data points. I discussed the plan of care with the patient. She is agreeable to the plan of care. Currently awaiting remainder of diagnostic studies 09/03/21 16:18 Patient has clear lungs, she is not hypoxic, and her chest x-ray shows no evidence of congestive heart failure. Elevated proBNP is likely chronic, likely secondary to chronic CHF and chronic COPD. Clinically, suspect that the patient is volume depleted, will give trial bolus of 500 cc crystalloid. Reassess 09/03/21 17:03 Patient ruling in for systemic inflammatory response syndrome. We will dose fluids by ideal body weight, total fluid bolus should be [address] scan shows right lower lobe pneumonia. Given renal insufficiency, metabolic acidosis, lactic acidosis, and aforementioned, recommend admission to the medical service. Patient is agreeable to the plan of care. Hospital physician, Dr. Andrei Salinas to admit 141 lbs [place] Body Weight Equivalent to 64 kg Actual body weight is 146% (1.5x) ideal body weight 167 lbs Adjusted Body Weight Equivalent to 76 kg ED Medical Decision Making - Lab Data Result diagrams: 09/03/21 09:19 09/03/21 09:19 Vital Signs 09/03/21 09/03/21 09/03/21 08:29 08:30 14:29 Temperature 99.6 F Pulse Rate 70 Respiratory 18 18 Rate Blood Pressure 109/48 O2 Sat by Pulse 99 98 Oximetry 09/03/21 09/03/21 09/03/21 14:57 15:00 15:16 Temperature Pulse Rate 68 65 64 Respiratory 22 21 21 Rate Blood Pressure 170/60 170/60 O2 Sat by Pulse 100 99 Oximetry Lab Results 09/03/21 09/03/21 09/03/21 Range/Units 09:19 09:19 09:19 WBC 8.9 (4.5-11.0) K/mm3 RBC 4.46 (3.65-5.03) M/mm3 Hgb 11.2 (10.1-14.3) gm/dl Hct 35.8 (30.3-42.9) % MCV 80 (79-97) fl MCH 25 L (28-32) pg MCHC 31 (30-34) % RDW 18.9 H (13.2-15.2) % Plt Count 208 (140-440) K/mm3 Lymph % (Auto) 9.4 L (13.4-35.0) % [place] % (Auto) 5.9 (0.0-7.3) % Eos % (Auto) 0.4 (0.0-4.3) % Baso % (Auto) 0.2 (0.0-1.8) % Lymph # (Auto) 0.8 L (1.2-5.4) K/mm3 [place] # (Auto) 0.5 (0.0-0.8) K/mm3 Eos # (Auto) 0.0 (0.0-0.4) K/mm3 Baso # (Auto) 0.0 (0.0-0.1) K/mm3 Seg Neutrophils % 84.1 H (40.0-70.0) % Seg Neutrophils # 7.5 (1.8-7.7) K/mm3 Sodium 141 (137-145) mmol/L Potassium 2.5 L* (3.6-5.0) mmol/L Chloride 99.7 (98-107) mmol/L Carbon Dioxide 20 L (22-30) mmol/L Anion Gap 24 mmol/L BUN 19 H (7-17) mg/dL Creatinine 1.6 H (0.6-1.2) mg/dL Estimated GFR 39 ml/min BUN/Creatinine Ratio 12 % Glucose 283 H (65-100) mg/dL Calcium 9.2 (8.4-10.2) mg/dL Total Bilirubin 0.40 (0.1-1.2) mg/dL AST 9 (5-40) units/L ALT 6 L (7-56) units/L Alkaline Phosphatase 129 (35-129) units/L Troponin T 0.014 (0.00-0.029) ng/mL NT-Pro-B Natriuret Pep 1263 H (0-900) pg/mL Total Protein 8.0 (6.3-8.2) g/dL Albumin 4.0 (3.9-5) g/dL Albumin/Globulin Ratio 1.0 % Lipase 25 (13-60) units/L - EKG Data 09/03/21 16:14 The EKG is interpreted at 09: 52 Sinus rhythm, 61 bpm. Normal axis, normal P wave axis, first-degree AV block, left ventricular hypertrophy, diffuse T wave inversions and abnormalities. There is no chest pain. There is motion artifact. This is not a STEMI. When compared to prior EKG from February 2021, T wave inversions in V4, V5 appear to be new. T wave inversions in aVL and 1 appear to be more pronounced. First-degree block is chronic. - Radiology Data Radiology results: pending, report reviewed, image reviewed CHEST 2 VIEWS INDICATION / CLINICAL INFORMATION: Chest Pain. COMPARISON: 03/10/2021 FINDINGS: SUPPORT DEVICES: None. HEART / MEDIASTINUM: Heart size is borderline and decreased slightly since 03/10/2021. LUNGS / PLEURA: The lungs are clear. Pulmonary venous congestion and trace right pleural effusion have resolved since the previous exam. No pneumothorax. ADDITIONAL FINDINGS: No significant additional findings. IMPRESSION: 1. No acute findings. Signer Name: Andrea Mace Jr, MD Signed: 09/03/2021 7:56 AM Workstation Name: [id number] CT ABDOMEN AND PELVIS WITHOUT CONTRAST INDICATION / CLINICAL INFORMATION: Acute abdominal pain with nausea and vomiting. TECHNIQUE: Axial CT images were obtained through the abdomen and pelvis without IV contrast. All CT scans at this location are performed using CT dose reduction for ALARA by means of automated exposure control. COMPARISON: 02/06/2021 FINDINGS: LOWER CHEST: Increased consolidation within the right lower lobe. AORTA / ARTERIES: Moderate atherosclerotic calcification without acute abnormality. IVC / VEINS: No significant abnormality. LYMPH NODES: No significant adenopathy. COLON: No significant abnormality. APPENDIX: No significant abnormality. STOMACH / SMALL BOWEL: Moderate hiatal hernia. The stomach and small bowel are otherwise without significant abnormality. PERITONEUM: No free fluid. No free air. No fluid collection. LIVER: No significant abnormality. GALLBLADDER: No significant abnormality. BILE DUCTS: No significant abnormality. PANCREAS: No significant abnormality. SPLEEN: No significant abnormality. ADRENALS: No significant abnormality. RIGHT KIDNEY / URETER: No significant abnormality. LEFT KIDNEY / URETER: No significant abnormality. URINARY BLADDER: No significant abnormality. REPRODUCTIVE ORGANS: Redemonstrated calcified uterine fibroids. SKELETAL SYSTEM: Scattered degeneration. ADDITIONAL FINDINGS: None. IMPRESSION: 1. There is increased consolidation within the right lower lobe suggesting early infectious process. Otherwise no acute findings within the abdomen or pelvis. 2. Additional findings as above Signer Name: Paco Shelley DO Signed: 09/03/2021 3:54 PM Workstation Name: [id number] Critical care attestation.: If time is entered above; I have spent that time in minutes in the direct care of this critically ill patient, excluding procedure time. ED Disposition Clinical Impression: Renal insufficiency, Acute abdominal pain, Hypokalemia, Metabolic acidosis, Pulmonary infiltrate, Lactic acidosis Disposition: 09 ADMITTED INPATIENT Is pt being admited?: Yes Does the pt Need Aspirin: No Condition: Fair
[2021-09-03] MEDS: POTASSIUM CHLORIDE 10 MEQ 10 MEQ/100 ML BAG IV SCH ×2 (16:19→22:03)
[2021-09-03 16:37] LABS: INR 0.91 (0.87-1.13)
[2021-09-03 16:38] LABS: Partial Thromboplastin Time 29.2 Sec. (24.2-36.6)
--- NOTE | 2021-09-03 16:58 | Cat Scan Report ---
CT ABDOMEN AND PELVIS WITHOUT CONTRAST INDICATION / CLINICAL INFORMATION: Acute abdominal pain with nausea and vomiting. TECHNIQUE: Axial CT images were obtained through the abdomen and pelvis without IV contrast. All CT scans at this location are performed using CT dose reduction for ALARA by means of automated exposure control. COMPARISON: 02/06/2021 FINDINGS: LOWER CHEST: Increased consolidation within the right lower lobe. AORTA / ARTERIES: Moderate atherosclerotic calcification without acute abnormality. IVC / VEINS: No significant abnormality. LYMPH NODES: No significant adenopathy. COLON: No significant abnormality. APPENDIX: No significant abnormality. STOMACH / SMALL BOWEL: Moderate hiatal hernia. The stomach and small bowel are otherwise without sign ificant abnormality. PERITONEUM: No free fluid. No free air. No fluid collection. LIVER: No significant abnormality. GALLBLADDER: No significant abnormality. BILE DUCTS: No significant abnormality. PANCREAS: No significant abnormality. SPLEEN: No significant abnormality. ADRENALS: No significant abnormality. RIGHT KIDNEY / URETER: No significant abnormality. LEFT KIDNEY / URETER: No significant abnormality. URINARY BLADDER: No significant abnormality. REPRODUCTIVE ORGANS: Redemonstrated calcified uterine fibroids. SKELETAL SYSTEM: Scattered degeneration. ADDITIONAL FINDINGS: None. IMPRESSION: 1. There is increased consolidation within the right lower lobe suggesting early infectious process. Otherwise no acute findings within the abdomen or pelvis. 2. Additional findings as above Signer Name: Paco Shelley DO Signed: 09/03/2021 4:54 PM Workstation Name: [id number]
[2021-09-03] MEDS ORDERED: cefTRIAXone/NS 1 GM/50 ML 1 GM/50 ML BAG IV ONE (16:59)
[2021-09-03] MEDS ORDERED: AZITHROMYCIN/NS 500 MG/250 ML 500 MG/250 ML BAG IV ONE (16:59)
[2021-09-03 18:01] LABS: Bilirubin,Urine NEG (Negative); Blood,Urine SM (Negative); Color,Urine Yellow (Yellow); Urobilinogen,Urine < 2.0 mg/dL (<2.0)
[2021-09-03 18:16] LABS: Hyaline Casts,Urine 3 /LPF; Mucus,Urine FEW /HPF; RBC,Urine < 1.0 /HPF (0.0-6.0)
[2021-09-03] MEDS ORDERED: MORPHINE 2 MG/1 ML INJ IV PRN (19:50)
[2021-09-03] MEDS ORDERED: ONDANSETRON 4 MG/2 ML INJ IV PRN (19:50)
[2021-09-03] MEDS ORDERED: POTASSIUM CHLORIDE ER 20 MEQ TAB PO SCH (20:01)
[2021-09-03] MEDS ORDERED: D5W/0.9% NACL 1,000 ML IV SCH (21:00)
[2021-09-03] MEDS ORDERED: POTASSIUM CHLORIDE 10 MEQ 10 MEQ/100 ML BAG IV SCH (21:00)
[2021-09-03] MEDS ORDERED: SODIUM CHLORIDE 0.9% 1000 ML 1,000 ML ONE (21:47)
[2021-09-03] MEDS ORDERED: HEPARIN 5,000 UNIT/1 ML VIAL SUB-Q SCH (22:00)
--- NOTE | 2021-09-04 06:14 | History and Physical Report ---
History of Present Illness Date of examination: 09/03/21 Date of admission: 09/03/21 19:50 Chief complaint: Generalized weakness and cough/shortness of breath for couple of days History of present illness: 70-year-old female with significant past medical history for hypertension, coronary artery disease, T2DM, DVT, COPD and acute [place] in the past with multiple medical admissions comes in for generalized weakness and bilateral flank pain and suprapubic pain. Vomiting x4 today. No diarrhea. Cough and shortness of breath present. No dysuria. Abdominal pain is about 8 on a scale of 1-10 but intermittent in nature. No fever or chills. Cough present. Nonproductive. Previous admission in February 2021 reviewed. Patient admitted for acute hypoxemic respiratory failure due to CHF exacerbation and pulmonary edema, hypertensive emergency, history of latent TB which was treated, chronic tobacco abuse, hyperthyroidism on methimazole and insulin- dependent diabetes. - Past Medical History --Hypertension: Yes --Heart Attack/AMI: Yes --Congestive Heart Failure: Yes --Diabetes: Yes --Deep Vein Thrombosis: Yes --COPD: Yes --Additional medical history: CAD - Surgical History --Additional Surgical History: ; Angioplasty--no stents placed - Social History --Smoking Status: Never Smoker Review of Systems ROS: Stated complaint: VOMITING/ STOMACH PAIN Other details as noted in HPI Eyes: denies: eye discharge ENT: congestion Respiratory: cough Cardiovascular: denies: chest pain Gastrointestinal: abdominal pain, nausea, vomiting Genitourinary: denies: dysuria Musculoskeletal: back pain Neurological: weakness Medications and Allergies Allergies Allergy/AdvReac Type Severity Reaction Status Date / Time No Known Allergies Allergy Verified 09/03/21 08:35 Home Medications Medication Instructions Recorded Confirmed Last Taken Type AtorvaSTATin [Lipitor] 40 mg PO QHS #30 tablet 07/27/20 01/27/21 1 Day Ago Rx ~01/15/21 HYDROcodone/APAP 7.5-325 [[place] 1 each PO Q6HR PRN #7 tablet 07/27/20 01/27/21 1 Month Ago Rx 7.5-325 mg TAB] ~12/18/20 NIFEdipine XL [Procardia Xl] 60 mg PO QDAY #30 tablet 07/27/20 01/27/21 1 Day Ago Rx ~01/15/21 Valsartan [Diovan] 160 mg PO BID #60 tablet 07/27/20 01/27/21 01/15/21 Rx 160 Baclofen [Lioresal] 10 mg PO BID 01/18/21 01/27/21 Unknown History Budesonide/Formoterol Fumarate 2 puff IH BID 01/18/21 01/27/21 Unknown History [Symbicort 160-4.5 Mcg Inhaler] Ergocalciferol (Vitamin D2) 50,000 unit PO QWEEK 01/18/21 01/27/21 01/15/21 History [Vitamin D2] Fluticasone [Flonase] 1 spray NS QDAY 01/18/21 01/27/21 Unknown History Gabapentin 300 mg PO QDAY 01/18/21 01/27/21 01/15/21 History Latanoprost 0.005% 1 drop OP QPM 01/18/21 01/27/21 01/15/21 History hydrOXYzine HCL [Atarax] 25 mg PO TID PRN 01/18/21 01/27/21 01/15/21 History Aspirin EC [Halfprin EC] 81 mg PO DAILY #30 tablet. 01/20/21 01/27/21 Unknown Rx Clopidogrel [Plavix] 75 mg PO QDAY #30 tablet 01/20/21 01/27/21 Unknown Rx Fluticasone/Umeclidin/Vilanter 1 puff IH DAILY #1 blst.w.dev 01/20/21 01/27/21 Unknown Rx [Trelegy Ellipta 100-62.5-25(Nf)] Albuterol Mdi (or & Nicu Only) 2 puff IH QID PRN #8.5 gram 01/26/21 Unknown Rx [ProAir HFA Inhaler] Insulin NPH Hum/Reg Insulin Hm 40 unit SQ BIDAC #1 vial 01/27/21 Unknown Rx [Novolin 70-30 100 Unit/ml Vial] Albuterol Sulfate [Albuterol 0.63% 0.63 mg IH TID PRN #30 dose 02/06/21 Unknown Rx NEBS] Benzonatate [Tessalon Perles] 100 mg PO Q8HR PRN #20 capsule 02/06/21 Unknown Rx hydrALAZINE [Apresoline TAB] 100 mg PO Q8HR #90 tab 02/11/21 Unknown Rx Furosemide [Lasix TAB] 40 mg PO QDAY #30 tablet 03/14/21 Unknown Rx Apixaban [Eliquis] 2.5 mg PO BID #60 03/15/21 Unknown Rx methIMAzole [Tapazole] 5 mg PO QDAY #14 tablet 03/15/21 Unknown Rx Active Meds: Active Medications Acetaminophen (Acetaminophen 325 Mg Tab) 650 mg PO Q4H PRN PRN Reason: Pain MILD(1-3)/Fever >100.5/LEE Heparin Sodium (Porcine) (Heparin 5,000 Unit/1 Ml Vial) 5,000 unit SUB-Q Q12HR BRIANA Last Admin: 09/03/21 22:04 Dose: 5,000 unit Dextrose/Sodium Chloride (D5ns) 1,000 mls @ 100 mls/hr IV DIRECT BRIANA Azithromycin (Zithromax/Ns) 500 mg in 250 mls @ 250 mls/hr IV Q24H BRIANA Ceftriaxone Sodium (Rocephin/Ns 2 Gm/100 Ml) 2 gm in 100 mls @ 200 mls/hr IV Q24H BRIANA; Protocol Morphine Sulfate (Morphine 2 Mg/1 Ml Inj) 2 mg IV Q4H PRN PRN Reason: Pain, Moderate (4-6) Ondansetron HCl (Ondansetron 4 Mg/2 Ml Inj) 4 mg IV Q8H PRN PRN Reason: Nausea And Vomiting Potassium Chloride (Potassium Chloride Er 20 Meq Tab) 40 meq PO ONCE BRIANA Sodium Chloride (Sodium Chloride 0.9% 10 Ml Flush Syringe) 10 ml IV BID BRIANA Sodium Chloride (Sodium Chloride 0.9% 10 Ml Flush Syringe) 10 ml IV PRN PRN PRN Reason: LINE FLUSH Exam - Constitutional Vitals: Temp Pulse Resp BP Pulse Ox 99.6 F 61 19 159/59 98 09/03/21 08:30 09/03/21 18:46 09/03/21 18:46 09/03/21 18:46 09/04/21 04:10 General appearance: Present: mild distress, well-nourished - EENT Eyes: Present: PERRL ENT: hearing intact, clear oral mucosa - Neck Neck: Present: supple, normal ROM - Respiratory Respiratory effort: normal Respiratory: bilateral: CTA - Cardiovascular Heart rate: 60 Rhythm: regular Heart Sounds: Present: S1 & S2. Absent: rub, click - Extremities Extremities: no ischemia, pulses intact, pulses symmetrical, No edema Peripheral Pulses: within normal limits - Abdominal General gastrointestinal: Present: soft, non-tender, non-distended, normal bowel sounds Female genitourinary: Present: normal - Rectal Rectal Exam: deferred - Integumentary Integumentary: Present: clear, warm, dry - Musculoskeletal Musculoskeletal: gait normal, strength equal bilaterally - Psychiatric Psychiatric: appropriate mood/affect, intact judgment & insight - Neurologic Neurologic: CNII-XII intact, moves all extremities - Allied Health Allied health notes reviewed: nursing, case management HEART Score - HEART Score History: Moderately suspicious Risk factors: > 3 risk factors or hx of atherosclerotic disease Troponin: Troponin T < 0.010 ng/mL (0.00-0.029) 09/03/21 16:01 Troponin: < normal limit - Critical Actions Critical Actions: 0-3 pts:0.9-1.7%risk of adverse cardiac event.Candidate for discharge Results - Labs CBC & Chem 7: 09/03/21 09:19 09/03/21 09:19 Labs: Laboratory Last Values WBC 8.9 K/mm3 (4.5-11.0) 09/03/21 09:19 RBC 4.46 M/mm3 (3.65-5.03) 09/03/21 09:19 Hgb 11.2 gm/dl (10.1-14.3) 09/03/21 09:19 Hct 35.8 % (30.3-42.9) 09/03/21 09:19 MCV 80 fl (79-97) 09/03/21 09:19 MCH 25 pg (28-32) L 09/03/21 09:19 MCHC 31 % (30-34) 09/03/21 09:19 RDW 18.9 % (13.2-15.2) H 09/03/21 09:19 Plt Count 208 K/mm3 (140-440) 09/03/21 09:19 Lymph % (Auto) 9.4 % (13.4-35.0) L 09/03/21 09:19 [place] % (Auto) 5.9 % (0.0-7.3) 09/03/21 09:19 Eos % (Auto) 0.4 % (0.0-4.3) 09/03/21 09:19 Baso % (Auto) 0.2 % (0.0-1.8) 09/03/21 09:19 Lymph # (Auto) 0.8 K/mm3 (1.2-5.4) L 09/03/21 09:19 [place] # (Auto) 0.5 K/mm3 (0.0-0.8) 09/03/21 09:19 Eos # (Auto) 0.0 K/mm3 (0.0-0.4) 09/03/21 09:19 Baso # (Auto) 0.0 K/mm3 (0.0-0.1) 09/03/21 09:19 Seg Neutrophils % 84.1 % (40.0-70.0) H 09/03/21 09:19 Seg Neutrophils # 7.5 K/mm3 (1.8-7.7) 09/03/21 09:19 PT 13.5 Sec. (12.2-14.9) 09/03/21 16:01 INR 0.91 (0.87-1.13) 09/03/21 16:01 APTT 29.2 Sec. (24.2-36.6) 09/03/21 16:01 Sodium 141 mmol/L (137-145) 09/03/21 09:19 Potassium 2.5 mmol/L (3.6-5.0) L* 09/03/21 09:19 Chloride 99.7 mmol/L (98-107) 09/03/21 09:19 Carbon Dioxide 20 mmol/L (22-30) L 09/03/21 09:19 Anion Gap 24 mmol/L 09/03/21 09:19 BUN 19 mg/dL (7-17) H 09/03/21 09:19 Creatinine 1.6 mg/dL (0.6-1.2) H 09/03/21 09:19 Estimated GFR 39 ml/min 09/03/21 09:19 BUN/Creatinine Ratio 12 % 09/03/21 09:19 Glucose 283 mg/dL (65-100) H 09/03/21 09:19 Lactic Acid 1.60 mmol/L (0.7-2.0) 09/03/21 18:45 Calcium 9.2 mg/dL (8.4-10.2) 09/03/21 09:19 Magnesium 1.80 mg/dL (1.7-2.3) 09/03/21 16:01 Total Bilirubin 0.40 mg/dL (0.1-1.2) 09/03/21 09:19 AST 9 units/L (5-40) 09/03/21 09:19 ALT 6 units/L (7-56) L 09/03/21 09:19 Alkaline Phosphatase 129 units/L (35-129) 09/03/21 09:19 Total Creatine Kinase 39 units/L (30-135) 09/03/21 16:01 Troponin T < 0.010 ng/mL (0.00-0.029) 09/03/21 16:01 NT-Pro-B Natriuret Pep 1263 pg/mL (0-900) H 09/03/21 09:19 Total Protein 8.0 g/dL (6.3-8.2) 09/03/21 09:19 Albumin 4.0 g/dL (3.9-5) 09/03/21 09:19 Albumin/Globulin Ratio 1.0 % 09/03/21 09:19 Lipase 25 units/L (13-60) 09/03/21 09:19 Urine Color Yellow (Yellow) 09/03/21 17:35 Urine Turbidity Slightly-cloudy (Clear) 09/03/21 17:35 Urine pH 6.0 (5.0-7.0) 09/03/21 17:35 Ur Specific [place] 1.018 (1.003-1.030) 09/03/21 17:35 Urine Protein 100 mg/dl mg/dL (Negative) 09/03/21 17:35 Urine Glucose (UA) 150 mg/dL (Negative) 09/03/21 17:35 Urine Ketones Neg mg/dL (Negative) 09/03/21 17:35 Urine Blood Sm (Negative) 09/03/21 17:35 Urine Nitrite Neg (Negative) 09/03/21 17:35 Urine Bilirubin Neg (Negative) 09/03/21 17:35 Urine Urobilinogen < 2.0 mg/dL (<2.0) 09/03/21 17:35 Ur Leukocyte Esterase Neg (Negative) 09/03/21 17:35 Urine WBC (Auto) 3.0 /HPF (0.0-6.0) 09/03/21 17:35 Urine RBC (Auto) < 1.0 /HPF (0.0-6.0) 09/03/21 17:35 U Epithel Cells (Auto) 2.0 /HPF (0-13.0) 09/03/21 17:35 Hyaline Casts 3 /LPF 09/03/21 17:35 Urine Mucus Few /HPF 09/03/21 17:35 Short CBC 09/03/21 Range/Units 09:19 WBC 8.9 (4.5-11.0) K/mm3 Hgb 11.2 (10.1-14.3) gm/dl Hct 35.8 (30.3-42.9) % Plt Count 208 (140-440) K/mm3 BMP 09/03/21 09:19 Sodium 141 Potassium 2.5 L* Chloride 99.7 Carbon Dioxide 20 L BUN 19 H Creatinine 1.6 H Glucose 283 H Calcium 9.2 Cardiac Enzymes 09/03/21 09/03/21 09/03/21 Range/Units 09:19 16:01 16:01 Total Creatine Kinase 39 (30-135) units/L Troponin T 0.014 < 0.010 (0.00-0.029) ng/mL Liver Function 09/03/21 Range/Units 09:19 Total Bilirubin 0.40 (0.1-1.2) mg/dL AST 9 (5-40) units/L ALT 6 L (7-56) units/L Alkaline Phosphatase 129 (35-129) units/L Albumin 4.0 (3.9-5) g/dL Urine 09/03/21 Range/Units 17:35 Urine Color Yellow (Yellow) Urine pH 6.0 (5.0-7.0) Ur Specific [place] 1.018 (1.003-1.030) Urine Protein 100 mg/dl (Negative) mg/dL Urine Glucose (UA) 150 (Negative) mg/dL Microbiology: Microbiology 09/03/21 18:45 Peripheral/Venous Blood Culture - Preliminary Culture in Progress 09/03/21 18:45 Peripheral/Venous Blood Culture - Preliminary Culture in Progress - Imaging and Cardiology EKG: report reviewed (Sinus rhythm, prolonged [place] interval, LVH with secondary repolarization abnormality.) Chest x-ray: report reviewed Abdominal x-ray: report reviewed Imaging and Cardiology: Chest x-ray No acute findings Abdomen/pelvis CT Increased consolidation of the right lower lobe suggesting early infectious pr ocess. Otherwise no acute findings within the abdomen or pelvis. Additional findings as above. Assessment and Plan Advance Directives: Yes (Full code) VTE prophylaxis?: Chemical Plan of care discussed with patient/family: Yes - Patient Problems (1) Right lower lobe pneumonia Current Visit: Yes Status: Acute Plan to address problem: Currently acquired pneumonia Patient lives initiated on IV Zithromax and IV Rocephin COVID to be ruled out DuoNebs as needed (2) Hypokalemia Current Visit: Yes Status: Acute Plan to address problem: Supplemented aggressively (3) Hypertension Current Visit: No Status: Chronic Qualifiers: Hypertension type: primary hypertension Qualified Code(s): I10 - Essential (primary) hypertension Plan to address problem: Continue antihypertensives and adjust medications as necessary Medications reconciled (4) IDDM (insulin dependent diabetes mellitus) Current Visit: Yes Status: Chronic Plan to address problem: Continue home insulin and coverage with sliding scale Check hemoglobin A1c (5) COPD (chronic obstructive pulmonary disease) Current Visit: Yes Status: Chronic Qualifiers: Emphysema type: unspecified Plan to address problem: DuoNebs as needed (6) Person under investigation for COVID-19 Current Visit: Yes Status: Acute Plan to address problem: Rule out COVID COVID test requested (7) CAD (coronary artery disease) Current Visit: Yes Status: Chronic Qualifiers: Coronary Disease-Associated Artery/Lesion type: [place] artery [place] vs. transplanted heart: [place] heart Plan to address problem: Continue aspirin and isosorbide mononitrate (8) Hyperthyroidism Current Visit: Yes Status: Chronic Plan to address problem: Patient was discharged on methimazole once a and was given for 14 days Recheck TSH and Thyroid profile Patient not on methimazole now Will defer to primary team for reevaluation of her hyperthyroidism (9) DVT prophylaxis Current Visit: No Status: Acute Plan to address problem: On anticoagulation and GI prophylaxis (10) Advance care planning Current Visit: No Status: Acute Plan to address problem: Disease education conducted: Care plan discussed, diagnosis discussed, prognosis discussed. And patient acknowledges understanding with care plan. Patient is full code. Plus treatment plan.
[2021-09-04] MEDS ORDERED: NON-FORMULARY EACH (Albuterol Sulfate [Albuterol 0.63% Nebs] 0.63 MG/3 ML Vial.Neb) IH PRN (06:35)
[2021-09-04] MEDS ORDERED: ALBUTEROL 8.5 GM MDI INHALATION IH PRN (06:35)
[2021-09-04] MEDS ORDERED: hydrOXYzine HCL 25 MG TAB PO PRN (06:35)
[2021-09-04] MEDS: INSULIN LISPRO 100 UNIT/ML SUB-Q SCH ×4 (08:11→21:22)
[2021-09-04 08:22] LABS: Basophils % (Auto) 0.1 % (0.0-1.8); Eosinophils % (Auto) 0.1 % (0.0-4.3); Hematocrit 33.1 % (30.3-42.9); Hemoglobin 10.3 gm/dl (10.1-14.3); Lymphocytes # (Auto) 0.6 K/mm3 (1.2-5.4); Lymphocytes % (Auto) 6.8 % (13.4-35.0); Mean Corpuscular HGB Conc 31 % (30-34); Mean Corpuscular Volume 81 fl (79-97); Monocytes # (Auto) 0.6 K/mm3 (0.0-0.8); Monocytes % (Auto) 6.8 % (0.0-7.3); Platelet Count 188 K/mm3 (140-440); Red Blood Count 4.12 M/mm3 (3.65-5.03); Red Cell Distribution Width 18.8 % (13.2-15.2)
[2021-09-04 08:30] LABS: Albumin 3.3 g/dL (3.9-5); Calcium 8.7 mg/dL (8.4-10.2)
--- NOTE | 2021-09-04 09:16 | Progress Note ---
Assessment and Plan Assessment and plan: History of present illness: 70-year-old female with significant past medical history for hypertension, coronary artery disease, T2DM, DVT, COPD and acute [place] in the past with multiple medical admissions comes in for generalized weakness and bilateral flank pain and suprapubic pain. Vomiting x4 today. No diarrhea. Cough and shortness of breath present. No dysuria. Abdominal pain is about 8 on a scale of 1-10 but intermittent in nature. No fever or chills. Cough present. Nonproductive. Previous admission in February 2021 reviewed. Patient admitted for acute hypoxemic respiratory failure due to CHF exacerbation and pulmonary edema, hypertensive emergency, history of latent TB which was treated, chronic tobacco abuse, hyperthyroidism on methimazole and insulin-de pendent diabetes. Hospital Course: 09/04: Hypokalemic 2.9 on follow-up BMP ordered this morning. 40 mEq IV +40 M EQ oral potassium ordered. Recheck BMP in a.m. Continue therapy for RLL PNA with rocephin and azithro IV. Covid pcr pending. Assessment and Plan: (1) Right lower lobe pneumonia Current Visit: Yes Status: Acute Plan to address problem: Currently acquired pneumonia Patient lives initiated on IV Zithromax and IV Rocephin COVID to be ruled out DuoNebs as needed (2) Hypokalemia Current Visit: Yes Status: Acute Plan to address problem: Supplemented aggressively (3) Hypertension Current Visit: No Status: Chronic Qualifiers: Hypertension type: primary hypertension Qualified Code(s): I10 - Essential (primary) hypertension Plan to address problem: Continue antihypertensives and adjust medications as necessary Medications reconciled (4) IDDM (insulin dependent diabetes mellitus) Current Visit: Yes Status: Chronic Plan to address problem: Continue home insulin and coverage with sliding scale Check hemoglobin A1c (5) COPD (chronic obstructive pulmonary disease) Current Visit: Yes Status: Chronic Qualifiers: Emphysema type: unspecified Plan to address problem: DuoNebs as needed (6) Person under investigation for COVID-19 Current Visit: Yes Status: Acute Plan to address problem: Rule out COVID COVID test requested (7) CAD (coronary artery disease) Current Visit: Yes Status: Chronic Qualifiers: Coronary Disease-Associated Artery/Lesion type: [place] artery [place] vs. transplanted heart: [place] heart Plan to address problem: Continue aspirin and isosorbide mononitrate (8) Hyperthyroidism Current Visit: Yes Status: Chronic Plan to address problem: Patient was discharged on methimazole once a and was given for 14 days Recheck TSH and Thyroid profile #Obesity - BMI 33.2 - Counseled patient on the importance of weight loss, incorporating exercise, and dietary changes (lean meats, fresh fruits and vegetables, and water intake). Patient expresses understanding. - Time: +15 min #Advance care planning Disease education conducted, care plan discussed, diagnoses discussed, prognosis discussed, patient is full code, patient acknowledges understanding and agree with care plan, discussed about patient clinical course and answered all questions to satisfaction. +30 minutes. +30 minutes. History Interval history: Resting comfortably. Abdominal pain is improved. Hospitalist Physical - Physical exam Narrative exam: Physical Exam: VITAL SIGNS: Reviewed. GENERAL: The patient appears normally developed, Vital signs as documented. HEAD: No signs of head trauma. EYES: Pupils are equal. Extraocular motions intact. EARS: Hearing grossly intact. MOUTH: Oropharynx is normal. NECK: No adenopathy, no JVD. CHEST: Chest with clear breath sounds bilaterally. No wheezes, rales, or rhonchi. CARDIAC: Regular rate and rhythm. S1 and S2, without murmurs, gallops, or rubs. VASCULAR: No Edema. Peripheral pulses normal and equal in all extremities. ABDOMEN: Soft, non tender and non distended. No rebound or guarding, and no masses palpated. Bowel Sounds normal. MUSCULOSKELETAL: Good range of motion of all major joints. Extremities without clubbing, cyanosis or edema. NEUROLOGIC EXAM: Alert and oriented x 4. no focal sensory or strength deficits. PSYCHIATRIC: Mood normal. SKIN: detail exam as documented in skin assessment - Constitutional Vitals: Temp Pulse Resp BP Pulse Ox 99.6 F 61 19 159/59 98 09/03/21 08:30 09/03/21 18:46 09/03/21 18:46 09/03/21 18:46 09/04/21 04:10 General appearance: Present: mild distress, well-nourished HEART Score - HEART Score Risk factors: > 3 risk factors or hx of atherosclerotic disease Troponin: Troponin T < 0.010 ng/mL (0.00-0.029) 09/03/21 16:01 Troponin: < normal limit - Critical Actions Critical Actions: 0-3 pts:0.9-1.7%risk of adverse cardiac event.Candidate for discharge Results - Labs CBC & Chem 7: 09/04/21 11:29 09/04/21 11:29 Labs: Laboratory Last Values WBC 9.3 K/mm3 (4.5-11.0) 09/04/21 06:57 RBC 4.12 M/mm3 (3.65-5.03) 09/04/21 06:57 Hgb 10.3 gm/dl (10.1-14.3) 09/04/21 06:57 Hct 33.1 % (30.3-42.9) 09/04/21 06:57 MCV 81 fl (79-97) 09/04/21 06:57 MCH 25 pg (28-32) L 09/04/21 06:57 MCHC 31 % (30-34) 09/04/21 06:57 RDW 18.8 % (13.2-15.2) H 09/04/21 06:57 Plt Count 188 K/mm3 (140-440) 09/04/21 06:57 Lymph % (Auto) 6.8 % (13.4-35.0) L 09/04/21 06:57 [place] % (Auto) 6.8 % (0.0-7.3) 09/04/21 06:57 Eos % (Auto) 0.1 % (0.0-4.3) 09/04/21 06:57 Baso % (Auto) 0.1 % (0.0-1.8) 09/04/21 06:57 Lymph # (Auto) 0.6 K/mm3 (1.2-5.4) L 09/04/21 06:57 [place] # (Auto) 0.6 K/mm3 (0.0-0.8) 09/04/21 06:57 Eos # (Auto) 0.0 K/mm3 (0.0-0.4) 09/04/21 06:57 Baso # (Auto) 0.0 K/mm3 (0.0-0.1) 09/04/21 06:57 Seg Neutrophils % 86.2 % (40.0-70.0) H 09/04/21 06:57 Seg Neutrophils # 8.0 K/mm3 (1.8-7.7) H 09/04/21 06:57 PT 13.5 Sec. (12.2-14.9) 09/03/21 16:01 INR 0.91 (0.87-1.13) 09/03/21 16:01 APTT 29.2 Sec. (24.2-36.6) 09/03/21 16:01 Sodium 135 mmol/L (137-145) L 09/04/21 06:57 Potassium 3.1 mmol/L (3.6-5.0) L D 09/04/21 06:57 Chloride 99.4 mmol/L (98-107) 09/04/21 06:57 Carbon Dioxide 20 mmol/L (22-30) L 09/04/21 06:57 Anion Gap 19 mmol/L 09/04/21 06:57 BUN 21 mg/dL (7-17) H 09/04/21 06:57 Creatinine 1.7 mg/dL (0.6-1.2) H 09/04/21 06:57 Estimated GFR 36 ml/min 09/04/21 06:57 BUN/Creatinine Ratio 12 % 09/04/21 06:57 Glucose 320 mg/dL (65-100) H 09/04/21 06:57 POC Glucose 295 mg/dL (70-105) H 09/04/21 07:35 Lactic Acid 1.60 mmol/L (0.7-2.0) 09/03/21 18:45 Calcium 8.7 mg/dL (8.4-10.2) 09/04/21 06:57 Magnesium 1.80 mg/dL (1.7-2.3) 09/03/21 16:01 Total Bilirubin 0.30 mg/dL (0.1-1.2) 09/04/21 06:57 AST 17 units/L (5-40) 09/04/21 06:57 ALT 7 units/L (7-56) 09/04/21 06:57 Alkaline Phosphatase 115 units/L (35-129) 09/04/21 06:57 Total Creatine Kinase 39 units/L (30-135) 09/03/21 16:01 Troponin T < 0.010 ng/mL (0.00-0.029) 09/03/21 16:01 NT-Pro-B Natriuret Pep 1263 pg/mL (0-900) H 09/03/21 09:19 Total Protein 7.6 g/dL (6.3-8.2) 09/04/21 06:57 Albumin 3.3 g/dL (3.9-5) L 09/04/21 06:57 Albumin/Globulin Ratio 0.8 % 09/04/21 06:57 Lipase 25 units/L (13-60) 09/03/21 09:19 Urine Color Yellow (Yellow) 09/03/21 17:35 Urine Turbidity Slightly-cloudy (Clear) 09/03/21 17:35 Urine pH 6.0 (5.0-7.0) 09/03/21 17:35 Ur Specific [place] 1.018 (1.003-1.030) 09/03/21 17:35 Urine Protein 100 mg/dl mg/dL (Negative) 09/03/21 17:35 Urine Glucose (UA) 150 mg/dL (Negative) 09/03/21 17:35 Urine Ketones Neg mg/dL (Negative) 09/03/21 17:35 Urine Blood Sm (Negative) 09/03/21 17:35 Urine Nitrite Neg (Negative) 09/03/21 17:35 Urine Bilirubin Neg (Negative) 09/03/21 17:35 Urine Urobilinogen < 2.0 mg/dL (<2.0) 09/03/21 17:35 Ur Leukocyte Esterase Neg (Negative) 09/03/21 17:35 Urine WBC (Auto) 3.0 /HPF (0.0-6.0) 09/03/21 17:35 Urine RBC (Auto) < 1.0 /HPF (0.0-6.0) 09/03/21 17:35 U Epithel Cells (Auto) 2.0 /HPF (0-13.0) 09/03/21 17:35 Hyaline Casts 3 /LPF 09/03/21 17:35 Urine Mucus Few /HPF 09/03/21 17:35 Microbiology: Microbiology 09/03/21 18:45 Peripheral/Venous Blood Culture - Preliminary Culture in Progress 09/03/21 18:45 Peripheral/Venous Blood Culture - Preliminary Culture in Progress Active Medications - Current Medications Current Medications: Generic Name Dose Route Start Last Admin Trade Name Freq PRN Reason Stop Dose Admin Acetaminophen 650 mg 09/03/21 19:50 Acetaminophen 325 Mg Tab PO Q4H PRN Pain MILD(1-3)/Fever >100.5/LEE Albuterol 2 puff 09/04/21 06:35 Albuterol 8.5 Gm Mdi Inhalation IH QID PRN Shortness Of Breath Aspirin 81 mg 09/04/21 10:00 Aspirin Ec 81 Mg Tab PO DAILY [facility] Atorvastatin Calcium 40 mg 09/04/21 22:00 Atorvastatin 40 Mg Tab PO QHS [facility] Baclofen 10 mg 09/04/21 10:00 Baclofen 10 Mg Tab PO BID [facility] Clopidogrel Bisulfate 75 mg 09/04/21 10:00 Clopidogrel 75 Mg Tab PO QDAY [facility] Fluticasone Propionate 50 mcg 09/04/21 10:00 Fluticasone Propionate Nasal [place] 16 Gm NS QDAY [facility] Furosemide 40 mg 09/04/21 10:00 Furosemide 40 Mg Tab PO QDAY [facility] Gabapentin 300 mg 09/04/21 10:00 Gabapentin 300 Mg Cap PO QDAY [facility] Heparin Sodium (Porcine) 5,000 unit 09/03/21 22:00 09/03/21 22:04 Heparin 5,000 Unit/1 Ml Vial SUB-Q 5,000 unit Q12HR [facility] Administration Hydralazine HCl 100 mg 09/04/21 14:00 Hydralazine 100 Mg Tab PO Q8HR [facility] Hydroxyzine HCl 25 mg 09/04/21 06:35 Hydroxyzine Hcl 25 Mg Tab PO TID PRN itching/anxiety Dextrose/Sodium Chloride 1,000 mls @ 100 mls/hr 09/03/21 21:00 D5ns IV DIRECT [facility] Azithromycin 500 mg in 250 mls @ 250 mls/hr 09/04/21 18:00 Zithromax/Ns IV Q24H [facility] Ceftriaxone Sodium 2 gm in 100 mls @ 200 mls/hr 09/04/21 05:00 Rocephin/Ns 2 Gm/100 Ml IV Q24H [facility] Protocol Insulin Human Isoph/Insulin Regular 40 unit 09/04/21 08:00 Insulin Nph/Regular 70/30 Inj SUB-Q BIDAC [facility] Insulin Human Lispro 0 unit 09/04/21 07:30 09/04/21 08:11 Insulin Lispro 100 Unit/Ml SUB-Q 4 unit ACHS [facility] Administration Protocol Latanoprost drops 09/04/21 18:00 Latanoprost 0.005% Ophth Soln 2.5 Ml OU QPM [facility] Methimazole 5 mg 09/04/21 10:00 Methimazole 5 Mg Tab PO QDAY [facility] Miscellaneous Medication 0.63 mg 09/04/21 06:35 Albuterol Sulfate [Albuterol 0.63% Nebs] IH TID PRN Wheezing Miscellaneous Medication 2.5 mg 09/04/21 10:00 Apixaban PO BID [facility] Miscellaneous Medication 1 puff 09/04/21 10:00 Fluticasone/Umeclidin/Vilanter IH DAILY [facility] Morphine Sulfate 2 mg 09/03/21 19:50 Morphine 2 Mg/1 Ml Inj IV Q4H PRN Pain, Moderate (4-6) Nifedipine 60 mg 09/04/21 10:00 Nifedipine Xl 60 Mg Tab PO QDAY [facility] Ondansetron HCl 4 mg 09/03/21 19:50 Ondansetron 4 Mg/2 Ml Inj IV Q8H PRN Nausea And Vomiting Potassium Chloride 40 meq 09/03/21 20:01 Potassium Chloride Er 20 Meq Tab PO ONCE [facility] Sodium Chloride 10 ml 09/03/21 22:00 Sodium Chloride 0.9% 10 Ml Flush Syringe IV BID [facility] Sodium Chloride 10 ml 09/03/21 19:50 Sodium Chloride 0.9% 10 Ml Flush Syringe IV PRN PRN LINE FLUSH Valsartan 160 mg 09/04/21 10:00 Valsartan 160mg Tab PO BID [facility]
[2021-09-04] MEDS ORDERED: SODIUM CHLORIDE 0.9% 500 ML 500 ML IV ONE (09:22)
[2021-09-04] MEDS ORDERED: NON-FORMULARY EACH (Apixaban 2.5 MG Tablet) PO SCH (10:00)
[2021-09-04] MEDS ORDERED: NON-FORMULARY EACH (Fluticasone/Umeclidin/Vilanter 1 EACH Blst.W.Dev) IH SCH (10:00)
[2021-09-04] MEDS ORDERED: VALSARTAN 160MG TAB PO SCH (10:00)
[2021-09-04] MEDS: BACLOFEN 10 MG TAB PO SCH ×2 (10:56→21:10)
[2021-09-04] MEDS: methIMAzole 5 MG TAB PO SCH (10:57)
[2021-09-04] MEDS: ACETAMINOPHEN 325 MG TAB PO PRN ×2 (10:57→23:43)
[2021-09-04] MEDS: FUROSEMIDE 40 MG TAB PO SCH (10:57)
[2021-09-04] MEDS: CLOPIDOGREL 75 MG TAB PO SCH (10:57)
[2021-09-04] MEDS: ASPIRIN EC 81 MG TAB PO SCH (10:57)
[2021-09-04] MEDS: GABAPENTIN 300 MG CAP PO SCH (10:58)
[2021-09-04] MEDS: NIFEdipine XL 60 MG TAB PO SCH (11:03)
[2021-09-04] MEDS: INSULIN NPH/REGULAR 70/30 INJ SUB-Q SCH ×2 (11:09→16:38)
[2021-09-04] MEDS ORDERED: ALBUTEROL 2.5 MG/3 ML NEBU IH PRN (12:00)
[2021-09-04 12:04] LABS: Hematocrit 30.6 % (30.3-42.9); Hemoglobin 9.9 gm/dl (10.1-14.3); Mean Corpuscular HGB Conc 32 % (30-34); Mean Corpuscular Volume 79 fl (79-97); Platelet Count 192 K/mm3 (140-440); Red Blood Count 3.87 M/mm3 (3.65-5.03); Red Cell Distribution Width 18.5 % (13.2-15.2)
[2021-09-04 12:25] LABS: Calcium 8.6 mg/dL (8.4-10.2)
[2021-09-04 12:27] LABS: INR 0.92 (0.87-1.13)
[2021-09-04] MEDS: FLUTICASONE PROPIONATE NASAL SPRAY 16 GM NS SCH (12:34)
[2021-09-04 13:13] LABS: Partial Thromboplastin Time 29.9 Sec. (24.2-36.6)
[2021-09-04] MEDS ORDERED: POTASSIUM CHLORIDE ER 20 MEQ TAB PO NR (13:32)
[2021-09-04] MEDS: hydrALAZINE 100 MG TAB PO SCH ×2 (14:00→21:10)
[2021-09-04] MEDS: POTASSIUM CHLORIDE 10 MEQ 10 MEQ/100 ML BAG IV SCH ×2 (16:24→19:58)
[2021-09-04] MEDS: LATANOPROST 0.005% OPHTH SOLN 2.5 ML OU SCH (18:39)
[2021-09-04] MEDS: AZITHROMYCIN/NS 500 MG/250 ML 500 MG/250 ML BAG IV SCH (21:09)
[2021-09-04] MEDS: POTASSIUM CHLORIDE ER 20 MEQ TAB PO SCH ×2 (21:10→23:43)
[2021-09-04] MEDS: APIXABAN 2.5 MG TAB PO SCH (21:10)
[2021-09-05] MEDS: POTASSIUM CHLORIDE ER 20 MEQ TAB PO SCH ×3 (04:01→21:01)
[2021-09-05] MEDS: cefTRIAXone/NS 2 GM/100 ML 2 GM/100 ML BAG IV SCH ×2 (04:04)
[2021-09-05] MEDS: hydrALAZINE 100 MG TAB PO SCH ×3 (05:24→21:01)
[2021-09-05] MEDS: ASPIRIN EC 81 MG TAB PO SCH (10:09)
[2021-09-05] MEDS: GABAPENTIN 300 MG CAP PO SCH (10:09)
[2021-09-05] MEDS: CLOPIDOGREL 75 MG TAB PO SCH (10:09)
[2021-09-05] MEDS: NIFEdipine XL 60 MG TAB PO SCH (10:09)
[2021-09-05] MEDS: methIMAzole 5 MG TAB PO SCH (10:09)
[2021-09-05] MEDS: FLUTICASONE PROPIONATE NASAL SPRAY 16 GM NS SCH (10:09)
[2021-09-05] MEDS: APIXABAN 2.5 MG TAB PO SCH ×2 (10:10→21:01)
[2021-09-05] MEDS: INSULIN NPH/REGULAR 70/30 INJ SUB-Q SCH ×2 (10:10→16:15)
[2021-09-05] MEDS: INSULIN LISPRO 100 UNIT/ML SUB-Q SCH ×4 (10:11→21:03)
[2021-09-05] MEDS: FUROSEMIDE 40 MG TAB PO SCH (10:14)
[2021-09-05] MEDS: BACLOFEN 10 MG TAB PO SCH ×2 (10:14→21:01)
--- NOTE | 2021-09-05 15:10 | Electrocardiograph Report ---
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
--- NOTE | 2021-09-05 15:16 | Electrocardiograph Report ---
[facility] Test Date: 2021-09-04 Test Time: 07:13:33 Pat Name: KWABENA HERRERA Department: Room: A472 1 Gender: F Clinical Asst: ABRAHAM : 1950 Requested By: FEDERICO GÓMEZ Order Number: [id number] Reading MD: Karla Welsh Measurements Intervals [place] Rate: 63 P: 65 MN: 272 QRS: 44 QRSD: 87 T: 183 QT: 389 QTc: 417 Interpretive Statements Sinus rhythm Sinus pause Prolonged MN interval Probable LVH with secondary repol abnrm Compared to ECG 09/03/2021 09:52:36 Sinus pause or arrest now present Electronically Signed On 09-05-2021 15:15:46 EDT by Karla Welsh
[2021-09-05] MEDS ORDERED: LORazepam 2 MG/ML VIAL IV PRN ×2 (15:30)
[2021-09-05 15:55] LABS: Calcium 9.4 mg/dL (8.4-10.2)
[2021-09-05] MEDS: LATANOPROST 0.005% OPHTH SOLN 2.5 ML OU SCH (17:23)
[2021-09-05] MEDS: AZITHROMYCIN/NS 500 MG/250 ML 500 MG/250 ML BAG IV SCH (17:27)
[2021-09-05] MEDS: ACETAMINOPHEN 325 MG TAB PO PRN (21:01)
[2021-09-06] MEDS: cefTRIAXone/NS 2 GM/100 ML 2 GM/100 ML BAG IV SCH (04:00)
[2021-09-06] MEDS ORDERED: guaiFENesin DM 200/20 MG ORAL LIQD 10 ML PO PRN (05:11)
[2021-09-06] MEDS ORDERED: IPRATROPIUM/ALBUTEROL SULFATE 3 ML AMPUL.NEB IH PRN (05:12)
[2021-09-06] MEDS: hydrALAZINE 100 MG TAB PO SCH (05:44)
--- NOTE | 2021-09-06 06:18 | Progress Note ---
Assessment and Plan - Patient Problems (1) Right lower lobe pneumonia Current Visit: Yes Status: Acute Plan to address problem: Community acquired pneumonia Patient initiated on IV Zithromax and IV Rocephin DuoNebs as needed (2) Hypokalemia Current Visit: Yes Status: Acute Plan to address problem: Supplemented aggressively (3) Hypertension Current Visit: No Status: Chronic Qualifiers: Hypertension type: primary hypertension Qualified Code(s): I10 - Essential (primary) hypertension Plan to address problem: Continue antihypertensives and adjust medications as necessary Medications reconciled (4) IDDM (insulin dependent diabetes mellitus) Current Visit: Yes Status: Chronic Plan to address problem: Continue home insulin and coverage with sliding scale Check hemoglobin A1c (5) COPD (chronic obstructive pulmonary disease) Current Visit: Yes Status: Chronic Qualifiers: Emphysema type: unspecified Plan to address problem: DuoNebs as needed (6) Person under investigation for COVID-19 Current Visit: Yes Status: Acute Plan to address problem: Rule out COVID COVID test requested (7) CAD (coronary artery disease) Current Visit: Yes Status: Chronic Qualifiers: Coronary Disease-Associated Artery/Lesion type: [place] artery [place] vs. transplanted heart: [place] heart Plan to address problem: Continue aspirin and isosorbide mononitrate (8) Hyperthyroidism Current Visit: Yes Status: Chronic Plan to address problem: Patient was discharged on methimazole once a and was given for 14 days Recheck TSH and Thyroid profile Patient not on methimazole now Will defer to primary team for reevaluation of her hyperthyroidism (9) DVT prophylaxis Current Visit: No Status: Acute Plan to address problem: On anticoagulation and GI prophylaxis (10) Advance care planning Current Visit: No Status: Acute Plan to address problem: Disease education conducted: Care plan discussed, diagnosis discussed, prognosis discussed. And patient acknowledges understanding with care plan. Patient is full code. Plus treatment plan. (11) Discharge planning issues Current Visit: Yes Status: Acute Plan to address problem: Stable for discharge if potassium is corrected Subjective Date of service: 09/05/21 Principal diagnosis: Right lower lobe pneumonia Interval history: 70-year-old female with significant past medical history for hypertension, coronary artery disease, T2DM, DVT, COPD and acute OH in the past with multiple medical admissions comes in for generalized weakness and bilateral flank pain and suprapubic pain. Vomiting x4 today. No diarrhea. Cough and shortness of breath present. No dysuria. Abdominal pain is about 8 on a scale of 1-10 but intermittent in nature. No fever or chills. Cough present. Nonproductive. Previous admission in February 2021 reviewed. Patient admitted for acute hypoxemic respiratory failure due to CHF exacerbation and pulmonary edema, hypertensive emergency, history of latent TB which was treated, chronic tobacco abuse, hyperthyroidism on methimazole and insulin- dependent diabetes. Objective - Constitutional Vitals: Vital Signs - 12hr 09/05/21 09/05/21 09/05/21 20:27 20:31 22:14 Temperature 101.2 F H Pulse Rate 68 Respiratory 18 Rate Blood Pressure 126/54 Blood Pressure [Right] O2 Sat by Pulse 92 92 Oximetry 09/06/21 09/06/21 09/06/21 00:00 00:05 00:13 Temperature 98.4 F Pulse Rate 72 69 73 Respiratory 18 Rate Blood Pressure Blood Pressure 99/42 [Right] O2 Sat by Pulse 99 97 Oximetry 09/06/21 09/06/21 09/06/21 01:36 01:39 03:32 Temperature 96.9 F L Pulse Rate 51 L 66 54 L Respiratory 18 18 Rate Blood Pressure 102/41 Blood Pressure 100/40 [Right] O2 Sat by Pulse 99 99 99 Oximetry 09/06/21 09/06/21 09/06/21 03:35 03:39 05:03 Temperature 96.9 F L Pulse Rate 61 60 72 Respiratory Rate Blood Pressure 124/89 Blood Pressure 127/97 [Right] O2 Sat by Pulse 98 98 Oximetry General appearance: Present: no acute distress, well-nourished - EENT Eyes: PERRL, EOM intact ENT: hearing intact, clear oral mucosa Ears: bilateral: normal - Neck Neck: supple, normal ROM - Respiratory Respiratory effort: normal Respiratory: bilateral: CTA, rales (Scattered) - Breasts Breasts: normal - Cardiovascular Heart rate: 88 Rhythm: regular Heart Sounds: Present: S1 & S2. Absent: gallop, rub Extremities: pulses intact, No edema, normal color, Full ROM - Gastrointestinal General gastrointestinal: Present: soft, non-tender, non-distended, normal bowel sounds - Genitourinary Female genitourinary: normal - Integumentary Integumentary: clear, warm, dry - Musculoskeletal Musculoskeletal: 1, strength equal bilaterally - Neurologic Neurologic: moves all extremities - Psychiatric Psychiatric: memory intact, appropriate mood/affect, intact judgment & insight - Labs CBC & Chem 7: 09/06/21 05:34 09/06/21 05:34 Labs: Abnormal lab results 09/05/21 09/05/21 09/05/21 Range/Units 09:15 11:35 15:32 Potassium 2.9 L* (3.6-5.0) mmol/L Carbon Dioxide 19 L (22-30) mmol/L BUN 22 H (7-17) mg/dL Creatinine 2.0 H (0.6-1.2) mg/dL Glucose 144 H (65-100) mg/dL POC Glucose 283 H 212 H (70-105) mg/dL 09/05/21 Range/Units 16:09 Potassium (3.6-5.0) mmol/L Carbon Dioxide (22-30) mmol/L BUN (7-17) mg/dL Creatinine (0.6-1.2) mg/dL Glucose (65-100) mg/dL POC Glucose 111 H (70-105) mg/dL HEART Score - HEART Score Risk factors: > 3 risk factors or hx of atherosclerotic disease Troponin: Troponin T < 0.010 ng/mL (0.00-0.029) 09/03/21 16:01 Troponin: < normal limit - Critical Actions Critical Actions: 0-3 pts:0.9-1.7%risk of adverse cardiac event.Candidate for discharge
[2021-09-06 06:27] LABS: Hematocrit 32.8 % (30.3-42.9); Hemoglobin 10.3 gm/dl (10.1-14.3); Mean Corpuscular HGB Conc 31 % (30-34); Mean Corpuscular Volume 81 fl (79-97); Platelet Count 219 K/mm3 (140-440); Red Blood Count 4.05 M/mm3 (3.65-5.03); Red Cell Distribution Width 19.4 % (13.2-15.2)
[2021-09-06 06:30] LABS: Calcium 9.1 mg/dL (8.4-10.2)
[2021-09-06] MEDS ORDERED: POTASSIUM CHLORIDE ER 20 MEQ TAB PO NR (09:05)
[2021-09-06] MEDS: FLUTICASONE PROPIONATE NASAL SPRAY 16 GM NS SCH (10:11)
[2021-09-06] MEDS: APIXABAN 2.5 MG TAB PO SCH (10:12)
[2021-09-06] MEDS: NIFEdipine XL 60 MG TAB PO SCH (10:12)
[2021-09-06] MEDS: methIMAzole 5 MG TAB PO SCH (10:12)
[2021-09-06] MEDS: ASPIRIN EC 81 MG TAB PO SCH (10:13)
[2021-09-06] MEDS: FUROSEMIDE 40 MG TAB PO SCH (10:13)
[2021-09-06] MEDS: CLOPIDOGREL 75 MG TAB PO SCH (10:13)
[2021-09-06] MEDS: GABAPENTIN 300 MG CAP PO SCH (10:13)
[2021-09-06] MEDS: BACLOFEN 10 MG TAB PO SCH (10:13)
[2021-09-06] MEDS: INSULIN LISPRO 100 UNIT/ML SUB-Q SCH ×2 (10:31→13:22)
[2021-09-06] MEDS: INSULIN NPH/REGULAR 70/30 INJ SUB-Q SCH (10:31)
[2021-09-06 13:21] VITALS: BP 105/66
--- NOTE | 2021-09-06 15:23 | Discharge Summary ---
Providers - Providers Date of Admission: 09/03/21 19:50 Attending physician: GAURAV BOND Primary care physician: KAREN WATSON MD Hospitalization Condition: Fair Disposition: 30 STILL A PATIENT Exam - Constitutional Vitals: Temp Pulse Resp BP Pulse Ox 98.2 F 64 20 105/66 100 09/06/21 13:04 09/06/21 13:04 09/06/21 13:04 09/06/21 13:19 09/06/21 13:04 Plan Follow up with: PRIMARY MD SHIRLEY [Primary Care Provider] - 3-5 Days
== END 2021-09-06 17:20 | disposition home or self-care (01) | DRG 194 ==
LOC: ED 08:07 → 4A 19:50
PROVIDERS: ADMIT Internal Medicine; ATTEND Internal Medicine
DX: J18.9 Pneumonia, unspecified organism (principal); E87.2 Acidosis; Z79.4 Long term (current) use of insulin; E87.6 Hypokalemia; E11.9 Type 2 diabetes mellitus without complications; Z90.710 Acquired absence of both cervix and uterus; I50.9 Heart failure, unspecified; J44.9 Chronic obstructive pulmonary disease, unspecified; Z86.718 Personal history of other venous thrombosis and embolism; I11.0 Hypertensive heart disease with heart failure; E05.90 Thyrotoxicosis, unspecified without thyrotoxic crisis or storm
CPT/HCPCS: 36415; 71046; 74176; 80048; 80053; 81001; 82140; 82550; 82962; 83036; 83690; 83735; 83880; 84484; 85025; 85027; 85610; 85730; 87040; 93005; G0378; Q0177; Q9967; J0456; J0696; J1644; J1815; J2270; J2405; J3480; J7030; J7040; U0003